=== PATIENT | male | born 1950 | race Caucasian/White ===

== ENCOUNTER 2018-03-06 11:29 | Emergency (ER) | payer OTHER ==
[2018-03-06 11:40] VITALS: BMI 27.9
[2018-03-06 11:46] VITALS: TEMP 98.8
--- NOTE | 2018-03-06 12:26 | C.PDOC ---
History Of Present Illness 67 year old male, whose PMHx includes Diabetes, presents to the ED for evaluation of left lower leg pain which began around 3 days ago. Patient also reports ulceration to his left great toe which has been present for 2 weeks. He has been applying patches to the areas without relief. Patient denies fever, chills, chest pain, abdominal pain, or direct trauma/injury to the area. PMD: Rose Marie Cifuentes Time Seen by Provider: 03/06/18 11:59 Chief Complaint (Nursing): Lower Extremity Problem/Injury History Per: Patient History/Exam Limitations: no limitations Onset/Duration Of Symptoms: Days (3), Other (2 weeks ) Current Symptoms Are (Timing): Still Present Additional History Per: Patient - Ankle/Foot Description Of Injury: denies: Fell, Struck With Object, Struck Against Object Past Medical History Reviewed: Historical Data, Nursing Documentation, Vital Signs Vital Signs: Last Vital Signs Temp 98.8 F 03/06/18 11:40 Pulse 83 03/06/18 15:43 Resp 20 03/06/18 15:43 BP 164/90 H 03/06/18 15:43 Pulse Ox 95 03/06/18 15:43 - Medical History PMH: Benign Prostatic Hyperplasia (Prostatectomy 2012), Diabetes, HTN Denies: Chronic Kidney Disease Surgical History: No Surg Hx - [facility] Procedures CENTRAL VENOUS CATHETER PLACEMENT WITH GUIDANCE (01/25/13) INDWELL CATH IRRIG NEC (12/20/12) INSERT INDWELLING CATH (12/24/12) PACKED CELL TRANSFUSION (12/29/12) SUPRAPUBIC PROSTATECTOMY (12/29/12) TU BLADDER CLEARANCE (12/26/12) Family History: States: Unknown Family Hx - Social History Hx Tobacco Use: Yes Hx Alcohol Use: Yes Hx Substance Use: No - Immunization History Hx Tetanus Toxoid Vaccination: No Hx Influenza Vaccination: No Hx Pneumococcal Vaccination: No Review Of Systems Constitutional: Negative for: Fever, Chills Cardiovascular: Negative for: Chest Pain Gastrointestinal: Negative for: Abdominal Pain Musculoskeletal: Positive for: Leg Pain (left) Skin: Positive for: Other (ulceration to left great toe ) Physical Exam - Physical Exam Appears: Non-toxic, No Acute Distress Skin: Normal Color, Warm, Dry Head: Atraumatic, Normacephalic Eye(s): bilateral: Normal Inspection Oral Mucosa: Moist Neck: Supple Chest: Symmetrical, No Deformity, No Tenderness Cardiovascular: Rhythm Regular, No Murmur Respiratory: Normal Breath Sounds, No Rales, No Rhonchi, No Wheezing Gastrointestinal/Abdominal: Soft, No Tenderness, No Guarding, No Rebound Extremity: Normal ROM, Calf Tenderness (left), Capillary Refill (less than 2 seconds ), No Swelling, Other (ulceration to left great toe that is tender to palpation. no crepitus ) Pulses: Left Dorsalis Pedis: Normal, Right Dorsalis Pedis: Normal Neurological/Psych: Oriented x3, Normal Speech, Normal Cognition ED Course And Treatment - Laboratory Results Result Diagrams: 03/06/18 12:38 03/06/18 12:38 O2 Sat by Pulse Oximetry: 97 (on RA) Pulse Ox Interpretation: Normal Medical Decision Making Medical Decision Making: Assessment: left leg pain and left big toe cellulitis Plan: * bloodwork * urinalysis * CXR * left foot XR * Venous Duplex Scan Left lower extremity * Ultram PO * reassess and disposition Progress: Bloodwork, urinalysis, CXR, left foot XR, and Venous Duplex Scan left lower extremity ordered. Ultram PO given. 12:22 Case discussed with Podiatry resident, who states she will evaluate the patient at beside. 1510 - patient okay to be discharged as per podiatry. Doppler negative for dvt. Pain control for home and follow up with podiatry clinic on 03/13/18 podiatry initially did not want to start abics but now agree with augmentin for home. Disposition Counseled Patient/Family Regarding: Studies Performed, Diagnosis, Need For Followup, Rx Given - Disposition Referrals: Podiatry Clinic [Outside] (please report to [facility] on 03.13.18 at 12pm ) Disposition: HOME/ ROUTINE Disposition Time: 15:07 Condition: STABLE Additional Instructions: follow up with podiatry clinic as planned on 03.13.18 call to make an appointment take medications as prescribed return to ER if symptoms worsens or progress Prescriptions: Amoxicillin/Clavulanate [Augmentin 875 MG-125 MG] 1 tab PO BID #20 tab Naproxen [Naprosyn] 500 mg PO BID PRN #16 tab PRN Reason: Pain, Moderate (4-7) traMADol [Ultram] 50 mg PO TID PRN #12 tab PRN Reason: Pain, Moderate (4-7) Instructions: Mcneal Splints, Pressure Sores Forms: [facility] (Faroese), General Discharge Instructions - Clinical Impression Clinical Impression: Toe ulcer, Leg pain - Scribe Statement The provider has reviewed the documentation as recorded by the Scribe (Aliza Flores) Provider Attestation: All medical record entries made by the Scribe were at my direction and personally dictated by me. I have reviewed the chart and agree that the record accurately reflects my personal performance of the history, physical exam, medical decision making, and the department course for this patient. I have also personally directed, reviewed, and agree with the discharge instructions and disposition.
[2018-03-06 12:42] LABS: BASO # 0.1 K/uL (0.0-0.2); BASO % 0.9 % (0.0-2.0); EOS # 0.1 K/uL (0.0-0.7); EOS % 0.8 % (0.0-4.0); HEMOGLOBIN 14.9 g/dL (12.0-18.0); LYMPH # 1.5 K/uL (1.0-4.3); LYMPH % 15.9 % (20.0-40.0); MEAN CORPUSCULAR HEMOGLOBIN 29.7 pg (27.0-31.0); MEAN CORPUSCULAR HGB CONC 34.2 g/dL (33.0-37.0); MONO # 0.9 K/uL (0.0-0.8); MONO % 9.2 % (0.0-10.0); NEUT # 6.8 K/uL (1.8-7.0); NEUT % 73.2 % (50.0-75.0); RBC 5.01 Mil/uL (4.40-5.90); RED CELL DISTRIBUTION WIDTH 13.3 % (11.5-14.5); WHITE BLOOD COUNT 9.3 K/uL (4.8-10.8)
[2018-03-06 12:49] LABS: PROTHROMBIN TIME 10.8 SECONDS (9.7-12.2)
[2018-03-06 12:51] LABS: MEAN CELL VOLUME 86.8 fL (80.0-94.0)
[2018-03-06 12:59] LABS: ALBUMIN 4.1 g/dL (3.5-5.0); BLOOD UREA NITROGEN 20 mg/dL (9-20); CALCIUM 9.5 mg/dl (8.6-10.4); GFR AFRICAN-AMERICAN > 60; GFR NON-AFRICAN AMERICAN > 60
[2018-03-06 13:00] LABS: ALB/GLOB RATIO 1.1 (1.0-2.1); ALT/SGPT 18 U/L (21-72); AST/SGOT 14 U/L (17-59)
[2018-03-06 13:06] LABS: URINE BILIRUBIN NEGATIVE (NEGATIVE); URINE BLOOD NEGATIVE (NEGATIVE); URINE CLARITY Clear (Clear); URINE COLOR Yellow (YELLOW); URINE GLUCOSE (UA) 3+ mg/dL (Normal); URINE LEUKOCYTE ESTERASE NEG Leu/uL (Negative); URINE PROTEIN 2+ mg/dL (NEGATIVE)
--- NOTE | 2018-03-06 13:14 | RAD ---
Date of service: 03/06/2018 PROCEDURE: CHEST RADIOGRAPH, 1 VIEW HISTORY: SOB COMPARISON: Chest radiograph dated 01/06/2016. FINDINGS: LUNGS: Clear. PLEURA: No pneumothorax or pleural fluid seen. CARDIOVASCULAR: Normal. OSSEOUS STRUCTURES: Unchanged. VISUALIZED UPPER ABDOMEN: Normal. OTHER FINDINGS: None. IMPRESSION: No active disease.
--- NOTE | 2018-03-06 13:15 | RAD ---
Date of service: 03/06/2018 PROCEDURE: Left Foot Radiographs. HISTORY: toe redness COMPARISON: None. FINDINGS: BONES: No acute fracture. JOINTS: Normal. SOFT TISSUES: Normal. OTHER FINDINGS: Small inferior plantar calcaneal spur. IMPRESSION: No demonstrated fracture or dislocation. Heel spur.
[2018-03-06 13:29] LABS: SQUAMOUS EPITHIAL < 1 /hpf (0-5)
--- NOTE | 2018-03-06 13:43 | CP.PCM.CON ---
History of Present Illness - History of Present Illness History of Present Illness: Podiatry Consult Note - Dr. Hoskins 67M PMHx DM, HLD seen and evaluated in ED regarding left leg pain and left great toe wound. Patient hemodynamically stable and NAD. Family present at bedside. Patient c/o pain in left calf which started 3 days ago. Patient denies any trauma or change in activity. Patient states he ambulates without any issues ; denies any symptoms of calf pain when walking long distances. Patient also complains of an ulcer to the bottom of his left great toe x2-3 weeks. Patient states the wound first started out as a blister which he popped, then developed into a larger wound. Patient denies any prior treatment or dressings to wound. Patient denies any pain to left great toe. Denies N/V/F/D/C/SOB. Review of Systems - Review of Systems All systems: reviewed and no additional remarkable complaints except (as per HPI ) Past Patient History - Infectious Disease Hx of Infectious Diseases: None - Past Medical History & Family History Past Medical History?: Yes - Past Social History Smoking Status: Light Smoker < 10 Cigarettes Daily - CARDIAC Hx Hypertension: Yes - PULMONARY Hx Respiratory Disorders: No - NEUROLOGICAL Hx Neurological Disorder: No - HEENT Hx HEENT Problems: No - RENAL Hx Chronic Kidney Disease: No - ENDOCRINE/METABOLIC Hx Endocrine Disorders: Yes Hx Diabetes Mellitus Type 2: Yes - HEMATOLOGICAL/ONCOLOGICAL Hx Blood Disorders: No - INTEGUMENTARY Hx Dermatological Problems: No - MUSCULOSKELETAL/RHEUMATOLOGICAL Hx Musculoskeletal Disorders: No Hx Falls: No - GASTROINTESTINAL Hx Gastrointestinal Disorders: No - GENITOURINARY/GYNECOLOGICAL Hx Genitourinary Disorders: Yes Hx Prostate Problems: Yes - PSYCHIATRIC Hx Substance Use: No - SURGICAL HISTORY Hx Surgeries: Yes Other/Comment: Prostatectomy - ANESTHESIA Hx Anesthesia: Yes Hx Anesthesia Reactions: No Hx Malignant Hyperthermia: No Meds Home Medications: Home Medication List Medication Instructions Recorded Confirmed Type Amoxicillin/Clavulanate [Augmentin 1 tab PO BID #20 tab 03/06/18 Rx 875 MG-125 MG] Naproxen [Naprosyn] 500 mg PO BID PRN #16 tab 03/06/18 Rx traMADol [Ultram] 50 mg PO TID PRN #12 tab 03/06/18 Rx Allergies/Adverse Reactions: Allergies Allergy/AdvReac Type Severity Reaction Status Date / Time No Known Allergies Allergy Verified 03/06/18 11:40 Physical Exam - Constitutional Appears: Well, Non-toxic, No Acute Distress - Extremities Exam Additional comments: LLE focused physical exam VASC: DP and PT pulses palpable 2/4. CFT <3 seconds to digits x5. Temperature gradient warm to warm. No increase in warmth noted to left hallux. Mild nonpitting edema noted to left hallux. No edema noted to leg. NEURO: Gross sensation diminished DERM: Full thickness ulceration noted to plantar aspect of left hallux measuring approximately 1.4 x 1.4 x 0.1 cm extending down to subcutaneous tissue ; no drainage noted; malodor present; no purulence present; no fluctuance; no undermining; no probe to bone. Erythema extending proximal to 1st MPJ. No erythema noted to leg. ORTHO: No pain on palpation noted to left hallux ulcer. Pain upon calf squeeze. Pain on palpation medial calf. Muscle strength 5/5 for all dorsiflexors, plantarflexors, inverters, and everters. - Neurological Exam Neurological exam: Alert, Oriented x3 - Psychiatric Exam Psychiatric exam: Normal Affect, Normal Mood Results - Vital Signs Recent Vital Signs: Last Vital Signs Temp 98.8 F 03/06/18 11:40 Pulse 87 03/06/18 11:40 Resp 16 03/06/18 11:40 BP 157/91 H 03/06/18 11:40 Pulse Ox 97 03/06/18 12:36 - Labs Result Diagrams: 03/06/18 12:38 03/06/18 12:38 Labs: Laboratory Results - last 24 hr 03/06/18 03/06/18 03/06/18 11:43 12:38 12:38 WBC 9.3 RBC 5.01 Hgb 14.9 Hct 43.5 MCV 86.8 D MCH 29.7 MCHC 34.2 RDW 13.3 Plt Count 235 MPV 8.0 Neut % (Auto) 73.2 Lymph % (Auto) 15.9 L [place] % (Auto) 9.2 Eos % (Auto) 0.8 Baso % (Auto) 0.9 Neut # (Auto) 6.8 Lymph # (Auto) 1.5 [place] # (Auto) 0.9 H Eos # (Auto) 0.1 Baso # (Auto) 0.1 PT 10.8 INR 1.0 APTT 35 H Sodium Potassium Chloride Carbon Dioxide Anion Gap BUN Creatinine Est GFR ( Amer) Est GFR (Non-Af Amer) POC Glucose (mg/dL) 202 H Random Glucose Calcium Total Bilirubin AST ALT Alkaline Phosphatase Total Creatine Kinase Total Protein Albumin Globulin Albumin/Globulin Ratio Urine Color Urine Clarity Urine pH Ur Specific [place] Urine Protein Urine Glucose (UA) Urine Ketones Urine Blood Urine Nitrate Urine Bilirubin Urine Urobilinogen Ur Leukocyte Esterase Urine WBC (Auto) Urine RBC (Auto) Ur Squamous Epith Cells 03/06/18 03/06/18 12:38 12:38 WBC RBC Hgb Hct MCV MCH MCHC RDW Plt Count MPV Neut % (Auto) Lymph % (Auto) [place] % (Auto) Eos % (Auto) Baso % (Auto) Neut # (Auto) Lymph # (Auto) [place] # (Auto) Eos # (Auto) Baso # (Auto) PT INR APTT Sodium 139 Potassium 3.9 Chloride 97 L Carbon Dioxide 31 H Anion Gap 15 BUN 20 Creatinine 1.0 Est GFR ( Amer) > 60 Est GFR (Non-Af Amer) > 60 POC Glucose (mg/dL) Random Glucose 176 H Calcium 9.5 Total Bilirubin 0.9 AST 14 L ALT 18 L Alkaline Phosphatase 114 Total Creatine Kinase 50 L Total Protein 7.8 Albumin 4.1 Globulin 3.7 Albumin/Globulin Ratio 1.1 Urine Color Yellow Urine Clarity Clear Urine pH 5.0 Ur Specific [place] 1.026 Urine Protein 2+ H Urine Glucose (UA) 3+ H Urine Ketones Negative Urine Blood Negative Urine Nitrate Negative Urine Bilirubin Negative Urine Urobilinogen 4.0 Ur Leukocyte Esterase Neg Urine WBC (Auto) < 1 Urine RBC (Auto) < 1 Ur Squamous Epith Cells < 1 Assessment & Plan - Assessment and Plan (Free Text) Assessment: 67M with 1) left hallux ulcer 2/2 diabetic neuropathy and 2) left leg pain, musculoskeletal v. DVT Plan: Patient seen and evaluated Discussed with attending, Dr. Hoskins Left foot XR reviewed: unremarkable LLE venous duplex: negative for DVT Wound sharply debrided without incident; silvadene applied to wound -advised patient to continue daily dressing changes at home, thin later of silvadene with DSD Rx Augmentin x10 days Pain control per ED Patient to follow up in [facility] next Tuesday for evaluation of ulceration Advised patient to return to ED if he develops signs and symptoms of infection, or symptoms worsen Thank you for the consult
[2018-03-06] MEDS ORDERED: Silver Sulfadiazine 1% Cream (20 gm) TOP SCH (14:30)
[2018-03-06] MEDS ORDERED: Silver Sulfadiazine 1% Cream (20 gm) ONE (14:48)
[2018-03-06] MEDS ORDERED: Amoxicillin-Clav 875-125 mg Tab PO STA (15:17)
[2018-03-06] MEDS ORDERED: Amoxicillin-Clav 875-125 mg Tab PO ONE (15:37)
[2018-03-06 15:43] VITALS: BP 164/90; PULSE 83; RESP 20
[2018-03-06 18:47] VITALS: O2SAT 97
--- NOTE | 2018-03-07 12:17 | VASCLAB ---
Date of service: 03/06/2018 PROCEDURE: Left Lower Extremity Venous Duplex Exam. HISTORY: calf tenderness PRIORS: None. TECHNIQUE: Left common femoral, femoral, popliteal and posterior tibial, peroneal and great saphenous veins were evaluated. Flow was assessed with color Doppler, compressibility, assessment of phasic flow and augmentation response. Report prepared by XIOMARA Avilez, RVT FINDINGS: LEFT: 1. Common Femoral Vein: 1.1. Compressibility - Fully compressible: Thrombus - None : Flow - Phasic: Augmentation -Normal: Reflux - None. 2. Femoral Vein: 2.1. Compressibility - Fully compressible: Thrombus - None: Flow - Phasic: Augmentation -Normal: Reflux - None. 3. Popliteal Vein: 3.1. Compressibility - Fully compressible: Thrombus - None: Flow - Phasic: Augmentation -Normal: Reflux - None. 4. Posterior Tibial Vein: 4.1. Compressibility - Fully compressible: Thrombus - None: Flow - Phasic: Augmentation -Normal: Reflux - None. 5. Peroneal Vein: 5.1. Compressibility - Fully compressible: Thrombus - None: Flow - Phasic: Augmentation -Normal: Reflux - None. 6. Great Saphenous Vein: 6.1. Compressibility - Fully compressible: Thrombus - None: Flow - Phasic: Augmentation - Normal: Reflux - None. OTHER FINDINGS: IMPRESSION: No evidence of deep or superficial vein thrombosis of the left lower extremity with excellent venous flow. Normal valve function noted of the left side. Normal venous flow noted in the right common femoral vein.
== END 2018-03-06 16:19 | disposition home or self-care (01) ==
LOC: C.ER 11:29
DX: E11.621 Type 2 diabetes mellitus with foot ulcer (principal); L97.529 Non-pressure chronic ulcer of other part of left foot with unspecified severity; M79.605 Pain in left leg; I10 Essential (primary) hypertension; F17.210 Nicotine dependence, cigarettes, uncomplicated

== ENCOUNTER 2018-03-18 19:18 | Emergency (ER) | payer OTHER ==
[2018-03-18 19:18] VITALS: BMI 27.9
[2018-03-18 19:42] VITALS: TEMP 98
[2018-03-18] MEDS ORDERED: Lidocaine 5% Patch TD STA (19:42)
--- NOTE | 2018-03-18 19:43 | C.PDOC ---
History Of Present Illness 67 year old male presents to the emergency department with complaints of left- sided lower back pain which he states developed yesterday, radiating down his left leg. Patient reports the pain has worsened when he is walking and bending down. He denies trauma, numbness, weakness, bowel or bladder incontinence, and abdominal pain. Patient is also reporting that he has a chronic wound to the left great toe that he would like checked. Time Seen by Provider: 03/18/18 19:28 Chief Complaint (Nursing): Back Pain History Per: Patient History/Exam Limitations: no limitations Onset/Duration Of Symptoms: Days (1) Current Symptoms Are (Timing): Still Present Quality Of Discomfort: "Pain" Associated Symptoms: denies: Incontinence, New Weakness, New Numbness Exacerbating Factor(s): Standing, Other (walking) Past Medical History Reviewed: Historical Data, Nursing Documentation, Vital Signs Vital Signs: Last Vital Signs Temp 98.0 F 03/18/18 19:20 Pulse 64 03/18/18 20:32 Resp 16 03/18/18 20:32 BP 146/85 03/18/18 20:32 Pulse Ox 95 03/18/18 20:35 - Medical History PMH: Benign Prostatic Hyperplasia (Prostatectomy 2012), Diabetes, HTN Denies: Chronic Kidney Disease Surgical History: No Surg Hx - [facility] Procedures CENTRAL VENOUS CATHETER PLACEMENT WITH GUIDANCE (01/25/13) INDWELL CATH IRRIG NEC (12/20/12) INSERT INDWELLING CATH (12/24/12) PACKED CELL TRANSFUSION (12/29/12) SUPRAPUBIC PROSTATECTOMY (12/29/12) TU BLADDER CLEARANCE (12/26/12) Family History: States: No Known Family Hx - Social History Hx Tobacco Use: Yes Hx Alcohol Use: Yes Hx Substance Use: No - Immunization History Hx Tetanus Toxoid Vaccination: No Hx Influenza Vaccination: No Hx Pneumococcal Vaccination: No Review Of Systems Except As Marked, All Systems Reviewed And Found Negative. Gastrointestinal: Negative for: Abdominal Pain Genitourinary: Negative for: Incontinence Musculoskeletal: Positive for: Back Pain, Leg Pain (left leg pain radiating down from left-sided back) Neurological: Negative for: Weakness, Numbness Physical Exam - Physical Exam Appears: Non-toxic, No Acute Distress Skin: Normal Color, No Rash Head: Atraumatic, Normacephalic Eye(s): bilateral: Normal Inspection Oral Mucosa: Moist Neck: Normal ROM, No Midline Cervical Tenderness, No Paracervical Tenderness, Supple Chest: Symmetrical, No Tenderness Cardiovascular: Rhythm Regular, No Friction Rub, No Murmur Respiratory: Normal Breath Sounds, No Rales, No Rhonchi, No Wheezing Gastrointestinal/Abdominal: Soft, No Tenderness Back: No CVA Tenderness, Other (Left sided paralumbar tenderness) Extremity: Normal ROM, No Tenderness, No Swelling, Other (1cm area of healing wound to the plantar aspect of the great left toe. ) Pulses: Left Dorsalis Pedis: Normal, Right Dorsalis Pedis: Normal Neurological/Psych: Oriented x3, Normal Speech, Normal Motor, Normal Sensation Gait: Steady ED Course And Treatment O2 Sat by Pulse Oximetry: 95 (on RA) Pulse Ox Interpretation: Normal Progress Note: Plan: Flexeril 10mg PO. Lidoderm 5% 1ea TD. Tylenol 975mg PO. XR L-Spine AP LAT Medical Decision Making Medical Decision Making: On re-exam, the patient reports improvement of symptoms. Lungs are CTA, heart is RRR, abdomen is soft, non-tender and tolerating Po well. Ambulatory in the ED with steady gait. The wound to the toe appears to be improving. Patient was instructed to continue taking antibiotics until complete. Disposition - Disposition Referrals: Deven Harmon MD [Non-Staff] - [facility] [Outside] Disposition: HOME/ ROUTINE Disposition Time: 20:22 Condition: GOOD Additional Instructions: Follow up with the Liquor Department Manager within 1-2 days without fail. return if worsened Prescriptions: Acetaminophen [Tylenol] 325 mg PO Q6 PRN #30 tab PRN Reason: Pain, Mild (1-3) Cyclobenzaprine [Flexeril] 5 mg PO TID #21 tab Lidocaine 5% [Lidoderm] 1 each TP DAILY #10 patch Instructions: Low Back Pain (DC) Forms: [employer] (Cook Islander) - Clinical Impression Clinical Impression: Diabetic ulcer of toe, Low back pain - PA / DATA CONTROL ASSISTANT / Resident Statement MD/DO has reviewed & agrees with the documentation as recorded. - Scribe Statement The provider has reviewed the documentation as recorded by the Scribe (Brad Casas) All medical record entries made by the Scribe were at my direction and personally dictated by me. I have reviewed the chart and agree that the record accurately reflects my personal performance of the history, physical exam, medical decision making, and the department course for this patient. I have also personally directed, reviewed, and agree with the discharge instructions and disposition.
[2018-03-18] MEDS ORDERED: Lidocaine 5% Patch TD ONE (19:49)
[2018-03-18 20:32] VITALS: BP 146/85; PULSE 64; RESP 16
[2018-03-18 20:34] VITALS: O2SAT 95
--- NOTE | 2018-03-19 08:28 | RAD ---
Date of service: 03/18/2018 PROCEDURE: Radiographs of the Lumbar Spine. HISTORY: low back pain, COMPARISON: No prior. FINDINGS: BONES: Straightened lumbar curvature without fracture or spondylolisthesis identified. Multilevel spondylosis appears moderate and affects the mid to inferior levels mostly. Disc height loss is prominent at L5-S1 and mild L4-5 further compatible with degenerative disc disease. Remaining intervertebral disc heights are normal prevertebral body heights are normal throughout. DISC SPACES: As above. OTHER FINDINGS: None. IMPRESSION: Straightened lumbar curvature without fracture or spondylolisthesis. Multilevel degenerative spondylosis predominantly at mid and inferior lumbar levels.
== END 2018-03-18 20:34 | disposition home or self-care (01) ==
LOC: C.ER 19:18
DX: M54.5 Low back pain (principal); E11.621 Type 2 diabetes mellitus with foot ulcer; L97.529 Non-pressure chronic ulcer of other part of left foot with unspecified severity

== ENCOUNTER 2018-04-05 07:34 | Inpatient (IN) | payer OTHER ==
[2018-04-05 07:34] VITALS: BMI 27.9
--- NOTE | 2018-04-05 08:44 | C.PDOC ---
History Of Present Illness 67 y/o male presents to ED sent by Dr. Marie for further evaluation and possible admission of non healing ulcer to plantar aspect of left great toe. Patient has had ulcer for 1 month and failed outpatient antibiotics. Patient denies fever, numbness to foot or any other complaints at this time. Time Seen by Provider: 04/05/18 07:50 Chief Complaint (Nursing): Lower Extremity Problem/Injury History Per: Patient History/Exam Limitations: no limitations Onset/Duration Of Symptoms: Days Current Symptoms Are (Timing): Still Present Past Medical History Reviewed: Historical Data, Nursing Documentation, Vital Signs Vital Signs: Last Vital Signs Temp 97.9 F 04/05/18 07:35 Pulse 80 04/05/18 07:35 Resp 18 04/05/18 07:35 BP 137/76 04/05/18 07:35 Pulse Ox 97 04/05/18 14:21 - Medical History PMH: Benign Prostatic Hyperplasia (Prostatectomy 2012), Diabetes, HTN Surgical History: No Surg Hx - [facility] Procedures CENTRAL VENOUS CATHETER PLACEMENT WITH GUIDANCE (01/25/13) INDWELL CATH IRRIG NEC (12/20/12) INSERT INDWELLING CATH (12/24/12) PACKED CELL TRANSFUSION (12/29/12) SUPRAPUBIC PROSTATECTOMY (12/29/12) TU BLADDER CLEARANCE (12/26/12) Family History: States: No Known Family Hx - Social History Hx Tobacco Use: Yes Hx Alcohol Use: Yes Hx Substance Use: No - Immunization History Hx Tetanus Toxoid Vaccination: No Hx Influenza Vaccination: No Hx Pneumococcal Vaccination: No Review Of Systems Constitutional: Negative for: Fever, Chills Skin: Positive for: Other (unhealed ulcer to left great toe). Negative for: Rash Neurological: Negative for: Weakness, Numbness Physical Exam - Physical Exam Appears: Non-toxic, No Acute Distress Skin: Warm, Dry, Other (ecchymotic left great toe, plantar aspect to left big toe unhealed ulcer noted. no drainage) Head: Atraumatic, Normacephalic Eye(s): bilateral: Normal Inspection Oral Mucosa: Moist Cardiovascular: Rhythm Regular Respiratory: Normal Breath Sounds, No Rales, No Rhonchi, No Wheezing Extremity: No Pedal Edema, Capillary Refill (<2 seconds), No Deformity Pulses: Left Dorsalis Pedis: Normal Neurological/Psych: Oriented x3, Normal Motor, Normal Sensation ED Course And Treatment - Laboratory Results Result Diagrams: 04/05/18 09:01 04/05/18 09:01 Lab Interpretation: No Acute Changes ECG: Interpreted By Me ECG Rhythm: Sinus Rhythm ECG Interpretation: No Acute Changes Rate From EC O2 Sat by Pulse Oximetry: 97 (RA) Pulse Ox Interpretation: Normal - Other Rad No standard instances X-Ray: Read By Radiologist Interpretation: FINDINGS: BONES: Normal. No fracture. Re- demonstrated is a small enthesophyte arising from the plantar surface of the calcaneus. . JOINTS : Normal. SOFT TISSUES: Normal. OTHER FINDINGS: None. IMPRESSION: No acute fractures. Progress Note: Treated with IVF NSS, Vancomycin and zosyn. Consult for Dr Ghotra Reassessment Condition: Unchanged - Physician Consult Information Physician Contacted: Joseph Flores Outcome Of Conversation: admit Disposition Discussed With .: Joseph Flores Doctor Will See Patient In The: Hospital - Disposition Disposition: HOSPITALIZED Disposition Time: 10:30 Condition: STABLE - POA Present On Arrival: None - Clinical Impression Clinical Impression: Diabetic ulcer of toe - PA / GROUT MACHINE TENDER / Resident Statement MD/DO has reviewed & agrees with the documentation as recorded. - Scribe Statement The provider has reviewed the documentation as recorded by the Lalaibvalerie Corrigan All medical record entries made by the Olegario were at my direction and personally dictated by me. I have reviewed the chart and agree that the record accurately reflects my personal performance of the history, physical exam, medical decision making, and the department course for this patient. I have also personally directed, reviewed, and agree with the discharge instructions and disposition. Decision To Admit - Pt Status Changed To: Hospital Disposition Of: Inpatient - Admit Certification Admit to Inpatient:: After my assessment, the patient will require hospitalization for at least two midnights. This is because of the severity of symptoms shown, intensity of services needed, and/or the medical risk in this patient being treated as an outpatient. - InPatient: Physician Admission Certification: I certify that this patient requires 2 or more midnights of care for the following reason:: Diabetic Foot Ulcer. PVD - . Bed Request Type: Regular Admitting Physician: Joseph Flores Patient Diagnosis: Diabetic ulcer of toe
[2018-04-05 09:12] LABS: BASO % 0.4 % (0.0-2.0); EOS # 0.1 K/uL (0.0-0.7); EOS % 2.1 % (0.0-4.0); HEMOGLOBIN 14.8 g/dL (12.0-18.0); LYMPH # 1.6 K/uL (1.0-4.3); LYMPH % 23.4 % (20.0-40.0); MEAN CELL VOLUME 85.9 fL (80.0-94.0); MEAN CORPUSCULAR HEMOGLOBIN 28.6 pg (27.0-31.0); MEAN CORPUSCULAR HGB CONC 33.3 g/dL (33.0-37.0); MEAN PLATELET VOLUME 7.9 fL (7.2-11.7); MONO # 0.8 K/uL (0.0-0.8); NEUT # 4.3 K/uL (1.8-7.0); NEUT % 63.1 % (50.0-75.0); NRBC % 0.1 % (0.0-2.0); RBC 5.16 Mil/uL (4.40-5.90); RED CELL DISTRIBUTION WIDTH 13.3 % (11.5-14.5); WHITE BLOOD COUNT 6.9 K/uL (4.8-10.8)
[2018-04-05 09:31] LABS: SQUAMOUS EPITHIAL < 1 /hpf (0-5); URINE BILIRUBIN NEGATIVE (NEGATIVE); URINE BLOOD NEGATIVE (NEGATIVE); URINE CLARITY Clear (Clear); URINE COLOR Yellow (YELLOW); URINE GLUCOSE (UA) 3+ mg/dL (Normal); URINE LEUKOCYTE ESTERASE NEG Leu/uL (Negative); URINE PROTEIN 2+ mg/dL (NEGATIVE); URINE UROBILINOGEN NORMAL mg/dL (0.2-1.0)
--- NOTE | 2018-04-05 09:35 | RAD ---
Date of service: 04/05/2018 PROCEDURE: Left Foot Radiographs. HISTORY: ulcer COMPARISON: Comparison made with prior radiographs of the left foot dated 03/06/2018. FINDINGS: BONES: Normal. No fracture. Re- demonstrated is a small enthesophyte arising from the plantar surface of the calcaneus. . JOINTS: Normal. SOFT TISSUES: Normal. OTHER FINDINGS: None. IMPRESSION: No acute fractures.
[2018-04-05 09:44] LABS: ALB/GLOB RATIO 1.2 (1.0-2.1); ALBUMIN 4.3 g/dL (3.5-5.0); ALT/SGPT 26 U/L (21-72); AST/SGOT 19 U/L (17-59); BLOOD UREA NITROGEN 24 mg/dL (9-20); CALCIUM 9.6 mg/dl (8.6-10.4); GFR NON-AFRICAN AMERICAN > 60
[2018-04-05] MEDS ORDERED: Piperacillin/Tazobact 3.375 gm 100 ML IV STA (10:19)
[2018-04-05] MEDS ORDERED: Vancomycin 1 GM 1 GM/250 ML BAG IV SCH (10:30)
[2018-04-05] MEDS ORDERED: Vancomycin 1 gm/NS 200 ml 1 GM/200 ML BAG IVPB STA (10:34)
[2018-04-05] MEDS ORDERED: Piperacillin/Tazobact 3.375 gm 100 ML IVPB ONE (10:58)
[2018-04-05] MEDS ORDERED: CANAGLIFLOZIN 300 MG PO SCH (12:00)
[2018-04-05] MEDS ORDERED: Dextrose 50% SYRINGE Inj (50 ml) IV PRN (12:11)
[2018-04-05] MEDS ORDERED: Glucagon Recombinant 1 mg Inj IM PRN (12:11)
--- NOTE | 2018-04-05 13:26 | CP.PCM.HP ---
Addendum entered and electronically signed by Lisa Dunn 04/05/18 16:23: LE MRI reveals acute osteomyelitis Original Note: <Lisa Dunn - Last Filed: 04/05/18 16:13> History of Present Illness - History of Present Illness History of Present Illness: 67 yo M w/ a PMHx of DM2 presents to the ED at the request of podiatry for a worsening 1st toe infection. Patient's injury first started approximately 1 month ago when he reports he began picking at some dry skin on the plantar surface of the 1st great toe. Patient then noticed the area became infected and presented to the ED on 03/06 for evaluation. Pt was discharged on Augmentin 10 days, to follow up w/ podiatry. Patient was not compliant w/ podiatry's recommendation to wear a boot. Pt reports his pain improved so he normal activity without his boot. Patient's daughter then noticed toe becoming more erythematous. At podiatry follow up yesterday, it was recommended pt return to ED for thorough evaluation. PMD. Mami PMHx: DM2 PSHx: Meds: Invokana 300mg PO, Metformin 500mg PO BID Allergies: NKDA Soc Hx: 1-2 cigs/day, 5-6 drinks per week, denies drug use. 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 Fam Hx: DM, HTN FULL CODE Present on Admission - Present on Admission Any Indicators Present on Admission: No Review of Systems - Constitutional Constitutional: absent: Chills - EENT Eyes: absent: Change in Vision - Cardiovascular Cardiovascular: absent: Chest Pain, Claudication, Dyspnea on Exertion, Palpitations - Respiratory Respiratory: absent: Cough, Dyspnea - Gastrointestinal Gastrointestinal: absent: Abdominal Pain, Constipation, Diarrhea, Hematochezia - Genitourinary Genitourinary: absent: Difficulty Urinating, Dysuria - Integumentary Integumentary: Erythema, Wounds (left great toe) - Neurological Neurological: absent: Abnormal Gait, Paresthesias, Weakness - Endocrine Endocrine: absent: Polydipsia, Polyphagia, Polyuria - Hematologic/Lymphatic Hematologic: absent: Easy Bleeding Past Patient History - Infectious Disease Hx of Infectious Diseases: None - Past Medical History & Family History Past Medical History?: Yes - Past Social History Smoking Status: Light Smoker < 10 Cigarettes Daily - CARDIAC Hx Hypertension: Yes - PULMONARY Hx Respiratory Disorders: No - NEUROLOGICAL Hx Neurological Disorder: No - HEENT Hx HEENT Problems: No - RENAL Hx Chronic Kidney Disease: No - ENDOCRINE/METABOLIC Hx Endocrine Disorders: Yes Hx Diabetes Mellitus Type 2: Yes - HEMATOLOGICAL/ONCOLOGICAL Hx Blood Disorders: No - INTEGUMENTARY Hx Dermatological Problems: No - MUSCULOSKELETAL/RHEUMATOLOGICAL Hx Musculoskeletal Disorders: No Hx Falls: No - GASTROINTESTINAL Hx Gastrointestinal Disorders: No - GENITOURINARY/GYNECOLOGICAL Hx Genitourinary Disorders: Yes - PSYCHIATRIC Hx Substance Use: No - SURGICAL HISTORY Hx Surgeries: Yes Other/Comment: Prostatectomy - ANESTHESIA Hx Anesthesia: Yes Hx Anesthesia Reactions: No Hx Malignant Hyperthermia: No Meds Allergies/Adverse Reactions: Allergies Allergy/AdvReac Type Severity Reaction Status Date / Time No Known Allergies Allergy Verified 03/18/18 19:23 Physical Exam - Constitutional Appears: Non-toxic, No Acute Distress - Head Exam Head Exam: ATRAUMATIC, NORMAL INSPECTION, NORMOCEPHALIC - Eye Exam Eye Exam: EOMI, Normal appearance Pupil Exam: PERRL - ENT Exam ENT Exam: Mucous Membranes Moist, Normal Exam - Neck Exam Neck exam: Positive for: Normal Inspection. Negative for: Lymphadenopathy - Respiratory Exam Respiratory Exam: Clear to Auscultation Bilateral, NORMAL BREATHING PATTERN. absent: Rales, Wheezes - Cardiovascular Exam Cardiovascular Exam: REGULAR RHYTHM, +S1, +S2. absent: Tachycardia, Systolic Murmur - GI/Abdominal Exam GI & Abdominal Exam: Normal Bowel Sounds, Soft. absent: Distended, Tenderness - Extremities Exam Extremities exam: Positive for: joint swelling (left great toe swollen and erythematous. Plantar lesion noted with black necrotic tissue), normal capillary refill, normal inspection, pedal pulses present. Negative for: calf tenderness, pedal edema - Neurological Exam Neurological exam: Alert, Oriented x3 - Psychiatric Exam Psychiatric exam: Normal Affect, Normal Mood - Skin Skin Exam: Dry, Intact, Normal Color, Warm Results - Vital Signs Recent Vital Signs: Last Vital Signs Temp 97.9 F 04/05/18 07:35 Pulse 80 04/05/18 07:35 Resp 18 04/05/18 07:35 BP 137/76 04/05/18 07:35 Pulse Ox 97 04/05/18 10:31 - Labs Result Diagrams: 04/05/18 09:01 04/05/18 09:01 Labs: Laboratory Results - last 24 hr 04/05/18 04/05/18 04/05/18 09:01 09:01 09:15 WBC 6.9 RBC 5.16 Hgb 14.8 Hct 44.4 MCV 85.9 MCH 28.6 MCHC 33.3 RDW 13.3 Plt Count 246 MPV 7.9 Neut % (Auto) 63.1 Lymph % (Auto) 23.4 [place] % (Auto) 11.0 H Eos % (Auto) 2.1 Baso % (Auto) 0.4 Neut # (Auto) 4.3 Lymph # (Auto) 1.6 [place] # (Auto) 0.8 Eos # (Auto) 0.1 Baso # (Auto) 0.0 ESR 44 H Sodium 143 Potassium 4.4 Chloride 104 Carbon Dioxide 29 Anion Gap 15 BUN 24 H Creatinine 0.9 Est GFR ( Amer) > 60 Est GFR (Non-Af Amer) > 60 Random Glucose 132 H Calcium 9.6 Total Bilirubin 0.6 AST 19 ALT 26 Alkaline Phosphatase 113 Total Protein 7.8 Albumin 4.3 Globulin 3.6 Albumin/Globulin Ratio 1.2 Urine Color Yellow Urine Clarity Clear Urine pH 5.0 Ur Specific [place] 1.029 Urine Protein 2+ H Urine Glucose (UA) 3+ H Urine Ketones Negative Urine Blood Negative Urine Nitrate Negative Urine Bilirubin Negative Urine Urobilinogen Normal Ur Leukocyte Esterase Neg Urine WBC (Auto) 1 Urine RBC (Auto) 1 Ur Squamous Epith Cells < 1 Assessment & Plan - Assessment and Plan (Free Text) Assessment: 67 yo M w/ PMHx of DM2 admitted w/ LLE great toe ulcer Left great toe diabetic foot ulcer, r/o osteo -Podiatry consult Dr. Tovar -[facility] sx consult Dr. Ghotra -f/u MRI left foot, r/o osteo -vanc 1g q12, vanc trough 10/07 22:00 -zosyn 3.375 q6h -f/u blood cx DM2 -f/u hgb a1c -lipid panel-tsh/t4 -ISS -accuchecks achs Prostatectomy for BPH -no urinary sxms, continue to monitor Ppx -heparin 5000 q8 -SCD on right -nicotine patch 7mg -GI ppx not indicated <Joseph Flores - Last Filed: 04/07/18 19:19> Results - Vital Signs Recent Vital Signs: Last Vital Signs Temp 97.5 F L 04/07/18 07:00 Pulse 73 04/07/18 10:42 Resp 20 04/07/18 07:00 BP 152/85 H 04/07/18 10:42 Pulse Ox 95 04/07/18 07:00 - Labs Result Diagrams: 04/07/18 08:14 04/07/18 08:14 Labs: Laboratory Results - last 24 hr 04/06/18 04/06/18 04/07/18 21:16 21:43 06:15 WBC RBC Hgb Hct MCV MCH MCHC RDW Plt Count MPV Neut % (Auto) Lymph % (Auto) [place] % (Auto) Eos % (Auto) Baso % (Auto) Neut # (Auto) Lymph # (Auto) [place] # (Auto) Eos # (Auto) Baso # (Auto) ESR Sodium Potassium Chloride Carbon Dioxide Anion Gap BUN Creatinine Est GFR ( Amer) Est GFR (Non-Af Amer) POC Glucose (mg/dL) 165 H 138 H Random Glucose Hemoglobin A1c Calcium Phosphorus Magnesium Total Bilirubin AST ALT Alkaline Phosphatase C-React Prot High Sens Total Protein Albumin Globulin Albumin/Globulin Ratio Prostate Specific Ag Vancomycin Trough 12.1 H 04/07/18 04/07/18 04/07/18 08:14 08:14 08:14 WBC 5.9 RBC 5.24 Hgb 15.1 Hct 45.2 MCV 86.3 MCH 28.8 MCHC 33.4 RDW 13.2 Plt Count 239 MPV 7.9 Neut % (Auto) 61.6 Lymph % (Auto) 24.5 [place] % (Auto) 11.1 H Eos % (Auto) 2.5 Baso % (Auto) 0.3 Neut # (Auto) 3.7 Lymph # (Auto) 1.5 [place] # (Auto) 0.7 Eos # (Auto) 0.1 Baso # (Auto) 0.0 ESR 35 H Sodium 142 Potassium 4.2 Chloride 103 Carbon Dioxide 26 Anion Gap 17 BUN 22 H Creatinine 0.9 Est GFR ( Amer) > 60 Est GFR (Non-Af Amer) > 60 POC Glucose (mg/dL) Random Glucose 138 H Hemoglobin A1c Calcium 9.5 Phosphorus 3.9 Magnesium 2.1 Total Bilirubin 0.7 AST 14 L ALT 13 L D Alkaline Phosphatase 99 C-React Prot High Sens 8.87 H Total Protein 7.7 Albumin 4.2 Globulin 3.5 Albumin/Globulin Ratio 1.2 Prostate Specific Ag 1.79 Vancomycin Trough 04/07/18 04/07/18 04/07/18 08:14 11:13 18:50 WBC RBC Hgb Hct MCV MCH MCHC RDW Plt Count MPV Neut % (Auto) Lymph % (Auto) [place] % (Auto) Eos % (Auto) Baso % (Auto) Neut # (Auto) Lymph # (Auto) [place] # (Auto) Eos # (Auto) Baso # (Auto) ESR Sodium Potassium Chloride Carbon Dioxide Anion Gap BUN Creatinine Est GFR ( Amer) Est GFR (Non-Af Amer) POC Glucose (mg/dL) 129 H 65 Random Glucose Hemoglobin A1c 8.4 H Calcium Phosphorus Magnesium Total Bilirubin AST ALT Alkaline Phosphatase C-React Prot High Sens Total Protein Albumin Globulin Albumin/Globulin Ratio Prostate Specific Ag Vancomycin Trough Attending/Attestation - Attestation I have personally seen and examined this patient.: Yes I have fully participated in the care of the patient.: Yes I have reviewed all pertinent clinical information: Yes Notes (Text): 04/07/18 19:18 This is a late entry. History, physical, assessment and plan and all orders were gone over in detail with resident at the time of admission. Joseph Flores D.O.
[2018-04-05 13:32] LABS: PROTHROMBIN TIME 10.9 SECONDS (9.7-12.2)
[2018-04-05] MEDS ORDERED: Gadodiamide 287 mg/ml 20 ml IV ONE (13:57)
--- NOTE | 2018-04-05 15:33 | MRI ---
MRI left forefoot History: Abscess. Evaluate for osteomyelitis. Comparison: X-ray dated 04/05/2018 Technique: Multi-echo multiplanar sequences were performed through the left forefoot without the use of intravenous contrast. Findings: Soft tissue ulcer seen at the level of the 1st distal phalanx. Prominent signal abnormality seen within the 1st distal phalanx as well as the head and body of the 1st proximal phalanx with patchy decreased T1 signal and increased STIR signal consistent with an acute osteomyelitis. Mild hallux valgus deformity. 7 millimeter subchondral cyst formation within the base of the 3rd metatarsal bone. Mild reactive edema at the base of the 2nd metatarsal bone. Mild increased signal seen within the visualized Lisfranc ligament which may represent a low-grade sprain and or mild partial tearing. Mild reactive edema within lateral cuneiform bone. Degenerative changes at the 1st metatarsus sesamoid joint space with osteochondral change in the medial and lateral sesamoid bones. Impression: Soft tissue ulcer seen at the level of the 1st distal phalanx. Prominent signal abnormality seen within the 1st distal phalanx as well as the head and body of the 1st proximal phalanx with patchy decreased T1 signal and increased STIR signal consistent with an acute osteomyelitis. Mild hallux valgus deformity. 7 millimeter subchondral cyst formation within the base of the 3rd metatarsal bone. Mild reactive edema at the base of the 2nd metatarsal bone. Mild increased signal seen within the visualized Lisfranc ligament which may represent a low-grade sprain and or mild partial tearing. Mild reactive edema within lateral cuneiform bone. Degenerative changes at the 1st metatarsus sesamoid joint space with osteochondral change in the medial and lateral sesamoid bones.
--- NOTE | 2018-04-05 16:59 | CP.PCM.CON ---
History of Present Illness - History of Present Illness History of Present Illness: Surgery: Dr. Ghotra CC: Chronic LLE ulcer HPI: 67M w. pmh of HTN and DM presents to ED for evaluation of ulcer on plantar aspect of L great toe x 1 month. Pt initially presented to ED on 03/10 and was given course of abx and was told to follow up with podiatry. He states that he initially noted some improvement, however the ulcer than began to worsen. He states that the ulcer became larger, developed erythema, and he began to notice a foul odor. He has not noticed any drainage. He denies F/C. MRI done upon admission was consistent with acute osteomyelitis. PMH: See above PSH: Prostate Meds: MAR reviewed NKDA Social: 1-2 cigs/day x 40yrs, social ETOH, no drugs Fhx: non-contributory Review of Systems - Review of Systems All systems: reviewed and no additional remarkable complaints except (HPI) Past Patient History - Infectious Disease Hx of Infectious Diseases: None - Past Medical History & Family History Past Medical History?: Yes - Past Social History Smoking Status: Light Smoker < 10 Cigarettes Daily - CARDIAC Hx Cardiac Disorders: Yes Hx Hypertension: Yes - PULMONARY Hx Respiratory Disorders: No - NEUROLOGICAL Hx Neurological Disorder: No - HEENT Hx HEENT Problems: No - RENAL Hx Chronic Kidney Disease: No - ENDOCRINE/METABOLIC Hx Endocrine Disorders: Yes Hx Diabetes Mellitus Type 2: Yes - HEMATOLOGICAL/ONCOLOGICAL Hx Blood Disorders: No - INTEGUMENTARY Hx Dermatological Problems: No - MUSCULOSKELETAL/RHEUMATOLOGICAL Hx Falls: No - GASTROINTESTINAL Hx Gastrointestinal Disorders: No - GENITOURINARY/GYNECOLOGICAL Hx Genitourinary Disorders: Yes Other/Comment: BPH - PSYCHIATRIC Hx Substance Use: No - SURGICAL HISTORY Hx Surgeries: Yes Other/Comment: Prostatectomy - ANESTHESIA Hx Anesthesia: Yes Hx Anesthesia Reactions: No Hx Malignant Hyperthermia: No Meds Allergies/Adverse Reactions: Allergies Allergy/AdvReac Type Severity Reaction Status Date / Time No Known Allergies Allergy Verified 03/18/18 19:23 - Medications Medications: Current Medications Dextrose (Dextrose 50% Inj) 0 ml IV STAT PRN; Protocol PRN Reason: Hypoglycemia Protocol Dextrose (Glutose 15) 15 gm PO ONCE PRN; Protocol PRN Reason: Hypoglycemia Protocol Glucagon (Glucagen Diagnostic Kit) 1 mg IM STAT PRN; Protocol PRN Reason: Hypoglycemia Protocol Home Med (Canagliflozin [Invokana]) 300 mg PO DAILY [facility] Last Admin: 04/05/18 14:31 Dose: Not Given Piperacillin Sod/Tazobactam (Sod 3.375 gm/ Sodium Chloride) 100 mls @ 200 mls/ hr IVPB Q8H DOR[facility] PRN Reason: Protocol Vancomycin/Sodium Chloride (Vancomycin 1 Gm/Ns 200 Ml) 1 gm in 200 mls @ 133.333 mls/hr IVPB Q12H DORCAS PRN Reason: Protocol Dextrose (Dextrose 5% In Water 1000 Ml) 1,000 mls @ 0 mls/hr IV .Q0M PRN; Protocol; Per Protocol PRN Reason: Hypoglycemia Protocol Insulin Aspart (Novolog) 0 unit SC ACHS [facility] PRN Reason: Protocol Lactobacillus Acidophilus (Bacid Acidophilus) 1 cap PO BID [facility] Metformin HCl (Glucophage) 500 mg PO BIDCC [facility] Nicotine (Nicoderm Cq) 1 patch TD DAILY [facility] Last Admin: 04/05/18 14:34 Dose: Not Given Pneumococcal Polyvalent Vaccine (Pneumovax 23 Vaccine) 0.5 ml IM .ONCE ONE Stop: 04/07/18 12:01 Physical Exam - Constitutional Appears: Non-toxic, No Acute Distress - Head Exam Head Exam: ATRAUMATIC, NORMOCEPHALIC - Eye Exam Eye Exam: EOMI - ENT Exam ENT Exam: Mucous Membranes Moist - Neck Exam Neck exam: Positive for: Full Rom - Respiratory Exam Respiratory Exam: NORMAL BREATHING PATTERN. absent: Accessory Muscle Use, Respiratory Distress - GI/Abdominal Exam GI & Abdominal Exam: Soft. absent: Distended, Firm, Guarding, Rebound, Rigid, Tenderness - Extremities Exam Extremities exam: Negative for: calf tenderness, pedal edema Additional comments: Plantar aspect of L great toe ~1.5x1.5cm ulcer, with surrounding excoriation, + erythema, no fluctuance/drainage, foot is warm to touch, no pulses palpable in foot, +popliteal pulse - Neurological Exam Neurological exam: Alert, Oriented x3 - Psychiatric Exam Psychiatric exam: Normal Affect, Normal Mood Results - Vital Signs Recent Vital Signs: Last Vital Signs Temp 97.5 F L 04/05/18 15:20 Pulse 75 04/05/18 15:20 Resp 20 04/05/18 15:20 BP 156/91 H 04/05/18 15:20 Pulse Ox 97 04/05/18 15:20 - Labs Result Diagrams: 04/05/18 09:01 04/05/18 09:01 Labs: Laboratory Results - last 24 hr 04/05/18 04/05/18 04/05/18 09:01 09:01 09:15 WBC 6.9 RBC 5.16 Hgb 14.8 Hct 44.4 MCV 85.9 MCH 28.6 MCHC 33.3 RDW 13.3 Plt Count 246 MPV 7.9 Neut % (Auto) 63.1 Lymph % (Auto) 23.4 [place] % (Auto) 11.0 H Eos % (Auto) 2.1 Baso % (Auto) 0.4 Neut # (Auto) 4.3 Lymph # (Auto) 1.6 [place] # (Auto) 0.8 Eos # (Auto) 0.1 Baso # (Auto) 0.0 ESR 44 H PT INR APTT Sodium 143 Potassium 4.4 Chloride 104 Carbon Dioxide 29 Anion Gap 15 BUN 24 H Creatinine 0.9 Est GFR ( Amer) > 60 Est GFR (Non-Af Amer) > 60 POC Glucose (mg/dL) Random Glucose 132 H Hemoglobin A1c Calcium 9.6 Total Bilirubin 0.6 AST 19 ALT 26 Alkaline Phosphatase 113 Total Protein 7.8 Albumin 4.3 Globulin 3.6 Albumin/Globulin Ratio 1.2 Triglycerides Cholesterol LDL Cholesterol Direct HDL Cholesterol Free T4 TSH 3rd Generation Urine Color Yellow Urine Clarity Clear Urine pH 5.0 Ur Specific [place] 1.029 Urine Protein 2+ H Urine Glucose (UA) 3+ H Urine Ketones Negative Urine Blood Negative Urine Nitrate Negative Urine Bilirubin Negative Urine Urobilinogen Normal Ur Leukocyte Esterase Neg Urine WBC (Auto) 1 Urine RBC (Auto) 1 Ur Squamous Epith Cells < 1 04/05/18 04/05/18 04/05/18 13:12 13:12 13:12 WBC RBC Hgb Hct MCV MCH MCHC RDW Plt Count MPV Neut % (Auto) Lymph % (Auto) [place] % (Auto) Eos % (Auto) Baso % (Auto) Neut # (Auto) Lymph # (Auto) [place] # (Auto) Eos # (Auto) Baso # (Auto) ESR PT 10.9 INR 1.0 APTT 39 H Sodium Potassium Chloride Carbon Dioxide Anion Gap BUN Creatinine Est GFR ( Amer) Est GFR (Non-Af Amer) POC Glucose (mg/dL) Random Glucose Hemoglobin A1c 8.5 H D Calcium Total Bilirubin AST ALT Alkaline Phosphatase Total Protein Albumin Globulin Albumin/Globulin Ratio Triglycerides 225 H D Cholesterol 251 H LDL Cholesterol Direct 133 H HDL Cholesterol 32 Free T4 TSH 3rd Generation 0.94 Urine Color Urine Clarity Urine pH Ur Specific [place] Urine Protein Urine Glucose (UA) Urine Ketones Urine Blood Urine Nitrate Urine Bilirubin Urine Urobilinogen Ur Leukocyte Esterase Urine WBC (Auto) Urine RBC (Auto) Ur Squamous Epith Cells 04/05/18 04/05/18 13:19 16:43 WBC RBC Hgb Hct MCV MCH MCHC RDW Plt Count MPV Neut % (Auto) Lymph % (Auto) [place] % (Auto) Eos % (Auto) Baso % (Auto) Neut # (Auto) Lymph # (Auto) [place] # (Auto) Eos # (Auto) Baso # (Auto) ESR PT INR APTT Sodium Potassium Chloride Carbon Dioxide Anion Gap BUN Creatinine Est GFR ( Amer) Est GFR (Non-Af Amer) POC Glucose (mg/dL) 174 H Random Glucose Hemoglobin A1c Calcium Total Bilirubin AST ALT Alkaline Phosphatase Total Protein Albumin Globulin Albumin/Globulin Ratio Triglycerides Cholesterol LDL Cholesterol Direct HDL Cholesterol Free T4 0.82 TSH 3rd Generation Urine Color Urine Clarity Urine pH Ur Specific [place] Urine Protein Urine Glucose (UA) Urine Ketones Urine Blood Urine Nitrate Urine Bilirubin Urine Urobilinogen Ur Leukocyte Esterase Urine WBC (Auto) Urine RBC (Auto) Ur Squamous Epith Cells Assessment & Plan - Assessment and Plan (Free Text) Assessment: 67M w. Osteomyelitis L foot -MRI noted -abx -ABIs/PVRs ordered, further recommendations pending results -d/w attending Adan PGY4
[2018-04-05] MEDS: (Novolog) Insulin Aspart, Recombinant 100 u/ml 10 ml vial SC SCH ×2 (18:01→21:44)
[2018-04-05] MEDS: Piperacillin/Tazobact 3.375 GM in Sodium Chloride 100 ML IVPB SCH (18:01)
[2018-04-05] MEDS ORDERED: Iodixanol 320 mg/ml 150 ml Bottle IV ONE (18:31)
[2018-04-05] MEDS: Vancomycin 1 gm/NS 200 ml 1 GM/200 ML BAG IVPB SCH (21:45)
[2018-04-05] MEDS: Lactobacillus Acidophilus 500 MU Cap PO SCH (21:50)
[2018-04-06] MEDS: Piperacillin/Tazobact 3.375 GM in Sodium Chloride 100 ML IVPB SCH ×3 (01:45→18:42)
[2018-04-06] MEDS: (Novolog) Insulin Aspart, Recombinant 100 u/ml 10 ml vial SC SCH ×4 (07:15→22:26)
[2018-04-06 07:49] VITALS: RESP 20
--- NOTE | 2018-04-06 07:50 | CP.PCM.PN ---
Subjective - Date & Time of Evaluation Date of Evaluation: 04/06/18 Time of Evaluation: 07:49 - Subjective Subjective: Surgery: Dr. Ghotra Pt seen and examined. No acute events over night. Pt has no complaints this AM. Objective - Vital Signs/Intake and Output Vital Signs (last 24 hours): Temp Pulse Resp BP Pulse Ox 97.5 F L 70 20 138/84 97 04/06/18 07:00 04/06/18 07:00 04/06/18 07:00 04/06/18 07:00 04/06/18 07:00 Intake and Output: 04/06/18 04/06/18 06:59 18:59 Intake Total 600 Balance 600 - Medications Medications: Current Medications Dextrose (Dextrose 50% Inj) 0 ml IV STAT PRN; Protocol PRN Reason: Hypoglycemia Protocol Dextrose (Glutose 15) 15 gm PO ONCE PRN; Protocol PRN Reason: Hypoglycemia Protocol Enoxaparin Sodium (Lovenox) 40 mg SC DAILY [facility] Glucagon (Glucagen Diagnostic Kit) 1 mg IM STAT PRN; Protocol PRN Reason: Hypoglycemia Protocol Home Med (Canagliflozin [Invokana]) 300 mg PO DAILY [facility] Last Admin: 04/05/18 14:31 Dose: Not Given Piperacillin Sod/Tazobactam (Sod 3.375 gm/ Sodium Chloride) 100 mls @ 200 mls/ hr IVPB Q8H [facility]ORCAS PRN Reason: Protocol Last Admin: 04/06/18 01:45 Dose: 200 mls/hr Vancomycin/Sodium Chloride (Vancomycin 1 Gm/Ns 200 Ml) 1 gm in 200 mls @ 133.333 mls/hr IVPB Q12H [facility]OR[facility] PRN Reason: Protocol Last Admin: 04/05/18 21:45 Dose: 133.333 mls/hr Dextrose (Dextrose 5% In Water 1000 Ml) 1,000 mls @ 0 mls/hr IV .Q0M PRN; Protocol; Per Protocol PRN Reason: Hypoglycemia Protocol Insulin Aspart (Novolog) 0 unit SC ACHS [facility] PRN Reason: Protocol Last Admin: 04/06/18 07:15 Dose: Not Given Lactobacillus Acidophilus (Bacid Acidophilus) 1 cap PO BID [facility] Last Admin: 04/05/18 21:50 Dose: 1 cap Lisinopril (Zestril) 10 mg PO DAILY [facility] Metformin HCl (Glucophage) 500 mg PO BIDCC [facility] Nicotine (Nicoderm Cq) 1 patch TD DAILY [facility] Last Admin: 04/05/18 14:34 Dose: Not Given Pneumococcal Polyvalent Vaccine (Pneumovax 23 Vaccine) 0.5 ml IM .ONCE ONE Stop: 04/07/18 12:01 Rosuvastatin Calcium (Crestor) 5 mg PO HS [facility] Last Admin: 04/05/18 21:45 Dose: 5 mg - Labs Labs: 04/05/18 09:01 04/05/18 09:01 PT 10.9 SECONDS (9.7-12.2) 04/05/18 13:12 INR 1.0 04/05/18 13:12 APTT 39 SECONDS (21-34) H 04/05/18 13:12 - Constitutional Appears: Non-toxic, No Acute Distress - Head Exam Head Exam: ATRAUMATIC, NORMOCEPHALIC - Eye Exam Eye Exam: EOMI - ENT Exam ENT Exam: Mucous Membranes Moist - Neck Exam Neck Exam: Full ROM - Respiratory Exam Respiratory Exam: NORMAL BREATHING PATTERN. absent: Accessory Muscle Use, Respiratory Distress - GI/Abdominal Exam GI & Abdominal Exam: Soft. absent: Tenderness - Extremities Exam Additional comments: Chronic ulcer plantar aspect of L great toe - Neurological Exam Neurological Exam: Alert, Awake, Oriented x3 Assessment and Plan - Assessment and Plan (Free Text) Assessment: 67M w. Osteomyelitis L foot -CTA complete, f/u official read -c/w local wound care -will d/w attending Zemaitis PGY4
[2018-04-06 08:29] LABS: BASO % 0.4 % (0.0-2.0); EOS # 0.2 K/uL (0.0-0.7); EOS % 2.7 % (0.0-4.0); HEMOGLOBIN 14.6 g/dL (12.0-18.0); LYMPH # 1.7 K/uL (1.0-4.3); LYMPH % 26.4 % (20.0-40.0); MEAN CELL VOLUME 86.1 fL (80.0-94.0); MEAN CORPUSCULAR HGB CONC 33.6 g/dL (33.0-37.0); MEAN PLATELET VOLUME 8.1 fL (7.2-11.7); MONO # 0.6 K/uL (0.0-0.8); MONO % 9.8 % (0.0-10.0); NEUT # 3.9 K/uL (1.8-7.0); NEUT % 60.7 % (50.0-75.0); NRBC % 0.2 % (0.0-2.0); RBC 5.04 Mil/uL (4.40-5.90); RED CELL DISTRIBUTION WIDTH 13.4 % (11.5-14.5); WHITE BLOOD COUNT 6.4 K/uL (4.8-10.8)
[2018-04-06 08:46] LABS: ALB/GLOB RATIO 1.2 (1.0-2.1); ALBUMIN 4.1 g/dL (3.5-5.0); ALT/SGPT 17 U/L (21-72); AST/SGOT 14 U/L (17-59); BLOOD UREA NITROGEN 19 mg/dL (9-20); CALCIUM 9.4 mg/dl (8.6-10.4); GFR NON-AFRICAN AMERICAN > 60
[2018-04-06] MEDS: Lactobacillus Acidophilus 500 MU Cap PO SCH ×2 (11:01→18:42)
[2018-04-06] MEDS: Enoxaparin 40 mg Syringe SC SCH (11:02)
--- NOTE | 2018-04-06 11:14 | CP.PCM.PN ---
<Lisa Dunn - Last Filed: 04/06/18 17:14> Subjective - Date & Time of Evaluation Date of Evaluation: 04/06/18 Time of Evaluation: 07:10 - Subjective Subjective: Patient examined at bedside, no acute events overnight. Patient denies chest pain, SOB, abd pain, nausea, diarrhea, leg pain. Objective - Vital Signs/Intake and Output Vital Signs (last 24 hours): Temp Pulse Resp BP Pulse Ox 97.5 F L 70 20 138/84 97 04/06/18 07:00 04/06/18 07:00 04/06/18 07:00 04/06/18 07:00 04/06/18 07:00 Intake and Output: 04/06/18 04/06/18 06:59 18:59 Intake Total 600 Balance 600 - Medications Medications: Current Medications Dextrose (Dextrose 50% Inj) 0 ml IV STAT PRN; Protocol PRN Reason: Hypoglycemia Protocol Dextrose (Glutose 15) 15 gm PO ONCE PRN; Protocol PRN Reason: Hypoglycemia Protocol Enoxaparin Sodium (Lovenox) 40 mg SC DAILY [facility] Last Admin: 04/06/18 11:02 Dose: 40 mg Glucagon (Glucagen Diagnostic Kit) 1 mg IM STAT PRN; Protocol PRN Reason: Hypoglycemia Protocol Home Med (Canagliflozin [Invokana]) 300 mg PO DAILY [facility] Last Admin: 04/05/18 14:31 Dose: Not Given Piperacillin Sod/Tazobactam (Sod 3.375 gm/ Sodium Chloride) 100 mls @ 200 mls/ hr IVPB Q8H [facility] PRN Reason: Protocol Last Admin: 04/06/18 11:02 Dose: 200 mls/hr Vancomycin/Sodium Chloride (Vancomycin 1 Gm/Ns 200 Ml) 1 gm in 200 mls @ 133.333 mls/hr IVPB Q12H [facility] PRN Reason: Protocol Last Admin: 04/05/18 21:45 Dose: 133.333 mls/hr Dextrose (Dextrose 5% In Water 1000 Ml) 1,000 mls @ 0 mls/hr IV .Q0M PRN; Protocol; Per Protocol PRN Reason: Hypoglycemia Protocol Insulin Aspart (Novolog) 0 unit SC ACHS [facility] PRN Reason: Protocol Last Admin: 04/06/18 07:15 Dose: Not Given Lactobacillus Acidophilus (Bacid Acidophilus) 1 cap PO BID [facility] Last Admin: 04/06/18 11:01 Dose: 1 cap Lisinopril (Zestril) 10 mg PO DAILY [facility] Last Admin: 04/06/18 11:01 Dose: 10 mg Metformin HCl (Glucophage) 500 mg PO BIDCC [facility] Nicotine (Nicoderm Cq) 1 patch TD DAILY [facility] Last Admin: 04/06/18 11:02 Dose: Not Given Pneumococcal Polyvalent Vaccine (Pneumovax 23 Vaccine) 0.5 ml IM .ONCE ONE Stop: 04/07/18 12:01 Rosuvastatin Calcium (Crestor) 5 mg PO HS [facility] Last Admin: 04/05/18 21:45 Dose: 5 mg - Labs Labs: 04/06/18 08:14 04/06/18 08:14 PT 10.9 SECONDS (9.7-12.2) 04/05/18 13:12 INR 1.0 04/05/18 13:12 APTT 39 SECONDS (21-34) H 04/05/18 13:12 - Constitutional Appears: Non-toxic, No Acute Distress - Head Exam Head Exam: ATRAUMATIC, NORMAL INSPECTION, NORMOCEPHALIC - Eye Exam Eye Exam: EOMI - ENT Exam ENT Exam: Mucous Membranes Moist, Normal Exam - Neck Exam Neck Exam: Normal Inspection. absent: Lymphadenopathy - Respiratory Exam Respiratory Exam: Clear to Ausculation Bilateral, NORMAL BREATHING PATTERN. absent: Rales, Wheezes - Cardiovascular Exam Cardiovascular Exam: REGULAR RHYTHM, +S1, +S2. absent: Tachycardia, Murmur - GI/Abdominal Exam GI & Abdominal Exam: Soft, Normal Bowel Sounds. absent: Distended, Tenderness - Extremities Exam Extremities Exam: Joint Swelling (left great toe), Normal Capillary Refill. absent: Calf Tenderness, Normal Inspection (left great toe, demarcated w/ pen. Area of erythema not advancing) - Neurological Exam Neurological Exam: Alert, Awake, Motor Sensory Deficit (sensory defecit dorsal/ plantar left great toe), Oriented x3 - Psychiatric Exam Psychiatric exam: Normal Affect, Normal Mood - Skin Skin Exam: Dry, Intact, Normal Color, Warm Assessment and Plan - Assessment and Plan (Free Text) Assessment: 67 yo M w/ PMHx of DM2 admitted w/ LLE great toe ulcer Acute Osteo of left great toe. -MRI(04/05) findings consistent with acute osteo of left great toe -f/u abd CTA -Podiatry consult Dr. Tovar -Vasc sx consult Dr. Ghotra -vanc 1g q12, vanc trough 10/07 22:00, goal 15-20 -zosyn 3.375 q6h -f/u blood cx DM2 -hgb a1c-8.5 -ISS -accuchecks achs HTN -elevated BPs since admission -start on Lisinopril 10mg PO QD HLD -elevated lipid panel -crestor 5mg PO HS BPH -MRI reads enlarged prostate, although pt reports prostatectomy -no urinary sxms, continue to monitor Ppx -heparin 5000 q8 -SCD on right -nicotine patch 7mg -GI ppx not indicated <Joseph Flores - Last Filed: 04/07/18 19:19> Objective - Vital Signs/Intake and Output Vital Signs (last 24 hours): Temp Pulse Resp BP Pulse Ox 97.5 F L 73 20 152/85 H 95 04/07/18 07:00 04/07/18 10:42 04/07/18 07:00 04/07/18 10:42 04/07/18 07:00 Intake and Output: 04/07/18 04/08/18 18:59 06:59 Intake Total 300 Balance 300 - Medications Medications: Current Medications Clopidogrel Bisulfate (Plavix) 75 mg PO DAILY [facility] Collagenase (Santyl) 1 gm TOP DAILY [facility] Last Admin: 04/07/18 12:36 Dose: Not Given Dextrose (Dextrose 50% Inj) 0 ml IV STAT PRN; Protocol PRN Reason: Hypoglycemia Protocol Dextrose (Glutose 15) 15 gm PO ONCE PRN; Protocol PRN Reason: Hypoglycemia Protocol Glucagon (Glucagen Diagnostic Kit) 1 mg IM STAT PRN; Protocol PRN Reason: Hypoglycemia Protocol Home Med (Canagliflozin [Invokana]) 300 mg PO DAILY [facility] Last Admin: 04/05/18 14:31 Dose: Not Given Piperacillin Sod/Tazobactam (Sod 3.375 gm/ Sodium Chloride) 100 mls @ 200 mls/ hr IVPB Q8H [facility] PRN Reason: Protocol Last Admin: 04/07/18 10:44 Dose: 200 mls/hr Vancomycin/Sodium Chloride (Vancomycin 1 Gm/Ns 200 Ml) 1 gm in 200 mls @ 133.333 mls/hr IVPB Q12H [facility] PRN Reason: Protocol Last Admin: 04/07/18 12:15 Dose: 133.333 mls/hr Dextrose (Dextrose 5% In Water 1000 Ml) 1,000 mls @ 0 mls/hr IV .Q0M PRN; Protocol; Per Protocol PRN Reason: Hypoglycemia Protocol Dextrose/Sodium Chloride (Dextrose 5%/0.45% Ns 1000 Ml) 1,000 mls @ 100 mls/hr IV .Q10H [facility] Insulin Aspart (Novolog) 0 unit SC ACHS [facility] PRN Reason: Protocol Last Admin: 04/07/18 17:54 Dose: Not Given Lactobacillus Acidophilus (Bacid Acidophilus) 1 cap PO BID [facility] Last Admin: 04/07/18 10:44 Dose: 1 cap Lisinopril (Zestril) 10 mg PO DAILY [facility] Last Admin: 04/07/18 10:44 Dose: 10 mg Metformin HCl (Glucophage) 500 mg PO BIDCC [facility] Nicotine (Nicoderm Cq) 1 patch TD DAILY [facility] Last Admin: 04/07/18 09:03 Dose: Not Given Rosuvastatin Calcium (Crestor) 5 mg PO HS [facility] Last Admin: 04/06/18 22:22 Dose: 5 mg - Labs Labs: 04/07/18 08:14 04/07/18 08:14 PT 10.9 SECONDS (9.7-12.2) 04/05/18 13:12 INR 1.0 04/05/18 13:12 APTT 39 SECONDS (21-34) H 04/05/18 13:12 Attending/Attestation - Attestation I have personally seen and examined this patient.: Yes I have fully participated in the care of the patient.: Yes I have reviewed all pertinent clinical information, including history, physical exam and plan: Yes Notes (Text): 04/07/18 19:19 This is a late entry Care of this patient was gone over in detail with the resident. Joseph Flores D.O.
[2018-04-06] MEDS: Vancomycin 1 gm/NS 200 ml 1 GM/200 ML BAG IVPB SCH ×2 (12:19→22:22)
--- NOTE | 2018-04-06 13:22 | CT ---
Date of service: 04/05/2018 PROCEDURE: CT Angiography Abdomen, Pelvis and Lower Extremity with Contrast HISTORY: PVD COMPARISON: None available. TECHNIQUE: Technique: CT angiography of the abdomen, pelvis and bilateral lower extremities performed in the arterial phase of enhancement. Coronal and sagittal reformats, and well as rotating MIP images of the vessels generated at the workstation. Intravenous contrast dose: 150 milliliters Visipaque 320 Radiation dose: Total exam DLP = 1548.53 MGy-cm. This CT exam was performed using one or more of the following dose reduction techniques: Automated exposure control, adjustment of the mA and/or kV according to patient size, and/or use of iterative reconstruction technique. FINDINGS: CT ANGIOGRAPHY: ABDOMINAL AORTA:: Abdominal was unremarkable. MAJOR AORTIC BRANCHES: Celiac [place]: Unremarkable. Superior mesenteric artery: Unremarkable. Inferior mesenteric artery: Unremarkable. Renal arteries: Unremarkable. PELVIC ARTERIES: Right Common Iliac: Unremarkable. Right External Iliac: Unremarkable. Right Internal Iliac: Unremarkable. Left Common Iliac: Unremarkable. Left External Iliac: Unremarkable. Left Internal Iliac: Unremarkable. RIGHT LOWER EXTREMITY ARTERIES: Right Common Femoral: Unremarkable. Right Superficial Femoral: Unremarkable. Right Profunda Femoris: Unremarkable. Right Popliteal:Compared to the size of SFA, the popliteal artery appear diffusely mildly stenotic. Right Anterior Tibial: Unremarkable. Right Tibioperoneal Trunk: Unremarkable. Right Posterior Tibial: Unremarkable. Right Peroneal: Moderate stenosis within the proximal peroneal artery. Right dorsalis pedis : Unremarkable. LEFT LOWER EXTREMITY ARTERIES: Left Common Femoral: Unremarkable. Left Superficial Femoral: Unremarkable. Left Profunda Femoris: Unremarkable. Left Popliteal: Compared to the size of the SFA, the popliteal artery appears mildly stenotic. Left Anterior Tibial: Unremarkable. Left Tibioperoneal Trunk: Unremarkable. Left Posterior Tibial: Severely stenotic or occluded proximal segment. There is reconstitution of the mid segment. Left Peroneal: Multiple areas of moderate stenosis within the mid and distal peroneal artery. Left Dorsalis pedis: Unremarkable. NON-ANGIOGRAPHIC ASPECT OF THE EXAM: LOWER THORAX: Unremarkable. LIVER: Unremarkable. No gross lesion or ductal dilatation. GALLBLADDER AND BILE DUCTS: Unremarkable. PANCREAS: Unremarkable. No gross lesion or ductal dilatation. SPLEEN: Unremarkable. ADRENALS: Unremarkable. No mass. KIDNEYS AND URETERS: Unremarkable. No hydronephrosis. No solid mass. STOMACH AND BOWEL: Unremarkable. No obstruction. No gross mural thickening. APPENDIX: Normal appendix. PERITONEUM: Unremarkable. No free fluid. No free air. LYMPH NODES: Unremarkable. No enlarged lymph nodes. BLADDER: Unremarkable. REPRODUCTIVE: Prostate is enlarged measuring 6 centimeters. Calcification of the corpus cavernosum. BONES: No acute fracture. OTHER FINDINGS: Linear hypodensity seen within the distal splenic vein extending into the portal vein. This likely represent artifact from pooling of poorly opacified blood from the SMV. Alternately, portal vein thrombus cannot be excluded. Recommend duplex ultrasound. IMPRESSION: CT ANGIOGRAM ABDOMEN/ PELVIS: Unremarkable CT angiogram of the abdomen pelvis. CT ANGIOGRAM RIGHT LOWER EXTREMITY: 1. Essentially unremarkable CT angiogram of the right lower extremity. Popliteal artery appears slightly narrowed compared to size of the SFA. 2. Runoff shows a patent anterior tibial artery posterior tibial artery. The peroneal artery has moderate stenosis in proximal segment. CT ANGIOGRAM LEFT LOWER EXTREMITY: 1. Common femoral artery, superficial femoral artery, profunda femoral artery normal. The popliteal artery appears slightly narrowed compared to the size of the SFA. 2. Left runoff shows a patent anterior tibial artery. The posterior tibial artery occludes in the proximal segment and reconstitutes in the mid segment is otherwise unremarkable. The peroneal artery has multiple areas of moderate to severe stenosis within the mid and distal segments.
[2018-04-06] MEDS ORDERED: POLYETHYLENE GLYCOL 3350 17 GM/Dose PACKET PO ONE (15:33)
--- NOTE | 2018-04-06 19:24 | CP.PCM.CON ---
History of Present Illness - History of Present Illness History of Present Illness: 67 yo M presents to the ED for a worsening 1st toe infection. Patient's injury first started approximately 1 month ago when he reports he began picking at some dry skin on the plantar surface of the 1st great toe. treated as out pt without success Now admitted for vascular eval and to r/o OM PMHx: DM2 PSHx: Meds: Invokana 300mg PO, Metformin 500mg PO BID Allergies: NKDA Soc Hx: 1-2 cigs/day, 5-6 drinks per week, denies drug use. 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 Lives alone Fam Hx: DM, HTN Present on Admission - Present on Admission Any Indicators Present on Admission: No Review of Systems - Constitutional Constitutional: absent: Chills - EENT Eyes: absent: Change in Vision - Cardiovascular Cardiovascular: absent: Chest Pain, Claudication, Dyspnea on Exertion, Palpitations - Respiratory Respiratory: absent: Cough, Dyspnea - Gastrointestinal Gastrointestinal: absent: Abdominal Pain, Constipation, Diarrhea, Hematochezia - Genitourinary Genitourinary: absent: Difficulty Urinating, Dysuria - Integumentary Integumentary: Erythema, Wounds (left great toe) - Neurological Neurological: absent: Abnormal Gait, Paresthesias, Weakness - Endocrine Endocrine: absent: Polydipsia, Polyphagia, Polyuria - Hematologic/Lymphatic Hematologic: absent: Easy Bleeding Past Patient History - Infectious Disease Hx of Infectious Diseases: None - Past Medical History & Family History Past Medical History?: Yes - Past Social History Smoking Status: Light Smoker < 10 Cigarettes Daily - CARDIAC Hx Cardiac Disorders: Yes Hx Hypertension: Yes - PULMONARY Hx Respiratory Disorders: No - NEUROLOGICAL Hx Neurological Disorder: No - HEENT Hx HEENT Problems: No - RENAL Hx Chronic Kidney Disease: No - ENDOCRINE/METABOLIC Hx Endocrine Disorders: Yes Hx Diabetes Mellitus Type 2: Yes - HEMATOLOGICAL/ONCOLOGICAL Hx Blood Disorders: No - INTEGUMENTARY Hx Dermatological Problems: No - MUSCULOSKELETAL/RHEUMATOLOGICAL Hx Falls: No - GASTROINTESTINAL Hx Gastrointestinal Disorders: No - GENITOURINARY/GYNECOLOGICAL Hx Genitourinary Disorders: Yes Other/Comment: BPH - PSYCHIATRIC Hx Substance Use: No - SURGICAL HISTORY Hx Surgeries: Yes Other/Comment: Prostatectomy - ANESTHESIA Hx Anesthesia: Yes Hx Anesthesia Reactions: No Hx Malignant Hyperthermia: No Meds Allergies/Adverse Reactions: Allergies Allergy/AdvReac Type Severity Reaction Status Date / Time No Known Allergies Allergy Verified 03/18/18 19:23 - Medications Medications: Current Medications Dextrose (Dextrose 50% Inj) 0 ml IV STAT PRN; Protocol PRN Reason: Hypoglycemia Protocol Dextrose (Glutose 15) 15 gm PO ONCE PRN; Protocol PRN Reason: Hypoglycemia Protocol Enoxaparin Sodium (Lovenox) 40 mg SC DAILY [facility] Last Admin: 04/06/18 11:02 Dose: 40 mg Glucagon (Glucagen Diagnostic Kit) 1 mg IM STAT PRN; Protocol PRN Reason: Hypoglycemia Protocol Home Med (Canagliflozin [Invokana]) 300 mg PO DAILY [facility] Last Admin: 04/05/18 14:31 Dose: Not Given Piperacillin Sod/Tazobactam (Sod 3.375 gm/ Sodium Chloride) 100 mls @ 200 mls/ hr IVPB Q8H [facility] PRN Reason: Protocol Last Admin: 04/06/18 18:42 Dose: 200 mls/hr Vancomycin/Sodium Chloride (Vancomycin 1 Gm/Ns 200 Ml) 1 gm in 200 mls @ 133.333 mls/hr IVPB Q12H [facility] PRN Reason: Protocol Last Admin: 04/06/18 12:19 Dose: 133.333 mls/hr Dextrose (Dextrose 5% In Water 1000 Ml) 1,000 mls @ 0 mls/hr IV .Q0M PRN; Protocol; Per Protocol PRN Reason: Hypoglycemia Protocol Insulin Aspart (Novolog) 0 unit SC ACHS [facility] PRN Reason: Protocol Last Admin: 04/06/18 17:35 Dose: Not Given Lactobacillus Acidophilus (Bacid Acidophilus) 1 cap PO BID [facility] Last Admin: 04/06/18 18:42 Dose: 1 cap Lisinopril (Zestril) 10 mg PO DAILY [facility] Last Admin: 04/06/18 11:01 Dose: 10 mg [facility] Nicotine (Nicoderm Cq) 1 patch TD DAILY [facility] Last Admin: 04/06/18 11:02 Dose: Not Given Pneumococcal Polyvalent Vaccine (Pneumovax 23 Vaccine) 0.5 ml IM .ONCE ONE Stop: 04/07/18 12:01 Rosuvastatin Calcium (Crestor) 5 mg PO [facility] Last Admin: 04/05/18 21:45 Dose: 5 mg Physical Exam - Constitutional Appears: Chronically Ill - Head Exam Head Exam: ATRAUMATIC - Eye Exam Eye Exam: PERRL - ENT Exam ENT Exam: Mucous Membranes Dry - Neck Exam Neck exam: Negative for: Lymphadenopathy - Respiratory Exam Respiratory Exam: Decreased Breath Sounds - Cardiovascular Exam Cardiovascular Exam: REGULAR RHYTHM - GI/Abdominal Exam GI & Abdominal Exam: Diminished Bowel Sounds - Rectal Exam Rectal Exam: Deferred - Exam Exam: NORMAL INSPECTION - Extremities Exam Extremities exam: Positive for: pedal edema. Negative for: calf tenderness, tenderness, pedal pulses present Additional comments: weak pulse + ulcer to great toe no pus or foul smell - Back Exam Back exam: absent: CVA tenderness (L), CVA tenderness (R) - Neurological Exam Neurological exam: Alert, CN II-XII Intact, Oriented x3, Reflexes Normal - Psychiatric Exam Psychiatric exam: Normal Mood - Skin Skin Exam: Dry Results - Vital Signs Recent Vital Signs: Last Vital Signs Temp 98.2 F 04/06/18 15:00 Pulse 70 04/06/18 15:00 Resp 20 04/06/18 15:00 BP 132/78 04/06/18 15:00 Pulse Ox 95 04/06/18 15:00 - Labs Result Diagrams: 04/06/18 08:14 04/06/18 08:14 Labs: Laboratory Results - last 24 hr 04/05/18 04/06/18 04/06/18 21:14 06:32 08:14 WBC 6.4 RBC 5.04 Hgb 14.6 Hct 43.4 MCV 86.1 MCH 29.0 MCHC 33.6 RDW 13.4 Plt Count 244 MPV 8.1 Neut % (Auto) 60.7 Lymph % (Auto) 26.4 [place] % (Auto) 9.8 Eos % (Auto) 2.7 Baso % (Auto) 0.4 Neut # (Auto) 3.9 Lymph # (Auto) 1.7 [place] # (Auto) 0.6 Eos # (Auto) 0.2 Baso # (Auto) 0.0 Sodium Potassium Chloride Carbon Dioxide Anion Gap BUN Creatinine Est GFR ( Amer) Est GFR (Non-Af Amer) POC Glucose (mg/dL) 139 H 149 H Random Glucose Calcium Phosphorus Magnesium Total Bilirubin AST ALT Alkaline Phosphatase Total Protein Albumin Globulin Albumin/Globulin Ratio 04/06/18 04/06/18 04/06/18 08:14 11:00 16:08 WBC RBC Hgb Hct MCV MCH MCHC RDW Plt Count MPV Neut % (Auto) Lymph % (Auto) [place] % (Auto) Eos % (Auto) Baso % (Auto) Neut # (Auto) Lymph # (Auto) [place] # (Auto) Eos # (Auto) Baso # (Auto) Sodium 140 Potassium 4.1 Chloride 103 Carbon Dioxide 27 Anion Gap 14 BUN 19 Creatinine 1.0 Est GFR ( Amer) > 60 Est GFR (Non-Af Amer) > 60 POC Glucose (mg/dL) 252 H 129 H Random Glucose 141 H Calcium 9.4 Phosphorus 4.0 Magnesium 2.2 Total Bilirubin 0.8 AST 14 L D ALT 17 L D Alkaline Phosphatase 115 Total Protein 7.6 Albumin 4.1 Globulin 3.5 Albumin/Globulin Ratio 1.2 Assessment & Plan (1) Diabetic ulcer of toe Status: Acute (2) Diabetic neuropathy Status: Acute - Assessment and Plan (Free Text) Assessment: PVD r/o OM recc IV rx, wound care , MRI, vascular eval
--- NOTE | 2018-04-06 22:52 | CP.PCM.CON ---
History of Present Illness - History of Present Illness History of Present Illness: Podiatry Consult Note- Dr. Hoyos 68 y.o male with PMH of DM, HTN, HLD seen and evaluated for left foot cellulitis with underlying OM. Patient is seen at bedside with visiting. Patient reports started as a callus at the bottom of his foot in which he picked off. Reports noticed increase redness and swelling about 3 weeks ago which he went to the emergency room to get evaluated. 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 Reports seeing improvements in swelling and redness for a while. Reports that the callus at the bottom of the foot however has gotten darker. Reports going to Dr. Hoyos office Tuesday and was instructed to go to the ED to be further evaluated. Today patient reports no pain. Reports numbness and tingling to the feet. Reports redness and swelling appears better. Denies nausea, fever, shortness of breath, chest pains or chills. PMH: DM, HTN, HLD, hx of prostate problems PSH: prostate removal SH: 2 cigarettes/day 40 years, denies illicit drug use, reports drinking socially ALL: NKDA FH: father- DM, of complications from DM; mother- arthritis MEDS: see MAR list Past Patient History - Infectious Disease Hx of Infectious Diseases: None - Past Medical History & Family History Past Medical History?: Yes - Past Social History Smoking Status: Light Smoker < 10 Cigarettes Daily - CARDIAC Hx Cardiac Disorders: Yes Hx Hypertension: Yes - PULMONARY Hx Respiratory Disorders: No - NEUROLOGICAL Hx Neurological Disorder: No - HEENT Hx HEENT Problems: No - RENAL Hx Chronic Kidney Disease: No - ENDOCRINE/METABOLIC Hx Endocrine Disorders: Yes Hx Diabetes Mellitus Type 2: Yes - HEMATOLOGICAL/ONCOLOGICAL Hx Blood Disorders: No - INTEGUMENTARY Hx Dermatological Problems: No - MUSCULOSKELETAL/RHEUMATOLOGICAL Hx Falls: No - GASTROINTESTINAL Hx Gastrointestinal Disorders: No - GENITOURINARY/GYNECOLOGICAL Hx Genitourinary Disorders: Yes Other/Comment: BPH - PSYCHIATRIC Hx Substance Use: No - SURGICAL HISTORY Hx Surgeries: Yes Other/Comment: Prostatectomy - ANESTHESIA Hx Anesthesia: Yes Hx Anesthesia Reactions: No Hx Malignant Hyperthermia: No Meds Allergies/Adverse Reactions: Allergies Allergy/AdvReac Type Severity Reaction Status Date / Time No Known Allergies Allergy Verified 03/18/18 19:23 - Medications Medications: Current Medications Dextrose (Dextrose 50% Inj) 0 ml IV STAT PRN; Protocol PRN Reason: Hypoglycemia Protocol Dextrose (Glutose 15) 15 gm PO ONCE PRN; Protocol PRN Reason: Hypoglycemia Protocol Enoxaparin Sodium (Lovenox) 40 mg SC DAILY [facility] Last Admin: 04/06/18 11:02 Dose: 40 mg Glucagon (Glucagen Diagnostic Kit) 1 mg IM STAT PRN; Protocol PRN Reason: Hypoglycemia Protocol Home Med (Canagliflozin [Invokana]) 300 mg PO DAILY [facility] Last Admin: 04/05/18 14:31 Dose: Not Given Piperacillin Sod/Tazobactam (Sod 3.375 gm/ Sodium Chloride) 100 mls @ 200 mls/ hr IVPB Q8H [facility] PRN Reason: Protocol Last Admin: 04/06/18 18:42 Dose: 200 mls/hr Vancomycin/Sodium Chloride (Vancomycin 1 Gm/Ns 200 Ml) 1 gm in 200 mls @ 133.333 mls/hr IVPB Q12H [facility] PRN Reason: Protocol Last Admin: 04/06/18 22:22 Dose: 133.333 mls/hr Dextrose (Dextrose 5% In Water 1000 Ml) 1,000 mls @ 0 mls/hr IV .Q0M PRN; Protocol; Per Protocol PRN Reason: Hypoglycemia Protocol Insulin Aspart (Novolog) 0 unit SC ACHS [facility] PRN Reason: Protocol Last Admin: 04/06/18 17:35 Dose: Not Given Lactobacillus Acidophilus (Bacid Acidophilus) 1 cap PO BID [facility] Last Admin: 04/06/18 18:42 Dose: 1 cap Lisinopril (Zestril) 10 mg PO DAILY [facility] Last Admin: 04/06/18 11:01 Dose: 10 mg [facility] Nicotine (Nicoderm Cq) 1 patch TD DAILY [facility] Last Admin: 04/06/18 11:02 Dose: Not Given Pneumococcal Polyvalent Vaccine (Pneumovax 23 Vaccine) 0.5 ml IM .ONCE ONE Stop: 04/07/18 12:01 Rosuvastatin Calcium (Crestor) 5 mg PO [facility] Last Admin: 04/06/18 22:22 Dose: 5 mg Physical Exam - Constitutional Appears: Well, Non-toxic, No Acute Distress - Extremities Exam Extremities exam: Negative for: calf tenderness Additional comments: LE focused physical exam VASC: DP and PT pulses palpable. CFT <3 seconds to digits x5. Temperature gradient warm to warm to the left. Warm to cool to the right. No increase in warmth noted to left hallux. Mild nonpitting edema noted to left hallux. No edema noted to leg. NEURO: Gross sensation diminished, protective sensation diminished DERM: Unstageable eschar noted to plantar aspect of left hallux measuring approximately 1.5 x 1.5 x 0.1 cm. malodor present. no drainage, no purulence present, no fluctuance, no undermining, no probe to bone, no abscess. Erythema present extending proximal to 1st MPJ. No erythema noted to leg or streaking. ORTHO: No pain on palpation noted to left hallux ulcer. No pain upon calf squeeze. No pain on palpation medial calf. Muscle strength 5/5 for all dorsiflexors, plantarflexors, inverters, and everters. - Neurological Exam Neurological exam: Alert, Oriented x3 Results - Vital Signs Recent Vital Signs: Last Vital Signs Temp 98.2 F 04/06/18 15:00 Pulse 70 04/06/18 15:00 Resp 20 04/06/18 15:00 BP 132/78 04/06/18 15:00 Pulse Ox 95 04/06/18 15:00 - Labs Result Diagrams: 04/07/18 08:14 04/07/18 08:14 Labs: Laboratory Results - last 24 hr 04/06/18 04/06/18 04/06/18 06:32 08:14 08:14 WBC 6.4 RBC 5.04 Hgb 14.6 Hct 43.4 MCV 86.1 MCH 29.0 MCHC 33.6 RDW 13.4 Plt Count 244 MPV 8.1 Neut % (Auto) 60.7 Lymph % (Auto) 26.4 Pike % (Auto) 9.8 Eos % (Auto) 2.7 Baso % (Auto) 0.4 Neut # (Auto) 3.9 Lymph # (Auto) 1.7 Pike # (Auto) 0.6 Eos # (Auto) 0.2 Baso # (Auto) 0.0 Sodium 140 Potassium 4.1 Chloride 103 Carbon Dioxide 27 Anion Gap 14 BUN 19 Creatinine 1.0 Est GFR ( Amer) > 60 Est GFR (Non-Af Amer) > 60 POC Glucose (mg/dL) 149 H Random Glucose 141 H Calcium 9.4 Phosphorus 4.0 Magnesium 2.2 Total Bilirubin 0.8 AST 14 L D ALT 17 L D Alkaline Phosphatase 115 Total Protein 7.6 Albumin 4.1 Globulin 3.5 Albumin/Globulin Ratio 1.2 Vancomycin Trough 04/06/18 04/06/18 04/06/18 11:00 16:08 21:16 WBC RBC Hgb Hct MCV MCH MCHC RDW Plt Count MPV Neut % (Auto) Lymph % (Auto) Pike % (Auto) Eos % (Auto) Baso % (Auto) Neut # (Auto) Lymph # (Auto) Pike # (Auto) Eos # (Auto) Baso # (Auto) Sodium Potassium Chloride Carbon Dioxide Anion Gap BUN Creatinine Est GFR ( Amer) Est GFR (Non-Af Amer) POC Glucose (mg/dL) 252 H 129 H 165 H Random Glucose Calcium Phosphorus Magnesium Total Bilirubin AST ALT Alkaline Phosphatase Total Protein Albumin Globulin Albumin/Globulin Ratio Vancomycin Trough 04/06/18 21:43 WBC RBC Hgb Hct MCV MCH MCHC RDW Plt Count MPV Neut % (Auto) Lymph % (Auto) Pike % (Auto) Eos % (Auto) Baso % (Auto) Neut # (Auto) Lymph # (Auto) Pike # (Auto) Eos # (Auto) Baso # (Auto) Sodium Potassium Chloride Carbon Dioxide Anion Gap BUN Creatinine Est GFR ( Amer) Est GFR (Non-Af Amer) POC Glucose (mg/dL) Random Glucose Calcium Phosphorus Magnesium Total Bilirubin AST ALT Alkaline Phosphatase Total Protein Albumin Globulin Albumin/Globulin Ratio Vancomycin Trough 12.1 H Assessment & Plan - Assessment and Plan (Free Text) Assessment: 68 y.o male with PMH of DM, HTN, HLD with left foot ulceration with cellulitis and underlying OM. Plan: Patient seen and examined Labs, vitals, chart reviewed: afebrile, absent leukocytosis X-rays- no acute fractures MRIs-1st distal phalanx and 1st proximal phalanx head and body consistent with an acute osteomyelitis Cleansed ulceration with hydrogen peroxide w2d, dsd, kerlix Will continue to follow while in house ID recommendations appreciated Dispense surgical shoe Patient may WBAT in forefoot offloading shoe Thank you for allowing us to partake in patient's care Further recommends per Dr. Hoyos
[2018-04-07] MEDS: Piperacillin/Tazobact 3.375 GM in Sodium Chloride 100 ML IVPB SCH ×4 (01:49→19:45)
--- NOTE | 2018-04-07 02:16 | CARD ---
APPROVED REPORT Date of service: 04/05/2018 EKG Measurement Heart [id number] <Conclusion> Normal sinus rhythm Left axis deviation Inferior infarct, age undetermined Abnormal ECG
--- NOTE | 2018-04-07 07:23 | CP.PCM.PN ---
<Lisa Dunn - Last Filed: 04/07/18 14:43> Subjective - Date & Time of Evaluation Date of Evaluation: 04/07/18 Time of Evaluation: 09:50 - Subjective Subjective: Patient examined at bedside. No acute events overnight. Patient reports no BM x3 days. Currently NPO for angio w/ Dr. Ghotra. Patient denies chest pain, SOB, abd pain, nausea, foot pain. Objective - Vital Signs/Intake and Output Vital Signs (last 24 hours): Temp Pulse Resp BP Pulse Ox 98.4 F 71 20 149/85 95 04/07/18 00:00 04/07/18 00:00 04/07/18 00:00 04/07/18 00:00 04/07/18 00:00 - Medications Medications: Current Medications Dextrose (Dextrose 50% Inj) 0 ml IV STAT PRN; Protocol PRN Reason: Hypoglycemia Protocol Dextrose (Glutose 15) 15 gm PO ONCE PRN; Protocol PRN Reason: Hypoglycemia Protocol Enoxaparin Sodium (Lovenox) 40 mg SC DAILY [facility] Last Admin: 04/06/18 11:02 Dose: 40 mg Glucagon (Glucagen Diagnostic Kit) 1 mg IM STAT PRN; Protocol PRN Reason: Hypoglycemia Protocol Home Med (Canagliflozin [Invokana]) 300 mg PO DAILY [facility] Last Admin: 04/05/18 14:31 Dose: Not Given Piperacillin Sod/Tazobactam (Sod 3.375 gm/ Sodium Chloride) 100 mls @ 200 mls/ hr IVPB Q8H [facility] PRN Reason: Protocol Last Admin: 04/07/18 01:49 Dose: 200 mls/hr Vancomycin/Sodium Chloride (Vancomycin 1 Gm/Ns 200 Ml) 1 gm in 200 mls @ 133.333 mls/hr IVPB Q12H [facility] PRN Reason: Protocol Last Admin: 04/06/18 22:22 Dose: 133.333 mls/hr Dextrose (Dextrose 5% In Water 1000 Ml) 1,000 mls @ 0 mls/hr IV .Q0M PRN; Protocol; Per Protocol PRN Reason: Hypoglycemia Protocol Insulin Aspart (Novolog) 0 unit SC ACHS [facility] PRN Reason: Protocol Last Admin: 04/06/18 22:26 Dose: Not Given Lactobacillus Acidophilus (Bacid Acidophilus) 1 cap PO BID [facility] Last Admin: 04/06/18 18:42 Dose: 1 cap Lisinopril (Zestril) 10 mg PO DAILY [facility] Last Admin: 04/06/18 11:01 Dose: 10 mg Metformin HCl (Glucophage) 500 mg PO BIDCC [facility] Nicotine (Nicoderm Cq) 1 patch TD DAILY [facility] Last Admin: 04/06/18 11:02 Dose: Not Given Pneumococcal Polyvalent Vaccine (Pneumovax 23 Vaccine) 0.5 ml IM .ONCE ONE Stop: 04/07/18 12:01 Rosuvastatin Calcium (Crestor) 5 mg PO [facility] Last Admin: 04/06/18 22:22 Dose: 5 mg - Labs Labs: 04/06/18 08:14 04/06/18 08:14 PT 10.9 SECONDS (9.7-12.2) 04/05/18 13:12 INR 1.0 04/05/18 13:12 APTT 39 SECONDS (21-34) H 04/05/18 13:12 - Constitutional Appears: Non-toxic, No Acute Distress - Head Exam Head Exam: ATRAUMATIC, NORMAL INSPECTION, NORMOCEPHALIC - Eye Exam Eye Exam: EOMI, Normal appearance Pupil Exam: PERRL - ENT Exam ENT Exam: Mucous Membranes Moist, Normal Exam - Neck Exam Neck Exam: Normal Inspection - Respiratory Exam Respiratory Exam: Clear to Ausculation Bilateral, NORMAL BREATHING PATTERN. absent: Rales, Wheezes - Cardiovascular Exam Cardiovascular Exam: REGULAR RHYTHM, +S1, +S2. absent: Tachycardia, Murmur - GI/Abdominal Exam GI & Abdominal Exam: Soft, Normal Bowel Sounds. absent: Distended, Tenderness - Extremities Exam Extremities Exam: Normal Inspection. absent: Calf Tenderness, Pedal Edema - Neurological Exam Neurological Exam: Alert, Awake, Oriented x3 - Psychiatric Exam Psychiatric exam: Normal Affect, Normal Mood - Skin Skin Exam: Dry, Intact (Left first great toe plantar ulcer. Erythematous), Normal Color, Warm Assessment and Plan - Assessment and Plan (Free Text) Assessment: 67 yo M w/ PMHx of DM2 admitted w/ LLE great toe ulcer Acute Osteo of left great toe. -PICC(04/07) -pt to be treated until 05/17 with IV Abx infusions as outpatient -likely Invanz and Dapto -f/u w/ Dr. Hughes recs -vanc 1g q12, -f/u vanc trough 10/09 10:00, goal 15-20 -zosyn 3.375 q6h -f/u blood cx -Podiatry consult Dr. Tovar -ID consult Dr. Hughes PVD -Abd angio(04/05)-mod/severe stenosis of the left mid/distal peroneal segments -vasc sx Dr. Ghotra DM2 -hgb a1c-8.5 -ISS -accuchecks achs HTN -elevated BPs since admission -start on Lisinopril 10mg PO QD HLD -elevated lipid panel -crestor 5mg PO HS BPH -MRI reads enlarged prostate, although pt reports prostatectomy -no urinary sxms, continue to monitor Ppx -heparin 5000 q8 -SCD on right -nicotine patch 7mg -GI ppx not indicated Dispo: likely d/c Tuesday following 1st Invanz dose Tuesday. F/U w/ Ellen <Joseph Flores - Last Filed: 04/07/18 19:17> Objective - Vital Signs/Intake and Output Vital Signs (last 24 hours): Temp Pulse Resp BP Pulse Ox 97.5 F L 73 20 152/85 H 95 04/07/18 07:00 04/07/18 10:42 04/07/18 07:00 04/07/18 10:42 04/07/18 07:00 Intake and Output: 04/07/18 04/08/18 18:59 06:59 Intake Total 300 Balance 300 - Medications Medications: Current Medications Clopidogrel Bisulfate (Plavix) 75 mg PO DAILY [facility] Collagenase (Santyl) 1 gm TOP DAILY [facility] Last Admin: 04/07/18 12:36 Dose: Not Given Dextrose (Dextrose 50% Inj) 0 ml IV STAT PRN; Protocol PRN Reason: Hypoglycemia Protocol Dextrose (Glutose 15) 15 gm PO ONCE PRN; Protocol PRN Reason: Hypoglycemia Protocol Glucagon (Glucagen Diagnostic Kit) 1 mg IM STAT PRN; Protocol PRN Reason: Hypoglycemia Protocol Home Med (Canagliflozin [Invokana]) 300 mg PO DAILY [facility] Last Admin: 04/05/18 14:31 Dose: Not Given Piperacillin Sod/Tazobactam (Sod 3.375 gm/ Sodium Chloride) 100 mls @ 200 mls/ hr IVPB Q8H [facility] PRN Reason: Protocol Last Admin: 04/07/18 10:44 Dose: 200 mls/hr Vancomycin/Sodium Chloride (Vancomycin 1 Gm/Ns 200 Ml) 1 gm in 200 mls @ 133.333 mls/hr IVPB Q12H [facility] PRN Reason: Protocol Last Admin: 04/07/18 12:15 Dose: 133.333 mls/hr Dextrose (Dextrose 5% In Water 1000 Ml) 1,000 mls @ 0 mls/hr IV .Q0M PRN; Protocol; Per Protocol PRN Reason: Hypoglycemia Protocol Dextrose/Sodium Chloride (Dextrose 5%/0.45% Ns 1000 Ml) 1,000 mls @ 100 mls/hr IV .Q10H [facility] Insulin Aspart (Novolog) 0 unit SC ACHS [facility] PRN Reason: Protocol Last Admin: 04/07/18 17:54 Dose: Not Given Lactobacillus Acidophilus (Bacid Acidophilus) 1 cap PO BID [facility] Last Admin: 04/07/18 10:44 Dose: 1 cap Lisinopril (Zestril) 10 mg PO DAILY [facility] Last Admin: 04/07/18 10:44 Dose: 10 mg Metformin HCl (Glucophage) 500 mg PO BIDCC [facility] Nicotine (Nicoderm Cq) 1 patch TD DAILY [facility] Last Admin: 04/07/18 09:03 Dose: Not Given Rosuvastatin Calcium (Crestor) 5 mg PO HS [facility] Last Admin: 04/06/18 22:22 Dose: 5 mg - Labs Labs: 04/07/18 08:14 04/07/18 08:14 PT 10.9 SECONDS (9.7-12.2) 04/05/18 13:12 INR 1.0 04/05/18 13:12 APTT 39 SECONDS (21-34) H 04/05/18 13:12 Attending/Attestation - Attestation I have personally seen and examined this patient.: Yes I have fully participated in the care of the patient.: Yes I have reviewed all pertinent clinical information, including history, physical exam and plan: Yes Notes (Text): 04/07/18 19:11 Patient was seen and examined at 9:30 AM 04/07/18 Care of this patient was gone over in detail with resident. Discussed options for outpatient infusion of antibiotics with ID Dr. Hughes and they are the following: Vancomycin 1 gm IV Q12H WITH Cefepime 1 gm IV Q12H Cubicin 450 mg IV 1x/day Telavancin 750 mg IV 1x/day All 3 of the above options will have to be given through 05/17/18 to complete a 6 week course. He will have to continue probiotic during this time through 06/17/18. Plan for PICC Line placement today with Nurse Macy with whom I have spoken with. Spoke with Project Architect Dr. Wilder and there are NO plans for surgical intervention at this time. Spoke with Vascular Surgeon Dr. Ghotra and patient is for angiogram of the left leg today. F/U Vancomycin Trough 04/08/18 10 AM with goal 15 to 20. Plan of care gone over in detail with patient's huytosin Olga [phone]
[2018-04-07] MEDS: (Novolog) Insulin Aspart, Recombinant 100 u/ml 10 ml vial SC SCH ×4 (08:10→21:31)
[2018-04-07 08:24] LABS: BASO % 0.3 % (0.0-2.0); EOS # 0.1 K/uL (0.0-0.7); EOS % 2.5 % (0.0-4.0); HEMOGLOBIN 15.1 g/dL (12.0-18.0); LYMPH # 1.5 K/uL (1.0-4.3); LYMPH % 24.5 % (20.0-40.0); MEAN CELL VOLUME 86.3 fL (80.0-94.0); MEAN CORPUSCULAR HEMOGLOBIN 28.8 pg (27.0-31.0); MEAN CORPUSCULAR HGB CONC 33.4 g/dL (33.0-37.0); MEAN PLATELET VOLUME 7.9 fL (7.2-11.7); MONO # 0.7 K/uL (0.0-0.8); MONO % 11.1 % (0.0-10.0); NEUT # 3.7 K/uL (1.8-7.0); NEUT % 61.6 % (50.0-75.0); NRBC % 0.1 % (0.0-2.0); RBC 5.24 Mil/uL (4.40-5.90); RED CELL DISTRIBUTION WIDTH 13.2 % (11.5-14.5); WHITE BLOOD COUNT 5.9 K/uL (4.8-10.8)
[2018-04-07 08:45] LABS: ALB/GLOB RATIO 1.2 (1.0-2.1); ALBUMIN 4.2 g/dL (3.5-5.0); ALT/SGPT 13 U/L (21-72); AST/SGOT 14 U/L (17-59); BLOOD UREA NITROGEN 22 mg/dL (9-20); CALCIUM 9.5 mg/dl (8.6-10.4); GFR NON-AFRICAN AMERICAN > 60
[2018-04-07] MEDS: Enoxaparin 40 mg Syringe SC SCH (09:03)
[2018-04-07] MEDS: Lactobacillus Acidophilus 500 MU Cap PO SCH ×2 (10:44→18:00)
[2018-04-07] MEDS ORDERED: Pneumococcal 23-Valent Vaccine IM ONE (12:00)
[2018-04-07] MEDS: Vancomycin 1 gm/NS 200 ml 1 GM/200 ML BAG IVPB SCH ×2 (12:15→22:44)
[2018-04-07] MEDS: Collagenase 250 Units/gm Ointment(30 gm) TOP SCH (12:36)
--- NOTE | 2018-04-07 14:25 | RAD ---
Date of service: 04/07/2018 HISTORY: verify right PICC COMPARISON: Comparison chest dated 7237. FINDINGS: In situ right-sided PICC line tip which lies in the SVC -RA junction LUNGS: No active pulmonary disease. PLEURA: No significant pleural effusion identified, no pneumothorax apparent. CARDIOVASCULAR: Mild cardiomegaly. OSSEOUS STRUCTURES: No significant abnormalities. VISUALIZED UPPER ABDOMEN: Normal. OTHER FINDINGS: None. IMPRESSION: No active disease. In situ right-sided PICC line as above
[2018-04-07] MEDS ORDERED: Iodixanol 320 MG/ML 200 ML BOTTLE IV ONE (16:15)
[2018-04-07] MEDS ORDERED: Lidocaine 2% MPF (5 ml) Inj ONE (16:16)
[2018-04-07] MEDS ORDERED: Midazolam 2 MG/2 ML VIAL ONE ×2 (16:17→17:29)
--- NOTE | 2018-04-07 18:24 | PCM.SURG1 ---
Surgeon's Initial Post Op Note - Surgeon's Notes Surgeon: jen Engine Turner: 0 Type of Anesthesia: IV Sedation Anesthesia Administered By: chiqui Pre-Operative Diagnosis: gangrene of left great toe Operative Findings: severe tibial disease. posteriot tibial reconstitutes mid calf. anterior tibial occluded at origin , patent to distal calf. peroneal not visualized Post-Operative Diagnosis: same Operation Performed: aortofemoral angiogram via right groin. selective catherization of left femoral artery. balloon angioplasty 2.5 mm left anterior tibial artery. perclose right groin Specimen/Specimens Removed: 0 Estimated Blood Loss: EBL {In ML}: 50 Blood Products Given: N/A Drains Used: No Drains Post-Op Condition: Good Date of Surgery/Procedure: 04/07/18 Time of Surgery/Procedure: 18:25
[2018-04-07] MEDS: Dextrose 5%/0.45% NS 1,000 ML IV SCH (18:30)
--- NOTE | 2018-04-07 19:24 | CP.PCM.PN ---
Subjective - Date & Time of Evaluation Date of Evaluation: 04/07/18 Time of Evaluation: 08:00 - Subjective Subjective: s/p baloon angioplasty iv rx in progress will need 6 weeks rx however salvage of digit guarded Objective - Vital Signs/Intake and Output Vital Signs (last 24 hours): Temp Pulse Resp BP Pulse Ox 97.5 F L 73 20 152/85 H 95 04/07/18 07:00 04/07/18 10:42 04/07/18 07:00 04/07/18 10:42 04/07/18 07:00 Intake and Output: 04/07/18 04/08/18 18:59 06:59 Intake Total 300 Balance 300 - Medications Medications: Current Medications Clopidogrel Bisulfate (Plavix) 75 mg PO DAILY [facility] Collagenase (Santyl) 1 gm TOP DAILY [facility] Last Admin: 04/07/18 12:36 Dose: Not Given Dextrose (Dextrose 50% Inj) 0 ml IV STAT PRN; Protocol PRN Reason: Hypoglycemia Protocol Dextrose (Glutose 15) 15 gm PO ONCE PRN; Protocol PRN Reason: Hypoglycemia Protocol Glucagon (Glucagen Diagnostic Kit) 1 mg IM STAT PRN; Protocol PRN Reason: Hypoglycemia Protocol Home Med (Canagliflozin [Invokana]) 300 mg PO DAILY [facility] Last Admin: 04/05/18 14:31 Dose: Not Given Piperacillin Sod/Tazobactam (Sod 3.375 gm/ Sodium Chloride) 100 mls @ 200 mls/ hr IVPB Q8H [facility] PRN Reason: Protocol Last Admin: 04/07/18 10:44 Dose: 200 mls/hr Vancomycin/Sodium Chloride (Vancomycin 1 Gm/Ns 200 Ml) 1 gm in 200 mls @ 133.333 mls/hr IVPB Q12H [facility] PRN Reason: Protocol Last Admin: 04/07/18 12:15 Dose: 133.333 mls/hr Dextrose (Dextrose 5% In Water 1000 Ml) 1,000 mls @ 0 mls/hr IV .Q0M PRN; Protocol; Per Protocol PRN Reason: Hypoglycemia Protocol Dextrose/Sodium Chloride (Dextrose 5%/0.45% Ns 1000 Ml) 1,000 mls @ 100 mls/hr IV .Q10H [facility] Insulin Aspart (Novolog) 0 unit SC ACHS [facility] PRN Reason: Protocol Last Admin: 04/07/18 17:54 Dose: Not Given Lactobacillus Acidophilus (Bacid Acidophilus) 1 cap PO BID [facility] Last Admin: 04/07/18 10:44 Dose: 1 cap Lisinopril (Zestril) 10 mg PO DAILY [facility] Last Admin: 04/07/18 10:44 Dose: 10 mg Metformin HCl (Glucophage) 500 mg PO BIDCC [facility] Nicotine (Nicoderm Cq) 1 patch TD DAILY [facility] Last Admin: 04/07/18 09:03 Dose: Not Given Rosuvastatin Calcium (Crestor) 5 mg PO HS [facility] Last Admin: 04/06/18 22:22 Dose: 5 mg - Labs Labs: 04/07/18 08:14 04/07/18 08:14 PT 10.9 SECONDS (9.7-12.2) 04/05/18 13:12 INR 1.0 04/05/18 13:12 APTT 39 SECONDS (21-34) H 04/05/18 13:12 - Constitutional Appears: Non-toxic, Chronically Ill - Head Exam Head Exam: NORMOCEPHALIC - Eye Exam Eye Exam: PERRL - ENT Exam ENT Exam: Mucous Membranes Dry - Neck Exam Neck Exam: absent: Lymphadenopathy - Respiratory Exam Respiratory Exam: Decreased Breath Sounds - Cardiovascular Exam Cardiovascular Exam: REGULAR RHYTHM - GI/Abdominal Exam GI & Abdominal Exam: Distended, Soft Assessment and Plan (1) Diabetic ulcer of toe Status: Acute (2) Diabetic neuropathy Status: Acute
[2018-04-08] MEDS: Piperacillin/Tazobact 3.375 GM in Sodium Chloride 100 ML IVPB SCH ×2 (02:40→10:18)
--- NOTE | 2018-04-08 02:54 | CP.PCM.PN ---
Subjective - Date & Time of Evaluation Date of Evaluation: 04/07/18 Time of Evaluation: 10:00 - Subjective Subjective: Podiatry Progress Note- Dr. Hoyos 67 y.o male with left hallux eschar with underlying OM seen and evaluated with attending Dr. Hoyos at bedside. Patient is seen with and daugther at bedside. Patient is resting comfortably, in NAD, and AA0x3. Denies acute overnight events. Patient reports will get vascular intervention today. Denies pain. Denies nausea, fever, shortness of breath, chest pains or chills. Objective - Vital Signs/Intake and Output Vital Signs (last 24 hours): Temp Pulse Resp BP Pulse Ox 98.2 F 83 20 166/83 H 95 04/08/18 00:00 04/08/18 00:00 04/08/18 00:00 04/08/18 00:00 04/08/18 00:00 Intake and Output: 04/07/18 04/08/18 18:59 06:59 Intake Total 300 650 Output Total 600 Balance 300 50 - Medications Medications: Current Medications Clopidogrel Bisulfate (Plavix) 75 mg PO DAILY [facility] Collagenase (Santyl) 1 gm TOP DAILY [facility] Last Admin: 04/07/18 12:36 Dose: Not Given Dextrose (Dextrose 50% Inj) 0 ml IV STAT PRN; Protocol PRN Reason: Hypoglycemia Protocol Dextrose (Glutose 15) 15 gm PO ONCE PRN; Protocol PRN Reason: Hypoglycemia Protocol Glucagon (Glucagen Diagnostic Kit) 1 mg IM STAT PRN; Protocol PRN Reason: Hypoglycemia Protocol Home Med (Canagliflozin [Invokana]) 300 mg PO DAILY [facility] Last Admin: 04/05/18 14:31 Dose: Not Given Piperacillin Sod/Tazobactam (Sod 3.375 gm/ Sodium Chloride) 100 mls @ 200 mls/ hr IVPB Q8H [facility] PRN Reason: Protocol Last Admin: 04/08/18 02:40 Dose: 200 mls/hr Vancomycin/Sodium Chloride (Vancomycin 1 Gm/Ns 200 Ml) 1 gm in 200 mls @ 133.333 mls/hr IVPB Q12H [facility] PRN Reason: Protocol Last Admin: 04/07/18 22:44 Dose: 133.333 mls/hr Dextrose (Dextrose 5% In Water 1000 Ml) 1,000 mls @ 0 mls/hr IV .Q0M PRN; Protocol; Per Protocol PRN Reason: Hypoglycemia Protocol Dextrose/Sodium Chloride (Dextrose 5%/0.45% Ns 1000 Ml) 1,000 mls @ 100 mls/hr IV .Q10H [facility] Last Admin: 04/07/18 18:30 Dose: Not Given Insulin Aspart (Novolog) 0 unit SC ACHS [facility] PRN Reason: Protocol Last Admin: 04/07/18 21:31 Dose: Not Given Lactobacillus Acidophilus (Bacid Acidophilus) 1 cap PO BID [facility] Last Admin: 04/07/18 18:00 Dose: Not Given Lisinopril (Zestril) 10 mg PO DAILY [facility] Last Admin: 04/07/18 10:44 Dose: 10 mg Met[facility]) [facility] Nicotine (Nicoderm Cq) 1 patch TD DAILY [facility] Last Admin: 04/07/18 09:03 Dose: Not Given Rosuvastatin Calcium (Crestor) 5 mg PO HS [facility] Last Admin: 04/07/18 21:10 Dose: 5 mg - Labs Labs: 04/07/18 08:14 04/07/18 08:14 PT 10.9 SECONDS (9.7-12.2) 04/05/18 13:12 INR 1.0 04/05/18 13:12 APTT 39 SECONDS (21-34) H 04/05/18 13:12 - Constitutional Appears: Well, Non-toxic, No Acute Distress - Extremities Exam Extremities Exam: absent: Calf Tenderness Additional comments: LE focused physical exam VASC: DP and PT pulses faintly palpable. CFT <3 seconds to digits x5. Temperature gradient warm to warm to the left. Warm to cool to the right. No increase in warmth noted to left hallux. Mild nonpitting edema noted to left hallux. No edema noted to leg. NEURO: Gross sensation diminished, protective sensation diminished DERM: Unstageable eschar noted to plantar aspect of left hallux measuring approximately 1.5 x 1.5 x 0.1 cm. malodor present. no drainage, no purulence present, no fluctuance, no undermining, no probe to bone, no abscess. Erythema present extending proximal to 1st MPJ- resolving. No erythema noted to leg or streaking. ORTHO: No pain on palpation noted to left hallux ulcer. No pain upon calf squeeze. No pain on palpation medial calf. Muscle strength 5/5 for all dorsiflexors, plantarflexors, inverters, and everters. - Neurological Exam Neurological Exam: Alert, Awake - Psychiatric Exam Psychiatric exam: Normal Affect, Normal Mood Assessment and Plan - Assessment and Plan (Free Text) Assessment: 68 y.o male with PMH of DM, HTN, HLD with left foot eschar ulceration with cellulitis and underlying OM. Plan: Patient seen and examined with attending Dr. Hoyos All questions/concerns addressed Labs, vitals, chart reviewed: afebrile, absent leukocytosis X-rays- no acute fractures MRIs-1st distal phalanx and 1st proximal phalanx head and body consistent with an acute osteomyelitis Ordered CRP, ESR IV abx per Dr. Hughes for treatment of OM, recommendations appreciated No surgical intervention by podiatry Podiatry will treat conservative Will provide local wound care while in house with wound product Santyl for gentle debridement of wound Ordered Santyl Cleansed eschar with hydrogen peroxide and very light dressing consisting of 1 dsd, and 1/4 cling and paper tape To be change twice daily. One by podiatry, on by nursing. Thank you Please dispense Darco Shoe with forefoot relief offloading shoe Patient to only start WB to the left foot when forefoot relief shoe is dispense PT evaluate and treat with Darco shoe to monitor gait and stability, with assisting device if necessary. Thank you. Recommendations appreciated. Can followup with Dr. Hoyos in 1 week upon discharge
[2018-04-08] MEDS: Dextrose 5%/0.45% NS 1,000 ML IV SCH ×3 (04:30→14:37)
[2018-04-08 07:20] LABS: BASO % 0.3 % (0.0-2.0); EOS # 0.1 K/uL (0.0-0.7); EOS % 0.7 % (0.0-4.0); HEMOGLOBIN 14.5 g/dL (12.0-18.0); LYMPH # 0.7 K/uL (1.0-4.3); LYMPH % 10.5 % (20.0-40.0); MEAN CELL VOLUME 85.3 fL (80.0-94.0); MEAN CORPUSCULAR HEMOGLOBIN 28.8 pg (27.0-31.0); MEAN CORPUSCULAR HGB CONC 33.8 g/dL (33.0-37.0); MEAN PLATELET VOLUME 7.9 fL (7.2-11.7); MONO # 0.7 K/uL (0.0-0.8); MONO % 10.2 % (0.0-10.0); NEUT # 5.5 K/uL (1.8-7.0); NEUT % 78.3 % (50.0-75.0); RBC 5.04 Mil/uL (4.40-5.90); RED CELL DISTRIBUTION WIDTH 13.3 % (11.5-14.5); WHITE BLOOD COUNT 7.1 K/uL (4.8-10.8)
[2018-04-08] MEDS: (Novolog) Insulin Aspart, Recombinant 100 u/ml 10 ml vial SC SCH ×4 (07:57→22:20)
[2018-04-08 08:13] LABS: ALB/GLOB RATIO 1.1 (1.0-2.1); ALBUMIN 3.9 g/dL (3.5-5.0); ALT/SGPT 18 U/L (21-72); AST/SGOT 15 U/L (17-59); BLOOD UREA NITROGEN 16 mg/dL (9-20); CALCIUM 9.3 mg/dl (8.6-10.4); GFR NON-AFRICAN AMERICAN > 60
--- NOTE | 2018-04-08 08:47 | CP.PCM.PN ---
<Zachary Funes - Last Filed: 04/08/18 11:36> Subjective - Date & Time of Evaluation Date of Evaluation: 04/08/18 Time of Evaluation: 11:33 - Subjective Subjective: Pt seen and examined at bedside. Pt denies any complaints overnight. Pt reports normal bowel movement and urinartion. Pt denies f/c, n/v sweating, cp sob leg pains, swelling, hot sensations or abnormal pressure in foot. Pt denies loss of function or sensation in left great toe. Objective - Vital Signs/Intake and Output Vital Signs (last 24 hours): Temp Pulse Resp BP Pulse Ox 99.8 F H 84 20 152/81 H 96 04/08/18 07:51 04/08/18 07:51 04/08/18 07:51 04/08/18 07:51 04/08/18 07:51 Intake and Output: 04/08/18 04/08/18 06:59 18:59 Intake Total 650 Output Total 600 Balance 50 - Medications Medications: Current Medications Amlodipine Besylate (Norvasc) 5 mg PO DAILY [facility] Aspirin (Ecotrin) 81 mg PO DAILY [facility] Clopidogrel Bisulfate (Plavix) 75 mg PO DAILY [facility] Collagenase (Santyl) 1 gm TOP DAILY [facility] Last Admin: 04/07/18 12:36 Dose: Not Given Dextrose (Dextrose 50% Inj) 0 ml IV STAT PRN; Protocol PRN Reason: Hypoglycemia Protocol Dextrose (Glutose 15) 15 gm PO ONCE PRN; Protocol PRN Reason: Hypoglycemia Protocol Enoxaparin Sodium (Lovenox) 40 mg SC DAILY [facility] Glucagon (Glucagen Diagnostic Kit) 1 mg IM STAT PRN; Protocol PRN Reason: Hypoglycemia Protocol Home Med (Canagliflozin [Invokana]) 300 mg PO DAILY [facility] Last Admin: 04/05/18 14:31 Dose: Not Given Piperacillin Sod/Tazobactam (Sod 3.375 gm/ Sodium Chloride) 100 mls @ 200 mls/ hr IVPB Q8H [facility] PRN Reason: Protocol Last Admin: 04/08/18 02:40 Dose: 200 mls/hr Vancomycin/Sodium Chloride (Vancomycin 1 Gm/Ns 200 Ml) 1 gm in 200 mls @ 133.333 mls/hr IVPB Q12H [facility] PRN Reason: Protocol Last Admin: 04/07/18 22:44 Dose: 133.333 mls/hr Dextrose (Dextrose 5% In Water 1000 Ml) 1,000 mls @ 0 mls/hr IV .Q0M PRN; Protocol; Per Protocol PRN Reason: Hypoglycemia Protocol Dextrose/Sodium Chloride (Dextrose 5%/0.45% Ns 1000 Ml) 1,000 mls @ 100 mls/hr IV .Q10H [facility] Last Admin: 04/08/18 04:30 Dose: Not Given Insulin Aspart (Novolog) 0 unit SC ACHS [facility] PRN Reason: Protocol Last Admin: 04/08/18 07:57 Dose: Not Given Lactobacillus Acidophilus (Bacid Acidophilus) 1 cap PO BID [facility] Last Admin: 04/07/18 18:00 Dose: Not Given Lisinopril (Zestril) 10 mg PO DAILY [facility] Last Admin: 04/07/18 10:44 Dose: 10 mg Metformin HCl (Glucophage) 500 mg PO BIDCC [facility] Nicotine (Nicoderm Cq) 1 patch TD DAILY [facility] Last Admin: 04/07/18 09:03 Dose: Not Given Polyethylene Glycol (Miralax) 17 gm PO ONCE ONE Stop: 04/08/18 10:01 Rosuvastatin Calcium (Crestor) 5 mg PO HS [facility] Last Admin: 04/07/18 21:10 Dose: 5 mg - Labs Labs: 04/08/18 07:10 04/08/18 07:10 PT 10.9 SECONDS (9.7-12.2) 04/05/18 13:12 INR 1.0 04/05/18 13:12 APTT 39 SECONDS (21-34) H 04/05/18 13:12 - Additional Findings Additional findings: - Constitutional Appears: Non-toxic, No Acute Distress - Head Exam Head Exam: ATRAUMATIC, NORMAL INSPECTION, NORMOCEPHALIC - Eye Exam Eye Exam: EOMI, Normal appearance Pupil Exam: PERRL - ENT Exam ENT Exam: Mucous Membranes Moist, Normal Exam - Neck Exam Neck Exam: Normal Inspection - Respiratory Exam Respiratory Exam: Clear to Ausculation Bilateral, NORMAL BREATHING PATTERN. absent: Rales, Wheezes - Cardiovascular Exam Cardiovascular Exam: REGULAR RHYTHM, +S1, +S2. absent: Tachycardia, Murmur - GI/Abdominal Exam GI & Abdominal Exam: Soft, Normal Bowel Sounds. absent: Distended, Tenderness - Extremities Exam Extremities Exam: Normal Inspection. absent: Calf Tenderness, Pedal Edema, groin access site appears non erythematous, not draining. pedal pulse and tibial pulse intact - Neurological Exam Neurological Exam: Alert, Awake, Oriented x3 - Psychiatric Exam Psychiatric exam: Normal Affect, Normal Mood - Skin Skin Exam: Dry, Intact (Left first great toe plantar ulcer. Erythematous), Normal Color, Warm Assessment and Plan - Assessment and Plan (Free Text) Plan: Assessment: 67 yo M w/ PMHx of DM2 admitted w/ LLE great toe ulcer Acute Osteo of left great toe. -PICC(04/07) -pt to be treated until 05/17 with IV Abx infusions as outpatient -Dr. Hughes recyossi appreciated: 6 wks of abx. outpt infusion of Invance pending approval -vanc 1g q12, -vanc trough 10/09 10:00 12.4, goal 15-20 -zosyn 3.375 q6h -blood cultures no growth 48hrs -Podiatry consult Dr. Tovar -ID consult Dr. Hughes PVD -Abd angio(04/05)-mod/severe stenosis of the left mid/distal peroneal segments -vasc sx Dr. Ghotra DM2 -hgb a1c-8.5 -ISS -accuchecks achs -gluc 127 HTN -elevated BPs since admission 152/80 today -start on Lisinopril 10mg PO QD HLD -elevated lipid panel -crestor 5mg PO HS BPH -MRI reads enlarged prostate, although pt reports prostatectomy -no urinary sxms, continue to monitor Ppx -heparin 5000 q8 -SCD on right -nicotine patch 7mg -GI ppx not indicated Dispo: likely d/c Tuesday following 1st Invanz dose Tuesday. F/U w/ Ellen s/p jenni angioplasty of L posterior tibial artery <Joseph Flores - Last Filed: 04/08/18 14:02> Objective - Vital Signs/Intake and Output Vital Signs (last 24 hours): Temp Pulse Resp BP Pulse Ox 99.8 F H 84 20 152/81 H 96 04/08/18 07:51 04/08/18 07:51 04/08/18 07:51 04/08/18 07:51 04/08/18 07:51 Intake and Output: 04/08/18 04/08/18 06:59 18:59 Intake Total 650 Output Total 600 Balance 50 - Medications Medications: Current Medications Amlodipine Besylate (Norvasc) 5 mg PO DAILY [facility] Last Admin: 04/08/18 10:19 Dose: 5 mg Aspirin (Ecotrin) 81 mg PO DAILY [facility] Last Admin: 04/08/18 10:19 Dose: 81 mg Clopidogrel Bisulfate (Plavix) 75 mg PO DAILY [facility] Last Admin: 04/08/18 10:19 Dose: 75 mg Collagenase (Santyl) 1 gm TOP DAILY [facility] Last Admin: 04/08/18 10:37 Dose: Not Given Dextrose (Dextrose 50% Inj) 0 ml IV STAT PRN; Protocol PRN Reason: Hypoglycemia Protocol Dextrose (Glutose 15) 15 gm PO ONCE PRN; Protocol PRN Reason: Hypoglycemia Protocol Enoxaparin Sodium (Lovenox) 40 mg SC DAILY [facility] Last Admin: 04/08/18 10:25 Dose: 40 mg Glucagon (Glucagen Diagnostic Kit) 1 mg IM STAT PRN; Protocol PRN Reason: Hypoglycemia Protocol Home Med (Canagliflozin [Invokana]) 300 mg PO DAILY [facility] Last Admin: 04/05/18 14:31 Dose: Not Given Dextrose (Dextrose 5% In Water 1000 Ml) 1,000 mls @ 0 mls/hr IV .Q0M PRN; Protocol; Per Protocol PRN Reason: Hypoglycemia Protocol Dextrose/Sodium Chloride (Dextrose 5%/0.45% Ns 1000 Ml) 1,000 mls @ 100 mls/hr IV .Q10H [facility] Last Admin: 04/08/18 10:21 Dose: 100 mls/hr Daptomycin 450 mg/ Sodium (Chloride) 100 mls @ 100 mls/hr IV DAILY [facility] PRN Reason: Protocol Stop: 04/13/18 13:01 Ertapenem 1 gm/ Sodium (Chloride) 50 mls @ 100 mls/hr IV DAILY [facility] PRN Reason: Protocol Insulin Aspart (Novolog) 0 unit SC ACHS [facility] PRN Reason: Protocol Last Admin: 04/08/18 12:24 Dose: Not Given Lactobacillus Acidophilus (Bacid Acidophilus) 1 cap PO BID [facility] Last Admin: 04/08/18 10:19 Dose: 1 cap Lisinopril (Zestril) 10 mg PO DAILY [facility] Last Admin: 04/08/18 10:19 Dose: 10 mg [facility] (Gl[facility]ophage) [facility] Nicotine (Nicoderm Cq) 1 patch TD DAILY [facility] Last Admin: 04/08/18 10:19 Dose: 1 patch Rosuvastatin Calcium (Crestor) 5 mg PO HS [facility] Last Admin: 04/07/18 21:10 Dose: 5 mg - Labs Labs: 04/08/18 07:10 04/08/18 07:10 PT 10.9 SECONDS (9.7-12.2) 04/05/18 13:12 INR 1.0 04/05/18 13:12 APTT 39 SECONDS (21-34) H 04/05/18 13:12 Attending/Attestation - Attestation I have personally seen and examined this patient.: Yes I have fully participated in the care of the patient.: Yes I have reviewed all pertinent clinical information, including history, physical exam and plan: Yes Notes (Text): 04/08/18 13:43 Patient was seen and examined at 8:30 AM 04/08/18 Upon FULL ROS: He has not moved his bowels in 4 days NO abdominal pain NO n/v/d Passing flatus NO other complaints upon FULL ROS Also on Exam: Circular 2 x 1.5 cm Left Great Toe pedal surface unstageable ulcer Pedal pulse slightly more palpable on left today Normal coloration and warmth of the left foot Skin of the left toe is no longer erythematous Spoke with ID Dr. Hughes and he has written Rx for Cubicin 450 mg IV Q24H and Invanz 1 gram IV Q24H for 6 weeks and Rx for weekly CBC, CMP, ESR, CPK written. Spoke with Refuse Driver E[place] and outpatient infusion on [address] [place] [address] has been approved and is set to start on Tuesday04/10/18 at 11:00 AM. Cubicin 450 mg IV Q24H and Invanz 1 gm IV Q24H has been started today. Spoke with Physical Therapist Basia and she has provided patient with Podiatry James and has arranged it so that he would not place pressure on the Left Big Toe when ambulating. Patient will be discharged in the morning 04/09/18. Joseph Flores D.O.
[2018-04-08] MEDS ORDERED: POLYETHYLENE GLYCOL 3350 17 GM/Dose PACKET PO ONE (10:00)
[2018-04-08] MEDS ORDERED: Enoxaparin 40 mg Syringe SC SCH (10:00)
[2018-04-08] MEDS: Vancomycin 1 gm/NS 200 ml 1 GM/200 ML BAG IVPB SCH (10:18)
[2018-04-08] MEDS: Lactobacillus Acidophilus 500 MU Cap PO SCH ×2 (10:19→17:31)
[2018-04-08] MEDS: Collagenase 250 Units/gm Ointment(30 gm) TOP SCH (10:37)
--- NOTE | 2018-04-08 11:59 | CP.PCM.PN ---
Subjective - Date & Time of Evaluation Date of Evaluation: 04/08/18 Time of Evaluation: 08:30 - Subjective Subjective: Vascular surgery note for Dr. Ghotra Patient seen and examined with Dr. Mendez this AM. No adverse events overnight, denies pain, fevers, or chills. Objective - Vital Signs/Intake and Output Vital Signs (last 24 hours): Temp Pulse Resp BP Pulse Ox 99.8 F H 84 20 152/81 H 96 04/08/18 07:51 04/08/18 07:51 04/08/18 07:51 04/08/18 07:51 04/08/18 07:51 Intake and Output: 04/08/18 04/08/18 06:59 18:59 Intake Total 650 Output Total 600 Balance 50 - Medications Medications: Current Medications Amlodipine Besylate (Norvasc) 5 mg PO DAILY [facility] Last Admin: 04/08/18 10:19 Dose: 5 mg Aspirin (Ecotrin) 81 mg PO DAILY [facility] Last Admin: 04/08/18 10:19 Dose: 81 mg Clopidogrel Bisulfate (Plavix) 75 mg PO DAILY [facility] Last Admin: 04/08/18 10:19 Dose: 75 mg Collagenase (Santyl) 1 gm TOP DAILY [facility] Last Admin: 04/08/18 10:37 Dose: Not Given Dextrose (Dextrose 50% Inj) 0 ml IV STAT PRN; Protocol PRN Reason: Hypoglycemia Protocol Dextrose (Glutose 15) 15 gm PO ONCE PRN; Protocol PRN Reason: Hypoglycemia Protocol Enoxaparin Sodium (Lovenox) 40 mg SC DAILY [facility] Last Admin: 04/08/18 10:25 Dose: 40 mg Glucagon (Glucagen Diagnostic Kit) 1 mg IM STAT PRN; Protocol PRN Reason: Hypoglycemia Protocol Home Med (Canagliflozin [Invokana]) 300 mg PO DAILY [facility] Last Admin: 04/05/18 14:31 Dose: Not Given Dextrose (Dextrose 5% In Water 1000 Ml) 1,000 mls @ 0 mls/hr IV .Q0M PRN; Protocol; Per Protocol PRN Reason: Hypoglycemia Protocol Dextrose/Sodium Chloride (Dextrose 5%/0.45% Ns 1000 Ml) 1,000 mls @ 100 mls/hr IV .Q10H [facility] Last Admin: 04/08/18 10:21 Dose: 100 mls/hr Daptomycin 450 mg/ Sodium (Chloride) 100 mls @ 100 mls/hr IV DAILY [facility] PRN Reason: Protocol Stop: 04/13/18 12:01 Ertapenem 1 gm/ Sodium (Chloride) 50 mls @ 100 mls/hr IV DAILY [facility] PRN Reason: Protocol Insulin Aspart (Novolog) 0 unit SC ACHS [facility] PRN Reason: Protocol Last Admin: 04/08/18 07:57 Dose: Not Given Lactobacillus Acidophilus (Bacid Acidophilus) 1 cap PO BID [facility] Last Admin: 04/08/18 10:19 Dose: 1 cap Lisinopril (Zestril) 10 mg PO DAILY [facility] Last Admin: 04/08/18 10:19 Dose: 10 mg Metformin HCl (Glucophage) 500 mg PO BIDCC [facility] Nicotine (Nicoderm Cq) 1 patch TD DAILY [facility] Last Admin: 04/08/18 10:19 Dose: 1 patch Rosuvastatin Calcium (Crestor) 5 mg PO HS [facility] Last Admin: 04/07/18 21:10 Dose: 5 mg - Labs Labs: 04/08/18 07:10 04/08/18 07:10 PT 10.9 SECONDS (9.7-12.2) 04/05/18 13:12 INR 1.0 04/05/18 13:12 APTT 39 SECONDS (21-34) H 04/05/18 13:12 - Constitutional Appears: Well, Non-toxic, No Acute Distress - Head Exam Head Exam: ATRAUMATIC, NORMOCEPHALIC - Eye Exam Eye Exam: Normal appearance. absent: Conjunctival injection, Scleral icterus - ENT Exam ENT Exam: Mucous Membranes Moist, Normal Oropharynx - Respiratory Exam Respiratory Exam: NORMAL BREATHING PATTERN. absent: Accessory Muscle Use, Respiratory Distress - Cardiovascular Exam Cardiovascular Exam: RRR - GI/Abdominal Exam GI & Abdominal Exam: Soft. absent: Distended, Tenderness - Extremities Exam Extremities Exam: absent: Calf Tenderness, Pedal Edema Additional comments: left foot with great toe covered in dressing C/D/I, toes and foot warm, normal color, palpable TP confirmed by doppler, strong signal of PT and DP arteries - Neurological Exam Neurological Exam: Alert, Awake, Oriented x3 - Psychiatric Exam Psychiatric exam: Normal Affect, Normal Mood - Skin Skin Exam: Dry, Normal Color, Warm Assessment and Plan - Assessment and Plan (Free Text) Assessment: 67M with PAD and chronic wound of the left foot POD#1 s/p angiogram with balloon angioplasty of the left anterior tibial artery Plan: Patient with good pulses and warmth to the left foot Continue local wound care Continue ASA and plavix No further vascular surgery intervention necessary at this time Follow up with Dr. Ghotra in his office after discharge Contact surgical team for any further questions or concerns Discussed and seen with Dr. Brandin Saab, PGY2
--- NOTE | 2018-04-08 14:17 | CARD ---
APPROVED REPORT Date of service: 04/08/2018 EXAM: Two-dimensional and M-mode echocardiogram with Doppler and color Doppler. Other Information Quality : GoodRhythm : RISK FACTORS Diabetes 2D DIMENSIONS IVSd1.2 (0.7-1.1cm)LVDd4.1 (3.9-5.9cm) PWd1.3 (0.7-1.1cm)LVDs2.5 (2.5-4.0cm) FS (%) 38.6 %LVEF (%)69.5 (>50%) M-Mode DIMENSIONS Left Atrium (MM)3.18 (2.5-4.0cm)IVSd1.11 (0.7-1.1cm) Aortic Root4.06 (2.2-3.7cm)LVDd5.37 (4.0-5.6cm) Aortic Cusp Exc.2.36 (1.5-2.0cm)PWd0.88 (0.7-1.1cm) FS (%) 45 %LVDs2.93 (2.0-3.8cm) LVEF (%)76 (>50%) Mitral Valve MV E Fpwljalg82.1cm/sMV A Ypxfudzy68.0cm/sE/A ratio0.5 TDI E/Lateral E'0.0E/Medial E'0.0 LEFT VENTRICLE The left ventricle is normal size. There is normal left ventricular wall thickness. The left ventricular function is normal. The left ventricular ejection fraction is within the normal range. There is normal LV segmental wall motion. Transmitral Doppler flow pattern is Grade I-abnormal relaxation pattern. RIGHT VENTRICLE The right ventricle is normal size. There is normal right ventricular wall thickness. The right ventricular systolic function is normal. ATRIA The left atrium size is normal. The right atrium size is normal. AORTIC VALVE The aortic valve is mildly thickened. No aortic regurgitation is present. There is no aortic valvular stenosis. MITRAL VALVE The mitral valve is normal in structure. There is no evidence of mitral valve prolapse. There is no mitral valve stenosis. There is no mitral valve regurgitation noted. TRICUSPID VALVE The tricuspid valve is normal in structure. There is no tricuspid valve regurgitation noted. PULMONIC VALVE The pulmonary valve is normal in structure. There is no pulmonic valvular regurgitation. GREAT VESSELS The aortic root is mildly enlarged. The IVC is normal in size and collapses >50% with inspiration. PERICARDIAL EFFUSION There is no pericardial effusion. <Conclusion> The left ventricle is normal size. There is normal left ventricular wall thickness. The left ventricular function is normal. The left ventricular ejection fraction is within the normal range. There is normal LV segmental wall motion. Transmitral Doppler flow pattern is Grade I-abnormal relaxation pattern. The aortic root is mildly enlarged.
--- NOTE | 2018-04-08 16:11 | CP.PCM.PN ---
Subjective - Date & Time of Evaluation Date of Evaluation: 04/08/18 Time of Evaluation: 16:10 - Subjective Subjective: Podiatry Progress Note- Dr. Hoyos 67 y/o male with left hallux eschar with underlying OM seen and evaluated. Patient is seen resting comfortably, and in no acute distress. Patient is resting comfortably, in NAD, and AA0x3. Denies acute overnight events. Denies pain. Denies nausea, fever, shortness of breath, chest pains or chills. Objective - Vital Signs/Intake and Output Vital Signs (last 24 hours): Temp Pulse Resp BP Pulse Ox 99.8 F H 84 20 152/81 H 96 04/08/18 07:51 04/08/18 07:51 04/08/18 07:51 04/08/18 07:51 04/08/18 07:51 Intake and Output: 04/08/18 04/08/18 06:59 18:59 Intake Total 650 1600 Output Total 600 Balance 50 1600 - Medications Medications: Current Medications Amlodipine Besylate (Norvasc) 5 mg PO DAILY [facility] Last Admin: 04/08/18 10:19 Dose: 5 mg Aspirin (Ecotrin) 81 mg PO DAILY [facility] Last Admin: 04/08/18 10:19 Dose: 81 mg Clopidogrel Bisulfate (Plavix) 75 mg PO DAILY [facility] Last Admin: 04/08/18 10:19 Dose: 75 mg Collagenase (Santyl) 1 gm TOP DAILY [facility] Last Admin: 04/08/18 10:37 Dose: Not Given Dextrose (Dextrose 50% Inj) 0 ml IV STAT PRN; Protocol PRN Reason: Hypoglycemia Protocol Dextrose (Glutose 15) 15 gm PO ONCE PRN; Protocol PRN Reason: Hypoglycemia Protocol Glucagon (Glucagen Diagnostic Kit) 1 mg IM STAT PRN; Protocol PRN Reason: Hypoglycemia Protocol Heparin Sodium (Porcine) (Heparin) 5,000 units SC Q8 [facility] Home Med (Canagliflozin [Invokana]) 300 mg PO DAILY [facility] Last Admin: 04/05/18 14:31 Dose: Not Given Dextrose (Dextrose 5% In Water 1000 Ml) 1,000 mls @ 0 mls/hr IV .Q0M PRN; Protocol; Per Protocol PRN Reason: Hypoglycemia Protocol Dextrose/Sodium Chloride (Dextrose 5%/0.45% Ns 1000 Ml) 1,000 mls @ 100 mls/hr IV .Q10H [facility] Last Admin: 04/08/18 14:37 Dose: Not Given Daptomycin 450 mg/ Sodium (Chloride) 100 mls @ 100 mls/hr IV DAILY [facility] PRN Reason: Protocol Stop: 04/13/18 13:01 Last Admin: 04/08/18 13:49 Dose: 100 mls/hr Ertapenem 1 gm/ Sodium (Chloride) 50 mls @ 100 mls/hr IV ONCE ONE PRN Reason: Protocol Stop: 04/09/18 12:29 Insulin Aspart (Novolog) 0 unit SC ACHS [facility] PRN Reason: Protocol Last Admin: 04/08/18 12:24 Dose: Not Given Lactobacillus Acidophilus (Bacid Acidophilus) 1 cap PO BID [facility] Last Admin: 04/08/18 10:19 Dose: 1 cap Lisinopril (Zestril) 10 mg PO DAILY [facility] Last Admin: 04/08/18 10:19 Dose: 10 mg Metformin HCl (Glucophage) 500 mg PO BIDCC [facility] Nicotine (Nicoderm Cq) 1 patch TD DAILY [facility] Last Admin: 04/08/18 10:19 Dose: 1 patch Rosuvastatin Calcium (Crestor) 5 mg PO HS [facility] Last Admin: 04/07/18 21:10 Dose: 5 mg - Labs Labs: 04/08/18 07:10 04/08/18 07:10 PT 10.9 SECONDS (9.7-12.2) 04/05/18 13:12 INR 1.0 04/05/18 13:12 APTT 39 SECONDS (21-34) H 04/05/18 13:12 - Constitutional Appears: Well, Non-toxic, No Acute Distress - Head Exam Head Exam: ATRAUMATIC, NORMOCEPHALIC - Extremities Exam Additional comments: LE focused physical exam VASC: DP and PT pulses faintly palpable. CFT <3 seconds to digits x5. Temperature gradient warm to warm to the left. Warm to cool to the right. No increase in warmth noted to left hallux. Mild nonpitting edema noted to left hallux. No edema noted to leg. NEURO: Gross sensation diminished, protective sensation diminished DERM: Unstageable eschar noted to plantar aspect of left hallux measuring approximately 1.5 x 1.5 x 0.1 cm. malodor present. no drainage, no purulence present, no fluctuance, no undermining, no probe to bone, no abscess. Erythema present extending proximal to 1st MPJ- resolving. No erythema noted to leg or streaking. ORTHO: No pain on palpation noted to left hallux ulcer. No pain upon calf squeeze. No pain on palpation medial calf. Muscle strength 5/5 for all dorsiflexors, plantarflexors, inverters, and everters. - Neurological Exam Neurological Exam: Alert, Awake, Oriented x3 - Psychiatric Exam Psychiatric exam: Normal Affect, Normal Mood Assessment and Plan - Assessment and Plan (Free Text) Assessment: 67 y.o male with PMH of DM, HTN, HLD with left foot eschar ulceration with cellulitis and underlying OM. Plan: Patient seen and examined Plan discussed with attending Dr. Hoyos All questions/concerns addressed Labs, vitals, chart reviewed: afebrile, absent leukocytosis X-rays- no acute fractures MRIs-1st distal phalanx and 1st proximal phalanx head and body consistent with an acute osteomyelitis ESR 71 and CRP 29 both from 04/07/[address] Hughes for treatment of OM, recommendations appreciated No surgical intervention by podiatry Podiatry will treat conservative Will provide local wound care while in house with wound product Santyl for gentle debridement of wound Cleansed eschar with hydrogen peroxide and very light dressing consisting of Santyl application, 1 dsd, and 1/4 cling 2 turns and paper tape To be change twice daily. One by podiatry, one by nursing. Thank you Please dispense Darco Shoe with forefoot relief offloading shoe Patient to only start WB to the left foot when forefoot relief shoe is dispense PT evaluate and treat with Darco shoe to monitor gait and stability, with assisting device if necessary. Thank you. Recommendations appreciated. Can followup with Dr. Hoyos in 1 week upon discharge
--- NOTE | 2018-04-08 16:45 | VAS ---
Copied To: Donis Ghotra Jr., MD Attending MD: Donis Ghotra Jr., MD DATE: 04/07/2018 PREOPERATIVE DIAGNOSIS: Gangrene ischemic ulceration of left great toe. POSTOPERATIVE DIAGNOSIS: Gangrene ischemic ulceration of left great toe. PROCEDURES CARRIED OUT: Aortofemoral angiogram via right groin with selective catheterization of left femoral artery, balloon angioplasty of left anterior tibial artery. SURGEON: Donis Ghotra Jr., MD MANAGER CARDIOVASCULAR: None. ANESTHESIOLOGIST: Liam Vega MD ANESTHESIA: Local with sedation. INDICATIONS: A 67-year-old male diabetic presents with ischemic ulceration of the left great toe. OPERATING FINDINGS: 1. The aorta and renal arteries were free of significant occlusive disease. Both common iliac, external iliac, profunda femoris arteries, and proximal portion of the superficial femoral arteries were widely patent. Both superficial femoral arteries, particularly on the left side showed some minor degree of stenosis, approximately 30% on both sides, but on the right side there is severe trifurcation disease. We were unable to obtain more detailed pictures below the origin of the trifurcation. On the left side, there is severe trifurcation disease. With the anterior tibial artery being occluded as origin with popliteal artery, the posterior tibial artery not being visualized in its proximal segment. The peroneal artery not being visualized, only collateral vessels were seen. Distally; however, the anterior tibial reconstituted soon after the origin and went down to the distal third of the calf before it is sclerotic. The posterior tibial artery; however, began in the distal third of the calf and continued all the way in the foot. It is the main vessel into the foot. Subsequent to the performance of diagnostic arteriogram, a Stiff-angled guidewire was advanced over the aortic bifurcation, exchanged for an Amplatz wire, and a 90 cm 6-Bel[place]ian sheath was positioned at the popliteal artery. Using road mapping techniques and multiple views and projections, we were eventually able to cannulate the anterior tibial artery, but this is quite difficult and required a lot of maneuvers. After this had been done, we successfully placed the catheter and distally took an angiogram confirming that we were in the anterior tibial artery, but also showing that this is occluded and contrasted the findings on the CT angiogram. This occluded in its distal third. We then were able to advance a 2.5 x 80 mm balloon over this area with excellent cosmetic results. Complete resolution of the high grade occlusion at the origin and excellent flow through the anterior tibial. After we had taken additional pictures to make sure that there was anything else we can do in terms of the posterior tibial artery, which was not in conjunction or not in the straight line with the trifurcation vessels, we then terminated the procedure and deployed a Perclose device in the right groin. aortofemoral angiogram, selective catheterization on the left side, balloon angioplasty of the anterior tibial artery. Anterior tibial artery is a major blood vessel into the calf; however, below this it occludes in its distal third. The posterior tibial artery comes back in its distal third and is a major blood vessel to the foot. If the revascularization by means of the anterior tibial artery is not successful or does not provide enough collateral flow, then a bypass to the posterior tibial artery would be the appropriate next maneuver. Donis Ghotra Jr., MD
[2018-04-09 07:27] LABS: BASO % 0.4 % (0.0-2.0); EOS # 0.2 K/uL (0.0-0.7); EOS % 3.5 % (0.0-4.0); HEMOGLOBIN 14.4 g/dL (12.0-18.0); LYMPH # 1.5 K/uL (1.0-4.3); LYMPH % 21.4 % (20.0-40.0); MEAN CELL VOLUME 85.8 fL (80.0-94.0); MEAN CORPUSCULAR HEMOGLOBIN 28.9 pg (27.0-31.0); MEAN CORPUSCULAR HGB CONC 33.6 g/dL (33.0-37.0); MEAN PLATELET VOLUME 8.3 fL (7.2-11.7); MONO % 14.5 % (0.0-10.0); NEUT # 4.1 K/uL (1.8-7.0); NEUT % 60.2 % (50.0-75.0); RBC 4.97 Mil/uL (4.40-5.90); RED CELL DISTRIBUTION WIDTH 13.1 % (11.5-14.5); WHITE BLOOD COUNT 6.8 K/uL (4.8-10.8)
[2018-04-09 07:58] LABS: ALB/GLOB RATIO 1.2 (1.0-2.1); ALBUMIN 3.9 g/dL (3.5-5.0); ALT/SGPT 14 U/L (21-72); AST/SGOT 18 U/L (17-59); BLOOD UREA NITROGEN 21 mg/dL (9-20); CALCIUM 9.3 mg/dl (8.6-10.4); GFR NON-AFRICAN AMERICAN > 60
[2018-04-09] MEDS: (Novolog) Insulin Aspart, Recombinant 100 u/ml 10 ml vial SC SCH ×4 (08:01→21:38)
--- NOTE | 2018-04-09 08:18 | CP.PCM.PN ---
Subjective - Date & Time of Evaluation Date of Evaluation: 04/09/18 Time of Evaluation: 08:00 - Subjective Subjective: Hospitalist Progress Note Patient was seen and examined at 8:00 AM 04/09/18 565 A 67 year old male who is currently being treated for Left Great Toe Osteomyelitis Upon FULL ROS NO dysphagia/odynopahgia NO soreness in throat NO SOB/cough/wheezing NO sinus/nasal congestion NO fever/chills NO muscle aches/pains NO joint pain NO chest pain/palpations NO abdominal pain NO n/v/d/c: he did have a normal large bowel movement after Miralax was given NO burning pain with urination NO DICKEY NO lightheadedness/dizziness NO paresthesias Exam: General: AAOX3, NAD HEENT: NCA, EOMI, PERRLA, NO cervical/supraclavicular/submandibular lymphadenopathy, NO pharyngeal erythema/exudate, Nasal Turbinates are nonerythematous/nonedematous, Oral Mucosa is moist Cardio: NS1 and NS2, NO M/R/G Resp: CTA B/L, NO R/R/W GI: BSx4, Soft, NT, NO HSM, NO guarding/rebound tenderness Ext: Pulses are strong and equal bilateral UE, Could not palpate pedal pulses, NO edema noted in any of the extremities, All fingers and toes are of normal color/warmth, Capillary Refill is 2 seconds in fingertips and toes of the right foot however for the left is 3 seconds, Circular 2 x 1.5 cm Left Great Toe pedal surface unstageable ulcer and the toe is without erythema/edema/increase in temperature and is nontender to palpation, Right Arm PICC Line Neuro: CN II through XII are grossly intact Assessments: 1). Left Great Toe Osteomyelitis: Cubicin 450 mg IV Q24H and Invanz 1 gm IV Q24H has been started today. 2). PVD Bilateral LE: ASA and Plavix. S/P Aortofemoral Angiogram via right groin with selective catherization of left femoral artery and balloon angioplasty 2.5 mm left anterior tibial artery. 3). Hx DM 2: ISS. Restart home meds of Invokana, Glimepiride and Invoakana upon discharge 4). Hx HTN: Lisinopril and Amlodipine. Better with the addition of Amlodipine on 04/08/18 5). Hx HLD: Crestor 6). Hx Nicotine Addiction: extesive conversation about the dangers of smoking with patient concerning healing of his left foot ulcer not to mention risks for cancer Spoke with ID Dr. Hughes 04/08/18 and he has written Rx for Cubicin 450 mg IV Q24H and Invanz 1 gram IV Q24H for 6 weeks and Rx for weekly CBC, CMP, ESR, CPK written: both of these Rx have been placed inside patient chart. Medicine Team should speak with Game Preserve Manager Niurka on morning 04/10/18 to confirm that BOTH Invanz and Cubicin have been approved for outpatient infusion through the Right Arm PICC through the [facility] on [address]. Once approval obtained then patient can be discharge to home Spoke with Physical Therapist Basia 04/08/18 and she has provided patient with Podiatry Boot and has arranged it so that he would not place pressure on the Left Big Toe when ambulating. The following prescriptions have been placed inside patient chart to be given to him upon discharge: Metformin 500 mg, 1 tablet by mouth 2 times a day with breakfast and dinner ( 7AM and 7PM), Dispense #60, NO refills Invokana 300 mg, 1 tablet by mouth 1 time a day with lunch (1 PM), Dispense #30 , NO refills Glimepiride 4 mg, 1 tablet by mouth 1 time a day with breakfast (7 AM), Dispense #30, NO refills Atorvastatin 10 mg, 1 tablet by mouth 1 time a day with dinner (7 PM), Dispense #30, NO refills Amlodipine 5 mg, 1 tablet by mouth 1 time a day with dinner (7 PM), Dispense #30 , NO refills Lisinopril 10 mg, 1 tablet by mouth 1 time a day with breakfast (7 AM), Dispense #30, NO refillls Aspirin 81 mg, 1 tablet by mouth 1 time a day with breakfast (7 AM), Dispense # 30, NO refills Plavix 75 mg, 1 tablet by mouth 1 time a day with breakfast (7 AM), Dispense #30 , NO refills Lactobacillus, 1 tablet by mouth 2 times a day (7 AM and 7 PM), Dispense #140, NO refills The following instructions should be included in the discharge instructions and given to patient upon discharge: 1). You have been scheduled to receive antibiotics for a total of 6 weeks through the [facility] located on third floor of [address] Please follow the schedule. 2). You will have to schedule follow up with Resident Program Specialist Dr. Hoyos by calling his office at [phone]. This follow up should take place in 7 to 10 days. 3). You will have to schedule follow up with Vascular Surgeon Dr. Ghotra by calling his office at [phone]. This follow up should take place in 7 to 10 days. 4). You will have to schedule follow up with Primary Care Physician Dr. Bolaños to take place in the next 7 to 10 days. 5). STOP smoking as this will prevent healing of your arterial disease and of the toe ulcer not to mention that it will kill you and that it likely makes it difficult for your to kiss you. 6). You were provided with prescriptions for the following medications that you will have to have filled at your pharmacy on your way from the hospital and please use them as instructed: Metformin 500 mg, 1 tablet by mouth 2 times a day with breakfast and dinner ( 7AM and 7PM), Dispense #60, NO refills Invokana 300 mg, 1 tablet by mouth 1 time a day with lunch (1 PM), Dispense #30 , NO refills Glimepiride 4 mg, 1 tablet by mouth 1 time a day with breakfast (7 AM), Dispense #30, NO refills Atorvastatin 10 mg, 1 tablet by mouth 1 time a day with dinner (7 PM), Dispense #30, NO refills Amlodipine 5 mg, 1 tablet by mouth 1 time a day with dinner (7 PM), Dispense #30 , NO refills Lisinopril 10 mg, 1 tablet by mouth 1 time a day with breakfast (7 AM), Dispense #30, NO refillls Aspirin 81 mg, 1 tablet by mouth 1 time a day with breakfast (7 AM), Dispense # 30, NO refills Plavix 75 mg, 1 tablet by mouth 1 time a day with breakfast (7 AM), Dispense #30 , NO refills Lactobacillus, 1 tablet by mouth 2 times a day (7 AM and 7 PM), Dispense #140, NO refills 7). Please use the special boot provided to you at all times when walking. 8). Please take care and be well and watch some good movies. Start with [employer]. Joseph Flores D.O. Objective - Vital Signs/Intake and Output Vital Signs (last 24 hours): Temp Pulse Resp BP Pulse Ox 98.7 F 77 20 119/77 96 04/09/18 07:00 04/09/18 07:00 04/09/18 07:00 04/09/18 07:00 04/09/18 07:00 Intake and Output: 04/09/18 04/09/18 06:59 18:59 Intake Total 1200 Balance 1200 - Medications Medications: Current Medications Amlodipine Besylate (Norvasc) 5 mg PO DAILY [facility] Last Admin: 04/08/18 10:19 Dose: 5 mg Aspirin (Ecotrin) 81 mg PO DAILY [facility] Last Admin: 04/08/18 10:19 Dose: 81 mg Clopidogrel Bisulfate (Plavix) 75 mg PO DAILY [facility] Last Admin: 04/08/18 10:19 Dose: 75 mg Collagenase (Santyl) 1 gm TOP DAILY [facility] Last Admin: 04/08/18 10:37 Dose: Not Given Dextrose (Dextrose 50% Inj) 0 ml IV STAT PRN; Protocol PRN Reason: Hypoglycemia Protocol Dextrose (Glutose 15) 15 gm PO ONCE PRN; Protocol PRN Reason: Hypoglycemia Protocol Glucagon (Glucagen Diagnostic Kit) 1 mg IM STAT PRN; Protocol PRN Reason: Hypoglycemia Protocol Heparin Sodium (Porcine) (Heparin) 5,000 units SC Q8 [facility] Last Admin: 04/09/18 05:22 Dose: 5,000 units Home Med (Canagliflozin [Invokana]) 300 mg PO DAILY [facility] Last Admin: 04/05/18 14:31 Dose: Not Given Dextrose (Dextrose 5% In Water 1000 Ml) 1,000 mls @ 0 mls/hr IV .Q0M PRN; Protocol; Per Protocol PRN Reason: Hypoglycemia Protocol Daptomycin 450 mg/ Sodium (Chloride) 100 mls @ 100 mls/hr IV DAILY [facility] PRN Reason: Protocol Stop: 04/13/18 13:01 Last Admin: 04/08/18 13:49 Dose: 100 mls/hr Ertapenem 1 gm/ Sodium (Chloride) 50 mls @ 100 mls/hr IV ONCE ONE PRN Reason: Protocol Stop: 04/09/18 12:29 Insulin Aspart (Novolog) 0 unit SC ACHS [facility] PRN Reason: Protocol Last Admin: 04/09/18 08:01 Dose: Not Given Lactobacillus Acidophilus (Bacid Acidophilus) 1 cap PO BID [facility] Last Admin: 04/08/18 17:31 Dose: 1 cap Lisinopril (Zestril) 10 mg PO DAILY [facility] Last Admin: 04/08/18 10:19 Dose: 10 mg Metformin HCl (Glucophage) 500 mg PO BIDCC [facility] Nicotine (Nicoderm Cq) 1 patch TD DAILY [facility] Last Admin: 04/08/18 10:19 Dose: 1 patch Rosuvastatin Calcium (Crestor) 5 mg PO HS [facility] Last Admin: 04/08/18 21:02 Dose: 5 mg - Labs Labs: 04/09/18 07:17 04/09/18 07:17 PT 10.9 SECONDS (9.7-12.2) 04/05/18 13:12 INR 1.0 04/05/18 13:12 APTT 39 SECONDS (21-34) H 04/05/18 13:12
--- NOTE | 2018-04-09 08:23 | CP.PCM.PN ---
Subjective - Date & Time of Evaluation Date of Evaluation: 04/09/18 Objective - Vital Signs/Intake and Output Vital Signs (last 24 hours): Temp Pulse Resp BP Pulse Ox 98.7 F 77 20 119/77 96 04/09/18 07:00 04/09/18 07:00 04/09/18 07:00 04/09/18 07:00 04/09/18 07:00 Intake and Output: 04/09/18 04/09/18 06:59 18:59 Intake Total 1200 Balance 1200 - Medications Medications: Current Medications Amlodipine Besylate (Norvasc) 5 mg PO DAILY [facility] Last Admin: 04/08/18 10:19 Dose: 5 mg Aspirin (Ecotrin) 81 mg PO DAILY [facility] Last Admin: 04/08/18 10:19 Dose: 81 mg Clopidogrel Bisulfate (Plavix) 75 mg PO DAILY [facility] Last Admin: 04/08/18 10:19 Dose: 75 mg Collagenase (Santyl) 1 gm TOP DAILY [facility] Last Admin: 04/08/18 10:37 Dose: Not Given Dextrose (Dextrose 50% Inj) 0 ml IV STAT PRN; Protocol PRN Reason: Hypoglycemia Protocol Dextrose (Glutose 15) 15 gm PO ONCE PRN; Protocol PRN Reason: Hypoglycemia Protocol Glucagon (Glucagen Diagnostic Kit) 1 mg IM STAT PRN; Protocol PRN Reason: Hypoglycemia Protocol Heparin Sodium (Porcine) (Heparin) 5,000 units SC Q8 [facility] Last Admin: 04/09/18 05:22 Dose: 5,000 units Home Med (Canagliflozin [Invokana]) 300 mg PO DAILY [facility] Last Admin: 04/05/18 14:31 Dose: Not Given Dextrose (Dextrose 5% In Water 1000 Ml) 1,000 mls @ 0 mls/hr IV .Q0M PRN; Protocol; Per Protocol PRN Reason: Hypoglycemia Protocol Daptomycin 450 mg/ Sodium (Chloride) 100 mls @ 100 mls/hr IV DAILY [facility] PRN Reason: Protocol Stop: 04/13/18 13:01 Last Admin: 04/08/18 13:49 Dose: 100 mls/hr Ertapenem 1 gm/ Sodium (Chloride) 50 mls @ 100 mls/hr IV ONCE ONE PRN Reason: Protocol Stop: 04/09/18 12:29 Insulin Aspart (Novolog) 0 unit SC ACHS [facility] PRN Reason: Protocol Last Admin: 04/09/18 08:01 Dose: Not Given Lactobacillus Acidophilus (Bacid Acidophilus) 1 cap PO BID [facility] Last Admin: 04/08/18 17:31 Dose: 1 cap Lisinopril (Zestril) 10 mg PO DAILY [facility] Last Admin: 04/08/18 10:19 Dose: 10 mg [facility] ([facility]) [facility] Nicotine (Nicoderm Cq) 1 patch TD DAILY [facility] Last Admin: 04/08/18 10:19 Dose: 1 patch Rosuvastatin Calcium (Crestor) 5 mg PO HS [facility] Last Admin: 04/08/18 21:02 Dose: 5 mg - Labs Labs: 04/09/18 07:17 04/09/18 07:17 PT 10.9 SECONDS (9.7-12.2) 04/05/18 13:12 INR 1.0 04/05/18 13:12 APTT 39 SECONDS (21-34) H 04/05/18 13:12
[2018-04-09] MEDS: Lactobacillus Acidophilus 500 MU Cap PO SCH ×2 (09:25→16:59)
[2018-04-09] MEDS: Collagenase 250 Units/gm Ointment(30 gm) TOP SCH (09:26)
[2018-04-09] MEDS ORDERED: POLYETHYLENE GLYCOL 3350 17 GM/Dose PACKET PO ONE (16:44)
--- NOTE | 2018-04-09 17:10 | CP.PCM.PN ---
Subjective - Date & Time of Evaluation Date of Evaluation: 04/09/18 Time of Evaluation: 17:05 - Subjective Subjective: Podiatry Progress Note- Dr. Wolf 67 y/o male with left hallux eschar with underlying OM seen and evaluated with his present. Patient AAO x 3 and NAD, resting comfortably in bed. States that pain is well controlled. Denies any acute overnight events or new pedal complaints. Denies any recent N/V/F/C/CP/SOB/D/posterior calf pain. Patient is aware that he will be receiving 6-8 weeks of IV abx Objective - Vital Signs/Intake and Output Vital Signs (last 24 hours): Temp Pulse Resp BP Pulse Ox 98.2 F 78 20 116/72 96 04/09/18 15:00 04/09/18 15:00 04/09/18 15:00 04/09/18 15:00 04/09/18 15:00 Intake and Output: 04/09/18 04/09/18 06:59 18:59 Intake Total 1200 Balance 1200 - Medications Medications: Current Medications Amlodipine Besylate (Norvasc) 5 mg PO DAILY [facility] Last Admin: 04/09/18 09:26 Dose: 5 mg Aspirin (Ecotrin) 81 mg PO DAILY [facility] Last Admin: 04/09/18 09:26 Dose: 81 mg Clopidogrel Bisulfate (Plavix) 75 mg PO DAILY [facility] Last Admin: 04/09/18 09:26 Dose: 75 mg Collagenase (Santyl) 1 gm TOP DAILY [facility] Last Admin: 04/09/18 09:26 Dose: Not Given Dextrose (Dextrose 50% Inj) 0 ml IV STAT PRN; Protocol PRN Reason: Hypoglycemia Protocol Dextrose (Glutose 15) 15 gm PO ONCE PRN; Protocol PRN Reason: Hypoglycemia Protocol Glucagon (Glucagen Diagnostic Kit) 1 mg IM STAT PRN; Protocol PRN Reason: Hypoglycemia Protocol Heparin Sodium (Porcine) (Heparin) 5,000 units SC Q8 [facility] Last Admin: 04/09/18 14:06 Dose: 5,000 units Home Med (Canagliflozin [Invokana]) 300 mg PO DAILY [facility] Last Admin: 04/05/18 14:31 Dose: Not Given Dextrose (Dextrose 5% In Water 1000 Ml) 1,000 mls @ 0 mls/hr IV .Q0M PRN; Protocol; Per Protocol PRN Reason: Hypoglycemia Protocol Daptomycin 450 mg/ Sodium (Chloride) 100 mls @ 100 mls/hr IV DAILY [facility] PRN Reason: Protocol Stop: 04/13/18 13:01 Last Admin: 04/09/18 10:19 Dose: 100 mls/hr Insulin Aspart (Novolog) 0 unit SC ACHS [facility] PRN Reason: Protocol Last Admin: 04/09/18 17:00 Dose: 2 units Lactobacillus Acidophilus (Bacid Acidophilus) 1 cap PO BID [facility] Last Admin: 04/09/18 16:59 Dose: 1 cap Lisinopril (Zestril) 10 mg PO DAILY [facility] Last Admin: 04/09/18 09:25 Dose: 10 mg Metformin HCl (Glucophage) 500 mg PO BIDCC [facility] Nicotine (Nicoderm Cq) 1 patch TD DAILY [facility] Last Admin: 04/09/18 09:26 Dose: 1 patch Rosuvastatin Calcium (Crestor) 5 mg PO HS [facility] Last Admin: 04/08/18 21:02 Dose: 5 mg - Labs Labs: 04/09/18 07:17 04/09/18 07:17 PT 10.9 SECONDS (9.7-12.2) 04/05/18 13:12 INR 1.0 04/05/18 13:12 APTT 39 SECONDS (21-34) H 04/05/18 13:12 - Constitutional Appears: Well, Non-toxic, No Acute Distress - Extremities Exam Additional comments: LE focused physical exam VASC: DP and PT pulses faintly palpable. CFT <3 seconds to digits x5. Temperature gradient warm to warm to the left. Warm to cool to the right. No increase in warmth noted to left hallux. Mild nonpitting edema noted to left hallux. No edema noted to leg. NEURO: Gross sensation diminished, protective sensation diminished DERM: Unstageable eschar noted to plantar aspect of left hallux measuring approximately 1.5 x 1.5 x 0.1 cm. No malodor present. no drainage, no purulence present, no fluctuance, no undermining, no probe to bone, no abscess. Erythema previously present extending proximal to 1st MPJ- resolved. No erythema noted to leg or streaking. ORTHO: No pain on palpation noted to left hallux ulcer. No pain upon calf squeeze. No pain on palpation medial calf. Muscle strength 5/5 for all dorsiflexors, plantarflexors, inverters, and everters. - Neurological Exam Neurological Exam: Alert, Awake, Oriented x3 - Psychiatric Exam Psychiatric exam: Normal Affect, Normal Mood Assessment and Plan - Assessment and Plan (Free Text) Assessment: 67 y/o male with left hallux eschar with underlying OM Plan: Patient seen and evaluted Plan discussed with Dr. Wolf Afebrile, absent leukocytosis Continue abx per ID X-ray - no fracture MRI- OM distal phalanx, head and body proximal phalanx hallux ESR (04/07)- 71, CRP (04/07)- 29 WC- Prelim, no growth, pending Abdominal Angio (04/07)- RLE popliteal artery slighly narrowed and RLE peroneal moderate stenosis, LLE popliteal slightly narrowed, patent anterior tibial artery, LLE peroneal artery has severe stenosis Extremity Venous Study: Read pending Patient to receive 6-8 weeks of Invanz No plan for surgical intervention at this time Wound dressed with peroxide, DSD, ABD, kirlix Podiatry will continue to follow while patient in house
[2018-04-10 07:19] LABS: BASO % 0.4 % (0.0-2.0); EOS # 0.3 K/uL (0.0-0.7); EOS % 4.9 % (0.0-4.0); HEMOGLOBIN 13.9 g/dL (12.0-18.0); LYMPH # 1.4 K/uL (1.0-4.3); LYMPH % 21.9 % (20.0-40.0); MEAN CELL VOLUME 85.3 fL (80.0-94.0); MEAN CORPUSCULAR HEMOGLOBIN 28.5 pg (27.0-31.0); MEAN CORPUSCULAR HGB CONC 33.4 g/dL (33.0-37.0); MEAN PLATELET VOLUME 8.1 fL (7.2-11.7); MONO # 0.9 K/uL (0.0-0.8); MONO % 14.3 % (0.0-10.0); NEUT # 3.8 K/uL (1.8-7.0); NEUT % 58.5 % (50.0-75.0); NRBC % 0.1 % (0.0-2.0); RBC 4.87 Mil/uL (4.40-5.90); RED CELL DISTRIBUTION WIDTH 13.1 % (11.5-14.5); WHITE BLOOD COUNT 6.5 K/uL (4.8-10.8)
[2018-04-10] MEDS: (Novolog) Insulin Aspart, Recombinant 100 u/ml 10 ml vial SC SCH ×2 (07:29→11:29)
--- NOTE | 2018-04-10 07:43 | CP.PCM.PN ---
Objective - Vital Signs/Intake and Output Vital Signs (last 24 hours): Temp Pulse Resp BP Pulse Ox 99.1 F 84 20 121/79 94 L 04/09/18 23:45 04/09/18 23:45 04/09/18 23:45 04/09/18 23:45 04/09/18 23:45 - Medications Medications: Current Medications Amlodipine Besylate (Norvasc) 5 mg PO DAILY [facility] Last Admin: 04/09/18 09:26 Dose: 5 mg Aspirin (Ecotrin) 81 mg PO DAILY [facility] Last Admin: 04/09/18 09:26 Dose: 81 mg Clopidogrel Bisulfate (Plavix) 75 mg PO DAILY [facility] Last Admin: 04/09/18 09:26 Dose: 75 mg Collagenase (Santyl) 1 gm TOP DAILY [facility] Last Admin: 04/09/18 09:26 Dose: Not Given Dextrose (Dextrose 50% Inj) 0 ml IV STAT PRN; Protocol PRN Reason: Hypoglycemia Protocol Dextrose (Glutose 15) 15 gm PO ONCE PRN; Protocol PRN Reason: Hypoglycemia Protocol Glucagon (Glucagen Diagnostic Kit) 1 mg IM STAT PRN; Protocol PRN Reason: Hypoglycemia Protocol Heparin Sodium (Porcine) (Heparin) 5,000 units SC Q8 [facility] Last Admin: 04/10/18 05:19 Dose: 5,000 units Home Med (Canagliflozin [Invokana]) 300 mg PO DAILY [facility] Last Admin: 04/05/18 14:31 Dose: Not Given Dextrose (Dextrose 5% In Water 1000 Ml) 1,000 mls @ 0 mls/hr IV .Q0M PRN; Protocol; Per Protocol PRN Reason: Hypoglycemia Protocol Daptomycin 450 mg/ Sodium (Chloride) 100 mls @ 100 mls/hr IV DAILY [facility] PRN Reason: Protocol Stop: 04/13/18 13:01 Last Admin: 04/09/18 10:19 Dose: 100 mls/hr Insulin Aspart (Novolog) 0 unit SC ACHS [facility] PRN Reason: Protocol Last Admin: 04/10/18 07:29 Dose: Not Given Lactobacillus Acidophilus (Bacid Acidophilus) 1 cap PO BID [facility] Last Admin: 04/09/18 16:59 Dose: 1 cap Lisinopril (Zestril) 10 mg PO DAILY [facility] Last Admin: 04/09/18 09:25 Dose: 10 mg [facility] Nicotine (Nicoderm Cq) 1 patch TD DAILY [facility] Last Admin: 04/09/18 09:26 Dose: 1 patch Rosuvastatin Calcium (Crestor) 5 mg PO HS [facility] Last Admin: 04/09/18 21:40 Dose: 5 mg - Labs Labs: 04/10/18 07:11 04/09/18 07:17 PT 10.9 SECONDS (9.7-12.2) 04/05/18 13:12 INR 1.0 04/05/18 13:12 APTT 39 SECONDS (21-34) H 04/05/18 13:12
[2018-04-10 08:00] LABS: ALB/GLOB RATIO 1.1 (1.0-2.1); ALBUMIN 3.8 g/dL (3.5-5.0); ALT/SGPT 18 U/L (21-72); AST/SGOT 19 U/L (17-59); BLOOD UREA NITROGEN 29 mg/dL (9-20); CALCIUM 9.2 mg/dl (8.6-10.4); GFR NON-AFRICAN AMERICAN > 60
[2018-04-10 08:06] VITALS: BP 127/79; PULSE 73; TEMP 97.9; O2SAT 95
[2018-04-10] MEDS: Lactobacillus Acidophilus 500 MU Cap PO SCH (09:31)
[2018-04-10] MEDS: Collagenase 250 Units/gm Ointment(30 gm) TOP SCH (09:38)
--- NOTE | 2018-04-10 10:37 | VASCLAB ---
Date of service: 04/08/2018 PROCEDURE: Lower Extremity Vein Mapping HISTORY: Vein mapping, Pre-op Bypass PRIORS: None. TECHNIQUE: Bilateral common femoral, femoral, popliteal and posterior tibial, peroneal and great saphenous veins were evaluated. Flow was assessed with color Doppler, compressibility, assessment of phasic flow and augmentation response. Report prepared by JULI Chin FINDINGS: RIGHT: 1. Common Femoral Vein: BANDAGED RIGHT GROIN. 2. Femoral Vein:Compressibility - Fully compressible: Thrombus - None 3. Popliteal Vein: Compressibility - Fully compressible: Thrombus - None 4. Posterior Tibial Vein: Compressibility - Fully compressible: Thrombus - None 5. Peroneal Vein:Compressibility - Fully compressible: Thrombus - None 6. Greater Saphenous Vein: Compressibility - Fully compressible: Thrombus - None 6.1. Thigh - Proximal Diameter: 0.42cm. Mid Diameter: 0.42cm. Distal Diameter: 0.34cm. 6.2. Calf - Proximal Diameter: 0.30cm. Mid Diameter:0.29cm. Distal Diameter: 0.28cm LEFT: 1. Common Femoral Vein: Compressibility - Fully compressible: Thrombus - None : Flow - Phasic: Augmentation -Normal: Reflux - None. 2. Femoral Vein:Compressibility - Fully compressible: Thrombus - None 3. Popliteal Vein: Compressibility - Fully compressible: Thrombus - None 4. Posterior Tibial Vein: Compressibility - Fully compressible: Thrombus - None 5. Peroneal Vein:Compressibility - Fully compressible: Thrombus - None 6. Greater Saphenous Vein: Compressibility - Fully compressible: Thrombus - None 6.1. Thigh - Proximal Diameter: 0.48cm. Mid Diameter: 0.46cm. Distal Diameter: 0.53cm. 6.2. Calf - Proximal Diameter: 0.43cm. Mid Diameter:0.40cm. Distal Diameter: 0.52cm OTHER FINDINGS: None IMPRESSION: 1. No evidence of venous thrombosis in bilateral lower extremities. 2. Please refer to the above listed measurements for vein size.
--- NOTE | 2018-04-10 10:39 | CP.PCM.PN ---
Subjective - Date & Time of Evaluation Date of Evaluation: 04/10/18 Time of Evaluation: 10:38 - Subjective Subjective: Podiatry Progress Note- Dr. Wolf 67 y/o male with left hallux eschar with underlying OM seen and evaluated at bedside. Patient AAO x 3 and NAD, resting comfortably in bed. States that pain is absent today. Denies any acute overnight events or new pedal complaints. Denies any recent N/V/F/C/CP/SOB/D/posterior calf pain. Objective - Vital Signs/Intake and Output Vital Signs (last 24 hours): Temp Pulse Resp BP Pulse Ox 97.9 F 73 20 127/79 95 04/10/18 08:00 04/10/18 08:00 04/10/18 08:00 04/10/18 08:00 04/10/18 08:00 - Medications Medications: Current Medications Amlodipine Besylate (Norvasc) 5 mg PO DAILY [facility] Last Admin: 04/10/18 09:32 Dose: 5 mg Aspirin (Ecotrin) 81 mg PO DAILY [facility] Last Admin: 04/10/18 09:32 Dose: 81 mg Clopidogrel Bisulfate (Plavix) 75 mg PO DAILY [facility] Last Admin: 04/10/18 09:32 Dose: 75 mg Collagenase (Santyl) 1 gm TOP DAILY [facility] Last Admin: 04/10/18 09:38 Dose: 1 gm Dextrose (Dextrose 50% Inj) 0 ml IV STAT PRN; Protocol PRN Reason: Hypoglycemia Protocol Dextrose (Glutose 15) 15 gm PO ONCE PRN; Protocol PRN Reason: Hypoglycemia Protocol Glucagon (Glucagen Diagnostic Kit) 1 mg IM STAT PRN; Protocol PRN Reason: Hypoglycemia Protocol Heparin Sodium (Porcine) (Heparin) 5,000 units SC Q8 [facility] Last Admin: 04/10/18 05:19 Dose: 5,000 units Home Med (Canagliflozin [Invokana]) 300 mg PO DAILY [facility] Last Admin: 04/05/18 14:31 Dose: Not Given Dextrose (Dextrose 5% In Water 1000 Ml) 1,000 mls @ 0 mls/hr IV .Q0M PRN; Protocol; Per Protocol PRN Reason: Hypoglycemia Protocol Daptomycin 450 mg/ Sodium (Chloride) 100 mls @ 100 mls/hr IV DAILY [facility] PRN Reason: Protocol Stop: 04/13/18 13:01 Last Admin: 04/10/18 09:31 Dose: 100 mls/hr Insulin Aspart (Novolog) 0 unit SC ACHS [facility] PRN Reason: Protocol Last Admin: 04/10/18 07:29 Dose: Not Given Lactobacillus Acidophilus (Bacid Acidophilus) 1 cap PO BID [facility] Last Admin: 04/10/18 09:31 Dose: 1 cap Lisinopril (Zestril) 10 mg PO DAILY [facility] Last Admin: 04/10/18 09:32 Dose: 10 mg [facility] Nicotine (Nicoderm Cq) 1 patch TD DAILY [facility] Last Admin: 04/10/18 09:32 Dose: 1 patch Rosuvastatin Calcium (Crestor) 5 mg PO HS [facility] Last Admin: 04/09/18 21:40 Dose: 5 mg - Labs Labs: 04/10/18 07:11 04/10/18 07:11 PT 10.9 SECONDS (9.7-12.2) 04/05/18 13:12 INR 1.0 04/05/18 13:12 APTT 39 SECONDS (21-34) H 04/05/18 13:12 - Constitutional Appears: Well, Non-toxic, No Acute Distress - Extremities Exam Additional comments: LLE focused exam: VASC: DP and PT pulses faintly palpable. CFT <3 seconds to digits x5. Temperature gradient WNL and equal b/l. No increase in warmth noted to left hallux. Mild nonpitting edema noted to left hallux, improving. No edema noted to leg. NEURO: Gross sensation diminished, protective sensation diminished DERM: Unstageable eschar noted to plantar aspect of left hallux measuring approximately 1.5 x 1.5 x 0.1 cm. No malodor present. no drainage, no purulence present, no fluctuance, no undermining, no probe to bone, no abscess. No periwound erythema or streaking noted to leg. ORTHO: No pain on palpation noted to left hallux ulcer. No pain upon calf squeeze. No pain on palpation medial calf. Muscle strength 5/5 for all dorsiflexors, plantarflexors, inverters, and evertors. - Neurological Exam Neurological Exam: Alert, Awake, Oriented x3 - Psychiatric Exam Psychiatric exam: Normal Affect, Normal Mood Assessment and Plan - Assessment and Plan (Free Text) Assessment: 67 y/o male with left hallux eschar with underlying OM seen and evaluated at bedside Plan: Patient seen and evaluated Plan discussed with Dr. Wolf Afebrile, absent leukocytosis X-ray - no fracture MRI- OM distal phalanx, head and body proximal phalanx hallux ESR (04/07)- 71, CRP (04/07)- 29 WC- Prelim, no growth, pending Abdominal Angio (04/07)- RLE popliteal artery slighly narrowed and RLE peroneal moderate stenosis, LLE popliteal slightly narrowed, patent anterior tibial artery, LLE peroneal artery has severe stenosis Extremity Venous Study: Read pending Patient to received 6-8 IV Invanz and Cubicin pending case management's ability to get patient these meds Patient stable for DC from podiatric standpoint Will f/u with Dr. oWlf as outpatient Podiatry will continue to follow while in house
[2018-04-10] MEDS ORDERED: Ertapenem 1gm in NS 50ml 1 GM in Sodium Chloride 0.9% 50 ML IV ONE (13:00)
--- NOTE | 2018-04-10 13:45 | CP.PCM.DIS ---
<Jose Leon M - Last Filed: 04/10/18 13:53> Provider - Provider Date of Admission: 04/05/18 10:20 Attending physician: Joseph Flores MD Primary care physician: Dr. Rose Marie Turcios Consults: Dr. Ghotra, Dr. Alvarez, Dr. Hughes Time Spent in preparation of Discharge (in minutes): 45 Diagnosis - Discharge Diagnosis (1) Diabetic ulcer of toe Status: Acute Comment: Podiatry provided local wound care. Vascular peformed 2.5 mm balloon angioplasty of the left anterior tibial artery. Patient placed on IV antibiotics per ID recs. Hospital Course - Lab Results Lab Results: Micro Results 04/05/18 13:52 Blood Blood Culture - Preliminary NO GROWTH AFTER 4 DAYS 04/05/18 13:52 Blood Blood Culture - Preliminary NO GROWTH AFTER 4 DAYS Most Recent Lab Values WBC 6.5 K/uL (4.8-10.8) 04/10/18 07:11 RBC 4.87 Mil/uL (4.40-5.90) 04/10/18 07:11 Hgb 13.9 g/dL (12.0-18.0) 04/10/18 07:11 Hct 41.5 % (35.0-51.0) 04/10/18 07:11 MCV 85.3 fL (80.0-94.0) 04/10/18 07:11 MCH 28.5 pg (27.0-31.0) 04/10/18 07:11 MCHC 33.4 g/dL (33.0-37.0) 04/10/18 07:11 RDW 13.1 % (11.5-14.5) 04/10/18 07:11 Plt Count 211 K/uL (130-400) 04/10/18 07:11 MPV 8.1 fL (7.2-11.7) 04/10/18 07:11 Neut % (Auto) 58.5 % (50.0-75.0) 04/10/18 07:11 Lymph % (Auto) 21.9 % (20.0-40.0) 04/10/18 07:11 [place] % (Auto) 14.3 % (0.0-10.0) H 04/10/18 07:11 Eos % (Auto) 4.9 % (0.0-4.0) H 04/10/18 07:11 Baso % (Auto) 0.4 % (0.0-2.0) 04/10/18 07:11 Neut # (Auto) 3.8 K/uL (1.8-7.0) 04/10/18 07:11 Lymph # (Auto) 1.4 K/uL (1.0-4.3) 04/10/18 07:11 [place] # (Auto) 0.9 K/uL (0.0-0.8) H 04/10/18 07:11 Eos # (Auto) 0.3 K/uL (0.0-0.7) 04/10/18 07:11 Baso # (Auto) 0.0 K/uL (0.0-0.2) 04/10/18 07:11 ESR 71 mm/hr (0-15) H 04/08/18 07:10 PT 10.9 SECONDS (9.7-12.2) 04/05/18 13:12 INR 1.0 04/05/18 13:12 APTT 39 SECONDS (21-34) H 04/05/18 13:12 Sodium 140 mmol/L (132-148) 04/10/18 07:11 Potassium 3.9 mmol/L (3.6-5.2) 04/10/18 07:11 Chloride 101 mmol/L (98-107) 04/10/18 07:11 Carbon Dioxide 26 mmol/L (22-30) 04/10/18 07:11 Anion Gap 17 (10-20) 04/10/18 07:11 BUN 29 mg/dL (9-20) H 04/10/18 07:11 Creatinine 0.9 mg/dL (0.8-1.5) 04/10/18 07:11 Est GFR ( Amer) > 60 04/10/18 07:11 Est GFR (Non-Af Amer) > 60 04/10/18 07:11 POC Glucose (mg/dL) 135 mg/dL (65-110) H 04/10/18 11:10 Random Glucose 152 mg/dL (75-110) H 04/10/18 07:11 Hemoglobin A1c 8.4 % (4.2-6.5) H 04/07/18 08:14 Calcium 9.2 mg/dl (8.6-10.4) 04/10/18 07:11 Phosphorus 3.9 mg/dL (2.5-4.5) 04/10/18 07:11 Magnesium 2.1 mg/dL (1.6-2.3) 04/10/18 07:11 Total Bilirubin 0.6 mg/dL (0.2-1.3) 04/10/18 07:11 AST 19 U/L (17-59) 04/10/18 07:11 ALT 18 U/L (21-72) L D 04/10/18 07:11 Alkaline Phosphatase 97 U/L (38-126) 04/10/18 07:11 C-Reactive Protein 29.00 mg/L (0.0-9.9) H 04/08/18 07:10 C-React Prot High Sens 8.87 mg/L (1.00-3.00) H 04/07/18 08:14 Total Protein 7.4 g/dL (6.3-8.3) 04/10/18 07:11 Albumin 3.8 g/dL (3.5-5.0) 04/10/18 07:11 Globulin 3.6 gm/dL (2.2-3.9) 04/10/18 07:11 Albumin/Globulin Ratio 1.1 (1.0-2.1) 04/10/18 07:11 Triglycerides 225 mg/dL (0-149) H D 04/05/18 13:12 Cholesterol 251 mg/dL (0-199) H 04/05/18 13:12 LDL Cholesterol Direct 133 mg/dL (0-129) H 04/05/18 13:12 HDL Cholesterol 32 mg/dL (30-70) 04/05/18 13:12 Prostate Specific Ag 1.79 ng/mL (0.00-4.0) 04/07/18 08:14 Free T4 0.82 ng/dL (0.78-2.19) 04/05/18 13:19 TSH 3rd Generation 0.94 mIU/L (0.46-4.68) 04/05/18 13:12 Urine Color Yellow (YELLOW) 04/05/18 09:15 Urine Clarity Clear (Clear) 04/05/18 09:15 Urine pH 5.0 (5.0-8.0) 04/05/18 09:15 Ur Specific [place] 1.029 (1.003-1.030) 04/05/18 09:15 Urine Protein 2+ mg/dL (NEGATIVE) H 04/05/18 09:15 Urine Glucose (UA) 3+ mg/dL (Normal) H 04/05/18 09:15 Urine Ketones Negative mg/dL (NEGATIVE) 04/05/18 09:15 Urine Blood Negative (NEGATIVE) 04/05/18 09:15 Urine Nitrate Negative (NEGATIVE) 04/05/18 09:15 Urine Bilirubin Negative (NEGATIVE) 04/05/18 09:15 Urine Urobilinogen Normal mg/dL (0.2-1.0) 04/05/18 09:15 Ur Leukocyte Esterase Neg Debo/uL (Negative) 04/05/18 09:15 Urine WBC (Auto) 1 /hpf (0-5) 04/05/18 09:15 Urine RBC (Auto) 1 /hpf (0-3) 04/05/18 09:15 Ur Squamous Epith Cells < 1 /hpf (0-5) 04/05/18 09:15 Vancomycin Trough 12.4 ug/mL (5.0-10.0) H 04/08/18 10:38 - Hospital Course Hospital Course: 67 yo M w/ a PMHx of DM2 presents to the ED at the request of podiatry for a worsening 1st toe infection. Patient's injury first started approximately 1 month ago when he reports he began picking at some dry skin on the plantar surface of the 1st great toe. Patient then noticed the area became infected and presented to the ED on 03/06 for evaluation. Pt was discharged on Augmentin 10 days, to follow up w/ podiatry. Patient was not compliant w/ podiatry's recommendation to wear a boot. Pt reports his pain improved so he normal activity without his boot. Patient's daughter then noticed toe becoming more erythematous. At podiatry follow up yesterday, it was recommended pt return to ED for thorough evaluation. Hospital course: At time of admission, Dr. Alvarez was consulted for podiatry and Dr. Ghotra was consulted for vascular surgery. MRI of the left foot was ordered and reviewed - it showed a soft tissue ulcer at the level of the 1st distal phalanx with prominent signal abnormality seen within the 1st distal phalanx as well as the head and body of the 1st proximal phalanx with patchy decreased T1 signal and increased STIR signal consistent with acute osteomyelitis. CTA was completed and reviewed - it showed that the posterior tibial artery occludes in the proximal segment and reconstitutes in the mid segment. The peroneal artery has multiple areas of moderate to severe stenosis within the mid and distal segments. Patient was started on Vancomycin 1 g q12h and Zosyn 3.375 g q6h. Blood cultures were sent. Dr. Alvarez evaluated patient - cleansed ulceration with hydrogen peroxide Santyl, dsd, and kerlix. Requested ID recommendations and dispensed surgical shoe with permission for patient to WB in forefoot offloading show ([employer]) . Continued to follow patient throughout admission for local wound care with Santyl for gentle debridement of the wound. Recommended follow up in outpatient office [address] Ghotra evaluated patient and completed an aortofemoral angiogram via right groin with selective catheterization of the left femoral artery - procedure entailed 2.5 mm balloon angioplasty of the left anterior tibial artery. Post procedure patient advised to continue Plavix 75 mg PO qd and ASA Dr. Hughes evaluated patient post angiogram - advised 6 weeks of outpatient Cubicin 450 mg IV and Invanz 1 gm IV infusion via PICC line that was placed on 04/07/2018. Blood cultures showed no growth after 48 hours. Discharge: 1). You have been scheduled to receive antibiotics for a total of 6 weeks through the Infusion Center located on third floor of [address] Please follow the schedule. 2). You will have to schedule follow up with Fire Investigator Dr. Hoyos by calling his office at [phone]. This follow up should take place in 7 to 10 days. 3). You will have to schedule follow up with Vascular Surgeon Dr. Ghotra by calling his office at [phone]. This follow up should take place in 7 to 10 days. 4). You will have to schedule follow up with Primary Care Physician Dr. Bolaños to take place in the next 7 to 10 days. 5). STOP smoking as this will prevent healing of your arterial disease and of the toe ulcer not to mention that it will kill you and that it likely makes it difficult for your to kiss you. 6). You were provided with prescriptions for the following medications that you will have to have filled at your pharmacy on your way from the hospital and please use them as instructed: Metformin 500 mg, 1 tablet by mouth 2 times a day with breakfast and dinner ( 7AM and 7PM), Dispense #60, NO refills Invokana 300 mg, 1 tablet by mouth 1 time a day with lunch (1 PM), Dispense #30 , NO refills Glimepiride 4 mg, 1 tablet by mouth 1 time a day with breakfast (7 AM), Dispense #30, NO refills Atorvastatin 10 mg, 1 tablet by mouth 1 time a day with dinner (7 PM), Dispense #30, NO refills Amlodipine 5 mg, 1 tablet by mouth 1 time a day with dinner (7 PM), Dispense #30 , NO refills Lisinopril 10 mg, 1 tablet by mouth 1 time a day with breakfast (7 AM), Dispense #30, NO refillls Aspirin 81 mg, 1 tablet by mouth 1 time a day with breakfast (7 AM), Dispense # 30, NO refills Plavix 75 mg, 1 tablet by mouth 1 time a day with breakfast (7 AM), Dispense #30 , NO refills Lactobacillus, 1 tablet by mouth 2 times a day (7 AM and 7 PM), Dispense #140, NO refills 7). Please use the special boot provided to you at all times when walking. 8). Please take care and be well and watch some good movies. Start with [facility] [email or web address]. Discharge Exam - Head Exam Head Exam: ATRAUMATIC, NORMOCEPHALIC - Eye Exam Eye Exam: EOMI, Normal appearance, PERRL - ENT Exam ENT Exam: Mucous Membranes Moist - Respiratory Exam Respiratory Exam: Clear to PA & Lateral, NORMAL BREATHING PATTERN. absent: Rales, Rhonchi, Wheezes - Cardiovascular Exam Cardiovascular Exam: +S1, +S2. absent: Systolic Murmur - GI/Abdominal Exam GI & Abdominal Exam: Normal Bowel Sounds. absent: Distended, Firm, Guarding - Extremities Exam Extremities exam: full ROM, normal inspection, pedal pulses present Additional comments: L foot 1st digit plantar surface hallux healing, roughly 2 cm in diameter, no calf tenderness - Neurological Exam Neurological exam: Alert, Oriented x3 - Psychiatric Exam Psychiatric exam: Normal Affect, Normal Mood - Skin Skin Exam: Dry, Intact, Normal Color, Warm Discharge Plan - Discharge Medications Prescriptions: amLODIPine [Norvasc] 5 mg PO DIN #30 tab Aspirin 81 mg PO DAILY #30 tab.chew Atorvastatin [Lipitor] 10 mg PO DIN #30 tab Canagliflozin [Invokana] 300 mg PO DAILY #30 tablet Clopidogrel [Plavix] 75 mg PO DAILY #30 tab Glimepiride [Amaryl] 4 mg PO DAILY #30 tablet Lactobacillus Acidophilus [Acidophilus Lactobacillus] 1 each PO BID #140 capsule Lactobacillus Acidophilus [Acidophilus Lactobacilli] 1 each PO BID #140 capsule Lisinopril [Prinivil] 10 mg PO DAILY #30 tablet metFORMIN [glucOPHAGE] 500 mg PO BID #60 tab - Follow Up Plan Condition: STABLE Disposition: HOME/ ROUTINE Instructions: Smoking: Not Just Harmful to Your Lungs and Heart, Peripherally- Inserted Central Catheter, Diabetic Foot Ulcer (DC), Diabetes Type 2 (DC), Osteomyelitis (DC), Quitting Smoking, Daptomycin, Ertapenem, Foot Care for Diabetics Additional Instructions: Patient is cleared for discharge per Dr. Bella following the dose of ertapenum 1gm in the hospital today 04/10/18. 1). You have been scheduled to receive antibiotics for a total of 6 weeks through the Infusion Center located on third floor of [address] Please follow the schedule. 2). You will have to schedule follow up with Fire Investigator Dr. Barnard by calling his office at [phone]. This follow up should take place in 7 to 10 days. 3). You will have to schedule follow up with Vascular Surgeon Dr. Ghotra by calling his office at [phone]. This follow up should take place in 7 to 10 days. 4). You will have to schedule follow up with Primary Care Physician Dr. Bolaños to take place in the next 7 to 10 days. 5). STOP smoking as this will prevent healing of your arterial disease and of the toe ulcer not to mention that it will kill you and that it likely makes it difficult for your to kiss you. 6). You were provided with prescriptions for the following medications that you will have to have filled at your pharmacy on your way from the hospital and please use them as instructed: Metformin 500 mg, 1 tablet by mouth 2 times a day with breakfast and dinner ( 7AM and 7PM), Dispense #60, NO refills Invokana 300 mg, 1 tablet by mouth 1 time a day with lunch (1 PM), Dispense #30 , NO refills Glimepiride 4 mg, 1 tablet by mouth 1 time a day with breakfast (7 AM), Dispense #30, NO refills Atorvastatin 10 mg, 1 tablet by mouth 1 time a day with dinner (7 PM), Dispense #30, NO refills Amlodipine 5 mg, 1 tablet by mouth 1 time a day with dinner (7 PM), Dispense #30 , NO refills Lisinopril 10 mg, 1 tablet by mouth 1 time a day with breakfast (7 AM), Dispense #30, NO refillls Aspirin 81 mg, 1 tablet by mouth 1 time a day with breakfast (7 AM), Dispense # 30, NO refills Plavix 75 mg, 1 tablet by mouth 1 time a day with breakfast (7 AM), Dispense #30 , NO refills Lactobacillus, 1 tablet by mouth 2 times a day (7 AM and 7 PM), Dispense #140, NO refills 7). Please use the special boot provided to you at all times when walking. 8). Please take care and be well and watch some good movies. Start with [facility] [employer] [facility]. Referrals: Ignacio Hoyos DPM [Doctor Podiatric Medicine] - Alvarez Hughes MD [Staff Provider] - Donis Ghotra Jr., MD [Staff Provider] - <Lupe Bella V - Last Filed: 04/11/18 00:54> Provider - Provider Date of Admission: 04/05/18 10:20 Attending physician: Joseph Flores MD Diagnosis - Discharge Diagnosis (1) Osteomyelitis Status: Acute (2) Diabetes Status: Chronic (3) Diabetic ulcer of toe Status: Chronic Hospital Course - Lab Results Lab Results: Micro Results 04/05/18 13:52 Blood Blood Culture - Final NO GROWTH AFTER 5 DAYS 04/05/18 13:52 Blood Gram Stain - Final TEST NOT PERFORMED 04/05/18 13:52 Blood Blood Culture - Final NO GROWTH AFTER 5 DAYS 04/05/18 13:52 Blood Gram Stain - Final TEST NOT PERFORMED Most Recent Lab Values WBC 6.5 K/uL (4.8-10.8) 04/10/18 07:11 RBC 4.87 Mil/uL (4.40-5.90) 04/10/18 07:11 Hgb 13.9 g/dL (12.0-18.0) 04/10/18 07:11 Hct 41.5 % (35.0-51.0) 04/10/18 07:11 MCV 85.3 fL (80.0-94.0) 04/10/18 07:11 MCH 28.5 pg (27.0-31.0) 04/10/18 07:11 MCHC 33.4 g/dL (33.0-37.0) 04/10/18 07:11 RDW 13.1 % (11.5-14.5) 04/10/18 07:11 Plt Count 211 K/uL (130-400) 04/10/18 07:11 MPV 8.1 fL (7.2-11.7) 04/10/18 07:11 Neut % (Auto) 58.5 % (50.0-75.0) 04/10/18 07:11 Lymph % (Auto) 21.9 % (20.0-40.0) 04/10/18 07:11 [place] % (Auto) 14.3 % (0.0-10.0) H 04/10/18 07:11 Eos % (Auto) 4.9 % (0.0-4.0) H 04/10/18 07:11 Baso % (Auto) 0.4 % (0.0-2.0) 04/10/18 07:11 Neut # (Auto) 3.8 K/uL (1.8-7.0) 04/10/18 07:11 Lymph # (Auto) 1.4 K/uL (1.0-4.3) 04/10/18 07:11 [place] # (Auto) 0.9 K/uL (0.0-0.8) H 04/10/18 07:11 Eos # (Auto) 0.3 K/uL (0.0-0.7) 04/10/18 07:11 Baso # (Auto) 0.0 K/uL (0.0-0.2) 04/10/18 07:11 ESR 71 mm/hr (0-15) H 04/08/18 07:10 PT 10.9 SECONDS (9.7-12.2) 04/05/18 13:12 INR 1.0 04/05/18 13:12 APTT 39 SECONDS (21-34) H 04/05/18 13:12 Sodium 140 mmol/L (132-148) 04/10/18 07:11 Potassium 3.9 mmol/L (3.6-5.2) 04/10/18 07:11 Chloride 101 mmol/L (98-107) 04/10/18 07:11 Carbon Dioxide 26 mmol/L (22-30) 04/10/18 07:11 Anion Gap 17 (10-20) 04/10/18 07:11 BUN 29 mg/dL (9-20) H 04/10/18 07:11 Creatinine 0.9 mg/dL (0.8-1.5) 04/10/18 07:11 Est GFR ( Amer) > 60 04/10/18 07:11 Est GFR (Non-Af Amer) > 60 04/10/18 07:11 POC Glucose (mg/dL) 135 mg/dL (65-110) H 04/10/18 11:10 Random Glucose 152 mg/dL (75-110) H 04/10/18 07:11 Hemoglobin A1c 8.4 % (4.2-6.5) H 04/07/18 08:14 Calcium 9.2 mg/dl (8.6-10.4) 04/10/18 07:11 Phosphorus 3.9 mg/dL (2.5-4.5) 04/10/18 07:11 Magnesium 2.1 mg/dL (1.6-2.3) 04/10/18 07:11 Total Bilirubin 0.6 mg/dL (0.2-1.3) 04/10/18 07:11 AST 19 U/L (17-59) 04/10/18 07:11 ALT 18 U/L (21-72) L D 04/10/18 07:11 Alkaline Phosphatase 97 U/L (38-126) 04/10/18 07:11 C-Reactive Protein 29.00 mg/L (0.0-9.9) H 04/08/18 07:10 C-React Prot High Sens 8.87 mg/L (1.00-3.00) H 04/07/18 08:14 Total Protein 7.4 g/dL (6.3-8.3) 04/10/18 07:11 Albumin 3.8 g/dL (3.5-5.0) 04/10/18 07:11 Globulin 3.6 gm/dL (2.2-3.9) 04/10/18 07:11 Albumin/Globulin Ratio 1.1 (1.0-2.1) 04/10/18 07:11 Triglycerides 225 mg/dL (0-149) H D 04/05/18 13:12 Cholesterol 251 mg/dL (0-199) H 04/05/18 13:12 LDL Cholesterol Direct 133 mg/dL (0-129) H 04/05/18 13:12 HDL Cholesterol 32 mg/dL (30-70) 04/05/18 13:12 Prostate Specific Ag 1.79 ng/mL (0.00-4.0) 04/07/18 08:14 Free T4 0.82 ng/dL (0.78-2.19) 04/05/18 13:19 TSH 3rd Generation 0.94 mIU/L (0.46-4.68) 04/05/18 13:12 Urine Color Yellow (YELLOW) 04/05/18 09:15 Urine Clarity Clear (Clear) 04/05/18 09:15 Urine pH 5.0 (5.0-8.0) 04/05/18 09:15 Ur Specific [place] 1.029 (1.003-1.030) 04/05/18 09:15 Urine Protein 2+ mg/dL (NEGATIVE) H 04/05/18 09:15 Urine Glucose (UA) 3+ mg/dL (Normal) H 04/05/18 09:15 Urine Ketones Negative mg/dL (NEGATIVE) 04/05/18 09:15 Urine Blood Negative (NEGATIVE) 04/05/18 09:15 Urine Nitrate Negative (NEGATIVE) 04/05/18 09:15 Urine Bilirubin Negative (NEGATIVE) 04/05/18 09:15 Urine Urobilinogen Normal mg/dL (0.2-1.0) 04/05/18 09:15 Ur Leukocyte Esterase Neg Debo/uL (Negative) 04/05/18 09:15 Urine WBC (Auto) 1 /hpf (0-5) 04/05/18 09:15 Urine RBC (Auto) 1 /hpf (0-3) 04/05/18 09:15 Ur Squamous Epith Cells < 1 /hpf (0-5) 04/05/18 09:15 Vancomycin Trough 12.4 ug/mL (5.0-10.0) H 04/08/18 10:38 Attending/Attestation - Attestation I have personally seen and examined this patient.: Yes I have fully participated in the care of the patient.: Yes I have reviewed all pertinent clinical information, including history, physical exam and plan: Yes Notes (Text): This is late computer entry for 04/10/18. patient seen, examined, and case discussed with day-time resident. Patient is very pleasant fellow, denies headache, denies chest pain, denies palpitations, denies nausea, denies vomitting, denies abdominal pain, denies diarrhea, denies pain. Discussed with case management, patient is approved for both Cubcin and Invanez for the outpatient transfusion center. Patient tolerated first dose of Invanez without adverse side effect observed during hospitalization. Discharge Diagnoses: 1). Left Great Toe Osteomyelitis: Cubicin 450 mg IV Q24H and Invanz 1 gm IV Q24H --->to continue for 6 weeks, approved by insurance, to f/u with podiatry and ID on discharge 2). PVD Bilateral LE: ASA and Plavix. S/P Aortofemoral Angiogram via right groin with selective catherization of left femoral artery and balloon angioplasty 2.5 mm left anterior tibial artery. 3). Hx DM 2: ISS. Restart home meds of Invokana, Glimepiride and In[place]akana upon discharge 4). Hx HTN: Lisinopril and Amlodipine. Better with the addition of Amlodipine on 04/08/18 5). Hx HLD: Crestor 6). Hx Nicotine Addiction: extensive conversation about the dangers of smoking with patient concerning healing of his left foot ulcer not to mention risks for cancer ischarge instructions as note: The following instructions should be included in the discharge instructions and given to patient upon discharge: 1). You have been scheduled to receive antibiotics for a total of 6 weeks through the Infusion Center located on third floor of [address] Please follow the schedule; tomorrow 04/11/18 arrive at 8:30AM for registration for 9AM 2). You will have to schedule follow up with Fire Investigator Dr. Hoyos by calling his office at [phone]. This follow up should take place in 7 to 10 days. 3). You will have to schedule follow up with Vascular Surgeon Dr. Ghotra by calling his office at [phone]. This follow up should take place in 7 to 10 days. 4). You will have to schedule follow up with Primary Care Physician Dr. Froilan Bolaños to take place in the next 7 to 10 days. 5). STOP smoking as this will prevent healing of your arterial disease and of the toe ulcer not to mention that it will kill you and that it likely makes it difficult for your to kiss you. 6). You were provided with prescriptions for the following medications that you will have to have filled at your pharmacy on your way from the hospital and please use them as instructed: Metformin 500 mg, 1 tablet by mouth 2 times a day with breakfast and dinner ( 7AM and 7PM), Dispense #60, NO refills Invokana 300 mg, 1 tablet by mouth 1 time a day with lunch (1 PM), Dispense #30 , NO refills Glimepiride 4 mg, 1 tablet by mouth 1 time a day with breakfast (7 AM), Dispense #30, NO refills Atorvastatin 10 mg, 1 tablet by mouth 1 time a day with dinner (7 PM), Dispense #30, NO refills Amlodipine 5 mg, 1 tablet by mouth 1 time a day with dinner (7 PM), Dispense #30 , NO refills Lisinopril 10 mg, 1 tablet by mouth 1 time a day with breakfast (7 AM), Dispense #30, NO refillls Aspirin 81 mg, 1 tablet by mouth 1 time a day with breakfast (7 AM), Dispense # 30, NO refills Plavix 75 mg, 1 tablet by mouth 1 time a day with breakfast (7 AM), Dispense #30 , NO refills Lactobacillus, 1 tablet by mouth 2 times a day (7 AM and 7 PM), Dispense #140, NO refills 7). Please use the special boot provided to you at all times when walking. 8) patient advised if he has diarrhea, to come to be immediately evaluated to rule out infectious etiology to diarrhea and to use probiotic to help regulate gut kar. This is a summary of patient's hospitalization. Please see EMR for full detail of record.
== END 2018-04-10 15:35 | disposition home or self-care (01) | DRG 253 ==
LOC: C.ER 07:34 → C.9E 10:20 → C.5S 14:21
PROVIDERS: ADMIT Family Medicine; ATTEND Family Medicine
PROC: 047Q3ZZ Dilation of Left Anterior Tibial Artery, Percutaneous Approach (ICD-10-PCS; principal; 2018-04-07)
PROC: 02HV33Z Insertion of Infusion Device into Superior Vena Cava, Percutaneous Approach (ICD-10-PCS; 2018-04-07)
DX: E11.52 Type 2 diabetes mellitus with diabetic peripheral angiopathy with gangrene (principal); L97.528 Non-pressure chronic ulcer of other part of left foot with other specified severity; I96 Gangrene, not elsewhere classified; M86.172 Other acute osteomyelitis, left ankle and foot; E11.621 Type 2 diabetes mellitus with foot ulcer; Z79.4 Long term (current) use of insulin; E78.5 Hyperlipidemia, unspecified; F17.210 Nicotine dependence, cigarettes, uncomplicated; I10 Essential (primary) hypertension; N40.0 Benign prostatic hyperplasia without lower urinary tract symptoms; Z79.84 Long term (current) use of oral hypoglycemic drugs; E11.69 Type 2 diabetes mellitus with other specified complication

== ENCOUNTER 2018-05-04 07:26 | Inpatient (IN) | payer OTHER ==
[2018-04-11 07:42] VITALS: BMI 27.3
[2018-05-04] MEDS ORDERED: Bacitracin 150,000 UNIT in Sodium Chloride 0.9% Irrig 3,000 ML IR SCH (08:00)
[2018-05-04 08:25] LABS: INR 1.1
[2018-05-04] MEDS ORDERED: ceFAZolin IV 1 gm in Dextrose 0 GM/0 ML BAG IVPB ONE (08:29)
[2018-05-04] MEDS ORDERED: Lidocaine 2% MPF (5 ml) Inj ONE (08:42)
[2018-05-04] MEDS ORDERED: Bupivacaine 0.5% Inj(30mL) IJ ONE (08:45)
[2018-05-04] MEDS ORDERED: Lactated Ringer's 1,000 ML IV ONE (09:41)
[2018-05-04] MEDS ORDERED: Oxycodone/Acetaminophen 5/325 mg Tab PO PRN ×2 (09:43)
--- NOTE | 2018-05-04 09:49 | PCM.SURG1 ---
Surgeon's Initial Post Op Note - Surgeon's Notes Surgeon: Dr. Wolf DPM Street Inspector: Dr. 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 I: 10 cc 1:1 mix 0.5% marcaine plain and 1% lidcaine plain Post-Operative Diagnosis: same Operation Performed: left hallux sharp and versajet wound debridement and excision of gangrenous tissue Specimen/Specimens Removed: left hallux gangrenous soft tissue Estimated Blood Loss: EBL {In ML}: 3 Blood Products Given: N/A Drains Used: No Drains Post-Op Condition: Good Date of Surgery/Procedure: 05/04/18 Time of Surgery/Procedure: 09:49
[2018-05-04] MEDS ORDERED: Enoxaparin 40 mg Syringe SC SCH (10:00)
[2018-05-04] MEDS ORDERED: Midazolam 2 MG/2 ML VIAL IV ONE (10:15)
[2018-05-04] MEDS ORDERED: Propofol 10 mg/ml Inj (20 ML) IV ONE (10:15)
[2018-05-04] MEDS ORDERED: Dextrose 50% SYRINGE Inj (50 ml) IV PRN (12:02)
[2018-05-04] MEDS ORDERED: Glucagon Recombinant 1 mg Inj IM PRN (12:02)
--- NOTE | 2018-05-04 12:07 | CP.PCM.HP ---
<Jose Leon M - Last Filed: 05/04/18 12:13> History of Present Illness - History of Present Illness History of Present Illness: PGY 1 Medicine H&P for Dr. Joseph Flores. 68 M w/ PMHx of HTN, HLD, DM, PVD, OM, POD #0, s/p left hallux wound debridement and excision of gangrenous tissue. During procedure, patient had larger than expected blood loss; however, patient currently has no complaints. Patient denies chest pain, SOB, abdominal pain, N/V and states pain is well controlled. Patient was recently discharged on 04/10 and is receiving OP IV abx ( Invanz 1gm IV & Cubicin 450 mg IV daily) at the infusion center through May 21 2018. PMD: Rose Marie Turcios PMHx: HTN, HLD, DM, PVD, OM Meds: Metformin 500 mg Q12h, Invokana 300 mg daily, Glimepiride 4 mg daily, Atorvastatin 10 mg daily, Amlodipine 5 mgdaily, Lisinopril 10 mg daily, Aspirin 81 mg daily, Plavix 75 mg daily, Lactobacillus Q12h PSHx: angiogram with balloon angioplasty of the left anterior tibial artery ( performed at last admission), prostectomy Allergies: NKDA FHx: mother with DM and father with HTN SocialHx: Patient admits to drinking 1 small bottle of whiskey a night for many years, quit since 04/10/18. Admits to 1-2 cigarets per day for 40 years, quit since 04/10/18. Former crack user, quit in 1984 Full Code Present on Admission - Present on Admission Any Indicators Present on Admission: No Review of Systems - Constitutional Constitutional: absent: Chills, Fever, Headache - EENT Eyes: absent: Change in Vision, Discharge, Itchy Eyes Nose/Mouth/Throat: absent: Mouth Lesions, Mouth Pain, Facial Pain - Cardiovascular Cardiovascular: absent: Chest Pain, Diaphoresis, Palpitations - Respiratory Respiratory: absent: Cough, Dyspnea on Exertion, Wheezing - Gastrointestinal Gastrointestinal: absent: Abdominal Pain, Diarrhea, Vomiting - Genitourinary Genitourinary: absent: Difficulty Urinating, Flank Pain, Urinary Frequency - Musculoskeletal Musculoskeletal: absent: Arthralgias, Back Pain, Myalgias - Neurological Neurological: absent: Burning Sensations, Numbness, Headaches Past Patient History - Infectious Disease Hx of Infectious Diseases: None - Past Medical History & Family History Past Medical History?: Yes - Past Social History Smoking Status: Former Smoker - CARDIAC Hx Cardiac Disorders: Yes Hx Hypercholesterolemia: Yes Hx Hypertension: Yes - ENDOCRINE/METABOLIC Hx Endocrine Disorders: Yes Hx Diabetes Mellitus Type 2: Yes - INTEGUMENTARY Hx Dermatological Problems: Yes Other/Comment: HX: GANGRENE LEFT HALLUX GREAT TOE - MUSCULOSKELETAL/RHEUMATOLOGICAL Hx Musculoskeletal Disorders: Yes Hx Osteomyelitis: Yes (left foot) - GENITOURINARY/GYNECOLOGICAL Hx Genitourinary Disorders: Yes Hx Prostate Problems: Yes (surgery 12-25-2002) Other/Comment: BPH - SURGICAL HISTORY Hx Surgeries: Yes Hx Angiogram: Yes Hx Angioplasty: Yes (LEFT ANTERIOR TIBIAL ARTERY) Other/Comment: Prostatectomy. HX: PICC LINE INSERTION - ANESTHESIA Hx Anesthesia: Yes Hx Anesthesia Reactions: No Hx Malignant Hyperthermia: No Meds Allergies/Adverse Reactions: Allergies Allergy/AdvReac Type Severity Reaction Status Date / Time No Known Allergies Allergy Verified 03/18/18 19:23 Physical Exam - Constitutional Appears: Well, Non-toxic, No Acute Distress - Head Exam Head Exam: ATRAUMATIC, NORMAL INSPECTION, NORMOCEPHALIC - Eye Exam Eye Exam: EOMI, Normal appearance, PERRL Pupil Exam: NORMAL ACCOMODATION - ENT Exam ENT Exam: Mucous Membranes Moist Additional comments: Ulcer on mid lateral of tongue, no bleeding present - Neck Exam Neck exam: Negative for: Lymphadenopathy, Thyromegaly - Respiratory Exam Respiratory Exam: Clear to Auscultation Bilateral, NORMAL BREATHING PATTERN. absent: Rales, Rhonchi, Wheezes - Cardiovascular Exam Cardiovascular Exam: +S1, +S2. absent: Irregular Rhythm, Systolic Murmur - GI/Abdominal Exam GI & Abdominal Exam: Normal Bowel Sounds, Soft. absent: Distended, Firm, Guarding - Extremities Exam Extremities exam: Positive for: normal inspection. Negative for: calf tenderness, pedal edema - Back Exam Back exam: absent: CVA tenderness (L), CVA tenderness (R) - Neurological Exam Neurological exam: Alert, CN II-XII Intact, Oriented x3 - Psychiatric Exam Psychiatric exam: Normal Affect, Normal Mood - Skin Skin Exam: Dry, Intact, Normal Color, Warm Results - Vital Signs Recent Vital Signs: Last Vital Signs Temp 98 F 05/04/18 11:00 Pulse 68 05/04/18 11:00 Resp 17 05/04/18 11:00 BP 136/75 05/04/18 11:00 Pulse Ox 97 05/04/18 11:00 - Labs Labs: Laboratory Results - last 24 hr 05/04/18 05/04/18 05/04/18 08:10 08:12 11:06 PT 12.0 INR 1.1 APTT 38 H POC Glucose (mg/dL) 100 84 Assessment & Plan - Assessment and Plan (Free Text) Assessment: 68 M w/ PMHx of HTN, HLD, DM, PVD, OM, POD #0, s/p left hallux wound debridement and excision of gangrenous tissue. During procedure, patient had larger than expected blood loss; however, patient currently has no complaints: Osteomyelitis L great toe - Cubicin 450mg Q24H (started 04/11) - Merrem 1gm Q8 (started 05/04) (invanz only available OP-started 04/11) - F/u Podiatry Dr. Luciano delvalle - Podiatry team to get a specialized boot - PT to train to use special boot - F/u ID Dr Ellen delvalle as to Abx continuation - F/u Vascular Dr. Brandin delvalle - for blood loss after left hallux wound debridement and excision of gangrenous tissue PVD - angiogram with balloon angioplasty of the left anterior tibial artery - F/u Dr. Ghotra as to when to restart: - ASA 81mg PO daily - OP bleeding - Plavix 75 mg Po daily - held for now 2/2 OP bleeding DM - ISS ACHS - Medium - Hypoglycemia Protocol - Hold: Metformin 500 Q12H Invokana 300 mg daily Glimepiride 4 mg daily HTN - lisinopril 10 mg PO daily (7am) - Norvasc 5mg PO daily (7pm) HLD - crestor 5mg PO daily (7pm) - hold atorvastatin 10mg PO (7pm) Prophylaxis - Anticoagulation contraindicated 2/2 to blood loss - No SCD 2/2 to Hx of PVD - Heart Healthy/ 2g Na+/ Low carb diet - Lactobaiciluss Q12 hours, not within 2 hours of Abx - PT as mentioned above <Joseph Flores - Last Filed: 05/05/18 18:13> Results - Vital Signs Recent Vital Signs: Last Vital Signs Temp 98.0 F 05/05/18 15:00 Pulse 75 05/05/18 15:00 Resp 20 05/05/18 15:00 BP 113/71 05/05/18 15:00 Pulse Ox 96 05/05/18 15:00 - Labs Result Diagrams: 05/05/18 07:01 05/05/18 07:01 Labs: Laboratory Results - last 24 hr 05/04/18 05/05/18 05/05/18 21:40 06:12 07:01 WBC 6.6 RBC 4.51 Hgb 12.8 Hct 37.7 MCV 83.5 MCH 28.3 MCHC 33.8 RDW 12.8 Plt Count 253 MPV 7.5 Neut % (Auto) 64.7 Lymph % (Auto) 21.2 [place] % (Auto) 9.4 Eos % (Auto) 4.1 H Baso % (Auto) 0.6 Neut # (Auto) 4.3 Lymph # (Auto) 1.4 [place] # (Auto) 0.6 Eos # (Auto) 0.3 Baso # (Auto) 0.0 Sodium Potassium Chloride Carbon Dioxide Anion Gap BUN Creatinine Est GFR ( Amer) Est GFR (Non-Af Amer) POC Glucose (mg/dL) 98 113 H Random Glucose Calcium Phosphorus Magnesium Total Bilirubin AST ALT Alkaline Phosphatase Total Protein Albumin Globulin Albumin/Globulin Ratio 05/05/18 05/05/18 05/05/18 07:01 11:35 16:27 WBC RBC Hgb Hct MCV MCH MCHC RDW Plt Count MPV Neut % (Auto) Lymph % (Auto) [place] % (Auto) Eos % (Auto) Baso % (Auto) Neut # (Auto) Lymph # (Auto) [place] # (Auto) Eos # (Auto) Baso # (Auto) Sodium 140 Potassium 4.3 Chloride 102 Carbon Dioxide 27 Anion Gap 15 BUN 21 H Creatinine 0.8 Est GFR ( Amer) > 60 Est GFR (Non-Af Amer) > 60 POC Glucose (mg/dL) 110 143 H Random Glucose 111 H Calcium 9.3 Phosphorus 3.6 Magnesium 2.1 Total Bilirubin 0.5 AST 25 ALT 24 Alkaline Phosphatase 125 Total Protein 7.5 Albumin 3.7 Globulin 3.8 Albumin/Globulin Ratio 1.0 Attending/Attestation - Attestation I have personally seen and examined this patient.: Yes I have fully participated in the care of the patient.: Yes I have reviewed all pertinent clinical information: Yes Notes (Text): 05/05/18 18:12 This is a late entry. History, Physical, Assessment and Plan and all orders were gone over with the resident. Joseph Flores D.O.
[2018-05-04 12:37] LABS: BASO % 0.5 % (0.0-2.0); EOS # 0.3 K/uL (0.0-0.7); EOS % 4.1 % (0.0-4.0); HEMOGLOBIN 12.9 g/dL (12.0-18.0); LYMPH # 1.6 K/uL (1.0-4.3); LYMPH % 26.1 % (20.0-40.0); MEAN CELL VOLUME 84.7 fL (80.0-94.0); MEAN CORPUSCULAR HEMOGLOBIN 28.1 pg (27.0-31.0); MEAN CORPUSCULAR HGB CONC 33.2 g/dL (33.0-37.0); MEAN PLATELET VOLUME 7.6 fL (7.2-11.7); MONO # 0.5 K/uL (0.0-0.8); NEUT # 3.7 K/uL (1.8-7.0); NEUT % 60.3 % (50.0-75.0); RBC 4.58 Mil/uL (4.40-5.90); RED CELL DISTRIBUTION WIDTH 12.6 % (11.5-14.5); WHITE BLOOD COUNT 6.1 K/uL (4.8-10.8)
[2018-05-04 12:52] LABS: ALBUMIN 3.8 g/dL (3.5-5.0); ALT/SGPT 21 U/L (21-72); AST/SGOT 20 U/L (17-59); BLOOD UREA NITROGEN 21 mg/dL (9-20); CALCIUM 9.5 mg/dl (8.6-10.4); GFR NON-AFRICAN AMERICAN > 60
[2018-05-04] MEDS ORDERED: DAPTOmycin 500 mg Inj (Cubicin) IV SCH (14:00)
--- NOTE | 2018-05-04 14:16 | CP.PCM.CON ---
History of Present Illness - History of Present Illness History of Present Illness: Vascular Surgery consulted for "poor pedal pulses. Patient is s/p left left hallux sharp and versajet wound debridement and excision of gangrenous tissues. Right foot palpable PT pulses. Patient had endovascular intervention in 04/06. 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 Postgerior tibiat reconstituted at mid calf. Anterior tibial was occluded at origin. Operation performed was a selective catheterization of left femoral artery with balloon angioplast 2.5mm left anterior tibial artery. At time of examination patient had no complaints. PMHx: HTN, HLD, DM, PVD, OM PSHx: angiogram with balloon angioplasty of the left anterior tibial artery (performed at last admission), prostectomy Allergies: NKDA Review of Systems - Review of Systems Review of Systems: as per HPI Past Patient History - Infectious Disease Hx of Infectious Diseases: None - Past Medical History & Family History Past Medical History?: Yes - Past Social History Smoking Status: Former Smoker - CARDIAC Hx Cardiac Disorders: Yes Hx Hypercholesterolemia: Yes Hx Hypertension: Yes - ENDOCRINE/METABOLIC Hx Endocrine Disorders: Yes Hx Diabetes Mellitus Type 2: Yes - INTEGUMENTARY Hx Dermatological Problems: Yes Other/Comment: HX: GANGRENE LEFT HALLUX GREAT TOE - MUSCULOSKELETAL/RHEUMATOLOGICAL Hx Musculoskeletal Disorders: Yes Hx Osteomyelitis: Yes (left foot) - GENITOURINARY/GYNECOLOGICAL Hx Genitourinary Disorders: Yes Hx Prostate Problems: Yes (surgery 12-25-2002) Other/Comment: BPH - SURGICAL HISTORY Hx Surgeries: Yes Hx Angiogram: Yes Hx Angioplasty: Yes (LEFT ANTERIOR TIBIAL ARTERY) Other/Comment: Prostatectomy. HX: PICC LINE INSERTION - ANESTHESIA Hx Anesthesia: Yes Hx Anesthesia Reactions: No Hx Malignant Hyperthermia: No Meds Allergies/Adverse Reactions: Allergies Allergy/AdvReac Type Severity Reaction Status Date / Time No Known Allergies Allergy Verified 03/18/18 19:23 - Medications Medications: Current Medications Acetaminophen (Tylenol 325mg Tab) 650 mg PO Q6 PRN PRN Reason: Pain, Mild (1-3) Amlodipine Besylate (Norvasc) 5 mg PO Q24H [facility] Dextrose (Dextrose 50% Inj) 0 ml IV STAT PRN; Protocol PRN Reason: Hypoglycemia Protocol Dextrose (Glutose 15) 0 gm PO ONCE PRN; Protocol PRN Reason: Hypoglycemia Protocol Glucagon (Glucagen Diagnostic Kit) 0 mg IM STAT PRN; Protocol PRN Reason: Hypoglycemia Protocol Dextrose (Dextrose 5% In Water 1000 Ml) 1,000 mls @ 0 mls/hr IV .Q0M PRN; Protocol; Per Protocol PRN Reason: Hypoglycemia Protocol Daptomycin 450 mg/ Sodium (Chloride) 100 mls @ 200 mls/hr IV Q24H [facility] Stop: 05/23/18 14:01 Meropenem 1 gm/ Sodium (Chloride) 100 mls @ 100 mls/hr IVPB Q8H [facility] PRN Reason: Protocol Insulin Aspart (Novolog) 0 unit SC ACHS [facility] PRN Reason: Protocol Lactobacillus Acidophilus (Bacid Acidophilus) 1 cap PO BID [facility] Lisinopril (Zestril) 10 mg PO Q24H [facility] Oxycodone/Acetaminophen (Percocet 5/325 Mg Tab) 1 tab PO Q4H PRN PRN Reason: Pain, moderate (4-7) Stop: 05/07/18 09:44 Oxycodone/Acetaminophen (Percocet 5/325 Mg Tab) 2 tab PO Q4H PRN PRN Reason: Pain, severe (8-10) Stop: 05/07/18 09:44 Rosuvastatin Calcium (Crestor) 5 mg PO Q24H [facility] Physical Exam - Constitutional Appears: No Acute Distress - Head Exam Head Exam: NORMOCEPHALIC - Eye Exam Eye Exam: EOMI, Normal appearance - ENT Exam ENT Exam: Mucous Membranes Moist - Respiratory Exam Respiratory Exam: NORMAL BREATHING PATTERN - Cardiovascular Exam Cardiovascular Exam: +S1, +S2 - GI/Abdominal Exam GI & Abdominal Exam: Soft - Extremities Exam Additional comments: +PT pulses +motor/sensation - Neurological Exam Neurological exam: Alert, Oriented x3 Results - Vital Signs Recent Vital Signs: Last Vital Signs Temp 98 F 05/04/18 11:00 Pulse 68 05/04/18 11:00 Resp 17 05/04/18 11:00 BP 136/75 05/04/18 11:00 Pulse Ox 97 05/04/18 11:00 - Labs Result Diagrams: 05/04/18 12:30 05/04/18 12:30 Labs: Laboratory Results - last 24 hr 05/04/18 05/04/18 05/04/18 08:10 08:12 11:06 WBC RBC Hgb Hct MCV MCH MCHC RDW Plt Count MPV Neut % (Auto) Lymph % (Auto) [place] % (Auto) Eos % (Auto) Baso % (Auto) Neut # (Auto) Lymph # (Auto) [place] # (Auto) Eos # (Auto) Baso # (Auto) PT 12.0 INR 1.1 APTT 38 H Sodium Potassium Chloride Carbon Dioxide Anion Gap BUN Creatinine Est GFR ( Amer) Est GFR (Non-Af Amer) POC Glucose (mg/dL) 100 84 Random Glucose Calcium Phosphorus Magnesium Total Bilirubin AST ALT Alkaline Phosphatase Total Protein Albumin Globulin Albumin/Globulin Ratio 05/04/18 05/04/18 12:30 12:30 WBC 6.1 RBC 4.58 Hgb 12.9 Hct 38.8 MCV 84.7 MCH 28.1 MCHC 33.2 RDW 12.6 Plt Count 249 MPV 7.6 Neut % (Auto) 60.3 Lymph % (Auto) 26.1 [place] % (Auto) 9.0 Eos % (Auto) 4.1 H Baso % (Auto) 0.5 Neut # (Auto) 3.7 Lymph # (Auto) 1.6 [place] # (Auto) 0.5 Eos # (Auto) 0.3 Baso # (Auto) 0.0 PT INR APTT Sodium 141 Potassium 4.0 Chloride 103 Carbon Dioxide 30 Anion Gap 13 BUN 21 H Creatinine 0.7 L Est GFR ( Amer) > 60 Est GFR (Non-Af Amer) > 60 POC Glucose (mg/dL) Random Glucose 124 H Calcium 9.5 Phosphorus 3.2 Magnesium 1.9 Total Bilirubin 0.5 AST 20 ALT 21 Alkaline Phosphatase 140 H D Total Protein 7.6 Albumin 3.8 Globulin 3.7 Albumin/Globulin Ratio 1.0 Assessment & Plan - Assessment and Plan (Free Text) Assessment: 68M s/p left left hallux sharp and versajet wound debridement and excision of gangrenous tissues Plan: -C/w podiatry management -No acute surgical intervention needed at this present time -F/u ID recs Further recs per Dr. Brandin Abraham PGY3
[2018-05-04] MEDS: Meropenem 1 GM in Sodium Chloride 0.9% 100 ML IVPB SCH (15:34)
[2018-05-04 16:40] VITALS: RESP 20
[2018-05-04] MEDS: (Novolog) Insulin Aspart, Recombinant 100 u/ml 10 ml vial SC SCH ×2 (17:16→21:40)
[2018-05-04] MEDS: Lactobacillus Acidophilus 500 MU Cap PO SCH (17:17)
--- NOTE | 2018-05-04 19:21 | CP.PCM.CON ---
History of Present Illness - History of Present Illness History of Present Illness: 68 yo male with hx of PVD DM and OM left foot was admitted for debridement left hallux and referred for ID eval and antibiotic manageent Has been on Cubicin and Invanz as out pt folollowing with Dr Wolf Patient is s/p left left hallux sharp and versajet wound debridement and excision of gangrenous tissues. Right foot palpable PT pulses. Patient had endovascular intervention in 04/06. 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 Posterior tibial reconstituted at mid calf. Anterior tibial was occluded at origin. Operation performed was a selective catheterization of left femoral artery with balloon angioplast 2.5mm left anterior tibial artery. PMHx: HTN, HLD, DM, PVD, OM PSHx: angiogram with balloon angioplasty of the left anterior tibial artery ( performed at last admission), prostectomy Allergies: NKDA Review of Systems - Review of Systems All systems: reviewed and no additional remarkable complaints except - Constitutional Constitutional: As Per HPI - EENT Eyes: absent: As Per HPI, Blind Spots, Blurred Vision, Change in Vision, Decreased Night Vision, Diplopia, Discharge, Dry Eye, Exophthalmos, Floaters, Irritation, Itchy Eyes, Loss of Peripheral Vision, Pain, Photophobia, Requires Corrective Lenses, Sees Flashes, Spots in Vision, Tunnel Vision, Other Visual Disturbances, Loss of Vision, Other Ears: absent: As Per HPI, Decreased Hearing, Ear Discharge, Ear Pain, Tinnitus, Abnormal Hearing, Disequilibrium, Dizziness, Other Nose/Mouth/Throat: absent: As Per HPI, Epistaxis, Nasal Congestion, Nasal Discharge, Nasal Obstruction, Nasal Trauma, Nose Pain, Post Nasal Drip, Sinus Pain, Sinus Pressure, Bleeding Gums, Change in Voice, Dental Pain, Dry Mouth, Dysphagia, Halitosis, Hoarsness, Lip Swelling, Mouth Lesions, Mouth Pain, Odynophagia, Sore Throat, Throat Swelling, Tongue Swelling, Facial Pain, Neck Pain, Neck Mass, Other - Cardiovascular Cardiovascular: absent: As Per HPI, Acrocyanosis, Chest Pain, Chest Pain at Rest , Chest Pain with Activity, Claudication, Diaphoresis, Dyspnea, Dyspnea on Exertion, Edema, Irregular Heart Rhythm, Pain Radiating to Arm/Neck/Jaw, Leg Edema, Leg Ulcers, Lightheadedness, Orthopnea, Palpitations, Paroxysmal Nocturnal Dyspnea, Pedal Edema, Radiating Pain, Rapid Heart Rate, Slow Heart Rate, Syncope, Other - Respiratory Respiratory: absent: As Per HPI, Cough, Dyspnea, Hemoptysis, Dyspnea on Exertion , Wheezing, Snoring, Stridor, Pain on Inspiration, Chest Congestion, Excessive Mucous Production, Change in Mucous Color, Pain with Coughing, Other - Gastrointestinal Gastrointestinal: absent: As Per HPI, Abdominal Pain, Belching, Bloating, Change in Bowel Habits, Change in Stool Character, Coffee Ground Emesis, Constipation, Cramping, Diarrhea, Dyspepsia, Dysphagia, Early Satiety, Excessive Flatus, Fecal Incontinence, Heartburn, Hematemesis, Hematochezia, Loose Stools, Melena, Nausea, Odynophagia, Temesmus, Vomiting, Other - Genitourinary Genitourinary: absent: As Per HPI, Change in Urinary Stream, Difficulty Urinating, Dysuria, Flank Pain, Hematuria, Pyuria, Nocturia, Urinary Incontinence, Urinary Frequency, Urinary Hesitance, Urinary Urgency, Voiding Freq/Small Amts, Freq UTI, Hx Renal/Bladder Calculi, Hx /Renal Surgery, Bladder Distension, Other - Musculoskeletal Musculoskeletal: As Per HPI - Integumentary Integumentary: As Per HPI, Skin Pain, Wounds - Neurological Neurological: absent: As Per HPI, Abnormal Gait, Abnormal Hearing, Abnormal Movements, Abnormal Speech, Behavioral Changes, Burning Sensations, Confusion, Convulsions, Disequilibrium, Dizziness, Numbness, Focal Weakness, Frequent Falls , Headaches, Lack of Coordination, Loss of Vision, Memory Loss, Paresthesias, Radicular Pain, Restless Legs, Sensory Deficit, Syncope, Tingling, Tremor, Vertigo, Weakness, Other Visual Disturbances, Other - Psychiatric Psychiatric: absent: As Per HPI, Abnormal Sleep Pattern, Anhedonia, Anxiety, Auditory Hallucinations, Behavioral Changes, Change in Appetite, Change in Libido, Confusion, Depression, Difficulty Concentrating, Hallucinations, Homicidal Ideation, Hopelessness, Irritability, Memory Loss, Mood Swings, Panic Attacks, Paranoia, Suicidal Ideation, Visual Hallucinations, Tactile Hallucinations, Other - Endocrine Endocrine: absent: As Per HPI, Change in Body Appearance, Change in Libido, Cold Intolorance, Deepening of Voice, Excessive Sweating, Fatigue, Flushing, Heat Intolorance, Increase in Ring/Shoe/Hat Size, Palpitations, Polydipsia, Polyphagia, Polyuria, Other Past Patient History - Infectious Disease Hx of Infectious Diseases: None - Past Medical History & Family History Past Medical History?: Yes - Past Social History Smoking Status: Former Smoker - CARDIAC Hx Cardiac Disorders: Yes Hx Hypercholesterolemia: Yes Hx Hypertension: Yes - ENDOCRINE/METABOLIC Hx Endocrine Disorders: Yes Hx Diabetes Mellitus Type 2: Yes - INTEGUMENTARY Hx Dermatological Problems: Yes Other/Comment: HX: GANGRENE LEFT HALLUX GREAT TOE - MUSCULOSKELETAL/RHEUMATOLOGICAL Hx Musculoskeletal Disorders: Yes Hx Osteomyelitis: Yes (left foot) - GENITOURINARY/GYNECOLOGICAL Hx Genitourinary Disorders: Yes Hx Prostate Problems: Yes (surgery 12-25-2002) Other/Comment: BPH - SURGICAL HISTORY Hx Surgeries: Yes Hx Angiogram: Yes Hx Angioplasty: Yes (LEFT ANTERIOR TIBIAL ARTERY) Other/Comment: Prostatectomy. HX: PICC LINE INSERTION - ANESTHESIA Hx Anesthesia: Yes Hx Anesthesia Reactions: No Hx Malignant Hyperthermia: No Meds Allergies/Adverse Reactions: Allergies Allergy/AdvReac Type Severity Reaction Status Date / Time No Known Allergies Allergy Verified 03/18/18 19:23 - Medications Medications: Current Medications Acetaminophen (Tylenol 325mg Tab) 650 mg PO Q6 PRN PRN Reason: Pain, Mild (1-3) Amlodipine Besylate (Norvasc) 5 mg PO Q24H [facility] Last Admin: 05/04/18 19:10 Dose: 5 mg Dextrose (Dextrose 50% Inj) 0 ml IV STAT PRN; Protocol PRN Reason: Hypoglycemia Protocol Dextrose (Glutose 15) 0 gm PO ONCE PRN; Protocol PRN Reason: Hypoglycemia Protocol Glucagon (Glucagen Diagnostic Kit) 0 mg IM STAT PRN; Protocol PRN Reason: Hypoglycemia Protocol Dextrose (Dextrose 5% In Water 1000 Ml) 1,000 mls @ 0 mls/hr IV .Q0M PRN; Protocol; Per Protocol PRN Reason: Hypoglycemia Protocol Daptomycin 450 mg/ Sodium (Chloride) 100 mls @ 200 mls/hr IV Q24H [facility] Stop: 05/23/18 14:01 Last Admin: 05/04/18 14:06 Dose: 200 mls/hr Meropenem 1 gm/ Sodium (Chloride) 100 mls @ 100 mls/hr IVPB Q8H [facility] PRN Reason: Protocol Last Admin: 05/04/18 15:34 Dose: 100 mls/hr Insulin Aspart (Novolog) 0 unit SC ACHS [facility] PRN Reason: Protocol Last Admin: 05/04/18 17:16 Dose: 4 u Lactobacillus Acidophilus (Bacid Acidophilus) 1 cap PO BID [facility] Last Admin: 05/04/18 17:17 Dose: 1 cap Lisinopril (Zestril) 10 mg PO Q24H [facility] Oxycodone/Acetaminophen (Percocet 5/325 Mg Tab) 1 tab PO Q4H PRN PRN Reason: Pain, moderate (4-7) Stop: 05/07/18 09:44 Oxycodone/Acetaminophen (Percocet 5/325 Mg Tab) 2 tab PO Q4H PRN PRN Reason: Pain, severe (8-10) Stop: 05/07/18 09:44 Rosuvastatin Calcium (Crestor) 5 mg PO Q24H [facility] Last Admin: 05/04/18 19:11 Dose: 5 mg Physical Exam - Constitutional Appears: Non-toxic, Chronically Ill - Head Exam Head Exam: NORMOCEPHALIC - Eye Exam Eye Exam: PERRL - ENT Exam ENT Exam: Mucous Membranes Dry - Neck Exam Neck exam: Negative for: Lymphadenopathy - Respiratory Exam Respiratory Exam: Decreased Breath Sounds - Cardiovascular Exam Cardiovascular Exam: REGULAR RHYTHM - GI/Abdominal Exam GI & Abdominal Exam: Diminished Bowel Sounds, Distended, Soft. absent: Tenderness - Rectal Exam Rectal Exam: Deferred - Exam Exam: NORMAL INSPECTION - Extremities Exam Extremities exam: Positive for: pedal edema. Negative for: calf tenderness Additional comments: left foot in cee bandage s/p OR debridement - Back Exam Back exam: absent: CVA tenderness (L), CVA tenderness (R) - Neurological Exam Neurological exam: Alert, CN II-XII Intact, Oriented x3, Reflexes Normal - Psychiatric Exam Psychiatric exam: Normal Mood - Skin Skin Exam: Dry Results - Vital Signs Recent Vital Signs: Last Vital Signs Temp 98.1 F 05/04/18 15:39 Pulse 71 05/04/18 15:39 Resp 20 05/04/18 15:39 BP 143/75 05/04/18 15:39 Pulse Ox 95 05/04/18 15:39 - Labs Result Diagrams: 05/04/18 12:30 05/04/18 12:30 Labs: Laboratory Results - last 24 hr 05/04/18 05/04/18 05/04/18 08:10 08:12 11:06 WBC RBC Hgb Hct MCV MCH MCHC RDW Plt Count MPV Neut % (Auto) Lymph % (Auto) [place] % (Auto) Eos % (Auto) Baso % (Auto) Neut # (Auto) Lymph # (Auto) [place] # (Auto) Eos # (Auto) Baso # (Auto) PT 12.0 INR 1.1 APTT 38 H Sodium Potassium Chloride Carbon Dioxide Anion Gap BUN Creatinine Est GFR ( Amer) Est GFR (Non-Af Amer) POC Glucose (mg/dL) 100 84 Random Glucose Calcium Phosphorus Magnesium Total Bilirubin AST ALT Alkaline Phosphatase Total Protein Albumin Globulin Albumin/Globulin Ratio 05/04/18 05/04/18 05/04/18 12:30 12:30 16:21 WBC 6.1 RBC 4.58 Hgb 12.9 Hct 38.8 MCV 84.7 MCH 28.1 MCHC 33.2 RDW 12.6 Plt Count 249 MPV 7.6 Neut % (Auto) 60.3 Lymph % (Auto) 26.1 [place] % (Auto) 9.0 Eos % (Auto) 4.1 H Baso % (Auto) 0.5 Neut # (Auto) 3.7 Lymph # (Auto) 1.6 [place] # (Auto) 0.5 Eos # (Auto) 0.3 Baso # (Auto) 0.0 PT INR APTT Sodium 141 Potassium 4.0 Chloride 103 Carbon Dioxide 30 Anion Gap 13 BUN 21 H Creatinine 0.7 L Est GFR ( Amer) > 60 Est GFR (Non-Af Amer) > 60 POC Glucose (mg/dL) 269 H Random Glucose 124 H Calcium 9.5 Phosphorus 3.2 Magnesium 1.9 Total Bilirubin 0.5 AST 20 ALT 21 Alkaline Phosphatase 140 H D Total Protein 7.6 Albumin 3.8 Globulin 3.7 Albumin/Globulin Ratio 1.0 Assessment & Plan - Assessment and Plan (Free Text) Assessment: severe PVD s/p debridement for gangrene left hallux will dicuss options with podiatry and vascular IV antibiotics ordered Plan: await OR cultures prognosis guarded
[2018-05-05] MEDS: Meropenem 1 GM in Sodium Chloride 0.9% 100 ML IVPB SCH ×3 (00:12→16:03)
[2018-05-05 07:25] LABS: BASO % 0.6 % (0.0-2.0); EOS # 0.3 K/uL (0.0-0.7); EOS % 4.1 % (0.0-4.0); HEMOGLOBIN 12.8 g/dL (12.0-18.0); LYMPH # 1.4 K/uL (1.0-4.3); LYMPH % 21.2 % (20.0-40.0); MEAN CELL VOLUME 83.5 fL (80.0-94.0); MEAN CORPUSCULAR HEMOGLOBIN 28.3 pg (27.0-31.0); MEAN CORPUSCULAR HGB CONC 33.8 g/dL (33.0-37.0); MEAN PLATELET VOLUME 7.5 fL (7.2-11.7); MONO # 0.6 K/uL (0.0-0.8); MONO % 9.4 % (0.0-10.0); NEUT # 4.3 K/uL (1.8-7.0); NEUT % 64.7 % (50.0-75.0); RBC 4.51 Mil/uL (4.40-5.90); RED CELL DISTRIBUTION WIDTH 12.8 % (11.5-14.5); WHITE BLOOD COUNT 6.6 K/uL (4.8-10.8)
[2018-05-05] MEDS: (Novolog) Insulin Aspart, Recombinant 100 u/ml 10 ml vial SC SCH ×4 (07:28→21:01)
[2018-05-05 07:43] LABS: ALBUMIN 3.7 g/dL (3.5-5.0); ALT/SGPT 24 U/L (21-72); AST/SGOT 25 U/L (17-59); BLOOD UREA NITROGEN 21 mg/dL (9-20); CALCIUM 9.3 mg/dl (8.6-10.4); GFR NON-AFRICAN AMERICAN > 60
[2018-05-05] MEDS: Lactobacillus Acidophilus 500 MU Cap PO SCH ×2 (09:24→17:33)
--- NOTE | 2018-05-05 10:30 | CP.PCM.CON ---
History of Present Illness - History of Present Illness History of Present Illness: Podiatry Consult note: Dr. Hoyos 68 year old male with PMHx of HTN, HLD, DM, PVD was evaluated 1 day s/p wound debridement of the left hallux. Patient is AAOx3 and appears in no acute distress. Patient was admitted to the hospital after the debridement procedure yesterday. Patient denies of any pain to the left foot today. States that he has not received the shoe yet. Reports that he has been putting weight to the heel in the surgical shoe during therapy sessions. Denies of any acute overnight events. Denies of recent F/N/V/C/SOB/CP/headache. No other pedal complains at this time. PMHx: HTN, HLD, DM, PVD PSHx: angiogram with balloon angioplasty of the left anterior tibial artery (), prostectomy Allergies: NKDA SHx: Patient admits to drinking 1 small bottle of whiskey a night for many years , quit since 04/10/18. Admits to 1-2 cigarets per day for 40 years, quit since . Former crack user, quit in 1984 Past Patient History - Infectious Disease Hx of Infectious Diseases: None - Past Medical History & Family History Past Medical History?: Yes - Past Social History Smoking Status: Former Smoker - CARDIAC Hx Cardiac Disorders: Yes Hx Hypercholesterolemia: Yes Hx Hypertension: Yes - ENDOCRINE/METABOLIC Hx Endocrine Disorders: Yes Hx Diabetes Mellitus Type 2: Yes - INTEGUMENTARY Hx Dermatological Problems: Yes Other/Comment: HX: GANGRENE LEFT HALLUX GREAT TOE - MUSCULOSKELETAL/RHEUMATOLOGICAL Hx Musculoskeletal Disorders: Yes Hx Osteomyelitis: Yes (left foot) - GENITOURINARY/GYNECOLOGICAL Hx Genitourinary Disorders: Yes Hx Prostate Problems: Yes (surgery 12-25-2002) Other/Comment: BPH - SURGICAL HISTORY Hx Surgeries: Yes Hx Angiogram: Yes Hx Angioplasty: Yes (LEFT ANTERIOR TIBIAL ARTERY) Other/Comment: Prostatectomy. HX: PICC LINE INSERTION - ANESTHESIA Hx Anesthesia: Yes Hx Anesthesia Reactions: No Hx Malignant Hyperthermia: No Meds Allergies/Adverse Reactions: Allergies Allergy/AdvReac Type Severity Reaction Status Date / Time No Known Allergies Allergy Verified 03/18/18 19:23 - Medications Medications: Current Medications Acetaminophen (Tylenol 325mg Tab) 650 mg PO Q6 PRN PRN Reason: Pain, Mild (1-3) Amlodipine Besylate (Norvasc) 5 mg PO Q24H [facility] Last Admin: 05/04/18 19:10 Dose: 5 mg Dextrose (Dextrose 50% Inj) 0 ml IV STAT PRN; Protocol PRN Reason: Hypoglycemia Protocol Dextrose (Glutose 15) 0 gm PO ONCE PRN; Protocol PRN Reason: Hypoglycemia Protocol Glucagon (Glucagen Diagnostic Kit) 0 mg IM STAT PRN; Protocol PRN Reason: Hypoglycemia Protocol Dextrose (Dextrose 5% In Water 1000 Ml) 1,000 mls @ 0 mls/hr IV .Q0M PRN; Protocol; Per Protocol PRN Reason: Hypoglycemia Protocol Daptomycin 450 mg/ Sodium (Chloride) 100 mls @ 200 mls/hr IV Q24H [facility] Stop: 05/23/18 14:01 Last Admin: 05/04/18 14:06 Dose: 200 mls/hr Meropenem 1 gm/ Sodium (Chloride) 100 mls @ 100 mls/hr IVPB Q8H [facility] PRN Reason: Protocol Last Admin: 05/05/18 08:55 Dose: 100 mls/hr Insulin Aspart (Novolog) 0 unit SC ACHS [facility] PRN Reason: Protocol Last Admin: 05/05/18 07:28 Dose: Not Given Lactobacillus Acidophilus (Bacid Acidophilus) 1 cap PO BID [facility] Last Admin: 05/05/18 09:24 Dose: 1 cap Lisinopril (Zestril) 10 mg PO Q24H [facility] Last Admin: 05/05/18 08:05 Dose: 10 mg Oxycodone/Acetaminophen (Percocet 5/325 Mg Tab) 1 tab PO Q4H PRN PRN Reason: Pain, moderate (4-7) Stop: 05/07/18 09:44 Oxycodone/Acetaminophen (Percocet 5/325 Mg Tab) 2 tab PO Q4H PRN PRN Reason: Pain, severe (8-10) Stop: 05/07/18 09:44 Rosuvastatin Calcium (Crestor) 5 mg PO Q24H [facility] Last Admin: 05/04/18 19:11 Dose: 5 mg Physical Exam - Constitutional Appears: Well, Non-toxic, No Acute Distress - Extremities Exam Additional comments: Dressing is clean dry and intact with very minimal bloody strike-through noted - Neurological Exam Neurological exam: Alert, Oriented x3 - Psychiatric Exam Psychiatric exam: Normal Affect, Normal Mood Results - Vital Signs Recent Vital Signs: Last Vital Signs Temp 98.1 F 05/05/18 08:17 Pulse 71 05/05/18 08:17 Resp 20 05/05/18 08:17 BP 108/66 05/05/18 08:17 Pulse Ox 95 05/05/18 08:17 - Labs Result Diagrams: 05/05/18 07:01 05/05/18 07:01 Labs: Laboratory Results - last 24 hr 05/04/18 05/04/18 05/04/18 11:06 12:30 12:30 WBC 6.1 RBC 4.58 Hgb 12.9 Hct 38.8 MCV 84.7 MCH 28.1 MCHC 33.2 RDW 12.6 Plt Count 249 MPV 7.6 Neut % (Auto) 60.3 Lymph % (Auto) 26.1 [place] % (Auto) 9.0 Eos % (Auto) 4.1 H Baso % (Auto) 0.5 Neut # (Auto) 3.7 Lymph # (Auto) 1.6 [place] # (Auto) 0.5 Eos # (Auto) 0.3 Baso # (Auto) 0.0 Sodium 141 Potassium 4.0 Chloride 103 Carbon Dioxide 30 Anion Gap 13 BUN 21 H Creatinine 0.7 L Est GFR ( Amer) > 60 Est GFR (Non-Af Amer) > 60 POC Glucose (mg/dL) 84 Random Glucose 124 H Calcium 9.5 Phosphorus 3.2 Magnesium 1.9 Total Bilirubin 0.5 AST 20 ALT 21 Alkaline Phosphatase 140 H D Total Protein 7.6 Albumin 3.8 Globulin 3.7 Albumin/Globulin Ratio 1.0 05/04/18 05/04/18 05/05/18 16:21 21:40 06:12 WBC RBC Hgb Hct MCV MCH MCHC RDW Plt Count MPV Neut % (Auto) Lymph % (Auto) [place] % (Auto) Eos % (Auto) Baso % (Auto) Neut # (Auto) Lymph # (Auto) [place] # (Auto) Eos # (Auto) Baso # (Auto) Sodium Potassium Chloride Carbon Dioxide Anion Gap BUN Creatinine Est GFR ( Amer) Est GFR (Non-Af Amer) POC Glucose (mg/dL) 269 H 98 113 H Random Glucose Calcium Phosphorus Magnesium Total Bilirubin AST ALT Alkaline Phosphatase Total Protein Albumin Globulin Albumin/Globulin Ratio 05/05/18 05/05/18 07:01 07:01 WBC 6.6 RBC 4.51 Hgb 12.8 Hct 37.7 MCV 83.5 MCH 28.3 MCHC 33.8 RDW 12.8 Plt Count 253 MPV 7.5 Neut % (Auto) 64.7 Lymph % (Auto) 21.2 [place] % (Auto) 9.4 Eos % (Auto) 4.1 H Baso % (Auto) 0.6 Neut # (Auto) 4.3 Lymph # (Auto) 1.4 [place] # (Auto) 0.6 Eos # (Auto) 0.3 Baso # (Auto) 0.0 Sodium 140 Potassium 4.3 Chloride 102 Carbon Dioxide 27 Anion Gap 15 BUN 21 H Creatinine 0.8 Est GFR ( Amer) > 60 Est GFR (Non-Af Amer) > 60 POC Glucose (mg/dL) Random Glucose 111 H Calcium 9.3 Phosphorus 3.6 Magnesium 2.1 Total Bilirubin 0.5 AST 25 ALT 24 Alkaline Phosphatase 125 Total Protein 7.5 Albumin 3.7 Globulin 3.8 Albumin/Globulin Ratio 1.0 Assessment & Plan - Assessment and Plan (Free Text) Assessment: 68 year old male with PMHx of HTN, HLD, DM, PVD was evaluated 1 day s/p left hallux wound debridement Plan: Patient seen and evaluated Plan discussed with attending Dr. Hoyos Labs, vitals and charts reviewed - afebrile, absent leukocytosis Dressing is clean, dry and intact with very minimal bloody strike through - reinforce dressing Patient to WB to the heel using forefoot wedge shoe using walker - Forefoot wedge shoe - pending - Walker prescription provided ID consult - recs appreciated - Patient is currently on halfway IV abx - PICC in place Vascular consult - recs appreciated - No acute intervention needed at this time Patient is stable from podiatry standpoint once he receives forefoot wedge shoe Upon discharge, follow up with Dr. Hoyos in his office as an outpatient within 1 week Podiatry will continue to follow while in house - Date & Time Date: 05/05/18 Time: 10:42
--- NOTE | 2018-05-05 16:09 | CP.PCM.PN ---
<Eduardo Begum - Last Filed: 05/05/18 16:17> Subjective - Date & Time of Evaluation Date of Evaluation: 05/05/18 Time of Evaluation: 15:55 - Subjective Subjective: PGY-[address] Tiny Flores Patient seen and examined at bedside. Patient has no acute complaints. No events overnight. Patient is not experiencing any pain following his procedure. Patient was ready to be discharged, but cannot be discharged today as infusion center will not accept him over the weekend. Patient is aware that he has to stay over the weekend to receive antibiotics and he is comfortable with the plan. Patient otherwise has no complaints on review of systems including foot pain or numbness, leg pain or numbness, chest pain, headaches, nausea, vomiting, diarrhea, dizziness. Pt planned for discharge on Tuesday. Objective - Vital Signs/Intake and Output Vital Signs (last 24 hours): Temp Pulse Resp BP Pulse Ox 98.1 F 71 20 108/66 95 05/05/18 08:17 05/05/18 08:17 05/05/18 08:17 05/05/18 08:17 05/05/18 08:17 Intake and Output: 05/05/18 05/05/18 06:59 18:59 Intake Total 220 600 Output Total 350 Balance -130 600 - Medications Medications: Current Medications Acetaminophen (Tylenol 325mg Tab) 650 mg PO Q6 PRN PRN Reason: Pain, Mild (1-3) Amlodipine Besylate (Norvasc) 5 mg PO Q24H [facility] Last Admin: 05/04/18 19:10 Dose: 5 mg Dextrose (Dextrose 50% Inj) 0 ml IV STAT PRN; Protocol PRN Reason: Hypoglycemia Protocol Dextrose (Glutose 15) 0 gm PO ONCE PRN; Protocol PRN Reason: Hypoglycemia Protocol Docusate Sodium (Colace) 100 mg PO TID [facility] Last Admin: 05/05/18 14:43 Dose: 100 mg Glucagon (Glucagen Diagnostic Kit) 0 mg IM STAT PRN; Protocol PRN Reason: Hypoglycemia Protocol Dextrose (Dextrose 5% In Water 1000 Ml) 1,000 mls @ 0 mls/hr IV .Q0M PRN; Protocol; Per Protocol PRN Reason: Hypoglycemia Protocol Daptomycin 450 mg/ Sodium (Chloride) 100 mls @ 200 mls/hr IV Q24H [facility] Stop: 05/23/18 14:01 Last Admin: 05/05/18 14:42 Dose: 200 mls/hr Meropenem 1 gm/ Sodium (Chloride) 100 mls @ 100 mls/hr IVPB Q8H [facility] PRN Reason: Protocol Last Admin: 05/05/18 08:55 Dose: 100 mls/hr Insulin Aspart (Novolog) 0 unit SC ACHS [facility] PRN Reason: Protocol Last Admin: 05/05/18 11:53 Dose: Not Given Lactobacillus Acidophilus (Bacid Acidophilus) 1 cap PO BID [facility] Last Admin: 05/05/18 09:24 Dose: 1 cap Lisinopril (Zestril) 10 mg PO Q24H [facility] Last Admin: 05/05/18 08:05 Dose: 10 mg Oxycodone/Acetaminophen (Percocet 5/325 Mg Tab) 1 tab PO Q4H PRN PRN Reason: Pain, moderate (4-7) Stop: 05/07/18 09:44 Oxycodone/Acetaminophen (Percocet 5/325 Mg Tab) 2 tab PO Q4H PRN PRN Reason: Pain, severe (8-10) Stop: 05/07/18 09:44 Rosuvastatin Calcium (Crestor) 5 mg PO Q24H [facility] Last Admin: 05/04/18 19:11 Dose: 5 mg - Labs Labs: 05/05/18 07:01 05/05/18 07:01 PT 12.0 SECONDS (9.7-12.2) 05/04/18 08:12 INR 1.1 05/04/18 08:12 APTT 38 SECONDS (21-34) H 05/04/18 08:12 - Constitutional Appears: Well, Non-toxic, No Acute Distress - Head Exam Head Exam: ATRAUMATIC, NORMAL INSPECTION - Eye Exam Eye Exam: EOMI, Normal appearance - ENT Exam ENT Exam: Mucous Membranes Moist - Neck Exam Neck Exam: Full ROM, Normal Inspection. absent: Tenderness - Respiratory Exam Respiratory Exam: Clear to Ausculation Bilateral, NORMAL BREATHING PATTERN - GI/Abdominal Exam GI & Abdominal Exam: Soft, Normal Bowel Sounds. absent: Tenderness - Extremities Exam Extremities Exam: Normal Capillary Refill. absent: Pedal Edema, Tenderness Additional comments: s/p tissue excision and wound debridement of L hallux. Dressings CDI. Patient does not complain of pain with palpation of surgical site. - Neurological Exam Neurological Exam: Alert, Awake, CN II-XII Intact, Oriented x3 - Psychiatric Exam Psychiatric exam: Normal Affect, Normal Mood - Skin Skin Exam: Dry, Normal Color, Warm Assessment and Plan - Assessment and Plan (Free Text) Assessment: 68 M w/ PMHx of HTN, HLD, DM, PVD, OM, POD #0, s/p left hallux wound debridement and excision of gangrenous tissue. During procedure, patient had larger than expected blood loss; however, patient currently has no complaints: Osteomyelitis L great toe, S/P left hallux wound debridement and excision of granulous tissue. -Podiatry on case, Dr. Wolf: - Podiatry has ordered boot which will reduce weight on the left hallux. This boot has been delivered to [facility] and is ready to be picked up. - Prescription for rolling walker has also been filled and is ready to be picked up in [facility]. - Pt already has appointment to follow up with Dr. Wolf on Tuesday following discharge. - Per ID (Dr. Hughes) -Cubicin 450mg Q24H (started 04/11) -Merrem 1gm Q8 (started 05/04) (invanz only available OP-started 04/11) -Patient was ready to be discharged today from a medical standpoint, with plans for outpatient treatment at the infusion center where the patient had already been receiving treatments. However, due to his hospitalization, the patient is considered "new" to the infusion center and they do not take new patients on weekends. Therefore he will need to remain hospitalized through the weekend in order to keep receiving the necessary antibiotics. -Dr. Hughes is aware of this situation and will provide prescriptions for Invanz 1gm IV Q24 and Cubicin 1gm IV Q24 for outpatient treatment at the infusion center, with treatments to continue through May 20. He will also provide prescriptions for the patient to receive weekly labs including CBD, CMP , ESR, and CPK. These prescriptions will be provided to casework specialist Niurka to give to the infusion center so patient may be discharged on Tuesday. PVD - angiogram with balloon angioplasty of the left anterior tibial artery 04/06 - No vascular surgical intervention required at this time - F/u Dr. Ghotra as to when to restart: - ASA 81mg PO daily - OP bleeding - Plavix 75 mg Po daily - held for now 2/2 OP bleeding DM - ISS ACHS - Medium - Hypoglycemia Protocol - Hold: Metformin 500 Q12H Invokana 300 mg daily Glimepiride 4 mg daily HTN - lisinopril 10 mg PO daily (7am) - Norvasc 5mg PO daily (7pm) HLD - crestor 5mg PO daily (7pm) - hold atorvastatin 10mg PO (7pm) Prophylaxis - Anticoagulation contraindicated 2/2 to blood loss - No SCD 2/2 to Hx of PVD - Heart Healthy/ 2g Na+/ Low carb diet - Lactobaiciluss Q12 hours, not within 2 hours of Abx - PT as mentioned above <Joseph Flores - Last Filed: 05/05/18 18:09> Objective - Vital Signs/Intake and Output Vital Signs (last 24 hours): Temp Pulse Resp BP Pulse Ox 98.0 F 75 20 113/71 96 05/05/18 15:00 05/05/18 15:00 05/05/18 15:00 05/05/18 15:00 05/05/18 15:00 Intake and Output: 05/05/18 05/05/18 06:59 18:59 Intake Total 220 600 Output Total 350 Balance -130 600 - Medications Medications: Current Medications Acetaminophen (Tylenol 325mg Tab) 650 mg PO Q6 PRN PRN Reason: Pain, Mild (1-3) Amlodipine Besylate (Norvasc) 5 mg PO Q24H [facility] Last Admin: 05/04/18 19:10 Dose: 5 mg Dextrose (Dextrose 50% Inj) 0 ml IV STAT PRN; Protocol PRN Reason: Hypoglycemia Protocol Dextrose (Glutose 15) 0 gm PO ONCE PRN; Protocol PRN Reason: Hypoglycemia Protocol Docusate Sodium (Colace) 100 mg PO TID [facility] Last Admin: 05/05/18 17:33 Dose: 100 mg Glucagon (Glucagen Diagnostic Kit) 0 mg IM STAT PRN; Protocol PRN Reason: Hypoglycemia Protocol Dextrose (Dextrose 5% In Water 1000 Ml) 1,000 mls @ 0 mls/hr IV .Q0M PRN; Protocol; Per Protocol PRN Reason: Hypoglycemia Protocol Daptomycin 450 mg/ Sodium (Chloride) 100 mls @ 200 mls/hr IV Q24H [facility] Stop: 05/23/18 14:01 Last Admin: 05/05/18 14:42 Dose: 200 mls/hr Meropenem 1 gm/ Sodium (Chloride) 100 mls @ 100 mls/hr IVPB Q8H [facility] PRN Reason: Protocol Last Admin: 05/05/18 16:03 Dose: 100 mls/hr Insulin Aspart (Novolog) 0 unit SC ACHS [facility] PRN Reason: Protocol Last Admin: 05/05/18 16:35 Dose: Not Given Lactobacillus Acidophilus (Bacid Acidophilus) 1 cap PO BID [facility] Last Admin: 05/05/18 17:33 Dose: 1 cap Lisinopril (Zestril) 10 mg PO Q24H [facility] Last Admin: 05/05/18 08:05 Dose: 10 mg Oxycodone/Acetaminophen (Percocet 5/325 Mg Tab) 1 tab PO Q4H PRN PRN Reason: Pain, moderate (4-7) Stop: 05/07/18 09:44 Oxycodone/Acetaminophen (Percocet 5/325 Mg Tab) 2 tab PO Q4H PRN PRN Reason: Pain, severe (8-10) Stop: 05/07/18 09:44 Rosuvastatin Calcium (Crestor) 5 mg PO Q24H [facility] Last Admin: 05/04/18 19:11 Dose: 5 mg - Labs Labs: 05/05/18 07:01 05/05/18 07:01 PT 12.0 SECONDS (9.7-12.2) 05/04/18 08:12 INR 1.1 05/04/18 08:12 APTT 38 SECONDS (21-34) H 05/04/18 08:12 Attending/Attestation - Attestation I have personally seen and examined this patient.: Yes I have fully participated in the care of the patient.: Yes I have reviewed all pertinent clinical information, including history, physical exam and plan: Yes Notes (Text): 05/05/18 18:02 Patient was seen and examined at 1:15 PM 05/05/18 Bed 565 B Has not moved bowels in 2 days: Colace added and ordered Prune Juice to be given with breakfast and lunch Please note the following corrections to the note above: Antibiotic Prescriptions that need to be written by ID Dr. Deann Hughes are the following: Invanz 1 gm IV Q24H Cubicin 450 mg IV Q24H Also need to be written by Dr. Hughes is prescription for weekly blood work: CMP , CBC, ESR, CPK Chief Technology Officer Niurka will be reaching out to ID Dr. Hughes above for the necessary prescriptions that she will then send to the infusion center on . Please confirm that the patient has received the special podiatry boot form [facility] and the rolling walker as patient can not be discharged without these. Patient already has all of his necessary medications at home Patient already has appointment schedule with Call Taker Dr. Wolf for Tuesday05/09/18 at 1 PM As long as podiatry boot and walker are obtained and outpatient antibiotic infusion is set up at the infusion center on is set up then patient may be discharged. This will likely happen by Tuesday. Joseph Florse D.O.
--- NOTE | 2018-05-05 19:04 | CP.PCM.PN ---
Subjective - Date & Time of Evaluation Date of Evaluation: 05/05/18 Time of Evaluation: 08:00 - Subjective Subjective: OR cultures pending IV rx in progress Objective - Vital Signs/Intake and Output Vital Signs (last 24 hours): Temp Pulse Resp BP Pulse Ox 98.0 F 75 20 113/71 96 05/05/18 15:00 05/05/18 15:00 05/05/18 15:00 05/05/18 15:00 05/05/18 15:00 Intake and Output: 05/05/18 05/06/18 18:59 06:59 Intake Total 600 Balance 600 - Medications Medications: Current Medications Acetaminophen (Tylenol 325mg Tab) 650 mg PO Q6 PRN PRN Reason: Pain, Mild (1-3) Amlodipine Besylate (Norvasc) 5 mg PO Q24H [facility] Last Admin: 05/04/18 19:10 Dose: 5 mg Dextrose (Dextrose 50% Inj) 0 ml IV STAT PRN; Protocol PRN Reason: Hypoglycemia Protocol Dextrose (Glutose 15) 0 gm PO ONCE PRN; Protocol PRN Reason: Hypoglycemia Protocol Docusate Sodium (Colace) 100 mg PO TID [facility] Last Admin: 05/05/18 17:33 Dose: 100 mg Glucagon (Glucagen Diagnostic Kit) 0 mg IM STAT PRN; Protocol PRN Reason: Hypoglycemia Protocol Dextrose (Dextrose 5% In Water 1000 Ml) 1,000 mls @ 0 mls/hr IV .Q0M PRN; Protocol; Per Protocol PRN Reason: Hypoglycemia Protocol Daptomycin 450 mg/ Sodium (Chloride) 100 mls @ 200 mls/hr IV Q24H [facility] Stop: 05/23/18 14:01 Last Admin: 05/05/18 14:42 Dose: 200 mls/hr Meropenem 1 gm/ Sodium (Chloride) 100 mls @ 100 mls/hr IVPB Q8H [facility] PRN Reason: Protocol Last Admin: 05/05/18 16:03 Dose: 100 mls/hr Insulin Aspart (Novolog) 0 unit SC ACHS [facility] PRN Reason: Protocol Last Admin: 05/05/18 16:35 Dose: Not Given Lactobacillus Acidophilus (Bacid Acidophilus) 1 cap PO BID [facility] Last Admin: 05/05/18 17:33 Dose: 1 cap Lisinopril (Zestril) 10 mg PO Q24H [facility] Last Admin: 05/05/18 08:05 Dose: 10 mg Oxycodone/Acetaminophen (Percocet 5/325 Mg Tab) 1 tab PO Q4H PRN PRN Reason: Pain, moderate (4-7) Stop: 05/07/18 09:44 Oxycodone/Acetaminophen (Percocet 5/325 Mg Tab) 2 tab PO Q4H PRN PRN Reason: Pain, severe (8-10) Stop: 05/07/18 09:44 Rosuvastatin Calcium (Crestor) 5 mg PO Q24H [facility] Last Admin: 05/04/18 19:11 Dose: 5 mg - Labs Labs: 05/05/18 07:01 05/05/18 07:01 PT 12.0 SECONDS (9.7-12.2) 05/04/18 08:12 INR 1.1 05/04/18 08:12 APTT 38 SECONDS (21-34) H 05/04/18 08:12 - Constitutional Appears: Non-toxic, Chronically Ill - Head Exam Head Exam: NORMOCEPHALIC - Eye Exam Eye Exam: PERRL - ENT Exam ENT Exam: Normal External Ear Exam - Neck Exam Neck Exam: absent: Lymphadenopathy - Respiratory Exam Respiratory Exam: Decreased Breath Sounds - Cardiovascular Exam Cardiovascular Exam: REGULAR RHYTHM - GI/Abdominal Exam GI & Abdominal Exam: Distended, Soft Assessment and Plan (1) Osteomyelitis Status: Acute - Assessment and Plan (Free Text) Assessment: cont iv rx OM severe PVD
--- NOTE | 2018-05-05 21:55 | CP.PCM.PCO ---
Physician Communication Note - Physician Communication Note Physician Communication Note: Speak w/Vascular Dr. Ghotra about when to restart meds for PVD ASA Plavix
[2018-05-06] MEDS: Meropenem 1 GM in Sodium Chloride 0.9% 100 ML IVPB SCH ×4 (00:24→23:59)
--- NOTE | 2018-05-06 03:15 | CP.PCM.PN ---
<Herman Alva - Last Filed: 05/06/18 08:14> Subjective - Date & Time of Evaluation Date of Evaluation: 05/06/18 Time of Evaluation: 03:11 - Subjective Subjective: PGY-1 Medicine Progress Note for Dr. Black Patient seen and examined at bedside, resting comfortably and in no acute distress. Continues to deny any pain following his procedure. Patient was ready to be discharged, but infusion center will not accept him over the weekend. Patient is aware of necessity of staying in the hospital over the weekend to continue uninterrupted Abx rx and remains complaint. No fevers/chills, headaches , dizziness, chest pain, palpitations, sob, abdominal pain, n/v/d/constipation, numbness or tingling. Objective - Vital Signs/Intake and Output Vital Signs (last 24 hours): Temp Pulse Resp BP Pulse Ox 98 F 67 20 101/61 95 05/05/18 23:30 05/05/18 23:30 05/05/18 23:30 05/05/18 23:30 05/05/18 23:30 Intake and Output: 05/05/18 05/06/18 18:59 06:59 Intake Total 600 Balance 600 - Medications Medications: Current Medications Acetaminophen (Tylenol 325mg Tab) 650 mg PO Q6 PRN PRN Reason: Pain, Mild (1-3) Amlodipine Besylate (Norvasc) 5 mg PO Q24H [facility] Last Admin: 05/05/18 19:10 Dose: 5 mg Dextrose (Dextrose 50% Inj) 0 ml IV STAT PRN; Protocol PRN Reason: Hypoglycemia Protocol Dextrose (Glutose 15) 0 gm PO ONCE PRN; Protocol PRN Reason: Hypoglycemia Protocol Docusate Sodium (Colace) 100 mg PO TID [facility] Last Admin: 05/05/18 17:33 Dose: 100 mg Glucagon (Glucagen Diagnostic Kit) 0 mg IM STAT PRN; Protocol PRN Reason: Hypoglycemia Protocol Dextrose (Dextrose 5% In Water 1000 Ml) 1,000 mls @ 0 mls/hr IV .Q0M PRN; Protocol; Per Protocol PRN Reason: Hypoglycemia Protocol Daptomycin 450 mg/ Sodium (Chloride) 100 mls @ 200 mls/hr IV Q24H [facility] Stop: 05/23/18 14:01 Last Admin: 05/05/18 14:42 Dose: 200 mls/hr Meropenem 1 gm/ Sodium (Chloride) 100 mls @ 100 mls/hr IVPB Q8H [facility] PRN Reason: Protocol Last Admin: 05/06/18 00:24 Dose: 100 mls/hr Insulin Aspart (Novolog) 0 unit SC ACHS [facility] PRN Reason: Protocol Last Admin: 05/05/18 21:01 Dose: Not Given Lactobacillus Acidophilus (Bacid Acidophilus) 1 cap PO BID [facility] Last Admin: 05/05/18 17:33 Dose: 1 cap Lisinopril (Zestril) 10 mg PO Q24H [facility] Last Admin: 05/05/18 08:05 Dose: 10 mg Oxycodone/Acetaminophen (Percocet 5/325 Mg Tab) 1 tab PO Q4H PRN PRN Reason: Pain, moderate (4-7) Stop: 05/07/18 09:44 Oxycodone/Acetaminophen (Percocet 5/325 Mg Tab) 2 tab PO Q4H PRN PRN Reason: Pain, severe (8-10) Stop: 05/07/18 09:44 Rosuvastatin Calcium (Crestor) 5 mg PO Q24H [facility] Last Admin: 05/05/18 19:10 Dose: 5 mg - Labs Labs: 05/05/18 07:01 05/05/18 07:01 PT 12.0 SECONDS (9.7-12.2) 05/04/18 08:12 INR 1.1 05/04/18 08:12 APTT 38 SECONDS (21-34) H 05/04/18 08:12 - Constitutional Appears: Non-toxic, No Acute Distress - Head Exam Head Exam: ATRAUMATIC, NORMAL INSPECTION, NORMOCEPHALIC - Eye Exam Eye Exam: EOMI, Normal appearance Pupil Exam: NORMAL ACCOMODATION - ENT Exam ENT Exam: Mucous Membranes Moist, Normal Exam - Neck Exam Neck Exam: Full ROM, Normal Inspection. absent: Lymphadenopathy, Tenderness - Respiratory Exam Respiratory Exam: Clear to Ausculation Bilateral, NORMAL BREATHING PATTERN. absent: Rales, Rhonchi, Wheezes, Respiratory Distress, Stridor - Cardiovascular Exam Cardiovascular Exam: REGULAR RHYTHM, +S1, +S2 - GI/Abdominal Exam GI & Abdominal Exam: Soft, Normal Bowel Sounds. absent: Distended, Firm, Guarding, Rigid, Tenderness, Organomegaly, Rebound - Extremities Exam Extremities Exam: Normal Capillary Refill. absent: Pedal Edema, Tenderness Additional comments: s/p tissue excision and wound debridement of L hallux. Dressings CDI. Patient does not complain of pain with palpation of surgical site. - Neurological Exam Neurological Exam: Alert, Awake, CN II-XII Intact, Oriented x3 - Psychiatric Exam Psychiatric exam: Normal Affect, Normal Mood - Skin Skin Exam: Dry, Intact, Normal Color, Warm Assessment and Plan - Assessment and Plan (Free Text) Assessment: 68 M w/ PMHx of HTN, HLD, DM, PVD, OM, POD #0, s/p left hallux wound debridement and excision of gangrenous tissue. During procedure, patient had larger than expected blood loss; however, patient currently has no complaints: Plan: Osteomyelitis L great toe, S/P left hallux wound debridement and excision of granulous tissue. -Podiatry on case, Dr. Wolf: - Podiatry has ordered boot which will reduce weight on the left hallux. This boot has been delivered to [place] and is ready to be picked up. - Prescription for rolling walker has also been filled and is ready to be picked up in [place]. - Pt already has appointment to follow up with Dr. Wolf on Tuesday following discharge. - Per ID (Dr. Hughes) -Cubicin 450mg Q24H (started 04/11) -Merrem 1gm Q8 (started 05/04) (invanz only available OP-started 04/11) -Patient was ready to be discharged today from a medical standpoint, with plans for outpatient treatment at the infusion center where the patient had already been receiving treatments. However, due to his hospitalization, the patient is considered "new" to the infusion center and they do not take new patients on weekends. Therefore he will need to remain hospitalized through the weekend in order to keep receiving the necessary antibiotics. -Dr. Hughes is aware of this situation and will provide prescriptions for Invanz 1gm IV Q24 and Cubicin 1gm IV Q24 for outpatient treatment at the infusion center, with treatments to continue through May 20. He will also provide prescriptions for the patient to receive weekly labs including CBD, CMP , ESR, and CPK. These prescriptions will be provided to senior case manager Niurak to give to the infusion center so patient may be discharged on Tuesday. PVD - angiogram with balloon angioplasty of the left anterior tibial artery 04/06 - No vascular surgical intervention required at this time - F/u Dr. Ghotra as to when to restart: - ASA 81mg PO daily - OP bleeding - Plavix 75 mg Po daily - held for now 2/2 OP bleeding DM - ISS ACHS - Medium - Hypoglycemia Protocol - Hold: Metformin 500 Q12H Invokana 300 mg daily Glimepiride 4 mg daily HTN - lisinopril 10 mg PO daily (7am) - Norvasc 5mg PO daily (7pm) HLD - crestor 5mg PO daily (7pm) - hold atorvastatin 10mg PO (7pm) Prophylaxis, Diet, Disposition - Anticoagulation contraindicated 2/2 to blood loss - No SCD 2/2 to Hx of PVD - Heart Healthy/ 2g Na+/ Low carb diet - Lactobaiciluss Q12 hours, not within 2 hours of Abx - PT as mentioned above -Dispo: Pt to be discharged Tuesday Case to be discussed with Dr. Wayne Alva DO, PGY-1 <Les Black - Last Filed: 05/06/18 17:29> Objective - Vital Signs/Intake and Output Vital Signs (last 24 hours): Temp Pulse Resp BP Pulse Ox 97.9 F 70 20 123/75 96 05/06/18 15:00 05/06/18 15:00 05/06/18 15:00 05/06/18 15:00 05/06/18 15:00 Intake and Output: 05/06/18 05/06/18 06:59 18:59 Intake Total 580 Balance 580 - Medications Medications: Current Medications Acetaminophen (Tylenol 325mg Tab) 650 mg PO Q6 PRN PRN Reason: Pain, Mild (1-3) Amlodipine Besylate (Norvasc) 5 mg PO Q24H [facility] Last Admin: 05/05/18 19:10 Dose: 5 mg Dextrose (Dextrose 50% Inj) 0 ml IV STAT PRN; Protocol PRN Reason: Hypoglycemia Protocol Dextrose (Glutose 15) 0 gm PO ONCE PRN; Protocol PRN Reason: Hypoglycemia Protocol Docusate Sodium (Colace) 100 mg PO TID [facility] Last Admin: 09/22/18 17:01 Dose: 100 mg Glucagon (Glucagen Diagnostic Kit) 0 mg IM STAT PRN; Protocol PRN Reason: Hypoglycemia Protocol Dextrose (Dextrose 5% In Water 1000 Ml) 1,000 mls @ 0 mls/hr IV .Q0M PRN; Protocol; Per Protocol PRN Reason: Hypoglycemia Protocol Daptomycin 450 mg/ Sodium (Chloride) 100 mls @ 200 mls/hr IV Q24H [facility] Stop: 05/23/18 14:01 Last Admin: 05/06/18 13:21 Dose: 200 mls/hr Meropenem 1 gm/ Sodium (Chloride) 100 mls @ 100 mls/hr IVPB Q8H [facility] PRN Reason: Protocol Last Admin: 05/06/18 16:02 Dose: 100 mls/hr Insulin Aspart (Novolog) 0 unit SC ACHS [facility] PRN Reason: Protocol Last Admin: 05/06/18 17:01 Dose: 3 units Lactobacillus Acidophilus (Bacid Acidophilus) 1 cap PO BID [facility] Last Admin: 05/06/18 17:01 Dose: 1 cap Lisinopril (Zestril) 10 mg PO Q24H [facility] Last Admin: 05/06/18 07:11 Dose: 10 mg Oxycodone/Acetaminophen (Percocet 5/325 Mg Tab) 1 tab PO Q4H PRN PRN Reason: Pain, moderate (4-7) Stop: 05/07/18 09:44 Oxycodone/Acetaminophen (Percocet 5/325 Mg Tab) 2 tab PO Q4H PRN PRN Reason: Pain, severe (8-10) Stop: 05/07/18 09:44 Rosuvastatin Calcium (Crestor) 5 mg PO Q24H [facility] Last Admin: 05/05/18 19:10 Dose: 5 mg - Labs Labs: 05/06/18 07:40 05/06/18 07:40 PT 12.0 SECONDS (9.7-12.2) 05/04/18 08:12 INR 1.1 05/04/18 08:12 APTT 38 SECONDS (21-34) H 05/04/18 08:12 Attending/Attestation - Attestation I have personally seen and examined this patient.: Yes I have fully participated in the care of the patient.: Yes I have reviewed all pertinent clinical information, including history, physical exam and plan: Yes Notes (Text): Seen and examined by me this morning. No complain. Continue Meropenem and daptomycin Discharge on Tuesday on Invanz and Cubicin with infusion arrangements.Make sure he gets his podiatry boot and walker Patient already has appointment schedule with [employer] Dr. Wolf for Tuesday05/09/18 at 1 PM
[2018-05-06] MEDS: (Novolog) Insulin Aspart, Recombinant 100 u/ml 10 ml vial SC SCH ×4 (07:30→21:23)
[2018-05-06 07:53] LABS: BASO % 0.5 % (0.0-2.0); EOS # 0.3 K/uL (0.0-0.7); EOS % 4.6 % (0.0-4.0); HEMOGLOBIN 13.2 g/dL (12.0-18.0); LYMPH # 1.5 K/uL (1.0-4.3); LYMPH % 24.9 % (20.0-40.0); MEAN CORPUSCULAR HEMOGLOBIN 28.1 pg (27.0-31.0); MEAN CORPUSCULAR HGB CONC 33.4 g/dL (33.0-37.0); MEAN PLATELET VOLUME 7.6 fL (7.2-11.7); MONO # 0.6 K/uL (0.0-0.8); MONO % 9.4 % (0.0-10.0); NEUT # 3.7 K/uL (1.8-7.0); NEUT % 60.6 % (50.0-75.0); RBC 4.68 Mil/uL (4.40-5.90); RED CELL DISTRIBUTION WIDTH 12.6 % (11.5-14.5); WHITE BLOOD COUNT 6.1 K/uL (4.8-10.8)
[2018-05-06 08:14] LABS: ALBUMIN 3.8 g/dL (3.5-5.0); ALT/SGPT 24 U/L (21-72); AST/SGOT 31 U/L (17-59); BLOOD UREA NITROGEN 27 mg/dL (9-20); CALCIUM 9.4 mg/dl (8.6-10.4); GFR NON-AFRICAN AMERICAN > 60
[2018-05-06] MEDS: Lactobacillus Acidophilus 500 MU Cap PO SCH ×2 (09:04→17:01)
--- NOTE | 2018-05-06 13:52 | CP.PCM.PN ---
Subjective - Date & Time of Evaluation Date of Evaluation: 05/06/18 Time of Evaluation: 13:46 - Subjective Subjective: Podiatry Progress Note- Dr. Hoyos 68 year old male with PMHx of HTN, HLD, DM, PVD was evaluated 2 days s/p wound debridement of the left hallux. Patient is AAOx3, in NAD. Patient denies of any pain to the left foot today. Reports that he has been putting weight to the heel in the surgical shoe during therapy sessions. Denies of any acute overnight events. Denies of recent F/N/V/C/SOB/CP/headache. Objective - Vital Signs/Intake and Output Vital Signs (last 24 hours): Temp Pulse Resp BP Pulse Ox 97.5 F L 65 20 112/66 96 05/06/18 07:44 05/06/18 07:44 05/06/18 07:44 05/06/18 07:44 05/06/18 07:44 - Medications Medications: Current Medications Acetaminophen (Tylenol 325mg Tab) 650 mg PO Q6 PRN PRN Reason: Pain, Mild (1-3) Amlodipine Besylate (Norvasc) 5 mg PO Q24H [facility] Last Admin: 05/05/18 19:10 Dose: 5 mg Dextrose (Dextrose 50% Inj) 0 ml IV STAT PRN; Protocol PRN Reason: Hypoglycemia Protocol Dextrose (Glutose 15) 0 gm PO ONCE PRN; Protocol PRN Reason: Hypoglycemia Protocol Docusate Sodium (Colace) 100 mg PO TID [facility] Last Admin: 05/06/18 13:21 Dose: 100 mg Glucagon (Glucagen Diagnostic Kit) 0 mg IM STAT PRN; Protocol PRN Reason: Hypoglycemia Protocol Dextrose (Dextrose 5% In Water 1000 Ml) 1,000 mls @ 0 mls/hr IV .Q0M PRN; Protocol; Per Protocol PRN Reason: Hypoglycemia Protocol Daptomycin 450 mg/ Sodium (Chloride) 100 mls @ 200 mls/hr IV Q24H [facility] Stop: 05/23/18 14:01 Last Admin: 05/06/18 13:21 Dose: 200 mls/hr Meropenem 1 gm/ Sodium (Chloride) 100 mls @ 100 mls/hr IVPB Q8H [facility] PRN Reason: Protocol Last Admin: 05/06/18 07:52 Dose: 100 mls/hr Insulin Aspart (Novolog) 0 unit SC ACHS [facility] PRN Reason: Protocol Last Admin: 05/06/18 13:44 Dose: Not Given Lactobacillus Acidophilus (Bacid Acidophilus) 1 cap PO BID [facility] Last Admin: 05/06/18 09:04 Dose: 1 cap Lisinopril (Zestril) 10 mg PO Q24H [facility] Last Admin: 05/06/18 07:11 Dose: 10 mg Oxycodone/Acetaminophen (Percocet 5/325 Mg Tab) 1 tab PO Q4H PRN PRN Reason: Pain, moderate (4-7) Stop: 05/07/18 09:44 Oxycodone/Acetaminophen (Percocet 5/325 Mg Tab) 2 tab PO Q4H PRN PRN Reason: Pain, severe (8-10) Stop: 05/07/18 09:44 Rosuvastatin Calcium (Crestor) 5 mg PO Q24H [facility] Last Admin: 05/05/18 19:10 Dose: 5 mg - Labs Labs: 05/06/18 07:40 05/06/18 07:40 PT 12.0 SECONDS (9.7-12.2) 05/04/18 08:12 INR 1.1 05/04/18 08:12 APTT 38 SECONDS (21-34) H 05/04/18 08:12 - Constitutional Appears: Well, Non-toxic, No Acute Distress - Extremities Exam Extremities Exam: absent: Calf Tenderness Additional comments: LLE focused exam: VASC: DP and PT pulses faintly palpable. CFT <3 seconds to digits x5. Temperature gradient WNL and equal b/l. No increase in warmth noted to left hallux. Mild nonpitting edema noted to left hallux, improving. No edema noted to leg. NEURO: Gross sensation diminished, protective sensation diminished DERM: Ulceration noted to the medial plantar aspect of hallux measuring approximately 3 cm x 2 cm x . 2 full thickness ulceration. Wound base is mainly granular. No malodor present. No drainage, no purulence present, no fluctuance, no undermining, no probe to bone, no abscess. No periwound erythema or streaking noted to leg. ORTHO: No pain on palpation noted to left hallux ulcer. No pain upon calf squeeze. No pain on palpation medial calf. Muscle strength 5/5 for all dorsiflexors, plantarflexors, inverters, and evertors. - Neurological Exam Neurological Exam: Alert, Awake, Oriented x3 - Psychiatric Exam Psychiatric exam: Normal Affect, Normal Mood Assessment and Plan - Assessment and Plan (Free Text) Assessment: 68 year old male with PMHx of HTN, HLD, DM, PVD was evaluated 2 days s/p left hallux wound debridement Plan: Patient seen and evaluated Plan discussed with attending Dr. 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 Hoyos in his office as an outpatient within 1 week Podiatry will continue to follow while in house
--- NOTE | 2018-05-07 07:22 | CP.PCM.PN ---
<Herman Alva - Last Filed: 05/07/18 07:19> Subjective - Date & Time of Evaluation Date of Evaluation: 05/07/18 Time of Evaluation: 07:19 - Subjective Subjective: PGY-1 Medicine Progress Note for Dr. Bella Patient seen and examined at bedside, resting comfortably and in no acute distress. Continues to deny any pain following his procedure. No fevers/chills, headaches, dizziness, chest pain, palpitations, sob, abdominal pain, n/v/d/ constipation, numbness or tingling. Patient was ready to be discharged, but infusion center will not accept him over the weekend. Objective - Vital Signs/Intake and Output Vital Signs (last 24 hours): Temp Pulse Resp BP Pulse Ox 97.7 F 74 20 121/75 96 05/06/18 23:50 05/07/18 06:43 05/06/18 23:50 05/07/18 06:43 05/06/18 23:50 Intake and Output: 05/07/18 05/07/18 06:59 18:59 Intake Total 1040 Balance 1040 - Medications Medications: Current Medications Acetaminophen (Tylenol 325mg Tab) 650 mg PO Q6 PRN PRN Reason: Pain, Mild (1-3) Amlodipine Besylate (Norvasc) 5 mg PO Q24H [facility] Last Admin: 05/06/18 18:13 Dose: Not Given Dextrose (Dextrose 50% Inj) 0 ml IV STAT PRN; Protocol PRN Reason: Hypoglycemia Protocol Dextrose (Glutose 15) 0 gm PO ONCE PRN; Protocol PRN Reason: Hypoglycemia Protocol Docusate Sodium (Colace) 100 mg PO TID [facility] Last Admin: 05/06/18 17:01 Dose: 100 mg Glucagon (Glucagen Diagnostic Kit) 0 mg IM STAT PRN; Protocol PRN Reason: Hypoglycemia Protocol Dextrose (Dextrose 5% In Water 1000 Ml) 1,000 mls @ 0 mls/hr IV .Q0M PRN; Protocol; Per Protocol PRN Reason: Hypoglycemia Protocol Daptomycin 450 mg/ Sodium (Chloride) 100 mls @ 200 mls/hr IV Q24H [facility] Stop: 05/23/18 14:01 Last Admin: 05/06/18 13:21 Dose: 200 mls/hr Meropenem 1 gm/ Sodium (Chloride) 100 mls @ 100 mls/hr IVPB Q8H [facility] PRN Reason: Protocol Last Admin: 05/06/18 23:59 Dose: 100 mls/hr Insulin Aspart (Novolog) 0 unit SC ACHS [facility] PRN Reason: Protocol Last Admin: 05/06/18 21:23 Dose: Not Given Lactobacillus Acidophilus (Bacid Acidophilus) 1 cap PO BID [facility] Last Admin: 05/06/18 17:01 Dose: 1 cap Lisinopril (Zestril) 10 mg PO Q24H [facility] Last Admin: 05/07/18 06:43 Dose: 10 mg Oxycodone/Acetaminophen (Percocet 5/325 Mg Tab) 1 tab PO Q4H PRN PRN Reason: Pain, moderate (4-7) Stop: 05/07/18 09:44 Oxycodone/Acetaminophen (Percocet 5/325 Mg Tab) 2 tab PO Q4H PRN PRN Reason: Pain, severe (8-10) Stop: 05/07/18 09:44 Rosuvastatin Calcium (Crestor) 5 mg PO Q24H [facility] Last Admin: 05/06/18 18:12 Dose: 5 mg - Labs Labs: 05/06/18 07:40 05/06/18 07:40 PT 12.0 SECONDS (9.7-12.2) 05/04/18 08:12 INR 1.1 05/04/18 08:12 APTT 38 SECONDS (21-34) H 05/04/18 08:12 - Constitutional Appears: Non-toxic, No Acute Distress - Head Exam Head Exam: ATRAUMATIC, NORMAL INSPECTION, NORMOCEPHALIC - Eye Exam Eye Exam: EOMI, Normal appearance, PERRL Pupil Exam: NORMAL ACCOMODATION - ENT Exam ENT Exam: Mucous Membranes Moist, Normal Exam - Neck Exam Neck Exam: Full ROM, Normal Inspection. absent: Tenderness - Respiratory Exam Respiratory Exam: Clear to Ausculation Bilateral, NORMAL BREATHING PATTERN. absent: Rales, Rhonchi, Wheezes, Respiratory Distress, Stridor - Cardiovascular Exam Cardiovascular Exam: REGULAR RHYTHM, +S1, +S2. absent: Murmur - GI/Abdominal Exam GI & Abdominal Exam: Soft, Normal Bowel Sounds. absent: Distended, Firm, Guarding, Rigid, Tenderness, Organomegaly, Rebound - Extremities Exam Extremities Exam: Normal Capillary Refill. absent: Pedal Edema, Tenderness Additional comments: s/p tissue excision and wound debridement of L hallux. Dressings CDI. Patient does not complain of pain with palpation of surgical site. - Back Exam Back Exam: NORMAL INSPECTION - Neurological Exam Neurological Exam: Alert, Awake, CN II-XII Intact, Oriented x3 - Psychiatric Exam Psychiatric exam: Normal Affect, Normal Mood - Skin Skin Exam: Dry, Intact, Normal Color, Warm Assessment and Plan - Assessment and Plan (Free Text) Assessment: 68 M w/ PMHx of HTN, HLD, DM, PVD, OM, s/p left hallux wound debridement and excision of gangrenous tissue. During procedure, patient had larger than expected blood loss; however, patient currently has no complaints. Plan: Osteomyelitis L great toe, S/P left hallux wound debridement and excision of granulous tissue. -Podiatry on case, Dr. Wolf: - Podiatry has ordered boot which will reduce weight on the left hallux. This boot has been delivered to [facility] and is ready to be picked up. - Prescription for rolling walker has also been filled and is ready to be picked up in [facility]. - Pt already has appointment to follow up with Dr. Wolf on Tuesday following discharge. - Per ID (Dr. Hughes) -Cubicin 450mg Q24H (started 04/11) -Merrem 1gm Q8 (started 05/04) (invanz only available OP-started 04/11) -Patient was ready to be discharged today from a medical standpoint, with plans for outpatient treatment at the infusion center where the patient had already been receiving treatments. However, due to his hospitalization, the patient is considered "new" to the infusion center and they do not take new patients on weekends. Therefore he will need to remain hospitalized through the weekend in order to keep receiving the necessary antibiotics. -Dr. Hughes is aware of this situation and will provide prescriptions for Invanz 1gm IV Q24 and Cubicin 1gm IV Q24 for outpatient treatment at the infusion center, with treatments to continue through May 20. He will also provide prescriptions for the patient to receive weekly labs including CBD, CMP , ESR, and CPK. These prescriptions will be provided to case assistant Niurka to give to the infusion center so patient may be discharged on Tuesday. PVD - angiogram with balloon angioplasty of the left anterior tibial artery 04/06 - No vascular surgical intervention required at this time - F/u Dr. Ghotra as to when to restart: - ASA 81mg PO daily - OP bleeding - Plavix 75 mg Po daily - held for now 2/2 OP bleeding DM - ISS ACHS - Medium - Hypoglycemia Protocol - Hold: Metformin 500 Q12H Invokana 300 mg daily Glimepiride 4 mg daily HTN - lisinopril 10 mg PO daily (7am) - Norvasc 5mg PO daily (7pm) HLD - crestor 5mg PO daily (7pm) - hold atorvastatin 10mg PO (7pm) Prophylaxis, Diet, Disposition - Anticoagulation contraindicated 2/2 to blood loss - No SCD 2/2 to Hx of PVD - Heart Healthy/ 2g Na+/ Low carb diet - Lactobaiciluss Q12 hours, not within 2 hours of Abx - PT as mentioned above -Dispo: Pt to be discharged Tuesday Case to be discussed with Dr. Shayne Alva DO, PGY-1 <Lupe Bella V - Last Filed: 05/07/18 15:17> Objective - Vital Signs/Intake and Output Vital Signs (last 24 hours): Temp Pulse Resp BP Pulse Ox 98.0 F 65 20 107/69 95 05/07/18 07:00 05/07/18 07:00 05/07/18 07:00 05/07/18 07:00 05/07/18 07:00 Intake and Output: 05/07/18 05/07/18 06:59 18:59 Intake Total 1040 480 Balance 1040 480 - Medications Medications: Current Medications Acetaminophen (Tylenol 325mg Tab) 650 mg PO Q6 PRN PRN Reason: Pain, Mild (1-3) Amlodipine Besylate (Norvasc) 5 mg PO Q24H [facility] Last Admin: 05/06/18 18:13 Dose: Not Given Dextrose (Dextrose 50% Inj) 0 ml IV STAT PRN; Protocol PRN Reason: Hypoglycemia Protocol Dextrose (Glutose 15) 0 gm PO ONCE PRN; Protocol PRN Reason: Hypoglycemia Protocol Docusate Sodium (Colace) 100 mg PO TID [facility] Last Admin: 05/07/18 13:13 Dose: 100 mg Glucagon (Glucagen Diagnostic Kit) 0 mg IM STAT PRN; Protocol PRN Reason: Hypoglycemia Protocol Daptomycin 450 mg/ Sodium (Chloride) 100 mls @ 200 mls/hr IV Q24H [facility] Stop: 05/23/18 14:01 Last Admin: 05/07/18 13:36 Dose: 200 mls/hr Meropenem 1 gm/ Sodium (Chloride) 100 mls @ 100 mls/hr IVPB Q8H [facility] PRN Reason: Protocol Last Admin: 05/07/18 09:09 Dose: 100 mls/hr Insulin Aspart (Novolog) 0 unit SC ACHS [facility] PRN Reason: Protocol Last Admin: 05/07/18 13:12 Dose: Not Given Lactobacillus Acidophilus (Bacid Acidophilus) 1 cap PO BID [facility] Last Admin: 05/07/18 09:09 Dose: 1 cap Lisinopril (Zestril) 10 mg PO Q24H [facility] Last Admin: 05/07/18 06:43 Dose: 10 mg Rosuvastatin Calcium (Crestor) 5 mg PO Q24H [facility] Last Admin: 05/06/18 18:12 Dose: 5 mg - Labs Labs: 05/07/18 07:47 05/07/18 07:47 PT 12.0 SECONDS (9.7-12.2) 05/04/18 08:12 INR 1.1 05/04/18 08:12 APTT 38 SECONDS (21-34) H 05/04/18 08:12 Attending/Attestation - Attestation I have personally seen and examined this patient.: Yes I have fully participated in the care of the patient.: Yes I have reviewed all pertinent clinical information, including history, physical exam and plan: Yes Notes (Text): Patient seen, examined, case discussed with anesthesiology medical doctor. Patient seen at bedside. Patient denies acute complaints. Patient remembers me from last admission. This is a 68-year-old male history of hypertension, lipid disorder, diabetes, peripheral vascular disease, prior history of osteomyelitis. He is postoperative day 3 status post left hallux wound debridement and excision of gangrenous tissue. Patient is awaiting arrangements with outpatient transfusion center for IV antibiotics for hopeful discharge on Tuesday. Patient denies acute complaints at bedside he is quite pleasant. Infectious disease to provide prescriptions for Invanz 1 g IV every 24 hours and Cubicin 1 g IV every 24 hours medications to continue through May 20 as well as prescription for CBC, CMP, ESR, and CPK. We will need to follow-up with surgery in regards to restarting aspirin and Plavix. Patient's had a history of peripheral vascular disease with a prior balloon angioplasty on April 06. Per podiatry patient is stable from their standpoint awaiting forefoot wedge shoes which I believe are available at [facility] for pickup. Assessment/plan 1. Osteomyelitis Assessment/Plan * L great toe, S/P left hallux wound debridement and excision of granulous tissue. * Podiatry on case, Dr. Wolf: * Podiatry has ordered boot which will reduce weight on the left hallux. This boot has been delivered to [facility] and is ready to be picked up. * Prescription for rolling walker has also been filled and is ready to be picked up in [facility]. * Pt already has appointment to follow up with Dr. Wolf on Wednesday 05/09 following discharge. Per ID (Dr. Hughes) * Cubicin 450mg IV Q24H (started 04/11) * Merrem 1gm Q8 (started 05/04) (invanz only available OP-started 04/11) * Patient was ready to be discharged today from a medical standpoint, with plans for outpatient treatment at the infusion center where the patient had already been receiving treatments. However, due to his hospitalization, the patient is considered "new" to the infusion center and they do not take new patients on weekends. Therefore he will need to remain hospitalized through the weekend in order to keep receiving the necessary antibiotics. * Dr. Hughes is aware of this situation and will provide prescriptions for Invanz 1gm IV Q24 and Cubicin 1gm IV Q24 for outpatient treatment at the infusion center, with treatments to continue through May 20. He will also provide prescriptions for the patient to receive weekly labs including CBD, CMP , ESR, and CPK. These prescriptions will be provided to case assistant Niurka to give to the infusion center so patient may be discharged on Tuesday. 2. Peripheral Vascular Disease Assessment/Plan * angiogram with balloon angioplasty of the left anterior tibial artery 03/16 * No vascular surgical intervention required at this time * F/u Dr. Ghotra as to when to restart: * ASA 81mg PO daily - OP bleeding * Plavix 75 mg Po daily - held for now 2/2 OP bleeding 3. DM Assessment/Plan * ISS ACHS - Medium * Hypoglycemia Protocol * Hold: Metformin 500 Q12H * Invokana 300 mg daily * Glimepiride 4 mg daily 4. HTN Assessment/Plan * lisinopril 10 mg PO daily (7am) * Norvasc 5mg PO daily (7pm) 5. HLD Assessment/Plan * crestor 5mg PO daily (7pm) * hold atorvastatin 10mg PO (7pm) 6. Prophylaxis * Anticoagulation contraindicated 2/2 to blood loss * No SCD 2/2 to Hx of PVD * Heart Healthy/ 2g Na+/ Low carb diet * Bacid 1 tab PO BID * PT as mentioned above Disposition: Patient to be reestablished at the outpatient transfusion center to complete IV antibiotics for osteomyelitis. Patient recommended for Invanz and Bobin per ID. Patient recommended for weekly labs including CBC, CMP, ESR , and CPK. Patient's of equipment needed from podiatry standpoint is ready to pick up attendant at [facility]. Patient has appointment already made for Dr. Amber parker for Tuesday.
[2018-05-07] MEDS: (Novolog) Insulin Aspart, Recombinant 100 u/ml 10 ml vial SC SCH ×4 (07:30→21:23)
[2018-05-07 08:10] LABS: BASO % 0.7 % (0.0-2.0); EOS # 0.3 K/uL (0.0-0.7); EOS % 5.2 % (0.0-4.0); HEMOGLOBIN 13.1 g/dL (12.0-18.0); LYMPH # 1.5 K/uL (1.0-4.3); LYMPH % 23.4 % (20.0-40.0); MEAN CELL VOLUME 84.1 fL (80.0-94.0); MEAN CORPUSCULAR HEMOGLOBIN 28.5 pg (27.0-31.0); MEAN CORPUSCULAR HGB CONC 33.9 g/dL (33.0-37.0); MEAN PLATELET VOLUME 7.9 fL (7.2-11.7); MONO # 0.6 K/uL (0.0-0.8); MONO % 9.6 % (0.0-10.0); NEUT # 3.9 K/uL (1.8-7.0); NEUT % 61.1 % (50.0-75.0); RBC 4.62 Mil/uL (4.40-5.90); RED CELL DISTRIBUTION WIDTH 12.7 % (11.5-14.5); WHITE BLOOD COUNT 6.3 K/uL (4.8-10.8)
[2018-05-07 08:13] LABS: ALB/GLOB RATIO 1.1 (1.0-2.1); ALBUMIN 3.8 g/dL (3.5-5.0); ALT/SGPT 26 U/L (21-72); AST/SGOT 23 U/L (17-59); BLOOD UREA NITROGEN 32 mg/dL (9-20); CALCIUM 9.4 mg/dl (8.6-10.4); GFR NON-AFRICAN AMERICAN > 60
[2018-05-07] MEDS: Lactobacillus Acidophilus 500 MU Cap PO SCH ×2 (09:09→18:04)
[2018-05-07] MEDS: Meropenem 1 GM in Sodium Chloride 0.9% 100 ML IVPB SCH ×3 (09:09→23:32)
--- NOTE | 2018-05-07 14:45 | CP.PCM.PN ---
Subjective - Date & Time of Evaluation Date of Evaluation: 05/07/18 Time of Evaluation: 13:00 - Subjective Subjective: Podiatry Progress Note- Dr. Hoyos 68 year old male with PMHx of HTN, HLD, DM, PVD was evaluated 3 days s/p wound debridement of the left hallux. Patient is seen resting comfortably in bed in [facility]. Patient denies of any pain to the left foot today. Reports has not gotten the surgical shoe. Denies of any acute overnight events. Denies of recent F/N/V/ C/SOB/CP/headache. Objective - Vital Signs/Intake and Output Vital Signs (last 24 hours): Temp Pulse Resp BP Pulse Ox 98.0 F 65 20 107/69 95 05/07/18 07:00 05/07/18 07:00 05/07/18 07:00 05/07/18 07:00 05/07/18 07:00 Intake and Output: 05/07/18 05/07/18 06:59 18:59 Intake Total 1040 480 Balance 1040 480 - Medications Medications: Current Medications Acetaminophen (Tylenol 325mg Tab) 650 mg PO Q6 PRN PRN Reason: Pain, Mild (1-3) Amlodipine Besylate (Norvasc) 5 mg PO Q24H [facility] Last Admin: 05/06/18 18:13 Dose: Not Given Dextrose (Dextrose 50% Inj) 0 ml IV STAT PRN; Protocol PRN Reason: Hypoglycemia Protocol Dextrose (Glutose 15) 0 gm PO ONCE PRN; Protocol PRN Reason: Hypoglycemia Protocol Docusate Sodium (Colace) 100 mg PO TID [facility] Last Admin: 05/07/18 13:13 Dose: 100 mg Glucagon (Glucagen Diagnostic Kit) 0 mg IM STAT PRN; Protocol PRN Reason: Hypoglycemia Protocol Daptomycin 450 mg/ Sodium (Chloride) 100 mls @ 200 mls/hr IV Q24H [facility] Stop: 05/23/18 14:01 Last Admin: 05/07/18 13:36 Dose: 200 mls/hr Meropenem 1 gm/ Sodium (Chloride) 100 mls @ 100 mls/hr IVPB Q8H [facility] PRN Reason: Protocol Last Admin: 05/07/18 09:09 Dose: 100 mls/hr Insulin Aspart (Novolog) 0 unit SC ACHS [facility] PRN Reason: Protocol Last Admin: 05/07/18 13:12 Dose: Not Given Lactobacillus Acidophilus (Bacid Acidophilus) 1 cap PO BID [facility] Last Admin: 05/07/18 09:09 Dose: 1 cap Lisinopril (Zestril) 10 mg PO Q24H [facility] Last Admin: 05/07/18 06:43 Dose: 10 mg Rosuvastatin Calcium (Crestor) 5 mg PO Q24H [facility] Last Admin: 05/06/18 18:12 Dose: 5 mg - Labs Labs: 05/07/18 07:47 05/07/18 07:47 PT 12.0 SECONDS (9.7-12.2) 05/04/18 08:12 INR 1.1 05/04/18 08:12 APTT 38 SECONDS (21-34) H 05/04/18 08:12 - Extremities Exam Extremities Exam: absent: Calf Tenderness Additional comments: LLE focused exam: VASC: DP and PT pulses faintly palpable. CFT <3 seconds to digits x5. Temperature gradient WNL and equal b/l. No increase in warmth noted to left hallux. Mild nonpitting edema noted to left hallux, improving. No edema noted to leg. NEURO: Gross sensation diminished, protective sensation diminished DERM: Ulceration noted to the medial plantar aspect of hallux measuring approximately 3 cm x 2 cm x . 2 full thickness ulceration. Wound base is mainly granular. No malodor present. No drainage, no purulence present, no fluctuance, no undermining, no probe to bone, no abscess. No periwound erythema or streaking noted to leg. ORTHO: No pain on palpation noted to left hallux ulcer. No pain upon calf squeeze. No pain on palpation medial calf. Muscle strength 5/5 for all dorsiflexors, plantarflexors, inverters, and evertors. Assessment and Plan - Assessment and Plan (Free Text) Assessment: 68 year old male with PMHx of HTN, HLD, DM, PVD was evaluated 3 days s/p left hallux wound debridement Plan: Patient seen and evaluated Plan discussed with attending Dr. 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 Hoyos in his office as an outpatient within 1 week Podiatry will continue to follow while in house
--- NOTE | 2018-05-07 16:55 | CP.PCM.PN ---
Subjective - Date & Time of Evaluation Date of Evaluation: 05/07/18 Time of Evaluation: 07:00 - Subjective Subjective: no new + culktures hallux appears same Objective - Vital Signs/Intake and Output Vital Signs (last 24 hours): Temp Pulse Resp BP Pulse Ox 97.9 F 75 20 127/82 95 05/07/18 15:10 05/07/18 15:10 05/07/18 15:10 05/07/18 15:10 05/07/18 15:10 Intake and Output: 05/07/18 05/07/18 06:59 18:59 Intake Total 1040 480 Balance 1040 480 - Medications Medications: Current Medications Acetaminophen (Tylenol 325mg Tab) 650 mg PO Q6 PRN PRN Reason: Pain, Mild (1-3) Amlodipine Besylate (Norvasc) 5 mg PO Q24H [facility] Last Admin: 05/06/18 18:13 Dose: Not Given Dextrose (Dextrose 50% Inj) 0 ml IV STAT PRN; Protocol PRN Reason: Hypoglycemia Protocol Dextrose (Glutose 15) 0 gm PO ONCE PRN; Protocol PRN Reason: Hypoglycemia Protocol Docusate Sodium (Colace) 100 mg PO TID [facility] Last Admin: 05/07/18 13:13 Dose: 100 mg Glucagon (Glucagen Diagnostic Kit) 0 mg IM STAT PRN; Protocol PRN Reason: Hypoglycemia Protocol Daptomycin 450 mg/ Sodium (Chloride) 100 mls @ 200 mls/hr IV Q24H [facility] Stop: 05/23/18 14:01 Last Admin: 05/07/18 13:36 Dose: 200 mls/hr Meropenem 1 gm/ Sodium (Chloride) 100 mls @ 100 mls/hr IVPB Q8H [facility] PRN Reason: Protocol Last Admin: 05/07/18 15:35 Dose: 100 mls/hr Insulin Aspart (Novolog) 0 unit SC ACHS [facility] PRN Reason: Protocol Last Admin: 05/07/18 16:52 Dose: Not Given Lactobacillus Acidophilus (Bacid Acidophilus) 1 cap PO BID [facility] Last Admin: 05/07/18 09:09 Dose: 1 cap Lisinopril (Zestril) 10 mg PO Q24H [facility] Last Admin: 05/07/18 06:43 Dose: 10 mg Rosuvastatin Calcium (Crestor) 5 mg PO Q24H [facility] Last Admin: 05/06/18 18:12 Dose: 5 mg - Labs Labs: 05/07/18 07:47 05/07/18 07:47 PT 12.0 SECONDS (9.7-12.2) 05/04/18 08:12 INR 1.1 05/04/18 08:12 APTT 38 SECONDS (21-34) H 05/04/18 08:12 - Constitutional Appears: Non-toxic, Chronically Ill - Head Exam Head Exam: NORMOCEPHALIC - Eye Exam Eye Exam: PERRL - ENT Exam ENT Exam: Mucous Membranes Dry - Neck Exam Neck Exam: absent: Lymphadenopathy - Respiratory Exam Respiratory Exam: Decreased Breath Sounds - Cardiovascular Exam Cardiovascular Exam: REGULAR RHYTHM - GI/Abdominal Exam GI & Abdominal Exam: Distended, Soft - Rectal Exam Rectal Exam: Deferred - Exam Exam: NORMAL INSPECTION - Extremities Exam Additional comments: LLE focused exam: VASC: DP and PT pulses faintly palpable. CFT <3 seconds to digits x5. Temperature gradient WNL and equal b/l. No increase in warmth noted to left hallux. Mild nonpitting edema noted to left hallux, improving. No edema noted to leg. NEURO: Gross sensation diminished, protective sensation diminished DERM: Ulceration noted to the medial plantar aspect of hallux measuring approximately 3 cm x 2 cm x . 2 full thickness ulceration. Wound base is mainly granular. No malodor present. No drainage, no purulence present, no fluctuance, no undermining, no probe to bone, no abscess. No periwound erythema or streaking noted to leg. ORTHO: No pain on palpation noted to left hallux ulcer. No pain upon calf squeeze. No pain on palpation medial calf. Muscle strength 5/5 for all dorsiflexors, plantarflexors, inverters, and evertors. - Back Exam Back Exam: absent: CVA tenderness (L), CVA tenderness (R) - Neurological Exam Neurological Exam: Alert, Awake Assessment and Plan (1) Osteomyelitis Status: Acute - Assessment and Plan (Free Text) Assessment: cont wound care and IV antibiotics follow up as out pt
[2018-05-08 06:59] LABS: BASO % 0.5 % (0.0-2.0); EOS # 0.3 K/uL (0.0-0.7); EOS % 4.8 % (0.0-4.0); HEMOGLOBIN 13.3 g/dL (12.0-18.0); LYMPH # 1.6 K/uL (1.0-4.3); LYMPH % 24.6 % (20.0-40.0); MEAN CORPUSCULAR HEMOGLOBIN 27.7 pg (27.0-31.0); MEAN CORPUSCULAR HGB CONC 33.3 g/dL (33.0-37.0); MEAN PLATELET VOLUME 7.7 fL (7.2-11.7); MONO # 0.7 K/uL (0.0-0.8); MONO % 10.2 % (0.0-10.0); NEUT # 3.8 K/uL (1.8-7.0); NEUT % 59.9 % (50.0-75.0); RBC 4.81 Mil/uL (4.40-5.90); RED CELL DISTRIBUTION WIDTH 12.6 % (11.5-14.5); WHITE BLOOD COUNT 6.4 K/uL (4.8-10.8)
[2018-05-08 07:22] LABS: ALBUMIN 3.8 g/dL (3.5-5.0); ALT/SGPT 20 U/L (21-72); AST/SGOT 23 U/L (17-59); BLOOD UREA NITROGEN 30 mg/dL (9-20); CALCIUM 9.4 mg/dl (8.6-10.4); GFR NON-AFRICAN AMERICAN > 60
[2018-05-08] MEDS: (Novolog) Insulin Aspart, Recombinant 100 u/ml 10 ml vial SC SCH ×3 (07:37→16:33)
[2018-05-08 08:07] VITALS: PULSE 70
[2018-05-08] MEDS: Meropenem 1 GM in Sodium Chloride 0.9% 100 ML IVPB SCH ×2 (08:55→17:01)
[2018-05-08] MEDS: Lactobacillus Acidophilus 500 MU Cap PO SCH (09:37)
--- NOTE | 2018-05-08 10:08 | CP.PCM.PN ---
Subjective - Date & Time of Evaluation Date of Evaluation: 05/08/18 Time of Evaluation: 10:06 - Subjective Subjective: Podiatry Progress Note- Dr. Hoyos 68 year old male with PMHx of HTN, HLD, DM, PVD was evaluated 4 days s/p wound debridement of the left hallux. Patient is seen resting comfortably in bed in [facility]. Patient denies of any pain to the left foot today. Reports has not gotten the surgical shoe yet but will be getting it today. Denies of any acute overnight events. Reports that he maybe going home today. Denies of recent F/N/V /C/SOB/CP/headache. Objective - Vital Signs/Intake and Output Vital Signs (last 24 hours): Temp Pulse Resp BP Pulse Ox 97.9 F 70 20 117/75 95 05/08/18 07:05 05/08/18 07:05 05/08/18 07:05 05/08/18 07:05 05/08/18 07:05 Intake and Output: 05/08/18 05/08/18 06:59 18:59 Intake Total 1000 Balance 1000 - Medications Medications: Current Medications Acetaminophen (Tylenol 325mg Tab) 650 mg PO Q6 PRN PRN Reason: Pain, Mild (1-3) Amlodipine Besylate (Norvasc) 5 mg PO Q24H [facility] Last Admin: 05/07/18 18:04 Dose: Not Given Dextrose (Dextrose 50% Inj) 0 ml IV STAT PRN; Protocol PRN Reason: Hypoglycemia Protocol Dextrose (Glutose 15) 0 gm PO ONCE PRN; Protocol PRN Reason: Hypoglycemia Protocol Docusate Sodium (Colace) 100 mg PO TID [facility] Last Admin: 05/08/18 09:37 Dose: 100 mg Glucagon (Glucagen Diagnostic Kit) 0 mg IM STAT PRN; Protocol PRN Reason: Hypoglycemia Protocol Daptomycin 450 mg/ Sodium (Chloride) 100 mls @ 200 mls/hr IV Q24H [facility] Stop: 05/23/18 14:01 Last Admin: 05/07/18 13:36 Dose: 200 mls/hr Meropenem 1 gm/ Sodium (Chloride) 100 mls @ 100 mls/hr IVPB Q8H [facility] PRN Reason: Protocol Last Admin: 05/08/18 08:55 Dose: 100 mls/hr Insulin Aspart (Novolog) 0 unit SC ACHS [facility] PRN Reason: Protocol Last Admin: 05/08/18 07:37 Dose: Not Given Lactobacillus Acidophilus (Bacid Acidophilus) 1 cap PO BID [facility] Last Admin: 05/08/18 09:37 Dose: 1 cap Lisinopril (Zestril) 10 mg PO Q24H [facility] Last Admin: 05/08/18 06:21 Dose: 10 mg Rosuvastatin Calcium (Crestor) 5 mg PO Q24H [facility] Last Admin: 05/07/18 18:04 Dose: 5 mg - Labs Labs: 05/08/18 06:54 05/08/18 06:54 PT 12.0 SECONDS (9.7-12.2) 05/04/18 08:12 INR 1.1 05/04/18 08:12 APTT 38 SECONDS (21-34) H 05/04/18 08:12 - Constitutional Appears: Well, Non-toxic, No Acute Distress - Extremities Exam Additional comments: LLE focused exam: VASC: DP and PT pulses faintly palpable. CFT <3 seconds to digits x5. Temperature gradient WNL and equal b/l. No increase in warmth noted to left hallux. Mild nonpitting edema noted to left hallux, improving. No edema noted to leg. NEURO: Gross sensation diminished, protective sensation diminished DERM: Ulceration noted to the medial plantar aspect of hallux measuring approximately 3 cm x 2 cm x . 2 full thickness ulceration. Wound base is mainly granular. No malodor present. No drainage, no purulence present, no fluctuance, no undermining, no probe to bone, no abscess. No periwound erythema or streaking noted to leg. ORTHO: No pain on palpation noted to left hallux ulcer. No pain upon calf squeeze. No pain on palpation medial calf. Muscle strength 5/5 for all dorsiflexors, plantarflexors, inverters, and evertors. - Neurological Exam Neurological Exam: Alert, Awake, Oriented x3 - Psychiatric Exam Psychiatric exam: Normal Affect, Normal Mood Assessment and Plan - Assessment and Plan (Free Text) Assessment: 68 year old male was evaluated 4 days s/p left hallux wound debridement Plan: Patient seen and evaluated Plan discussed with attending Dr. Hoyos Labs, vitals and charts reviewed - afebrile, absent leukocytosis Dressing is clean, dry and intact Cleansed ulceration with hydrogen peroxide Applied medihoney to surgical site Dressed with dsd and kerlix Patient to WB to the heel using forefoot wedge shoe using walker - Forefoot wedge shoe - pending - Walker prescription provided ID consult - recs appreciated - Patient is currently on exterminator IV abx - PICC in place Vascular consult - recs appreciated - No acute intervention needed at this time Patient is stable from podiatry standpoint once he receives forefoot wedge shoe Upon discharge, follow up with Dr. Hoyos in his office as an outpatient within 1 week Podiatry will continue to follow while in house
--- NOTE | 2018-05-08 11:06 | CP.PCM.PN ---
Subjective - Date & Time of Evaluation Date of Evaluation: 05/08/18 Time of Evaluation: 08:00 - Subjective Subjective: plans made to cont IV rx as out pt no OR cultures available cont empiric rx for now Objective - Vital Signs/Intake and Output Vital Signs (last 24 hours): Temp Pulse Resp BP Pulse Ox 97.9 F 70 20 117/75 95 05/08/18 07:05 05/08/18 07:05 05/08/18 07:05 05/08/18 07:05 05/08/18 07:05 Intake and Output: 05/08/18 05/08/18 06:59 18:59 Intake Total 1000 Balance 1000 - Medications Medications: Current Medications Acetaminophen (Tylenol 325mg Tab) 650 mg PO Q6 PRN PRN Reason: Pain, Mild (1-3) Amlodipine Besylate (Norvasc) 5 mg PO Q24H [facility] Last Admin: 05/07/18 18:04 Dose: Not Given Dextrose (Dextrose 50% Inj) 0 ml IV STAT PRN; Protocol PRN Reason: Hypoglycemia Protocol Dextrose (Glutose 15) 0 gm PO ONCE PRN; Protocol PRN Reason: Hypoglycemia Protocol Docusate Sodium (Colace) 100 mg PO TID [facility] Last Admin: 05/08/18 09:37 Dose: 100 mg Glucagon (Glucagen Diagnostic Kit) 0 mg IM STAT PRN; Protocol PRN Reason: Hypoglycemia Protocol Daptomycin 450 mg/ Sodium (Chloride) 100 mls @ 200 mls/hr IV Q24H [facility] Stop: 05/23/18 14:01 Last Admin: 05/07/18 13:36 Dose: 200 mls/hr Meropenem 1 gm/ Sodium (Chloride) 100 mls @ 100 mls/hr IVPB Q8H [facility] PRN Reason: Protocol Last Admin: 05/08/18 08:55 Dose: 100 mls/hr Insulin Aspart (Novolog) 0 unit SC ACHS [facility] PRN Reason: Protocol Last Admin: 05/08/18 07:37 Dose: Not Given Lactobacillus Acidophilus (Bacid Acidophilus) 1 cap PO BID [facility] Last Admin: 05/08/18 09:37 Dose: 1 cap Lisinopril (Zestril) 10 mg PO Q24H [facility] Last Admin: 05/08/18 06:21 Dose: 10 mg Rosuvastatin Calcium (Crestor) 5 mg PO Q24H [facility] Last Admin: 05/07/18 18:04 Dose: 5 mg - Labs Labs: 05/08/18 06:54 05/08/18 06:54 PT 12.0 SECONDS (9.7-12.2) 05/04/18 08:12 INR 1.1 05/04/18 08:12 APTT 38 SECONDS (21-34) H 05/04/18 08:12 - Head Exam Head Exam: NORMOCEPHALIC - Eye Exam Eye Exam: absent: Scleral icterus - ENT Exam ENT Exam: Mucous Membranes Dry - Neck Exam Neck Exam: absent: Lymphadenopathy - Respiratory Exam Respiratory Exam: Decreased Breath Sounds - Cardiovascular Exam Cardiovascular Exam: REGULAR RHYTHM - GI/Abdominal Exam GI & Abdominal Exam: Distended, Soft Assessment and Plan (1) Osteomyelitis Status: Acute - Assessment and Plan (Free Text) Assessment: rx renewed
[2018-05-08] MEDS ORDERED: Ertapenem 1gm in NS 50ml 1 GM in Sodium Chloride 0.9% 50 ML IV ONE (14:30)
[2018-05-08 16:01] VITALS: BP 124/74; TEMP 98.1; O2SAT 96
--- NOTE | 2018-05-08 20:58 | CP.PCM.DIS ---
<Carlos Crowder - Last Filed: 05/08/18 20:48> Provider - Provider Date of Admission: 05/04/18 09:54 Attending physician: Joseph Flores MD Primary care physician: Dr. Rose Marie Turcios Consults: Podiatry - Dr. Wolf ID - Dr. Hughes Vascular Surgery - Dr. Ghotra Time Spent in preparation of Discharge (in minutes): 45 Hospital Course - Lab Results Lab Results: Most Recent Lab Values WBC 6.4 K/uL (4.8-10.8) 05/08/18 06:54 RBC 4.81 Mil/uL (4.40-5.90) 05/08/18 06:54 Hgb 13.3 g/dL (12.0-18.0) 05/08/18 06:54 Hct 39.9 % (35.0-51.0) 05/08/18 06:54 MCV 83.0 fL (80.0-94.0) 05/08/18 06:54 MCH 27.7 pg (27.0-31.0) 05/08/18 06:54 MCHC 33.3 g/dL (33.0-37.0) 05/08/18 06:54 RDW 12.6 % (11.5-14.5) 05/08/18 06:54 Plt Count 262 K/uL (130-400) 05/08/18 06:54 MPV 7.7 fL (7.2-11.7) 05/08/18 06:54 Neut % (Auto) 59.9 % (50.0-75.0) 05/08/18 06:54 Lymph % (Auto) 24.6 % (20.0-40.0) 05/08/18 06:54 [place] % (Auto) 10.2 % (0.0-10.0) H 05/08/18 06:54 Eos % (Auto) 4.8 % (0.0-4.0) H 05/08/18 06:54 Baso % (Auto) 0.5 % (0.0-2.0) 05/08/18 06:54 Neut # (Auto) 3.8 K/uL (1.8-7.0) 05/08/18 06:54 Lymph # (Auto) 1.6 K/uL (1.0-4.3) 05/08/18 06:54 [place] # (Auto) 0.7 K/uL (0.0-0.8) 05/08/18 06:54 Eos # (Auto) 0.3 K/uL (0.0-0.7) 05/08/18 06:54 Baso # (Auto) 0.0 K/uL (0.0-0.2) 05/08/18 06:54 PT 12.0 SECONDS (9.7-12.2) 05/04/18 08:12 INR 1.1 05/04/18 08:12 APTT 38 SECONDS (21-34) H 05/04/18 08:12 Sodium 141 mmol/L (132-148) 05/08/18 06:54 Potassium 4.2 mmol/L (3.6-5.2) 05/08/18 06:54 Chloride 102 mmol/L (98-107) 05/08/18 06:54 Carbon Dioxide 29 mmol/L (22-30) 05/08/18 06:54 Anion Gap 14 (10-20) 05/08/18 06:54 BUN 30 mg/dL (9-20) H 05/08/18 06:54 Creatinine 1.0 mg/dL (0.8-1.5) 05/08/18 06:54 Est GFR ( Amer) > 60 05/08/18 06:54 Est GFR (Non-Af Amer) > 60 05/08/18 06:54 POC Glucose (mg/dL) 128 mg/dL (65-110) H 05/08/18 16:24 Random Glucose 115 mg/dL (75-110) H 05/08/18 06:54 Calcium 9.4 mg/dl (8.6-10.4) 05/08/18 06:54 Phosphorus 3.0 mg/dL (2.5-4.5) 05/08/18 06:54 Magnesium 2.2 mg/dL (1.6-2.3) 05/08/18 06:54 Total Bilirubin 0.5 mg/dL (0.2-1.3) 05/08/18 06:54 AST 23 U/L (17-59) 05/08/18 06:54 ALT 20 U/L (21-72) L D 05/08/18 06:54 Alkaline Phosphatase 135 U/L (38-126) H 05/08/18 06:54 Total Protein 7.6 g/dL (6.3-8.3) 05/08/18 06:54 Albumin 3.8 g/dL (3.5-5.0) 05/08/18 06:54 Globulin 3.8 gm/dL (2.2-3.9) 05/08/18 06:54 Albumin/Globulin Ratio 1.0 (1.0-2.1) 05/08/18 06:54 - Hospital Course Hospital Course: Discharge Summary for Hospitalist Service Carlos Crowder DO PGY-1, Entertainment & Media Correspondent This is a 68 M w/ PMHx of HTN, HLD, DM, PVD, OM, s/p left hallux wound debridement and excision of gangrenous tissue. During procedure, patient had larger than expected blood loss; however, patient had no complaints on admission. Patient denied chest pain, SOB, abdominal pain, N/V and stated that pain was well controlled. Patient was recently discharged on 04/10/18 and was receiving OP IV abx (Invanz 1gm IV & Cubicin 450 mg IV daily) at the infusion center through May 21 2018. Podiatry was consulted for osteomyelitis, and ordered boot to help reduce weight on the L hallux. Pt also received prescription for rolling walker. Dr. Hughes (ID) was consulted and pt was treated with Cubicin and Merrem inpatient (Invanz was only available outpatient) . Patient was given by Dr. Hughes scripts for outpatient IV infusions of Cubicin and Merrem x 3 wks and weekly labs for monitoring outpatient. Vascular ( Dr. Ghotra) was consulted for hx angiogram with balloon angioplasty of L anterior tibial artery on 04/06/18, no vascular surgical intervention was indicated per their recs, and ASA and Plavix were held due to bleeding on admission. DM medications were held on admission, sugars were controlled, and pt was instructed to resume home meds on discharge. Pt was managed for HTN on Lisinopril and Norvasc. Pt was given crestor for management of HLD. Patient was discharged to home to proceed with outpatient IV infusions to begin at [facility] on 05/09/18, and was instructed to follow-up with his PMD and Podiatry within 1 week of discharge. Discharge Exam - Head Exam Head Exam: NORMOCEPHALIC - Eye Exam Eye Exam: EOMI, Normal appearance, PERRL - ENT Exam ENT Exam: Mucous Membranes Moist - Respiratory Exam Respiratory Exam: Clear to PA & Lateral, NORMAL BREATHING PATTERN, UNREMARKABLE. absent: Rales, Rhonchi, Wheezes - Cardiovascular Exam Cardiovascular Exam: REGULAR RHYTHM, RRR, +S1, +S2 - GI/Abdominal Exam GI & Abdominal Exam: Normal Bowel Sounds, Soft, Unremarkable. absent: Distended , Firm, Rebound - Extremities Exam Additional comments: Dressing applied to L hallux surgical site, c/d/i, no abnormal drainage or tenderness to palpation on exam - Neurological Exam Neurological exam: Alert, CN II-XII Intact, Oriented x3 - Psychiatric Exam Psychiatric exam: Normal Affect, Normal Mood - Skin Skin Exam: Dry, Intact, Warm Discharge Plan - Discharge Medications Prescriptions: RX: DAPTOmycin [Cubicin] 450 mg IV Q24H 21 Days vial RX: Ertapenem 1gm in NS 50ml [Invanz] 1 gm IV DAILY 21 Days bag - Follow Up Plan Condition: GOOD Disposition: HOME/ ROUTINE Instructions: Type 2 Diabetes, Osteomyelitis (DC), Peripherally-Inserted Central Catheter (DC), Daptomycin, Ertapenem Additional Instructions: Patient is medically stable for discharge home. Patient to follow-up with primary medical doctor (Dr. Turcios) within 1 week. Patient to follow-up with Podiatry (Dr. Wolf) within 1 week of discharge. Patient may resume home medications. Patient will be receiving the following new antibiotics at the infusion center: Invanz 1 g daily and Cubicin 450 mg IV daily for the next 3 weeks. Patient is instructed as per Dr. Hughes (Infectious Disease) to have weekly labs ; this was provided on a script for the patient. If symptoms return, please go to your nearest emergency department. Instructions and plan of care explained to the patient, who is understanding of course of treatment. Referrals: Rose Marie Turcios MD [Family Provider] - Ignacio Wolf DPM [Doctor Podiatric Medicine] - Alvarez Hughes MD [Staff Provider] - Donis Ghotra Jr., MD [Staff Provider] - Lupe Melendez V - Last Filed: 05/08/18 23:28> Provider - Provider Date of Admission: 05/04/18 09:54 Attending physician: Joseph Flores MD Hospital Course - Lab Results Lab Results: Most Recent Lab Values WBC 6.4 K/uL (4.8-10.8) 05/08/18 06:54 RBC 4.81 Mil/uL (4.40-5.90) 05/08/18 06:54 Hgb 13.3 g/dL (12.0-18.0) 05/08/18 06:54 Hct 39.9 % (35.0-51.0) 05/08/18 06:54 MCV 83.0 fL (80.0-94.0) 05/08/18 06:54 MCH 27.7 pg (27.0-31.0) 05/08/18 06:54 MCHC 33.3 g/dL (33.0-37.0) 05/08/18 06:54 RDW 12.6 % (11.5-14.5) 05/08/18 06:54 Plt Count 262 K/uL (130-400) 05/08/18 06:54 MPV 7.7 fL (7.2-11.7) 05/08/18 06:54 Neut % (Auto) 59.9 % (50.0-75.0) 05/08/18 06:54 Lymph % (Auto) 24.6 % (20.0-40.0) 05/08/18 06:54 [place] % (Auto) 10.2 % (0.0-10.0) H 05/08/18 06:54 Eos % (Auto) 4.8 % (0.0-4.0) H 05/08/18 06:54 Baso % (Auto) 0.5 % (0.0-2.0) 05/08/18 06:54 Neut # (Auto) 3.8 K/uL (1.8-7.0) 05/08/18 06:54 Lymph # (Auto) 1.6 K/uL (1.0-4.3) 05/08/18 06:54 [place] # (Auto) 0.7 K/uL (0.0-0.8) 05/08/18 06:54 Eos # (Auto) 0.3 K/uL (0.0-0.7) 05/08/18 06:54 Baso # (Auto) 0.0 K/uL (0.0-0.2) 05/08/18 06:54 PT 12.0 SECONDS (9.7-12.2) 05/04/18 08:12 INR 1.1 05/04/18 08:12 APTT 38 SECONDS (21-34) H 05/04/18 08:12 Sodium 141 mmol/L (132-148) 05/08/18 06:54 Potassium 4.2 mmol/L (3.6-5.2) 05/08/18 06:54 Chloride 102 mmol/L (98-107) 05/08/18 06:54 Carbon Dioxide 29 mmol/L (22-30) 05/08/18 06:54 Anion Gap 14 (10-20) 05/08/18 06:54 BUN 30 mg/dL (9-20) H 05/08/18 06:54 Creatinine 1.0 mg/dL (0.8-1.5) 05/08/18 06:54 Est GFR ( Amer) > 60 05/08/18 06:54 Est GFR (Non-Af Amer) > 60 05/08/18 06:54 POC Glucose (mg/dL) 128 mg/dL (65-110) H 05/08/18 16:24 Random Glucose 115 mg/dL (75-110) H 05/08/18 06:54 Calcium 9.4 mg/dl (8.6-10.4) 05/08/18 06:54 Phosphorus 3.0 mg/dL (2.5-4.5) 05/08/18 06:54 Magnesium 2.2 mg/dL (1.6-2.3) 05/08/18 06:54 Total Bilirubin 0.5 mg/dL (0.2-1.3) 05/08/18 06:54 AST 23 U/L (17-59) 05/08/18 06:54 ALT 20 U/L (21-72) L D 05/08/18 06:54 Alkaline Phosphatase 135 U/L (38-126) H 05/08/18 06:54 Total Protein 7.6 g/dL (6.3-8.3) 05/08/18 06:54 Albumin 3.8 g/dL (3.5-5.0) 05/08/18 06:54 Globulin 3.8 gm/dL (2.2-3.9) 05/08/18 06:54 Albumin/Globulin Ratio 1.0 (1.0-2.1) 05/08/18 06:54 Attending/Attestation - Attestation I have personally seen and examined this patient.: Yes I have fully participated in the care of the patient.: Yes I have reviewed all pertinent clinical information, including history, physical exam and plan: Yes Notes (Text): Patient seen, examined, paced had discussed case discussed with medical library assistant. Patient seen at bedside with . Patient dressing over foot change by podiatry earlier in the day. Patient denies acute complaints. Patient has a pending follow-up appointment with Dr. Archuleta nutritional health coach tomorrow. Infectious disease has written a prescriptions needed by case management for outpatient transfusion center with required blood work. Patient to complete 3 more weeks of IV antibiotics including Cubicin and Invanz. Patient observed during the day on Invanz no adverse reactions reported. Patient medically stable for discharge. Patient provided boot be needed by podiatry on discharge. Patient follow-up with podiatry tomorrow and schedule appointment as well as to resume outpatient transfusion center with discharge of contractions noted by case management. This is a summary of patient's hospitalization please refer to EMR for full body record. Discharge diagnoses: 1. Osteomyelitis Assessment/Plan * L great toe, S/P left hallux wound debridement and excision of granulous tissue. * Podiatry on case, Dr. Wolf: * Podiatry has ordered boot which will reduce weight on the left hallux. This boot has been delivered to [place] and is ready to be picked up. * Prescription for rolling walker has also been filled and is ready to be picked up in [place]. * Pt already has appointment to follow up with Dr. Wolf on Wednesday 05/09 following discharge. Per ID (Dr. Hughes) * Cubicin 450mg IV Q24H (started 04/11) * Merrem 1gm Q8 (started 05/04) (invanz only available OP-started 04/11) * Patient was ready to be discharged today from a medical standpoint, with plans for outpatient treatment at the infusion center where the patient had already been receiving treatments. Dr. Hughes has provided prescriptions for Invanz 1gm IV Q24 and Cubicin 1gm IV Q24 for outpatient treatment at the infusion center, with treatments to continue through May 20. He will also provide prescriptions for the patient to receive weekly labs including CBD, CMP , ESR, and CPK. These prescriptions will be provided to block and case maker Niurka to give to the infusion center so patient to be discharged today 2. Peripheral Vascular Disease Assessment/Plan * angiogram with balloon angioplasty of the left anterior tibial artery 03/16 * No vascular surgical intervention required at this time * F/u Dr. Ghotra as to when to restart: * ASA 81mg PO daily - OP bleeding * Plavix 75 mg Po daily - held for now 2/2 OP bleeding 3. DM Assessment/Plan * ISS ACHS - Medium * Hypoglycemia Protocol * Hold: Metformin 500 Q12H * Invokana 300 mg daily * Glimepiride 4 mg daily 4. HTN Assessment/Plan * lisinopril 10 mg PO daily (7am) * Norvasc 5mg PO daily (7pm) 5. HLD Assessment/Plan * crestor 5mg PO daily (7pm) * hold atorvastatin 10mg PO (7pm) 6. Prophylaxis * Anticoagulation contraindicated 2/2 to blood loss due to recent surgical procedure * No SCD 2/2 to Hx of PVD * Heart Healthy/ 2g Na+/ Low carb diet * Bacid 1 tab PO BID * PT as mentioned above
--- NOTE | 2018-05-09 21:04 | OP ---
PROCEDURE DATE: 05/04/2018 SURGEON: Ignacio Barnard DPM CHILD SUPPORT CASE OFFICER: Mykel Silva MD, PGY-1 PATTERN MOLDER: Dr. Good. ANESTHESIA: IV sedation with local. 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 PROCEDURE: Left hallux sharp and Versajet wound debridement and excision of gangrenous tissue. INDICATION: The patient is a 68-year-old male with the above diagnosis. The patient has exhausted all conservative treatment at this time and now requires surgical intervention. The patient signed the consent after careful explanation of risks, benefits, complications, and alternatives of surgical procedure. No guarantees were given nor implied. N.p.o status was confirmed by taking the patient to the OR. PREPARATION: The patient was brought into the operating room and placed on the operating room table in a supine position. Time-out was performed for identification of correct patient and procedure. After induction of IV sedation and administration of 10 mL of 1:1 mixture of 1% lidocaine plain and 0.5% Marcaine plain to the left hallux in a ring block fashion, the left lower extremity was then prepped and draped in normal sterile manner and the procedure began. No tourniquet was used during the procedure. DESCRIPTION OF PROCEDURE: Attention was then directed to the medial aspect of the left hallux where a nonhealing wound measuring approximately 3 cm x 2 cm x 0.4 cm was present. A sterile #15 blade and forceps were used to excise all necrotic tissue from the wound bed and wound margins. Next, using Versajet on setting 6, the ulceration was excisionally debrided of all remaining fibrotic and nonviable tissue until fresh and healthy bleeding granular tissue appeared. The wound was dressed with Xeroform, 4 x 4 gauze, ABD, and Jerson. POSTOPERATIVE CONDITION: The patient tolerated the procedure and anesthesia well and was escorted to the recovery room with vital signs stable and neurovascular status intact to the left foot. The patient will be followed by Podiatry while in-house and follow up with Dr. Barnard upon discharge. Mykel Silva MD Ignacio Barnard DPM
== END 2018-05-08 17:40 | disposition home or self-care (01) | DRG 629 ==
LOC: C.SDS 07:26 → C.9S 09:54 → C.5S 10:55
PROVIDERS: ADMIT Family Medicine; ATTEND Family Medicine
PROC: 0QBR0ZZ Excision of Left Toe Phalanx, Open Approach (ICD-10-PCS; principal; 2018-05-04 10:15)
DX: E11.69 Type 2 diabetes mellitus with other specified complication (principal); E11.52 Type 2 diabetes mellitus with diabetic peripheral angiopathy with gangrene; I96 Gangrene, not elsewhere classified; M86.9 Osteomyelitis, unspecified; M20.5X2 Other deformities of toe(s) (acquired), left foot; E78.5 Hyperlipidemia, unspecified; I10 Essential (primary) hypertension; N40.0 Benign prostatic hyperplasia without lower urinary tract symptoms; Z79.82 Long term (current) use of aspirin; Z79.84 Long term (current) use of oral hypoglycemic drugs; Z87.891 Personal history of nicotine dependence

== ENCOUNTER 2018-07-27 21:17 | Emergency (ER) | payer OTHER ==
[2018-07-27 21:17] VITALS: BMI 27.1
[2018-07-27 21:33] VITALS: RESP 20
[2018-07-27 22:04] LABS: BASO % 0.4 % (0.0-2.0); EOS # 0.1 K/uL (0.0-0.7); EOS % 1.1 % (0.0-4.0); HEMOGLOBIN 13.6 g/dL (12.0-18.0); LYMPH # 1.1 K/uL (1.0-4.3); LYMPH % 14.1 % (20.0-40.0); MEAN CELL VOLUME 83.4 fL (80.0-94.0); MEAN CORPUSCULAR HEMOGLOBIN 27.3 pg (27.0-31.0); MEAN CORPUSCULAR HGB CONC 32.7 g/dL (33.0-37.0); MEAN PLATELET VOLUME 7.5 fL (7.2-11.7); MONO # 0.8 K/uL (0.0-0.8); MONO % 10.8 % (0.0-10.0); NEUT # 5.7 K/uL (1.8-7.0); NEUT % 73.6 % (50.0-75.0); NRBC % 0.1 % (0.0-2.0); RBC 4.98 Mil/uL (4.40-5.90); RED CELL DISTRIBUTION WIDTH 13.9 % (11.5-14.5); WHITE BLOOD COUNT 7.7 K/uL (4.8-10.8)
[2018-07-27 22:06] LABS: INR 1.1
[2018-07-27 22:09] LABS: ALBUMIN 4.4 g/dL (3.5-5.0); ALT/SGPT 15 U/L (21-72); AST/SGOT 25 U/L (17-59); BLOOD UREA NITROGEN 27 mg/dL (9-20); CALCIUM 9.8 mg/dl (8.6-10.4); GFR NON-AFRICAN AMERICAN > 60
[2018-07-27 22:15] LABS: URINE BACTERIA OCC (<OCC); URINE BILIRUBIN NEGATIVE (NEGATIVE); URINE BLOOD 1+ (NEGATIVE); URINE CLARITY Clear (Clear); URINE COLOR Yellow (YELLOW); URINE GLUCOSE (UA) 3+ mg/dL (Normal); URINE LEUKOCYTE ESTERASE NEG Leu/uL (Negative); URINE PROTEIN 2+ mg/dL (NEGATIVE)
[2018-07-27] MEDS ORDERED: Sodium Chloride 0.9% 1,000 ML IV ONE (22:26)
--- NOTE | 2018-07-27 22:26 | C.PDOC ---
Chief Complaint (Nursing): Weakness/Neurological Deficit History Per: Patient Onset/Duration Of Symptoms: Hrs Current Symptoms Are (Timing): Better Past Medical History Reviewed: Historical Data, Nursing Documentation, Vital Signs Vital Signs: Last Vital Signs Temp 98 F 07/27/18 21:24 Pulse 88 07/27/18 21:24 Resp 20 07/27/18 21:24 BP 100/68 07/27/18 21:24 Pulse Ox 97 07/27/18 21:24 - Medical History PMH: Benign Prostatic Hyperplasia (Prostatectomy 2012), Diabetes, HTN, Hypercholesterolemia - [facility] Procedures CENTRAL VENOUS CATHETER PLACEMENT WITH GUIDANCE (01/25/13) DILATION OF LEFT ANTERIOR TIBIAL ARTERY, PERC APPROACH (04/05/18) EXCISION OF LEFT TOE PHALANX, OPEN APPROACH (05/04/18) INDWELL CATH IRRIG NEC (12/20/12) INSERT INDWELLING CATH (12/24/12) INSERTION OF INFUSION DEV INTO SUP VENA CAVA, PERC APPROACH (04/05/18) PACKED CELL TRANSFUSION (12/29/12) SUPRAPUBIC PROSTATECTOMY (12/29/12) TU BLADDER CLEARANCE (12/26/12) Family History: States: No Known Family Hx - Social History Hx Tobacco Use: Yes Hx Alcohol Use: No Hx Substance Use: No - Immunization History Hx Tetanus Toxoid Vaccination: No Hx Influenza Vaccination: No Hx Pneumococcal Vaccination: No ED Course And Treatment - Laboratory Results Result Diagrams: 07/27/18 21:52 07/27/18 21:52 O2 Sat by Pulse Oximetry: 97 Disposition Counseled Patient/Family Regarding: Studies Performed, Diagnosis, Need For Followup - Disposition Referrals: Tam Turner MD [Staff Provider] - Disposition: HOME/ ROUTINE Disposition Time: 22:26 Condition: FAIR Instructions: Side Effects From Medicines Forms: [facility] (Serbian) - Clinical Impression Clinical Impression: Medication side effects
--- NOTE | 2018-07-27 22:39 | C.PDOC ---
History Of Present Illness patient was started on cymbalta for diabetic neuropathy. Starting taking the medication yesterday and he felt tired, somnolent, weak, but no neurological deficit. No f/c/n/v. So suicidal or homicidal ideation Time Seen by Provider: 07/27/18 22:26 Chief Complaint (Nursing): Weakness/Neurological Deficit History Per: Patient History/Exam Limitations: no limitations Onset/Duration Of Symptoms: Hrs Current Symptoms Are (Timing): Better Severity: Mild Pain Scale Rating Of: 3 Past Medical History Reviewed: Historical Data, Nursing Documentation, Vital Signs Vital Signs: Last Vital Signs Temp 98 F 07/27/18 21:24 Pulse 88 07/27/18 21:24 Resp 20 07/27/18 21:24 BP 100/68 07/27/18 21:24 Pulse Ox 97 07/27/18 21:24 - Medical History PMH: Benign Prostatic Hyperplasia (Prostatectomy 2012), Diabetes, HTN, Hypercholesterolemia - [facility] Procedures CENTRAL VENOUS CATHETER PLACEMENT WITH GUIDANCE (01/25/13) DILATION OF LEFT ANTERIOR TIBIAL ARTERY, PERC APPROACH (04/05/18) EXCISION OF LEFT TOE PHALANX, OPEN APPROACH (05/04/18) INDWELL CATH IRRIG NEC (12/20/12) INSERT INDWELLING CATH (12/24/12) INSERTION OF INFUSION DEV INTO SUP VENA CAVA, PERC APPROACH (04/05/18) PACKED CELL TRANSFUSION (12/29/12) SUPRAPUBIC PROSTATECTOMY (12/29/12) TU BLADDER CLEARANCE (12/26/12) Family History: States: No Known Family Hx - Social History Hx Tobacco Use: Yes Hx Alcohol Use: No Hx Substance Use: No - Immunization History Hx Tetanus Toxoid Vaccination: No Hx Influenza Vaccination: No Hx Pneumococcal Vaccination: No Review Of Systems Constitutional: Negative for: Fever, Chills Cardiovascular: Negative for: Chest Pain Respiratory: Negative for: Shortness of Breath Gastrointestinal: Negative for: Abdominal Pain Musculoskeletal: Positive for: Foot Pain Skin: Negative for: Rash Neurological: Positive for: Other (malaise) Psych: Negative for: Anxiety Physical Exam - Physical Exam Appears: Non-toxic, No Acute Distress Skin: Warm, Dry Cardiovascular: Rhythm Regular Respiratory: No Rales, No Rhonchi, No Wheezing Gastrointestinal/Abdominal: Soft, No Tenderness, No Distention Back: Normal Inspection Extremity: Normal ROM Extremity: Bilateral: Atraumatic Neurological/Psych: Oriented x3 Gait: Steady ED Course And Treatment - Laboratory Results Result Diagrams: 07/27/18 21:52 07/27/18 21:52 O2 Sat by Pulse Oximetry: 97 Pulse Ox Interpretation: Normal Reevaluation Time: 22:36 Reassessment Condition: Improved Disposition Counseled Patient/Family Regarding: Studies Performed, Diagnosis, Need For Followup - Disposition Referrals: Tam Turner MD [Staff Provider] - Disposition: HOME/ ROUTINE Disposition Time: 22:35 Condition: FAIR Instructions: Side Effects From Medicines Forms: [employer] ([place]) - Clinical Impression Clinical Impression: Medication side effects
[2018-07-27 22:56] VITALS: BP 117/76; PULSE 92; TEMP 98.9; O2SAT 96
== END 2018-07-27 22:51 | disposition home or self-care (01) ==
LOC: C.ER 21:17
DX: R53.1 Weakness (principal); T43.215A Adverse effect of selective serotonin and norepinephrine reuptake inhibitors, initial encounter

== ENCOUNTER 2018-08-10 08:30 | Inpatient (IN) | payer OTHER ==
[2018-08-10] MEDS ORDERED: Lidocaine 2% MPF (5 ml) Inj ONE (09:31)
[2018-08-10] MEDS ORDERED: Iodixanol 320 MG/ML 200 ML BOTTLE IV ONE ×2 (09:32→11:11)
[2018-08-10] MEDS ORDERED: Iodixanol 320 MG/ML 100 ML BOTTLE IV ONE (09:32)
[2018-08-10 10:38] VITALS: BMI 27.4
--- NOTE | 2018-08-10 11:39 | PCM.SURG1 ---
Surgeon's Initial Post Op Note - Surgeon's Notes Surgeon: jen [employer] Technician: 0 Type of Anesthesia: IV Sedation Anesthesia Administered By: kenny Pre-Operative Diagnosis: ischemic left toe ulcer Operative Findings: sever bilateral tibial disease see dictated report Post-Operative Diagnosis: same Operation Performed: aortofemoral angiogram Specimen/Specimens Removed: 0 Estimated Blood Loss: EBL {In ML}: 25 Blood Products Given: N/A Drains Used: No Drains Post-Op Condition: Good Date of Surgery/Procedure: 08/10/18 Time of Surgery/Procedure: 11:39
[2018-08-10] MEDS ORDERED: Dextrose 50% SYRINGE Inj (50 ml) IV PRN (13:23)
[2018-08-10] MEDS ORDERED: Glucagon Recombinant 1 mg Inj IM PRN (13:23)
--- NOTE | 2018-08-10 14:17 | CP.PCM.HP ---
<VerenajhonnyHerman - Last Filed: 08/10/18 16:30> History of Present Illness - History of Present Illness History of Present Illness: PGY-1 History and Physical [address] Presley Patient is a 68 year old male with PMHx of HTN, HLD, DM, PVD, osteomyelitis s/p L hallux wound debridement and excision of gangrenous tissue presenting for medical clearance s/p aortofemoral angiogram demonstrating worsening PVD in setting of worsening LLE pain x 3 weeks, now requiring L popliteal-tib bypass. No other acute somatic complaints, denies any chest pain, palpitations, shortness of breath. No fevers/chills, headaches, abdominal pain, n/v/d/c. PMHx: HTN, HLD, DM, PVD, OM Home Medications: Metformin 500 mg Q12h, Invokana 300 mg daily, Glimepiride 4 mg daily, Atorvastatin 10 mg daily, Amlodipine 5 mgdaily, Lisinopril 10 mg daily, Aspirin 81 mg daily, Plavix 75 mg daily, Lactobacillus Q12h PSHx: angiogram with balloon angioplasty of the left anterior tibial artery (performed at last admission), prostectomy Allergies: NKDA Family Hx: mother with DM and father with HTN Social Hx: +tobacco use-4ppd for over 40 years. Patient admits to drinking 1 small bottle of whiskey a night for many years, quit since 04/10/18. Former crack user, quit in 1984. PMD: Rose Marie Turcios Present on Admission - Present on Admission Any Indicators Present on Admission: Yes Review of Systems - Review of Systems All systems: reviewed and no additional remarkable complaints except Review of Systems: as per HPI - Constitutional Constitutional: absent: Chills, Fever, Headache - Cardiovascular Cardiovascular: absent: Chest Pain, Palpitations - Respiratory Respiratory: absent: Cough, Dyspnea - Gastrointestinal Gastrointestinal: absent: Abdominal Pain, Diarrhea, Nausea, Vomiting - Musculoskeletal Musculoskeletal: As Per HPI Additional comments: LLE cramping pain - Neurological Neurological: absent: Numbness, Tingling Past Patient History - Infectious Disease Hx of Infectious Diseases: None - Past Medical History & Family History Past Medical History?: Yes - Past Social History Smoking Status: Former Smoker - CARDIAC Hx Hypercholesterolemia: Yes Hx Hypertension: Yes - NEUROLOGICAL Other/Comment: neuropathy - ENDOCRINE/METABOLIC Hx Diabetes Mellitus Type 2: Yes - INTEGUMENTARY Hx Dermatological Problems: Yes Other/Comment: HX: GANGRENE LEFT HALLUX GREAT TOE - MUSCULOSKELETAL/RHEUMATOLOGICAL Hx Musculoskeletal Disorders: Yes - GENITOURINARY/GYNECOLOGICAL Hx Prostate Problems: Yes (surgery 12-25-2002) - PSYCHIATRIC Hx Substance Use: No - SURGICAL HISTORY Hx Angiogram: Yes Hx Angioplasty: Yes (LEFT ANTERIOR TIBIAL ARTERY) Other/Comment: Prostatectomy. HX: PICC LINE INSERTION - ANESTHESIA Hx Anesthesia: Yes Hx Anesthesia Reactions: No Hx Malignant Hyperthermia: No Meds Allergies/Adverse Reactions: Allergies Allergy/AdvReac Type Severity Reaction Status Date / Time No Known Allergies Allergy Verified 03/18/18 19:23 Physical Exam - Constitutional Appears: Non-toxic, No Acute Distress - Head Exam Head Exam: ATRAUMATIC, NORMAL INSPECTION, NORMOCEPHALIC - Eye Exam Eye Exam: EOMI, Normal appearance - ENT Exam ENT Exam: Mucous Membranes Moist, Normal Exam - Neck Exam Neck exam: Positive for: Full Rom, Normal Inspection - Respiratory Exam Respiratory Exam: Clear to Auscultation Bilateral, NORMAL BREATHING PATTERN. absent: Accessory Muscle Use, Chest Wall Tenderness, Rales, Rhonchi, Wheezes, Respiratory Distress, Stridor - Cardiovascular Exam Cardiovascular Exam: REGULAR RHYTHM, +S1, +S2 - GI/Abdominal Exam GI & Abdominal Exam: Normal Bowel Sounds, Soft. absent: Distended, Firm, Guarding, Rebound, Rigid, Tenderness - Exam Additional comments: Dressing on patients right groin clean, dry and intact. No hematoma or bleeding noted. - Extremities Exam Extremities exam: Positive for: calf tenderness, normal capillary refill, normal inspection, pedal pulses present. Negative for: pedal edema Additional comments: Ulcer noted on patients right toe and left foot, both wrapped with 4x4's and gauze. - Neurological Exam Neurological exam: Alert, Oriented x3 - Psychiatric Exam Psychiatric exam: Normal Affect, Normal Mood - Skin Skin Exam: Dry, Intact, Normal Color, Warm Results - Labs Labs: Laboratory Results - last 24 hr 08/10/18 08/10/18 09:13 12:08 POC Glucose (mg/dL) 157 H 139 H Assessment & Plan - Assessment and Plan (Free Text) Assessment: 68 year old M with pmhx of HTN, HLD, DM, OM of L hallux, PVD presenting with worsening PVD s/p cath procedure, now requiring medical clearance for L popliteal-tibial artery bypass. Plan: Worsening B/L PVD severe bilateral tibial disease -Surgery (Dr. Ghotra) on case -requiring L arterial bypass Abdominal angiography (08/07): LLE: Moderate stenosis of popliteal artery. Runoff shows severe stenosis of tibioperoneal artery. Peroneal artery is occluded. Occlusion of proximal posterior tibial artery with mid posterior tibial artery reconstitution via collaterals. RLE: Mild stenosis of popliteal artery. Peroneal artery has moderate stenosis in the mid and distal segment -s/p aortofemoral angiogram (08/10), f/u official report -CXR: no acute findings -EKG: NSR @ 64 bpm, L axis deviation -recent ECHO 04/11/18: LV normal size, normal wall thickness, EF 76% -ASA -Plavix Ulceration of L hallux Hx Osteomyelitis L hallux -ID (Dr. Hughes) on board -zosyn -Podiatry (Dr. Wolf) on board DM -home meds held -ISS medium dose -accuchecks ACHS -hypoglycemic protocol HTN -lisinopril 10 mg PO daily -norvasc 5 mg PO daily HLD -crestor 5 mg PO daily -home lipitor held PPx, Diet, Disposition -dvt ppx: scds CI 2/2 PVD -Diet: diabetic -lactobacillus q12 hrs Case discussed with Dr. Sakina Alva DO, PGY-1 <Martinez Presley H - Last Filed: 08/10/18 19:05> Results - Vital Signs Recent Vital Signs: Last Vital Signs Temp 97.3 F L 08/10/18 17:00 Pulse 66 08/10/18 17:00 Resp 20 08/10/18 17:00 BP 170/82 H 08/10/18 17:00 Pulse Ox 99 08/10/18 17:00 - Labs Result Diagrams: 08/10/18 17:03 08/10/18 17:03 Labs: Laboratory Results - last 24 hr 08/10/18 08/10/18 08/10/18 09:13 12:08 16:25 WBC RBC Hgb Hct MCV MCH MCHC RDW Plt Count MPV Neut % (Auto) Lymph % (Auto) [place] % (Auto) Eos % (Auto) Baso % (Auto) Neut # (Auto) Lymph # (Auto) [place] # (Auto) Eos # (Auto) Baso # (Auto) Sodium Potassium Chloride Carbon Dioxide Anion Gap BUN Creatinine Est GFR ( Amer) Est GFR (Non-Af Amer) POC Glucose (mg/dL) 157 H 139 H 153 H Random Glucose Hemoglobin A1c Calcium Phosphorus Magnesium Total Bilirubin AST ALT Alkaline Phosphatase Total Protein Albumin Globulin Albumin/Globulin Ratio 08/10/18 08/10/18 08/10/18 17:03 17:03 17:03 WBC 6.3 RBC 4.45 Hgb 11.8 L Hct 36.7 MCV 82.7 MCH 26.6 L MCHC 32.2 L RDW 13.5 Plt Count 465 H MPV 7.2 Neut % (Auto) 66.3 Lymph % (Auto) 19.6 L [place] % (Auto) 10.9 H Eos % (Auto) 2.8 Baso % (Auto) 0.4 Neut # (Auto) 4.2 Lymph # (Auto) 1.2 [place] # (Auto) 0.7 Eos # (Auto) 0.2 Baso # (Auto) 0.0 Sodium 137 Potassium 4.0 Chloride 102 Carbon Dioxide 28 Anion Gap 11 BUN 19 Creatinine 0.8 Est GFR ( Amer) > 60 Est GFR (Non-Af Amer) > 60 POC Glucose (mg/dL) Random Glucose 142 H Hemoglobin A1c 7.6 H Calcium 8.9 Phosphorus 3.9 Magnesium 2.2 Total Bilirubin 0.4 AST 21 ALT 14 L Alkaline Phosphatase 97 Total Protein 7.4 Albumin 3.7 Globulin 3.7 Albumin/Globulin Ratio 1.0 Attending/Attestation - Attestation I have personally seen and examined this patient.: Yes I have fully participated in the care of the patient.: Yes I have reviewed all pertinent clinical information: Yes Notes (Text): 08/10/18 19:02 Medical attending: Patient was seen and examined by me. Agree with the above note by the resident The patient was not in any acute distress when I came and saw him. He is here with history of peripheral arterial disease as well as left great toe recently found to have acute osteomylitis The patient is pending a FEM-POP bypass at some point. Currently he reports feeling well besides the lower extremity with parathesia like pain. We will need to hold the metformin as well as glimeperide due to his recent IV contrast study. Will check accuchesks and also SSI thank you Martinez Presley
--- NOTE | 2018-08-10 15:02 | RAD ---
Date of service: 08/10/2018 HISTORY: pre-op clearance COMPARISON: 04/07/2018 FINDINGS: LUNGS: No active pulmonary disease. PLEURA: No significant pleural effusion identified, no pneumothorax apparent. CARDIOVASCULAR: No aortic atherosclerotic calcification present. Normal cardiac size. No pulmonary vascular congestion. OSSEOUS STRUCTURES: No significant abnormalities. VISUALIZED UPPER ABDOMEN: Normal. OTHER FINDINGS: None. IMPRESSION: No active disease.
[2018-08-10 17:07] LABS: BASO % 0.4 % (0.0-2.0); EOS # 0.2 K/uL (0.0-0.7); EOS % 2.8 % (0.0-4.0); HEMOGLOBIN 11.8 g/dL (12.0-18.0); LYMPH # 1.2 K/uL (1.0-4.3); LYMPH % 19.6 % (20.0-40.0); MEAN CELL VOLUME 82.7 fL (80.0-94.0); MEAN CORPUSCULAR HEMOGLOBIN 26.6 pg (27.0-31.0); MEAN CORPUSCULAR HGB CONC 32.2 g/dL (33.0-37.0); MEAN PLATELET VOLUME 7.2 fL (7.2-11.7); MONO # 0.7 K/uL (0.0-0.8); MONO % 10.9 % (0.0-10.0); NEUT # 4.2 K/uL (1.8-7.0); NEUT % 66.3 % (50.0-75.0); NRBC % 0.1 % (0.0-2.0); RBC 4.45 Mil/uL (4.40-5.90); RED CELL DISTRIBUTION WIDTH 13.5 % (11.5-14.5); WHITE BLOOD COUNT 6.3 K/uL (4.8-10.8)
--- NOTE | 2018-08-10 17:10 | CP.PCM.CON ---
History of Present Illness - History of Present Illness History of Present Illness: 68 yo M admitted with ischemic ulcer to great toe which was previously infected/ treated with IV antibiotics since summer 2017 when severe PVD diagnosed and now here for rx of severe bilat tibial disease in Lower extremities referred for id eval / antibiotic managemment PMHx: DM2 PSHx: Meds: Invokana 300mg PO, Metformin 500mg PO BID Allergies: NKDA Soc Hx: 1-2 cigs/day, 5-6 drinks per week, denies drug use. 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 Lives alone Fam Hx: DM, HTN Review of Systems - Review of Systems All systems: reviewed and no additional remarkable complaints except - Constitutional Constitutional: absent: As Per HPI, Anorexia, Chills, Daytime Sleepiness, Excessive Sweating, Fatigue, Fever, Frequent Falls, Headache, Increased Appetite, Lethargy, Malaise, Night Sweats, Snoring, Sleep Apnea, Weight Gain, Weight Loss, Weakness, Other - EENT Eyes: absent: As Per HPI, Blind Spots, Blurred Vision, Change in Vision, Decreased Night Vision, Diplopia, Discharge, Dry Eye, Exophthalmos, Floaters, Irritation, Itchy Eyes, Loss of Peripheral Vision, Pain, Photophobia, Requires Corrective Lenses, Sees Flashes, Spots in Vision, Tunnel Vision, Other Visual Disturbances, Loss of Vision, Other Ears: absent: As Per HPI, Decreased Hearing, Ear Discharge, Ear Pain, Tinnitus, Abnormal Hearing, Disequilibrium, Dizziness, Other Nose/Mouth/Throat: absent: As Per HPI, Epistaxis, Nasal Congestion, Nasal Discharge, Nasal Obstruction, Nasal Trauma, Nose Pain, Post Nasal Drip, Sinus Pain, Sinus Pressure, Bleeding Gums, Change in Voice, Dental Pain, Dry Mouth, Dysphagia, Halitosis, Hoarsness, Lip Swelling, Mouth Lesions, Mouth Pain, Odynophagia, Sore Throat, Throat Swelling, Tongue Swelling, Facial Pain, Neck Pain, Neck Mass, Other - Cardiovascular Cardiovascular: absent: As Per HPI, Acrocyanosis, Chest Pain, Chest Pain at Rest, Chest Pain with Activity, Claudication, Diaphoresis, Dyspnea, Dyspnea on Exertion, Edema, Irregular Heart Rhythm, Pain Radiating to Arm/Neck/Jaw, Leg Edema, Leg Ulcers, Lightheadedness, Orthopnea, Palpitations, Paroxysmal Nocturnal Dyspnea, Pedal Edema, Radiating Pain, Rapid Heart Rate, Slow Heart Rate, Syncope, Other - Respiratory Respiratory: absent: As Per HPI, Cough, Dyspnea, Hemoptysis, Dyspnea on Exertion, Wheezing, Snoring, Stridor, Pain on Inspiration, Chest Congestion, Excessive Mucous Production, Change in Mucous Color, Pain with Coughing, Other - Gastrointestinal Gastrointestinal: absent: As Per HPI, Abdominal Pain, Belching, Bloating, Change in Bowel Habits, Change in Stool Character, Coffee Ground Emesis, Constipation, Cramping, Diarrhea, Dyspepsia, Dysphagia, Early Satiety, Excessive Flatus, Fecal Incontinence, Heartburn, Hematemesis, Hematochezia, Loose Stools, Melena, N ausea, Odynophagia, Temesmus, Vomiting, Other - Genitourinary Genitourinary: absent: As Per HPI, Change in Urinary Stream, Difficulty Urinating, Dysuria, Flank Pain, Hematuria, Pyuria, Nocturia, Urinary Incontinence, Urinary Frequency, Urinary Hesitance, Urinary Urgency, Voiding Freq/Small Amts, Freq UTI, Hx Renal/Bladder Calculi, Hx /Renal Surgery, Bladder Distension, Other - Musculoskeletal Musculoskeletal: As Per HPI - Integumentary Integumentary: As Per HPI - Neurological Neurological: absent: As Per HPI, Abnormal Gait, Abnormal Hearing, Abnormal Movements, Abnormal Speech, Behavioral Changes, Burning Sensations, Confusion, Convulsions, Disequilibrium, Dizziness, Numbness, Focal Weakness, Frequent Falls, Headaches, Lack of Coordination, Loss of Vision, Memory Loss, Paresthesias, Radicular Pain, Restless Legs, Sensory Deficit, Syncope, Tingling, Tremor, Vertigo, Weakness, Other Visual Disturbances, Other - Psychiatric Psychiatric: absent: As Per HPI, Abnormal Sleep Pattern, Anhedonia, Anxiety, Auditory Hallucinations, Behavioral Changes, Change in Appetite, Change in Libido, Confusion, Depression, Difficulty Concentrating, Hallucinations, Homicidal Ideation, Hopelessness, Irritability, Memory Loss, Mood Swings, Panic Attacks, Paranoia, Suicidal Ideation, Visual Hallucinations, Tactile Hallucinations, Other - Endocrine Endocrine: absent: As Per HPI, Change in Body Appearance, Change in Libido, Cold Intolorance, Deepening of Voice, Excessive Sweating, Fatigue, Flushing, Heat Intolorance, Increase in Ring/Shoe/Hat Size, Palpitations, Polydipsia, Polyphagia, Polyuria, Other - Hematologic/Lymphatic Hematologic: absent: As Per HPI, Easy Bleeding, Easy Bruising, Lymphadenopathy, Other Past Patient History - Infectious Disease Hx of Infectious Diseases: None - Past Medical History & Family History Past Medical History?: Yes - Past Social History Smoking Status: Former Smoker - CARDIAC Hx Hypercholesterolemia: Yes Hx Hypertension: Yes - NEUROLOGICAL Other/Comment: neuropathy - ENDOCRINE/METABOLIC Hx Diabetes Mellitus Type 2: Yes - INTEGUMENTARY Hx Dermatological Problems: Yes Other/Comment: HX: GANGRENE LEFT HALLUX GREAT TOE - MUSCULOSKELETAL/RHEUMATOLOGICAL Hx Musculoskeletal Disorders: Yes - GENITOURINARY/GYNECOLOGICAL Hx Prostate Problems: Yes (surgery 12-25-2002) - PSYCHIATRIC Hx Substance Use: No - SURGICAL HISTORY Hx Angiogram: Yes Hx Angioplasty: Yes (LEFT ANTERIOR TIBIAL ARTERY) Other/Comment: Prostatectomy. HX: PICC LINE INSERTION - ANESTHESIA Hx Anesthesia: Yes Hx Anesthesia Reactions: No Hx Malignant Hyperthermia: No Meds Allergies/Adverse Reactions: Allergies Allergy/AdvReac Type Severity Reaction Status Date / Time No Known Allergies Allergy Verified 03/18/18 19:23 - Medications Medications: Current Medications Amlodipine Besylate (Norvasc) 5 mg PO DIN@1700 DORCAS Aspirin (Aspirin Chewable) 81 mg PO DAILY [facility] Clopidogrel Bisulfate (Plavix) 75 mg PO DAILY DORCAS Dextrose (Dextrose 50% Inj) 0 ml IV STAT PRN; Protocol PRN Reason: Hypoglycemia Protocol Dextrose (Glutose 15) 0 gm PO ONCE PRN; Protocol PRN Reason: Hypoglycemia Protocol Enoxaparin Sodium (Lovenox) 30 mg SC 1000,2200 DORCAS Glucagon (Glucagen Diagnostic Kit) 0 mg IM STAT PRN; Protocol PRN Reason: Hypoglycemia Protocol Dextrose (Dextrose 5% In Water 1000 Ml) 1,000 mls @ 0 mls/hr IV .Q0M PRN; Protocol PRN Reason: Hypoglycemia Protocol Insulin Human Regular (Novolin R) 0 unit SC ACHS DORCAS; Protocol Lactobacillus Acidophilus (Bacid Acidophilus) 1 cap PO BID [facility] Lisinopril (Zestril) 10 mg PO DAILY D[facility] Rosuvastatin Calcium (Crestor) 5 mg PO HS [facility] Physical Exam - Constitutional Appears: Non-toxic, Chronically Ill - Head Exam Head Exam: NORMOCEPHALIC - Eye Exam Eye Exam: absent: Scleral icterus - ENT Exam ENT Exam: Mucous Membranes Dry - Neck Exam Neck exam: Negative for: Lymphadenopathy - Respiratory Exam Respiratory Exam: Decreased Breath Sounds - Cardiovascular Exam Cardiovascular Exam: REGULAR RHYTHM - GI/Abdominal Exam GI & Abdominal Exam: Diminished Bowel Sounds, Soft - Rectal Exam Rectal Exam: Deferred - Exam Exam: NORMAL INSPECTION - Extremities Exam Extremities exam: Positive for: full ROM, pedal edema, tenderness. Negative for: calf tenderness, normal capillary refill, normal inspection, pedal pulses present Additional comments: ischemic ulcer left great toe - Back Exam Back exam: absent: CVA tenderness (L), CVA tenderness (R) - Neurological Exam Neurological exam: Alert, CN II-XII Intact, Oriented x3, Reflexes Normal - Psychiatric Exam Psychiatric exam: Depressed - Skin Skin Exam: Dry Results - Labs Result Diagrams: 08/11/18 08:51 08/11/18 08:51 Labs: Laboratory Results - last 24 hr 08/10/18 08/10/18 09:13 12:08 POC Glucose (mg/dL) 157 H 139 H Assessment & Plan - Assessment and Plan (Free Text) Assessment: severe PVD with ischemic ulcer left great toe await cultures and procalcitonin cstart empiric IV antibiotics Podiatry eval
[2018-08-10 17:33] LABS: ALBUMIN 3.7 g/dL (3.5-5.0); ALT/SGPT 14 U/L (21-72); AST/SGOT 21 U/L (17-59); BLOOD UREA NITROGEN 19 mg/dL (9-20); CALCIUM 8.9 mg/dl (8.6-10.4); GFR NON-AFRICAN AMERICAN > 60
[2018-08-10] MEDS: (Novolin R) Insulin Human Regular 100 units/ml vial SC SCH ×2 (18:00→21:32)
[2018-08-10] MEDS: Lactobacillus Acidophilus 500 MU Cap PO SCH (19:00)
[2018-08-10] MEDS: Piperacillin/Tazobact 3.375 GM in Sodium Chloride 100 ML IVPB SCH (19:38)
--- NOTE | 2018-08-10 21:25 | VAS ---
DATE: 08/10/2018 PREOPERATIVE DIAGNOSIS: Ischemic ulceration, left foot. POSTOPERATIVE DIAGNOSIS: Ischemic ulceration, left foot. PROCEDURE CARRIED OUT: Aortofemoral angiogram via right groin with selective catheterization of left femoral artery. SURGEON: Donis Ghotra Jr., MD CHASER TAR: None. ANESTHESIOLOGIST: Dr. Joyner. ANESTHESIA: Local with sedation. INDICATIONS: This is a 68-year-old man with history of previous peripheral vascular intervention who presents with increasing pain in the legs. OPERATIVE FINDINGS: 1. The aorta and renal arteries were free of significant occlusive disease. Both common iliac, internal iliac, external iliac, common femoral and profunda femoris arteries were widely patent. On the left side, there was a perhaps 30% stenosis in the distal portion of the SFA but below this, all vessels were widely patent. 2. The trifurcation in the anterior tibial artery as previously matured was widely patent but occluded distally. 3. The posterior tibial artery was occluded and reconstituted in the distal part of the leg. 4. The peroneal artery and the tibial peroneal trunk were severely diseased (which was a new finding and tapered out distally). 5. On the right side, there was a similar angiographic pattern but not quite as bad. The SFA was patent. The popliteal artery was patent. All three tibial vessels were opened at the origin, but severely diseased throughout. DESCRIPTION OF PROCEDURE: The patient was given local anesthesia. Using ultrasound guidance, the right common femoral artery was punctured and under fluoroscopic control, the guidewire was advanced to the level of the renal artery, overlapping pictures were taken. After completion of the diagnostic study, no intervention was undertaken and our plan is to carry out a bypass on the leg. Pressure was applied to the groin. Donis Ghotra Jr., MD
[2018-08-10] MEDS: Enoxaparin 30 mg Syringe SC SCH (21:35)
[2018-08-11] MEDS: Piperacillin/Tazobact 3.375 GM in Sodium Chloride 100 ML IVPB SCH ×2 (02:16→09:06)
[2018-08-11 09:02] LABS: BASO % 0.5 % (0.0-2.0); EOS # 0.2 K/uL (0.0-0.7); HEMOGLOBIN 11.5 g/dL (12.0-18.0); LYMPH # 1.3 K/uL (1.0-4.3); LYMPH % 19.5 % (20.0-40.0); MEAN CELL VOLUME 82.1 fL (80.0-94.0); MEAN CORPUSCULAR HEMOGLOBIN 26.6 pg (27.0-31.0); MEAN CORPUSCULAR HGB CONC 32.4 g/dL (33.0-37.0); MEAN PLATELET VOLUME 7.1 fL (7.2-11.7); MONO # 0.6 K/uL (0.0-0.8); MONO % 8.6 % (0.0-10.0); NEUT # 4.5 K/uL (1.8-7.0); NEUT % 68.4 % (50.0-75.0); RBC 4.32 Mil/uL (4.40-5.90); RED CELL DISTRIBUTION WIDTH 13.4 % (11.5-14.5); WHITE BLOOD COUNT 6.6 K/uL (4.8-10.8)
[2018-08-11] MEDS: Enoxaparin 30 mg Syringe SC SCH ×2 (09:07→21:48)
[2018-08-11] MEDS: Lactobacillus Acidophilus 500 MU Cap PO SCH ×2 (09:07→18:03)
[2018-08-11] MEDS: (Novolin R) Insulin Human Regular 100 units/ml vial SC SCH ×4 (09:08→21:49)
[2018-08-11 09:20] LABS: ALBUMIN 3.8 g/dL (3.5-5.0); ALT/SGPT 11 U/L (21-72); AST/SGOT 29 U/L (17-59); BLOOD UREA NITROGEN 18 mg/dL (9-20); CALCIUM 8.9 mg/dl (8.6-10.4); GFR NON-AFRICAN AMERICAN > 60
--- NOTE | 2018-08-11 09:48 | CP.PCM.CON ---
Past Patient History - Infectious Disease Hx of Infectious Diseases: None - Past Medical History & Family History Past Medical History?: Yes - Past Social History Smoking Status: Former Smoker - CARDIAC Hx Hypercholesterolemia: Yes Hx Hypertension: Yes - NEUROLOGICAL Other/Comment: neuropathy - ENDOCRINE/METABOLIC Hx Diabetes Mellitus Type 2: Yes - INTEGUMENTARY Hx Dermatological Problems: Yes Other/Comment: HX: GANGRENE LEFT HALLUX GREAT TOE - MUSCULOSKELETAL/RHEUMATOLOGICAL Hx Musculoskeletal Disorders: Yes - GENITOURINARY/GYNECOLOGICAL Hx Prostate Problems: Yes (surgery 12-25-2002) - PSYCHIATRIC Hx Substance Use: No - SURGICAL HISTORY Hx Angiogram: Yes Hx Angioplasty: Yes (LEFT ANTERIOR TIBIAL ARTERY) Other/Comment: Prostatectomy. HX: PICC LINE INSERTION - ANESTHESIA Hx Anesthesia: Yes Hx Anesthesia Reactions: No Hx Malignant Hyperthermia: No Meds Allergies/Adverse Reactions: Allergies Allergy/AdvReac Type Severity Reaction Status Date / Time No Known Allergies Allergy Verified 03/18/18 19:23 - Medications Medications: Current Medications Amlodipine Besylate (Norvasc) 5 mg PO DIN@1700 [facility] Last Admin: 08/10/18 18:00 Dose: 5 mg Aspirin (Aspirin Chewable) 81 mg PO DAILY [facility] Last Admin: 08/11/18 09:07 Dose: 81 mg Clopidogrel Bisulfate (Plavix) 75 mg PO DAILY [facility] Last Admin: 08/11/18 09:07 Dose: 75 mg Dextrose (Dextrose 50% Inj) 0 ml IV STAT PRN; Protocol PRN Reason: Hypoglycemia Protocol Dextrose (Glutose 15) 0 gm PO ONCE PRN; Protocol PRN Reason: Hypoglycemia Protocol Enoxaparin Sodium (Lovenox) 30 mg SC 1000,2200 [facility] Last Admin: 08/11/18 09:07 Dose: 30 mg Glucagon (Glucagen Diagnostic Kit) 0 mg IM STAT PRN; Protocol PRN Reason: Hypoglycemia Protocol Dextrose (Dextrose 5% In Water 1000 Ml) 1,000 mls @ 0 mls/hr IV .Q0M PRN; Protocol PRN Reason: Hypoglycemia Protocol Piperacillin Sod/Tazobactam (Sod 3.375 gm/ Sodium Chloride) 100 mls @ 200 mls/hr IVPB Q8H [facility]; Protocol Last Admin: 08/11/18 09:06 Dose: 200 mls/hr Insulin Human Regular (Novolin R) 0 unit SC ACHS [facility]; Protocol Last Admin: 08/11/18 09:08 Dose: Not Given Lactobacillus Acidophilus (Bacid Acidophilus) 1 cap PO BID [facility] Last Admin: 08/11/18 09:07 Dose: 1 cap Lisinopril (Zestril) 10 mg PO DAILY [facility] Last Admin: 08/11/18 09:07 Dose: 10 mg Rosuvastatin Calcium (Crestor) 5 mg PO HS [facility] Last Admin: 08/10/18 21:35 Dose: 5 mg Results - Vital Signs Recent Vital Signs: Last Vital Signs Temp 98.0 F 08/11/18 07:30 Pulse 69 08/11/18 07:30 Resp 20 08/11/18 07:30 BP 119/71 08/11/18 07:30 Pulse Ox 98 08/11/18 07:30 - Labs Result Diagrams: 08/11/18 08:51 08/11/18 08:51 Labs: Laboratory Results - last 24 hr 08/10/18 08/10/18 08/10/18 12:08 16:25 17:03 WBC 6.3 RBC 4.45 Hgb 11.8 L Hct 36.7 MCV 82.7 MCH 26.6 L MCHC 32.2 L RDW 13.5 Plt Count 465 H MPV 7.2 Neut % (Auto) 66.3 Lymph % (Auto) 19.6 L [place] % (Auto) 10.9 H Eos % (Auto) 2.8 Baso % (Auto) 0.4 Neut # (Auto) 4.2 Lymph # (Auto) 1.2 [place] # (Auto) 0.7 Eos # (Auto) 0.2 Baso # (Auto) 0.0 Sodium Potassium Chloride Carbon Dioxide Anion Gap BUN Creatinine Est GFR ( Amer) Est GFR (Non-Af Amer) POC Glucose (mg/dL) 139 H 153 H Random Glucose Hemoglobin A1c Calcium Phosphorus Magnesium Total Bilirubin AST ALT Alkaline Phosphatase Total Protein Albumin Globulin Albumin/Globulin Ratio Procalcitonin 08/10/18 08/10/18 08/10/18 17:03 17:03 19:51 WBC RBC Hgb Hct MCV MCH MCHC RDW Plt Count MPV Neut % (Auto) Lymph % (Auto) [place] % (Auto) Eos % (Auto) Baso % (Auto) Neut # (Auto) Lymph # (Auto) [place] # (Auto) Eos # (Auto) Baso # (Auto) Sodium 137 Potassium 4.0 Chloride 102 Carbon Dioxide 28 Anion Gap 11 BUN 19 Creatinine 0.8 Est GFR ( Amer) > 60 Est GFR (Non-Af Amer) > 60 POC Glucose (mg/dL) Random Glucose 142 H Hemoglobin A1c 7.6 H Calcium 8.9 Phosphorus 3.9 Magnesium 2.2 Total Bilirubin 0.4 AST 21 ALT 14 L Alkaline Phosphatase 97 Total Protein 7.4 Albumin 3.7 Globulin 3.7 Albumin/Globulin Ratio 1.0 Procalcitonin 0.06 L 08/10/18 08/11/18 08/11/18 21:26 06:03 08:51 WBC 6.6 RBC 4.32 L Hgb 11.5 L Hct 35.5 MCV 82.1 MCH 26.6 L MCHC 32.4 L RDW 13.4 Plt Count 464 H MPV 7.1 L Neut % (Auto) 68.4 Lymph % (Auto) 19.5 L [place] % (Auto) 8.6 Eos % (Auto) 3.0 Baso % (Auto) 0.5 Neut # (Auto) 4.5 Lymph # (Auto) 1.3 [place] # (Auto) 0.6 Eos # (Auto) 0.2 Baso # (Auto) 0.0 Sodium Potassium Chloride Carbon Dioxide Anion Gap BUN Creatinine Est GFR ( Amer) Est GFR (Non-Af Amer) POC Glucose (mg/dL) 136 H 155 H Random Glucose Hemoglobin A1c Calcium Phosphorus Magnesium Total Bilirubin AST ALT Alkaline Phosphatase Total Protein Albumin Globulin Albumin/Globulin Ratio Procalcitonin 08/11/18 08:51 WBC RBC Hgb Hct MCV MCH MCHC RDW Plt Count MPV Neut % (Auto) Lymph % (Auto) [place] % (Auto) Eos % (Auto) Baso % (Auto) Neut # (Auto) Lymph # (Auto) [place] # (Auto) Eos # (Auto) Baso # (Auto) Sodium 136 Potassium 4.1 Chloride 100 Carbon Dioxide 26 Anion Gap 15 BUN 18 Creatinine 0.8 Est GFR ( Amer) > 60 Est GFR (Non-Af Amer) > 60 POC Glucose (mg/dL) Random Glucose 146 H Hemoglobin A1c Calcium 8.9 Phosphorus 4.2 Magnesium 2.1 Total Bilirubin 0.5 AST 29 ALT 11 L D Alkaline Phosphatase 91 Total Protein 7.6 Albumin 3.8 Globulin 3.8 Albumin/Globulin Ratio 1.0 Procalcitonin
--- NOTE | 2018-08-11 10:32 | CP.PCM.CON ---
History of Present Illness - History of Present Illness History of Present Illness: Patient is a 68 year old male with PMHx of HTN, HLD, DM, PVD, osteomyelitis s/p L hallux wound debridement and excision of gangrenous tissue presenting for medical clearance s/p aortofemoral angiogram demonstrating worsening PVD in setting of worsening LLE pain x 3 weeks, now requiring L popliteal-tib bypass. No other acute somatic complaints, denies any chest pain, palpitations, shortness of breath. No fevers/chills, headaches, abdominal pain, n/v/d/c. PMHx: HTN, HLD, DM, PVD, OM Home Medications: Metformin 500 mg Q12h, Invokana 300 mg daily, Glimepiride 4 mg daily, Atorvastatin 10 mg daily, Amlodipine 5 mgdaily, Lisinopril 10 mg daily, Aspirin 81 mg daily, Plavix 75 mg daily, Lactobacillus Q12h PSHx: angiogram with balloon angioplasty of the left anterior tibial artery (performed at last admission), prostectomy Allergies: NKDA Family Hx: mother with DM and father with HTN Social Hx: +tobacco use-4ppd for over 40 years. Patient admits to drinking 1 small bottle of whiskey a night for many years, quit since 04/10/18. Former crack user, quit in 1984. We are called to provide preoperative cardiac eval and risk assessment. Review of Systems - Review of Systems All systems: reviewed and no additional remarkable complaints except Past Patient History - Infectious Disease Hx of Infectious Diseases: None - Past Medical History & Family History Past Medical History?: Yes - Past Social History Smoking Status: Former Smoker - CARDIAC Hx Hypercholesterolemia: Yes Hx Hypertension: Yes - NEUROLOGICAL Other/Comment: neuropathy - ENDOCRINE/METABOLIC Hx Diabetes Mellitus Type 2: Yes - INTEGUMENTARY Hx Dermatological Problems: Yes Other/Comment: HX: GANGRENE LEFT HALLUX GREAT TOE - MUSCULOSKELETAL/RHEUMATOLOGICAL Hx Musculoskeletal Disorders: Yes - GENITOURINARY/GYNECOLOGICAL Hx Prostate Problems: Yes (surgery 12-25-2002) - PSYCHIATRIC Hx Substance Use: No - SURGICAL HISTORY Hx Angiogram: Yes Hx Angioplasty: Yes (LEFT ANTERIOR TIBIAL ARTERY) Other/Comment: Prostatectomy. HX: PICC LINE INSERTION - ANESTHESIA Hx Anesthesia: Yes Hx Anesthesia Reactions: No Hx Malignant Hyperthermia: No Meds Allergies/Adverse Reactions: Allergies Allergy/AdvReac Type Severity Reaction Status Date / Time No Known Allergies Allergy Verified 03/18/18 19:23 - Medications Medications: Current Medications Amlodipine Besylate (Norvasc) 5 mg PO DIN@1700 [facility] Last Admin: 08/10/18 18:00 Dose: 5 mg Aspirin (Aspirin Chewable) 81 mg PO DAILY [facility] Last Admin: 08/11/18 09:07 Dose: 81 mg Clopidogrel Bisulfate (Plavix) 75 mg PO DAILY [facility] Last Admin: 08/11/18 09:07 Dose: 75 mg Dextrose (Dextrose 50% Inj) 0 ml IV STAT PRN; Protocol PRN Reason: Hypoglycemia Protocol Dextrose (Glutose 15) 0 gm PO ONCE PRN; Protocol PRN Reason: Hypoglycemia Protocol Enoxaparin Sodium (Lovenox) 30 mg SC 1000,2200 [facility] Last Admin: 08/11/18 09:07 Dose: 30 mg Glucagon (Glucagen Diagnostic Kit) 0 mg IM STAT PRN; Protocol PRN Reason: Hypoglycemia Protocol Dextrose (Dextrose 5% In Water 1000 Ml) 1,000 mls @ 0 mls/hr IV .Q0M PRN; Protocol PRN Reason: Hypoglycemia Protocol Piperacillin Sod/Tazobactam (Sod 3.375 gm/ Sodium Chloride) 100 mls @ 200 mls/hr IVPB Q8H [facility]; Protocol Last Admin: 08/11/18 09:06 Dose: 200 mls/hr Insulin Human Regular (Novolin R) 0 unit SC ACHS [facility]; Protocol Last Admin: 08/11/18 09:08 Dose: Not Given Lactobacillus Acidophilus (Bacid Acidophilus) 1 cap PO BID [facility] Last Admin: 08/11/18 09:07 Dose: 1 cap Lisinopril (Zestril) 10 mg PO DAILY [facility] Last Admin: 08/11/18 09:07 Dose: 10 mg Rosuvastatin Calcium (Crestor) 5 mg PO HS [facility] Last Admin: 08/10/18 21:35 Dose: 5 mg Physical Exam - Constitutional Appears: No Acute Distress - Head Exam Head Exam: ATRAUMATIC, NORMAL INSPECTION, NORMOCEPHALIC - Eye Exam Eye Exam: EOMI, Normal appearance. absent: Scleral icterus - ENT Exam ENT Exam: Mucous Membranes Moist, Normal Oropharynx - Neck Exam Neck exam: Positive for: Full Rom, Normal Inspection. Negative for: Tenderness, Thyromegaly - Respiratory Exam Respiratory Exam: Clear to Auscultation Bilateral, NORMAL BREATHING PATTERN. absent: Rhonchi, Wheezes - Cardiovascular Exam Cardiovascular Exam: REGULAR RHYTHM, RRR, +S1, +S2. absent: Systolic Murmur - GI/Abdominal Exam GI & Abdominal Exam: Normal Bowel Sounds, Soft. absent: Tenderness - Extremities Exam Extremities exam: Negative for: normal inspection (L. toe ulcer, R. foot plantar ulcer, absent DP and PT) - Neurological Exam Neurological exam: Alert, Oriented x3 - Psychiatric Exam Psychiatric exam: Normal Affect, Normal Mood - Skin Skin Exam: Normal Color, Warm Results - Vital Signs Recent Vital Signs: Last Vital Signs Temp 98.0 F 08/11/18 07:30 Pulse 69 08/11/18 07:30 Resp 20 08/11/18 07:30 BP 119/71 08/11/18 07:30 Pulse Ox 98 08/11/18 07:30 - Labs Result Diagrams: 08/11/18 08:51 08/11/18 08:51 Labs: Laboratory Results - last 24 hr 08/10/18 08/10/18 08/10/18 12:08 16:25 17:03 WBC 6.3 RBC 4.45 Hgb 11.8 L Hct 36.7 MCV 82.7 MCH 26.6 L MCHC 32.2 L RDW 13.5 Plt Count 465 H MPV 7.2 Neut % (Auto) 66.3 Lymph % (Auto) 19.6 L [place] % (Auto) 10.9 H Eos % (Auto) 2.8 Baso % (Auto) 0.4 Neut # (Auto) 4.2 Lymph # (Auto) 1.2 [place] # (Auto) 0.7 Eos # (Auto) 0.2 Baso # (Auto) 0.0 Sodium Potassium Chloride Carbon Dioxide Anion Gap BUN Creatinine Est GFR ( Amer) Est GFR (Non-Af Amer) POC Glucose (mg/dL) 139 H 153 H Random Glucose Hemoglobin A1c Calcium Phosphorus Magnesium Total Bilirubin AST ALT Alkaline Phosphatase Total Protein Albumin Globulin Albumin/Globulin Ratio Procalcitonin 08/10/18 08/10/18 08/10/18 17:03 17:03 19:51 WBC RBC Hgb Hct MCV MCH MCHC RDW Plt Count MPV Neut % (Auto) Lymph % (Auto) [place] % (Auto) Eos % (Auto) Baso % (Auto) Neut # (Auto) Lymph # (Auto) [place] # (Auto) Eos # (Auto) Baso # (Auto) Sodium 137 Potassium 4.0 Chloride 102 Carbon Dioxide 28 Anion Gap 11 BUN 19 Creatinine 0.8 Est GFR ( Amer) > 60 Est GFR (Non-Af Amer) > 60 POC Glucose (mg/dL) Random Glucose 142 H Hemoglobin A1c 7.6 H Calcium 8.9 Phosphorus 3.9 Magnesium 2.2 Total Bilirubin 0.4 AST 21 ALT 14 L Alkaline Phosphatase 97 Total Protein 7.4 Albumin 3.7 Globulin 3.7 Albumin/Globulin Ratio 1.0 Procalcitonin 0.06 L 08/10/18 08/11/18 08/11/18 21:26 06:03 08:51 WBC 6.6 RBC 4.32 L Hgb 11.5 L Hct 35.5 MCV 82.1 MCH 26.6 L MCHC 32.4 L RDW 13.4 Plt Count 464 H MPV 7.1 L Neut % (Auto) 68.4 Lymph % (Auto) 19.5 L [place] % (Auto) 8.6 Eos % (Auto) 3.0 Baso % (Auto) 0.5 Neut # (Auto) 4.5 Lymph # (Auto) 1.3 [place] # (Auto) 0.6 Eos # (Auto) 0.2 Baso # (Auto) 0.0 Sodium Potassium Chloride Carbon Dioxide Anion Gap BUN Creatinine Est GFR ( Amer) Est GFR (Non-Af Amer) POC Glucose (mg/dL) 136 H 155 H Random Glucose Hemoglobin A1c Calcium Phosphorus Magnesium Total Bilirubin AST ALT Alkaline Phosphatase Total Protein Albumin Globulin Albumin/Globulin Ratio Procalcitonin 08/11/18 08:51 WBC RBC Hgb Hct MCV MCH MCHC RDW Plt Count MPV Neut % (Auto) Lymph % (Auto) [place] % (Auto) Eos % (Auto) Baso % (Auto) Neut # (Auto) Lymph # (Auto) [place] # (Auto) Eos # (Auto) Baso # (Auto) Sodium 136 Potassium 4.1 Chloride 100 Carbon Dioxide 26 Anion Gap 15 BUN 18 Creatinine 0.8 Est GFR ( Amer) > 60 Est GFR (Non-Af Amer) > 60 POC Glucose (mg/dL) Random Glucose 146 H Hemoglobin A1c Calcium 8.9 Phosphorus 4.2 Magnesium 2.1 Total Bilirubin 0.5 AST 29 ALT 11 L D Alkaline Phosphatase 91 Total Protein 7.6 Albumin 3.8 Globulin 3.8 Albumin/Globulin Ratio 1.0 Procalcitonin - EKG Data EKG Interpreted by: Myself - Imaging and Cardiology Chest x-ray Status: Image reviewed by me Assessment & Plan - Assessment and Plan (Free Text) Assessment: 68 y/o HTN, HLD, DM, PVD, Prior osteomyelitis Recent smoker and priopr substance abuse now planning LE vascular bypass for non-heeling ulcers. Patient is overall ASX and is able to perform >4mets on quatuioning him and his daughter He denies any CP or SOB No volume overload on EXAM > EKG: NSR, no acute ischemic changes > CXR: clear lung farrell, no cardiomegaly or congestion > Creat and Hgb are WNL HTN > controlled on norvasc 5 and zestril 10 (single high reading noted) PAD > cont ASA/plavix/statin > Based on significant risk factors: plan stress echo on tuesday if no significant ischemic changes then he may proceed with surgery woth acceptable risk on optimal BP and HR control and monitoring. > DVT prophylaxis - Date & Time Date: 08/11/18 Time: 16:23
--- NOTE | 2018-08-11 13:03 | CP.PCM.CON ---
History of Present Illness - History of Present Illness History of Present Illness: Podiatry Consult Note - Dr. Hoyos 68 y/o male with PMHx of DM, HTN, HLD and PVD seen at bedside for left foot ulcerations. Pt was seen earlier today by Dr. Hoyos who evaluated his foot wounds. He states he has been having gradually worse pain to the entire left lower extremity for 3-4 weeks and is awaiting a procedure to improve his blood flow. Admits that the pain is not localized to his wounds but to the entire leg from the knee down. Denies tingling or numbness to the lower extremities. Denies F/C/N/V/CP/SOB PSH: angiogram w/ balloon angioplasty, left HARPREET All: NKDA SocHx: former cigarette smoker - 4 PPD x 40 years; social EtOH; former illicit drug use (crack) Review of Systems - Review of Systems All systems: reviewed and no additional remarkable complaints except (per HPI) Past Patient History - Infectious Disease Hx of Infectious Diseases: None - Past Medical History & Family History Past Medical History?: Yes - Past Social History Smoking Status: Former Smoker - CARDIAC Hx Hypercholesterolemia: Yes Hx Hypertension: Yes - NEUROLOGICAL Other/Comment: neuropathy - ENDOCRINE/METABOLIC Hx Diabetes Mellitus Type 2: Yes - INTEGUMENTARY Hx Dermatological Problems: Yes Other/Comment: HX: GANGRENE LEFT HALLUX GREAT TOE - MUSCULOSKELETAL/RHEUMATOLOGICAL Hx Musculoskeletal Disorders: Yes - GENITOURINARY/GYNECOLOGICAL Hx Prostate Problems: Yes (surgery 12-25-2002) - PSYCHIATRIC Hx Substance Use: No - SURGICAL HISTORY Hx Angiogram: Yes Hx Angioplasty: Yes (LEFT ANTERIOR TIBIAL ARTERY) Other/Comment: Prostatectomy. HX: PICC LINE INSERTION - ANESTHESIA Hx Anesthesia: Yes Hx Anesthesia Reactions: No Hx Malignant Hyperthermia: No Meds Allergies/Adverse Reactions: Allergies Allergy/AdvReac Type Severity Reaction Status Date / Time No Known Allergies Allergy Verified 03/18/18 19:23 - Medications Medications: Current Medications Amlodipine Besylate (Norvasc) 5 mg PO DIN@1700 [facility] Last Admin: 08/10/18 18:00 Dose: 5 mg Aspirin (Aspirin Chewable) 81 mg PO DAILY [facility] Last Admin: 08/11/18 09:07 Dose: 81 mg Clopidogrel Bisulfate (Plavix) 75 mg PO DAILY [facility] Last Admin: 08/11/18 09:07 Dose: 75 mg Dextrose (Dextrose 50% Inj) 0 ml IV STAT PRN; Protocol PRN Reason: Hypoglycemia Protocol Dextrose (Glutose 15) 0 gm PO ONCE PRN; Protocol PRN Reason: Hypoglycemia Protocol Enoxaparin Sodium (Lovenox) 30 mg SC 1000,2200 [facility] Last Admin: 08/11/18 09:07 Dose: 30 mg Gabapentin (Neurontin) 100 mg PO TID [facility] Glucagon (Glucagen Diagnostic Kit) 0 mg IM STAT PRN; Protocol PRN Reason: Hypoglycemia Protocol Dextrose (Dextrose 5% In Water 1000 Ml) 1,000 mls @ 0 mls/hr IV .Q0M PRN; Protocol PRN Reason: Hypoglycemia Protocol Piperacillin Sod/Tazobactam (Sod 3.375 gm/ Sodium Chloride) 100 mls @ 200 mls/hr IVPB Q8H [facility]; Protocol Last Admin: 08/11/18 09:06 Dose: 200 mls/hr Insulin Human Regular (Novolin R) 0 unit SC ACHS [facility]; Protocol Last Admin: 08/11/18 09:08 Dose: Not Given Lactobacillus Acidophilus (Bacid Acidophilus) 1 cap PO BID [facility] Last Admin: 08/11/18 09:07 Dose: 1 cap Lisinopril (Zestril) 10 mg PO DAILY [facility] Last Admin: 08/11/18 09:07 Dose: 10 mg Rosuvastatin Calcium (Crestor) 5 mg PO HS [facility] Last Admin: 08/10/18 21:35 Dose: 5 mg Physical Exam - Constitutional Appears: Well, Non-toxic, No Acute Distress - Extremities Exam Additional comments: Left lower extremity focused exam: Vasc: DP/PT pulses faintly palpable. Temperature gradient warm to cool. CFT < 3 sec to all digits. No pedal edema noted Derm: ulceration noted to left great toe plantarly approx 1cm x 0.8cm x 0.1cm with mild erythematous and ischemic skin changes indra wound. No active drainage or purulence, no malodor, no fluctuance. Hyperkeratotic lesion noted sub met 5 left foot- post debridement of hyperkeratotic tissue, no underlying ulcer formation evident Neuro: protective sensation and gross sensation diminished Ortho: no gross biomechanical abnormalities noted - Neurological Exam Neurological exam: Alert, Oriented x3 - Psychiatric Exam Psychiatric exam: Normal Affect, Normal Mood Results - Vital Signs Recent Vital Signs: Last Vital Signs Temp 98.0 F 12/28/18 07:30 Pulse 69 08/11/18 07:30 Resp 20 08/11/18 07:30 BP 119/71 08/11/18 07:30 Pulse Ox 98 08/11/18 07:30 - Labs Result Diagrams: 08/11/18 08:51 08/11/18 08:51 Labs: Laboratory Results - last 24 hr 08/10/18 08/10/18 08/10/18 16:25 17:03 17:03 WBC 6.3 RBC 4.45 Hgb 11.8 L Hct 36.7 MCV 82.7 MCH 26.6 L MCHC 32.2 L RDW 13.5 Plt Count 465 H MPV 7.2 Neut % (Auto) 66.3 Lymph % (Auto) 19.6 L [place] % (Auto) 10.9 H Eos % (Auto) 2.8 Baso % (Auto) 0.4 Neut # (Auto) 4.2 Lymph # (Auto) 1.2 [place] # (Auto) 0.7 Eos # (Auto) 0.2 Baso # (Auto) 0.0 Sodium 137 Potassium 4.0 Chloride 102 Carbon Dioxide 28 Anion Gap 11 BUN 19 Creatinine 0.8 Est GFR ( Amer) > 60 Est GFR (Non-Af Amer) > 60 POC Glucose (mg/dL) 153 H Random Glucose 142 H Hemoglobin A1c Calcium 8.9 Phosphorus 3.9 Magnesium 2.2 Total Bilirubin 0.4 AST 21 ALT 14 L Alkaline Phosphatase 97 Total Protein 7.4 Albumin 3.7 Globulin 3.7 Albumin/Globulin Ratio 1.0 Procalcitonin 08/10/18 08/10/18 08/10/18 17:03 19:51 21:26 WBC RBC Hgb Hct MCV MCH MCHC RDW Plt Count MPV Neut % (Auto) Lymph % (Auto) [place] % (Auto) Eos % (Auto) Baso % (Auto) Neut # (Auto) Lymph # (Auto) [place] # (Auto) Eos # (Auto) Baso # (Auto) Sodium Potassium Chloride Carbon Dioxide Anion Gap BUN Creatinine Est GFR ( Amer) Est GFR (Non-Af Amer) POC Glucose (mg/dL) 136 H Random Glucose Hemoglobin A1c 7.6 H Calcium Phosphorus Magnesium Total Bilirubin AST ALT Alkaline Phosphatase Total Protein Albumin Globulin Albumin/Globulin Ratio Procalcitonin 0.06 L 08/11/18 08/11/18 08/11/18 06:03 08:51 08:51 WBC 6.6 RBC 4.32 L Hgb 11.5 L Hct 35.5 MCV 82.1 MCH 26.6 L MCHC 32.4 L RDW 13.4 Plt Count 464 H MPV 7.1 L Neut % (Auto) 68.4 Lymph % (Auto) 19.5 L [place] % (Auto) 8.6 Eos % (Auto) 3.0 Baso % (Auto) 0.5 Neut # (Auto) 4.5 Lymph # (Auto) 1.3 [place] # (Auto) 0.6 Eos # (Auto) 0.2 Baso # (Auto) 0.0 Sodium 136 Potassium 4.1 Chloride 100 Carbon Dioxide 26 Anion Gap 15 BUN 18 Creatinine 0.8 Est GFR ( Amer) > 60 Est GFR (Non-Af Amer) > 60 POC Glucose (mg/dL) 155 H Random Glucose 146 H Hemoglobin A1c Calcium 8.9 Phosphorus 4.2 Magnesium 2.1 Total Bilirubin 0.5 AST 29 ALT 11 L D Alkaline Phosphatase 91 Total Protein 7.6 Albumin 3.8 Globulin 3.8 Albumin/Globulin Ratio 1.0 Procalcitonin 08/11/18 11:05 WBC RBC Hgb Hct MCV MCH MCHC RDW Plt Count MPV Neut % (Auto) Lymph % (Auto) [place] % (Auto) Eos % (Auto) Baso % (Auto) Neut # (Auto) Lymph # (Auto) [place] # (Auto) Eos # (Auto) Baso # (Auto) Sodium Potassium Chloride Carbon Dioxide Anion Gap BUN Creatinine Est GFR ( Amer) Est GFR (Non-Af Amer) POC Glucose (mg/dL) 173 H Random Glucose Hemoglobin A1c Calcium Phosphorus Magnesium Total Bilirubin AST ALT Alkaline Phosphatase Total Protein Albumin Globulin Albumin/Globulin Ratio Procalcitonin Assessment & Plan - Assessment and Plan (Free Text) Assessment: 68 y/o male with left foot great toe ulcer with ischemic changes; peripheral arterial disease Plan Pt seen and evaluated at bedside Discussed plan with Dr. Hoyos who saw patient in hospital earlier this morning Ulcer cleaned with peroxide and dressed with Medihoney and DSD Pt to go for popliteal-tibial bypass with Dr. Ghotra - await results of procedure for further treatment plan Podiatry to continue with local wound care Will continue to follow
--- NOTE | 2018-08-11 13:03 | CP.PCM.PN ---
Subjective - Date & Time of Evaluation Date of Evaluation: 08/11/18 Time of Evaluation: 13:02 Objective - Vital Signs/Intake and Output Vital Signs (last 24 hours): Temp Pulse Resp BP Pulse Ox 98.0 F 69 20 119/71 98 08/11/18 07:30 08/11/18 07:30 08/11/18 07:30 08/11/18 07:30 08/11/18 07:30 Intake and Output: 08/11/18 08/11/18 06:59 18:59 Intake Total 10 Output Total 200 Balance -190 - Medications Medications: Current Medications Amlodipine Besylate (Norvasc) 5 mg PO DIN@1700 [facility] Last Admin: 08/10/18 18:00 Dose: 5 mg Aspirin (Aspirin Chewable) 81 mg PO DAILY [facility] Last Admin: 08/11/18 09:07 Dose: 81 mg Clopidogrel Bisulfate (Plavix) 75 mg PO DAILY [facility] Last Admin: 08/11/18 09:07 Dose: 75 mg Dextrose (Dextrose 50% Inj) 0 ml IV STAT PRN; Protocol PRN Reason: Hypoglycemia Protocol Dextrose (Glutose 15) 0 gm PO ONCE PRN; Protocol PRN Reason: Hypoglycemia Protocol Enoxaparin Sodium (Lovenox) 30 mg SC 1000,2200 [facility] Last Admin: 08/11/18 09:07 Dose: 30 mg Gabapentin (Neurontin) 100 mg PO TID [facility] Glucagon (Glucagen Diagnostic Kit) 0 mg IM STAT PRN; Protocol PRN Reason: Hypoglycemia Protocol Dextrose (Dextrose 5% In Water 1000 Ml) 1,000 mls @ 0 mls/hr IV .Q0M PRN; Protocol PRN Reason: Hypoglycemia Protocol Piperacillin Sod/Tazobactam (Sod 3.375 gm/ Sodium Chloride) 100 mls @ 200 mls/hr IVPB Q8H [facility]; Protocol Last Admin: 08/11/18 09:06 Dose: 200 mls/hr Insulin Human Regular (Novolin R) 0 unit SC ACHS [facility]; Protocol Last Admin: 08/11/18 09:08 Dose: Not Given Lactobacillus Acidophilus (Bacid Acidophilus) 1 cap PO BID [facility] Last Admin: 08/11/18 09:07 Dose: 1 cap Lisinopril (Zestril) 10 mg PO DAILY [facility] Last Admin: 08/11/18 09:07 Dose: 10 mg Rosuvastatin Calcium (Crestor) 5 mg PO HS [facility] Last Admin: 08/10/18 21:35 Dose: 5 mg - Labs Labs: 08/11/18 08:51 08/11/18 08:51
--- NOTE | 2018-08-11 17:00 | CP.PCM.PN ---
Subjective - Date & Time of Evaluation Date of Evaluation: 08/11/18 Time of Evaluation: 08:00 - Subjective Subjective: denies fever pain no drainage awaiting bypass surgery wound inspected Objective - Vital Signs/Intake and Output Vital Signs (last 24 hours): Temp Pulse Resp BP Pulse Ox 98.6 F 66 20 128/77 96 08/11/18 15:00 08/11/18 16:14 08/11/18 15:00 08/11/18 15:00 08/11/18 16:14 Intake and Output: 08/11/18 08/11/18 06:59 18:59 Intake Total 10 Output Total 200 Balance -190 - Medications Medications: Current Medications Amlodipine Besylate (Norvasc) 5 mg PO DIN@1700 [facility] Last Admin: 08/10/18 18:00 Dose: 5 mg Aspirin (Aspirin Chewable) 81 mg PO DAILY [facility] Last Admin: 08/11/18 09:07 Dose: 81 mg Clopidogrel Bisulfate (Plavix) 75 mg PO DAILY [facility] Last Admin: 08/11/18 09:07 Dose: 75 mg Dextrose (Dextrose 50% Inj) 0 ml IV STAT PRN; Protocol PRN Reason: Hypoglycemia Protocol Dextrose (Glutose 15) 0 gm PO ONCE PRN; Protocol PRN Reason: Hypoglycemia Protocol Enoxaparin Sodium (Lovenox) 30 mg SC 1000,2200 [facility] Last Admin: 08/11/18 09:07 Dose: 30 mg Gabapentin (Neurontin) 100 mg PO TID [facility] Last Admin: 08/11/18 13:50 Dose: 100 mg Glucagon (Glucagen Diagnostic Kit) 0 mg IM STAT PRN; Protocol PRN Reason: Hypoglycemia Protocol Dextrose (Dextrose 5% In Water 1000 Ml) 1,000 mls @ 0 mls/hr IV .Q0M PRN; Protocol PRN Reason: Hypoglycemia Protocol Piperacillin Sod/Tazobactam (Sod 3.375 gm/ Sodium Chloride) 100 mls @ 200 mls/hr IVPB Q8H [facility]; Protocol Last Admin: 08/11/18 09:06 Dose: 200 mls/hr Insulin Human Regular (Novolin R) 0 unit SC ACHS [facility]; Protocol Last Admin: 08/11/18 16:25 Dose: Not Given Lactobacillus Acidophilus (Bacid Acidophilus) 1 cap PO BID [facility] Last Admin: 08/11/18 09:07 Dose: 1 cap Lisinopril (Zestril) 10 mg PO DAILY [facility] Last Admin: 08/11/18 09:07 Dose: 10 mg Rosuvastatin Calcium (Crestor) 5 mg PO HS [facility] Last Admin: 08/10/18 21:35 Dose: 5 mg - Labs Labs: 08/11/18 08:51 08/11/18 08:51 - Constitutional Appears: Non-toxic, Chronically Ill - Head Exam Head Exam: NORMOCEPHALIC - Eye Exam Eye Exam: absent: Scleral icterus - ENT Exam ENT Exam: Mucous Membranes Dry - Neck Exam Neck Exam: absent: Lymphadenopathy - Respiratory Exam Respiratory Exam: Decreased Breath Sounds - Cardiovascular Exam Cardiovascular Exam: REGULAR RHYTHM - GI/Abdominal Exam GI & Abdominal Exam: Distended, Soft - Rectal Exam Rectal Exam: Deferred - Exam Exam: NORMAL INSPECTION - Extremities Exam Extremities Exam: Pedal Edema Additional comments: Left great toe ulcer with ischemic changes pulses not palpable no pus or malodor - Back Exam Back Exam: absent: CVA tenderness (L), CVA tenderness (R) - Neurological Exam Neurological Exam: Alert, Awake, CN II-XII Intact, Oriented x3 - Psychiatric Exam Psychiatric exam: Normal Mood - Skin Skin Exam: Dry Assessment and Plan - Assessment and Plan (Free Text) Assessment: ischemic ulcer left great toe- treated in past for acute infection no gross pus/ drainage at this time awaiting OR / Bypass Procalcitonin 0.6 ( low risk for sepsis )
--- NOTE | 2018-08-11 18:38 | CARD ---
APPROVED REPORT Date of service: 08/10/2018 EKG Measurement Heart [id number] <Conclusion> Normal sinus rhythm Left axis deviation Inferior infarct, age undetermined Abnormal ECG
--- NOTE | 2018-08-11 19:03 | CP.PCM.PN ---
<Guerda Lay Y - Last Filed: 08/11/18 19:00> Subjective - Date & Time of Evaluation Date of Evaluation: 08/11/18 Time of Evaluation: 09:00 - Subjective Subjective: PGY-1 Medicine Progress Note for Dr. Presley Patient was seen and examined today at bedside with son and daughter in no acute distress. Nurse reports no overnight events. Patient has no new complaints. He reports continuation of tingling on the soles of his feet, but is otherwise comfortable. Denies chest pain, shortness of breath, abdominal pain, n/v/c/d, fever, chills, dizziness, difficulty urinating. Objective - Vital Signs/Intake and Output Vital Signs (last 24 hours): Temp Pulse Resp BP Pulse Ox 98.6 F 66 20 128/77 96 08/11/18 15:00 08/11/18 16:14 08/11/18 15:00 08/11/18 15:00 08/11/18 16:14 - Medications Medications: Current Medications Amlodipine Besylate (Norvasc) 5 mg PO DIN@1700 [facility] Last Admin: 08/11/18 18:00 Dose: 5 mg Aspirin (Aspirin Chewable) 81 mg PO DAILY [facility] Last Admin: 08/11/18 09:07 Dose: 81 mg Clopidogrel Bisulfate (Plavix) 75 mg PO DAILY [facility] Last Admin: 08/11/18 09:07 Dose: 75 mg Dextrose (Dextrose 50% Inj) 0 ml IV STAT PRN; Protocol PRN Reason: Hypoglycemia Protocol Dextrose (Glutose 15) 0 gm PO ONCE PRN; Protocol PRN Reason: Hypoglycemia Protocol Enoxaparin Sodium (Lovenox) 30 mg SC 1000,2200 [facility] Last Admin: 08/11/18 09:07 Dose: 30 mg Gabapentin (Neurontin) 100 mg PO TID [facility] Last Admin: 08/11/18 18:03 Dose: 100 mg Glucagon (Glucagen Diagnostic Kit) 0 mg IM STAT PRN; Protocol PRN Reason: Hypoglycemia Protocol Dextrose (Dextrose 5% In Water 1000 Ml) 1,000 mls @ 0 mls/hr IV .Q0M PRN; Protocol PRN Reason: Hypoglycemia Protocol Cefazolin Sodium 500 mg/ (Sodium Chloride) 50 mls @ 100 mls/hr IVPB Q8H [facility]; Protocol Last Admin: 08/11/18 18:03 Dose: 100 mls/hr Insulin Human Regular (Novolin R) 0 unit SC ACHS [facility]; Protocol Last Admin: 08/11/18 16:25 Dose: Not Given Lactobacillus Acidophilus (Bacid Acidophilus) 1 cap PO BID [facility] Last Admin: 08/11/18 18:03 Dose: 1 cap Lisinopril (Zestril) 10 mg PO DAILY [facility] Last Admin: 08/11/18 09:07 Dose: 10 mg Rosuvastatin Calcium (Crestor) 5 mg PO HS [facility] Last Admin: 08/10/18 21:35 Dose: 5 mg - Labs Labs: 08/11/18 08:51 08/11/18 08:51 - Constitutional Appears: Non-toxic, No Acute Distress, Chronically Ill - Head Exam Head Exam: ATRAUMATIC, NORMOCEPHALIC - Eye Exam Eye Exam: EOMI, Normal appearance - ENT Exam ENT Exam: Mucous Membranes Moist - Respiratory Exam Respiratory Exam: Clear to Ausculation Bilateral, NORMAL BREATHING PATTERN. absent: Rales, Rhonchi, Wheezes - Cardiovascular Exam Cardiovascular Exam: REGULAR RHYTHM, +S1, +S2 - GI/Abdominal Exam GI & Abdominal Exam: Soft, Normal Bowel Sounds. absent: Tenderness - Extremities Exam Additional comments: cool to touch radial pulses palpable, pedal pulses Dopplerable Ulcer noted on patient's big toes, both wrapped by podiatry - Neurological Exam Neurological Exam: Alert, Awake, Oriented x3 - Psychiatric Exam Psychiatric exam: Normal Affect, Normal Mood - Skin Skin Exam: Dry, Normal Color, Warm Assessment and Plan - Assessment and Plan (Free Text) Assessment: 68 year old M with pmhx of HTN, HLD, DM, OM of L hallux, PVD presenting with worsening PVD s/p cath procedure, now requiring medical clearance for L popliteal-tibial artery bypass. Plan: Worsening bilateral PVD severe bilateral tibial disease L>R - Abdominal angiography (08/07): LLE: Moderate stenosis of popliteal artery. Runoff shows severe stenosis of tibioperoneal artery. Peroneal artery is occluded. Occlusion of proximal posterior tibial artery with mid posterior tibial artery reconstitution via collaterals. RLE: Mild stenosis of popliteal artery. Peroneal artery has moderate stenosis in the mid and distal segment -Aortofemoral angiogram (08/10): 1. 30% stenosis in distal portion of SFA, but below widely patent. Trifurcation in ant tibial a. was previously patent, now occluded distally. Posterior tibial a. and tibial peroneal trunk are severely diseased. Similar findings on the R but not as severe. - Vascular Surgery consulted: Dr. Brandin delvalle appreciated - Cardio consulted: Dr. Bobby delvalle appreciated. for cardiac clearance - recent ECHO 04/11/18: LV normal size, normal wall thickness, EF 76% - CXR: no acute findings - EKG: NSR @ 64 bpm, L axis deviation - stress test 08/14 - ASA 81mg po daily - Plavix 75mg po daily Ulceration of L hallux Hx Osteomyelitis L hallux - ID consulted: Dr. Ellen delvalle appreciated - Zosyn 3.375gm IVPB q8 (3 doses total 08/10-08/11) - Cefazolin 500mg IVPB q8 (started 08/11) - Podiatry consulted: Dr. Wolf - ana appreciated - redress with [facility] - f/u wound Cx Diabetes Mellitus - home Metformin and Glipizide held for contrast - Gabapentin 100mg po tid for neuropathic pain - Accucheck ACHS - ISS medium dose - hypoglycemic protocol Hypertension - Lisinopril 10mg po daily - Norvasc 5mg po with dinner Hyperlipidemia - home Lipitor -> Crestor 5 mg PO HS PPx - DVT: Lovenox 30mg sc bid, SCDs CI 2/2 PVD - GI: Bacid po bid - Diet: diabetic - PT d/w Dr. Sakina Lay PGY-1 <Martinez Presley H - Last Filed: 08/12/18 06:59> Objective - Vital Signs/Intake and Output Vital Signs (last 24 hours): Temp Pulse Resp BP Pulse Ox 98 F 65 20 106/64 96 08/11/18 23:00 08/11/18 23:00 08/11/18 23:00 08/11/18 23:00 08/11/18 23:00 Intake and Output: 08/11/18 08/12/18 18:59 06:59 Intake Total 170 Balance 170 - Medications Medications: Current Medications Amlodipine Besylate (Norvasc) 5 mg PO DIN@1700 [facility] Last Admin: 08/11/18 18:00 Dose: 5 mg Aspirin (Aspirin Chewable) 81 mg PO DAILY [facility] Last Admin: 08/11/18 09:07 Dose: 81 mg Clopidogrel Bisulfate (Plavix) 75 mg PO DAILY [facility] Last Admin: 08/11/18 09:07 Dose: 75 mg Dextrose (Dextrose 50% Inj) 0 ml IV STAT PRN; Protocol PRN Reason: Hypoglycemia Protocol Dextrose (Glutose 15) 0 gm PO ONCE PRN; Protocol PRN Reason: Hypoglycemia Protocol Docusate Sodium (Colace) 100 mg PO TID [facility] Enoxaparin Sodium (Lovenox) 30 mg SC 1000,2200 [facility] Last Admin: 08/11/18 21:48 Dose: 30 mg Gabapentin (Neurontin) 100 mg PO TID [facility] Last Admin: 08/11/18 18:03 Dose: 100 mg Glucagon (Glucagen Diagnostic Kit) 0 mg IM STAT PRN; Protocol PRN Reason: Hypoglycemia Protocol Dextrose (Dextrose 5% In Water 1000 Ml) 1,000 mls @ 0 mls/hr IV .Q0M PRN; Protocol PRN Reason: Hypoglycemia Protocol Cefazolin Sodium 500 mg/ (Sodium Chloride) 50 mls @ 100 mls/hr IVPB Q8H [facility]; Protocol Last Admin: 08/12/18 02:57 Dose: 100 mls/hr Insulin Human Regular (Novolin R) 0 unit SC ACHS [facility]; Protocol Last Admin: 08/11/18 21:49 Dose: Not Given Lactobacillus Acidophilus (Bacid Acidophilus) 1 cap PO BID [facility] Last Admin: 08/11/18 18:03 Dose: 1 cap Lisinopril (Zestril) 10 mg PO DAILY [facility] Last Admin: 08/11/18 09:07 Dose: 10 mg Rosuvastatin Calcium (Crestor) 5 mg PO HS [facility] Last Admin: 08/11/18 21:49 Dose: 5 mg - Labs Labs: 08/11/18 08:51 08/11/18 08:51 Attending/Attestation - Attestation I have personally seen and examined this patient.: Yes I have fully participated in the care of the patient.: Yes I have reviewed all pertinent clinical information, including history, physical exam and plan: Yes Notes (Text): 08/12/18 06:55 Medical attending: Patient was seen and examined by me. Agree with the above note by the resident His family members were present at bedside when we came and saw him and we discussed at length. Patient was ok with discussion with the family The patient was not in any acute distress As mentioned above in the resident note he is pending further surgical intervention for the left lower extremity peripheral arterial disease Martinez Presley
--- NOTE | 2018-08-11 20:37 | CON ---
DATE: <08/11/2018> REQUESTING PHYSICIAN: Donis Ghotra Jr., MD HISTORY OF PRESENT ILLNESS: This is a 68-year-old male, well known to me for prior podiatric surgical procedures for ulceration of the left hallux and on the plantar aspect of the fifth metatarsal of the right foot. The patient is known to have diabetes and small vessel disease of his lower extremities, being evaluated now for medical clearance for potential bypass surgery in which upon completion, a fifth metatarsal head resection can be contemplated to resolve a chronic ulceration on the plantar aspect of the right foot. The patient is alert, oriented x3, in no apparent distress and will follow up after Dr. Ghotra's planned bypass. Ignacio Barnard DPM
--- NOTE | 2018-08-12 00:26 | CP.PCM.PN ---
<Tracey Funes - Last Filed: 08/12/18 00:24> Subjective - Date & Time of Evaluation Date of Evaluation: 08/12/18 Time of Evaluation: 00:24 - Subjective Subjective: Tracey Funes PGY1 Progress note for Dr. Presley Pt was examined at bedside. Pt has no complaints. Pt denies shortness of breath, chest pain, abdominal pain, nausea, vomiting, diarrhea, dysuria. Objective - Vital Signs/Intake and Output Vital Signs (last 24 hours): Temp Pulse Resp BP Pulse Ox 98.6 F 66 20 128/77 96 08/11/18 15:00 08/11/18 16:14 08/11/18 15:00 08/11/18 15:00 08/11/18 16:14 - Medications Medications: Current Medications Amlodipine Besylate (Norvasc) 5 mg PO DIN@1700 [facility] Last Admin: 08/11/18 18:00 Dose: 5 mg Aspirin (Aspirin Chewable) 81 mg PO DAILY [facility] Last Admin: 08/11/18 09:07 Dose: 81 mg Clopidogrel Bisulfate (Plavix) 75 mg PO DAILY [facility] Last Admin: 08/11/18 09:07 Dose: 75 mg Dextrose (Dextrose 50% Inj) 0 ml IV STAT PRN; Protocol PRN Reason: Hypoglycemia Protocol Dextrose (Glutose 15) 0 gm PO ONCE PRN; Protocol PRN Reason: Hypoglycemia Protocol Docusate Sodium (Colace) 100 mg PO TID [facility] Enoxaparin Sodium (Lovenox) 30 mg SC 1000,2200 [facility] Last Admin: 08/11/18 21:48 Dose: 30 mg Gabapentin (Neurontin) 100 mg PO TID [facility] Last Admin: 08/11/18 18:03 Dose: 100 mg Glucagon (Glucagen Diagnostic Kit) 0 mg IM STAT PRN; Protocol PRN Reason: Hypoglycemia Protocol Dextrose (Dextrose 5% In Water 1000 Ml) 1,000 mls @ 0 mls/hr IV .Q0M PRN; Protocol PRN Reason: Hypoglycemia Protocol Cefazolin Sodium 500 mg/ (Sodium Chloride) 50 mls @ 100 mls/hr IVPB Q8H [facility]; Protocol Last Admin: 08/11/18 18:03 Dose: 100 mls/hr Insulin Human Regular (Novolin R) 0 unit SC ACHS [facility]; Protocol Last Admin: 08/11/18 21:49 Dose: Not Given Lactobacillus Acidophilus (Bacid Acidophilus) 1 cap PO BID [facility] Last Admin: 08/11/18 18:03 Dose: 1 cap Lisinopril (Zestril) 10 mg PO DAILY [facility] Last Admin: 08/11/18 09:07 Dose: 10 mg Rosuvastatin Calcium (Crestor) 5 mg PO HS [facility] Last Admin: 08/11/18 21:49 Dose: 5 mg - Labs Labs: 08/11/18 08:51 08/11/18 08:51 - Additional Findings Additional findings: - Constitutional Appears: Non-toxic, No Acute Distress, Chronically Ill - Head Exam Head Exam: ATRAUMATIC, NORMOCEPHALIC - Eye Exam Eye Exam: EOMI, Normal appearance - ENT Exam ENT Exam: Mucous Membranes Moist - Respiratory Exam Respiratory Exam: Clear to Ausculation Bilateral, NORMAL BREATHING PATTERN. absent: Rales, Rhonchi, Wheezes - Cardiovascular Exam Cardiovascular Exam: REGULAR RHYTHM, +S1, +S2 - GI/Abdominal Exam GI & Abdominal Exam: Soft, Normal Bowel Sounds. absent: Tenderness - Extremities Exam Additional comments: cool to touch radial pulses palpable, pedal pulses Dopplerable Ulcer noted on patient's big toes, both wrapped by podiatry - Neurological Exam Neurological Exam: Alert, Awake, Oriented x3 - Psychiatric Exam Psychiatric exam: Normal Affect, Normal Mood - Skin Skin Exam: Dry, Normal Color, Warm Assessment and Plan - Assessment and Plan (Free Text) Assessment: 68 year old M with pmhx of HTN, HLD, DM, OM of L hallux, PVD presenting with worsening PVD s/p cath procedure, now requiring medical clearance for L popliteal-tibial artery bypass. Plan: Worsening bilateral PVD severe bilateral tibial disease L>R - Abdominal angiography (08/07): LLE: Moderate stenosis of popliteal artery. Runoff shows severe stenosis of tibioperoneal artery. Peroneal artery is occluded. Occlusion of proximal posterior tibial artery with mid posterior tibial artery reconstitution via collaterals. RLE: Mild stenosis of popliteal artery. Peroneal artery has moderate stenosis in the mid and distal segment -Aortofemoral angiogram (08/10): 1. 30% stenosis in distal portion of SFA, but below widely patent. Trifurcation in ant tibial a. was previously patent, now occluded distally. Posterior tibial a. and tibial peroneal trunk are severely diseased. Similar findings on the R but not as severe. - Vascular Surgery consulted: Dr. Brandin delvalle appreciated - Cardio consulted: Dr. Bobby delvalle appreciated. for cardiac clearance - recent ECHO 04/11/18: LV normal size, normal wall thickness, EF 76% - CXR: no acute findings - EKG: NSR @ 64 bpm, L axis deviation - stress test 08/14 - ASA 81mg po daily - Plavix 75mg po daily Ulceration of L hallux Hx Osteomyelitis L hallux - ID consulted: Dr. Ellen delvalle appreciated - Zosyn 3.375gm IVPB q8 (3 doses total 08/10-08/11) - Cefazolin 500mg IVPB q8 (started 08/11) - Podiatry consulted: Dr. Wolf - help appreciated - redress with [facility] - f/u wound Cx Diabetes Mellitus - home Metformin and Glipizide held for contrast - Gabapentin 100mg po tid for neuropathic pain - Accucheck ACHS - ISS medium dose - hypoglycemic protocol Hypertension - Lisinopril 10mg po daily - Norvasc 5mg po with dinner Hyperlipidemia - home Lipitor -> Crestor 5 mg PO HS PPx - DVT: Lovenox 30mg sc bid, SCDs CI 2/2 PVD - GI: Bacid po bid - Diet: diabetic - PT <Presley,Peter H - Last Filed: 08/12/18 10:30> Objective - Vital Signs/Intake and Output Vital Signs (last 24 hours): Temp Pulse Resp BP Pulse Ox 98 F 69 20 140/81 98 08/12/18 07:00 08/12/18 09:40 08/12/18 07:00 08/12/18 09:40 08/12/18 07:00 Intake and Output: 08/12/18 08/12/18 06:59 18:59 Intake Total 170 Balance 170 - Medications Medications: Current Medications Amlodipine Besylate (Norvasc) 5 mg PO DIN@1700 [facility] Last Admin: 08/11/18 18:00 Dose: 5 mg Aspirin (Aspirin Chewable) 81 mg PO DAILY [facility] Last Admin: 08/12/18 09:39 Dose: 81 mg Clopidogrel Bisulfate (Plavix) 75 mg PO DAILY [facility] Last Admin: 08/12/18 09:39 Dose: 75 mg Dextrose (Dextrose 50% Inj) 0 ml IV STAT PRN; Protocol PRN Reason: Hypoglycemia Protocol Dextrose (Glutose 15) 0 gm PO ONCE PRN; Protocol PRN Reason: Hypoglycemia Protocol Docusate Sodium (Colace) 100 mg PO TID [facility] Last Admin: 08/12/18 09:39 Dose: 100 mg Enoxaparin Sodium (Lovenox) 30 mg SC 1000,2200 [facility] Last Admin: 08/12/18 09:39 Dose: 30 mg Gabapentin (Neurontin) 100 mg PO TID [facility] Last Admin: 08/12/18 09:39 Dose: 100 mg Glucagon (Glucagen Diagnostic Kit) 0 mg IM STAT PRN; Protocol PRN Reason: Hypoglycemia Protocol Dextrose (Dextrose 5% In Water 1000 Ml) 1,000 mls @ 0 mls/hr IV .Q0M PRN; Protocol PRN Reason: Hypoglycemia Protocol Cefazolin Sodium 500 mg/ (Sodium Chloride) 50 mls @ 100 mls/hr IVPB Q8H [facility]; Protocol Last Admin: 08/12/18 09:39 Dose: 100 mls/hr Insulin Human Regular (Novolin R) 0 unit SC ACHS [facility]; Protocol Last Admin: 08/12/18 07:33 Dose: Not Given Lactobacillus Acidophilus (Bacid Acidophilus) 1 cap PO BID [facility] Last Admin: 08/12/18 09:39 Dose: 1 cap Lisinopril (Zestril) 10 mg PO DAILY [facility] Last Admin: 08/12/18 09:39 Dose: 10 mg Rosuvastatin Calcium (Crestor) 5 mg PO HS [facility] Last Admin: 08/11/18 21:49 Dose: 5 mg - Labs Labs: 08/12/18 07:15 08/12/18 07:15 Attending/Attestation - Attestation I have personally seen and examined this patient.: Yes I have fully participated in the care of the patient.: Yes I have reviewed all pertinent clinical information, including history, physical exam and plan: Yes Notes (Text): Medical attending: Patient was seen and examined by me. Reviewed the above note by the resident - the patient was not in any acute distr ess. He reports he does have some pain in the left lower extremety - however if I understood him correctly in [place] he describes it as a vauge parathesia like pain. We started the gabapentin yesterday amd probably at some point increase this Reviewed CBC and CMP, these are stable today Also he has history of DM and currently we have SSI and not glimerperide and metformin as he has just had aortafemoral angogram and probably will have more studies requiring contrast. Patient is pending a stress echo test this comming Tuesday for preoperative evaluation. Martinez Presley 08/12/18 10:29
[2018-08-12 07:20] LABS: BASO # 0.1 K/uL (0.0-0.2); EOS # 0.2 K/uL (0.0-0.7); EOS % 3.2 % (0.0-4.0); HEMOGLOBIN 12.3 g/dL (12.0-18.0); LYMPH # 1.9 K/uL (1.0-4.3); LYMPH % 28.2 % (20.0-40.0); MEAN CELL VOLUME 83.2 fL (80.0-94.0); MEAN CORPUSCULAR HEMOGLOBIN 26.8 pg (27.0-31.0); MEAN CORPUSCULAR HGB CONC 32.2 g/dL (33.0-37.0); MONO # 0.6 K/uL (0.0-0.8); MONO % 8.8 % (0.0-10.0); NEUT % 58.8 % (50.0-75.0); RBC 4.58 Mil/uL (4.40-5.90); RED CELL DISTRIBUTION WIDTH 13.4 % (11.5-14.5); WHITE BLOOD COUNT 6.9 K/uL (4.8-10.8)
[2018-08-12 07:32] LABS: ALBUMIN 4.1 g/dL (3.5-5.0); ALT/SGPT 9 U/L (21-72); AST/SGOT 17 U/L (17-59); BLOOD UREA NITROGEN 19 mg/dL (9-20); CALCIUM 9.4 mg/dl (8.6-10.4); GFR NON-AFRICAN AMERICAN > 60
[2018-08-12] MEDS: (Novolin R) Insulin Human Regular 100 units/ml vial SC SCH ×4 (07:33→22:17)
[2018-08-12] MEDS: Enoxaparin 30 mg Syringe SC SCH ×2 (09:39→22:16)
[2018-08-12] MEDS: Lactobacillus Acidophilus 500 MU Cap PO SCH ×2 (09:39→18:01)
[2018-08-12] MEDS ORDERED: Pneumococcal 23-Valent Vaccine IM ONE (14:00)
--- NOTE | 2018-08-12 21:32 | CP.PCM.PN ---
Subjective - Date & Time of Evaluation Date of Evaluation: 08/12/18 Time of Evaluation: 10:30 - Subjective Subjective: Events reviewed Objective - Vital Signs/Intake and Output Vital Signs (last 24 hours): Temp Pulse Resp BP Pulse Ox 97.4 F L 68 20 159/84 H 99 08/12/18 15:01 08/12/18 15:01 08/12/18 15:01 08/12/18 15:01 08/12/18 15:01 Intake and Output: 08/12/18 08/13/18 18:59 06:59 Intake Total 450 Balance 450 - Medications Medications: Current Medications Amlodipine Besylate (Norvasc) 5 mg PO DIN@1700 [facility] Last Admin: 08/12/18 18:01 Dose: 5 mg Aspirin (Aspirin Chewable) 81 mg PO DAILY [facility] Last Admin: 08/12/18 09:39 Dose: 81 mg Clopidogrel Bisulfate (Plavix) 75 mg PO DAILY [facility] Last Admin: 08/12/18 09:39 Dose: 75 mg Dextrose (Dextrose 50% Inj) 0 ml IV STAT PRN; Protocol PRN Reason: Hypoglycemia Protocol Dextrose (Glutose 15) 0 gm PO ONCE PRN; Protocol PRN Reason: Hypoglycemia Protocol Docusate Sodium (Colace) 100 mg PO TID [facility] Last Admin: 08/12/18 18:01 Dose: 100 mg Enoxaparin Sodium (Lovenox) 30 mg SC 1000,2200 [facility] Last Admin: 08/12/18 09:39 Dose: 30 mg Gabapentin (Neurontin) 100 mg PO TID [facility] Last Admin: 08/12/18 18:01 Dose: 100 mg Glucagon (Glucagen Diagnostic Kit) 0 mg IM STAT PRN; Protocol PRN Reason: Hypoglycemia Protocol Dextrose (Dextrose 5% In Water 1000 Ml) 1,000 mls @ 0 mls/hr IV .Q0M PRN; Protocol PRN Reason: Hypoglycemia Protocol Cefazolin Sodium 500 mg/ (Sodium Chloride) 50 mls @ 100 mls/hr IVPB Q8H [facility]; Protocol Last Admin: 08/12/18 18:01 Dose: 100 mls/hr Insulin Human Regular (Novolin R) 0 unit SC ACHS [facility]; Protocol Last Admin: 08/12/18 18:01 Dose: 2 units Lactobacillus Acidophilus (Bacid Acidophilus) 1 cap PO BID [facility] Last Admin: 08/12/18 18:01 Dose: 1 cap Lisinopril (Zestril) 10 mg PO DAILY [facility] Last Admin: 08/12/18 09:39 Dose: 10 mg Rosuvastatin Calcium (Crestor) 5 mg PO HS [facility] Last Admin: 08/11/18 21:49 Dose: 5 mg - Labs Labs: 08/12/18 07:15 08/12/18 07:15 Assessment and Plan - Assessment and Plan (Free Text) Assessment: Physical Exam - Constitutional Appears: No Acute Distress - Head Exam Head Exam: ATRAUMATIC, NORMAL INSPECTION, NORMOCEPHALIC - Eye Exam Eye Exam: EOMI, Normal appearance. absent: Scleral icterus - ENT Exam ENT Exam: Mucous Membranes Moist, Normal Oropharynx - Neck Exam Neck exam: Positive for: Full Rom, Normal Inspection. Negative for: Tenderness, Thyromegaly - Respiratory Exam Respiratory Exam: Clear to Auscultation Bilateral, NORMAL BREATHING PATTERN. absent: Rhonchi, Wheezes - Cardiovascular Exam Cardiovascular Exam: REGULAR RHYTHM, RRR, +S1, +S2. absent: Systolic Murmur - GI/Abdominal Exam GI & Abdominal Exam: Normal Bowel Sounds, Soft. absent: Tenderness - Extremities Exam Extremities exam: Negative for: normal inspection (L. toe ulcer, R. foot plantar ulcer, absent DP and PT) - Neurological Exam Neurological exam: Alert, Oriented x3 - Psychiatric Exam Psychiatric exam: Normal Affect, Normal Mood - Skin Skin Exam: Normal Color, Warm - EKG Data EKG Interpreted by: Myself - Imaging and Cardiology Chest x-ray Status: Image reviewed by me Assessment & Plan - Assessment and Plan (Free Text) Assessment: 68 y/o HTN, HLD, DM, PVD, Prior osteomyelitis Recent smoker and priopr substance abuse now planning LE vascular bypass for non-heeling ulcers. Patient is overall ASX and is able to perform >4mets on quatuioning him and his daughter He denies any CP or SOB No volume overload on EXAM > EKG: NSR, no acute ischemic changes > CXR: clear lung farrell, no cardiomegaly or congestion > Creat and Hgb are WNL HTN > controlled on norvasc 5 and zestril 10 (single high reading noted) PAD > cont ASA/plavix/statin > Based on significant risk factors: plan stress echo on tuesday if no significant ischemic changes then he may proceed with surgery woth acceptable risk on optimal BP and HR control and monitoring. > DVT prophylaxis
--- NOTE | 2018-08-13 00:10 | CP.PCM.PN ---
<Tracey Funes - Last Filed: 08/13/18 00:09> Subjective - Date & Time of Evaluation Date of Evaluation: 08/13/18 Time of Evaluation: 00:09 - Subjective Subjective: Tracey Funes PGY1 Progress note for Dr. Presley Pt was examined at bedside. Pt has no complaints. Pt denies fever, chills, shortness of breath, chest pain, abdominal pain, nausea, vomiting, diarrhea, dysuria. Objective - Vital Signs/Intake and Output Vital Signs (last 24 hours): Temp Pulse Resp BP Pulse Ox 97.4 F L 68 20 159/84 H 99 08/12/18 15:01 08/12/18 15:01 08/12/18 15:01 08/12/18 15:01 08/12/18 15:01 Intake and Output: 08/12/18 08/13/18 18:59 06:59 Intake Total 450 Balance 450 - Medications Medications: Current Medications Amlodipine Besylate (Norvasc) 5 mg PO DIN@1700 [facility] Last Admin: 08/12/18 18:01 Dose: 5 mg Aspirin (Aspirin Chewable) 81 mg PO DAILY [facility] Last Admin: 08/12/18 09:39 Dose: 81 mg Clopidogrel Bisulfate (Plavix) 75 mg PO DAILY [facility] Last Admin: 08/12/18 09:39 Dose: 75 mg Dextrose (Dextrose 50% Inj) 0 ml IV STAT PRN; Protocol PRN Reason: Hypoglycemia Protocol Dextrose (Glutose 15) 0 gm PO ONCE PRN; Protocol PRN Reason: Hypoglycemia Protocol Docusate Sodium (Colace) 100 mg PO TID [facility] Last Admin: 08/12/18 18:01 Dose: 100 mg Enoxaparin Sodium (Lovenox) 30 mg SC 1000,2200 [facility] Last Admin: 08/12/18 22:16 Dose: 30 mg Gabapentin (Neurontin) 100 mg PO TID [facility] Last Admin: 08/12/18 18:01 Dose: 100 mg Glucagon (Glucagen Diagnostic Kit) 0 mg IM STAT PRN; Protocol PRN Reason: Hypoglycemia Protocol Dextrose (Dextrose 5% In Water 1000 Ml) 1,000 mls @ 0 mls/hr IV .Q0M PRN; Protocol PRN Reason: Hypoglycemia Protocol Cefazolin Sodium 500 mg/ (Sodium Chloride) 50 mls @ 100 mls/hr IVPB Q8H [facility]; Protocol Last Admin: 08/12/18 18:01 Dose: 100 mls/hr Insulin Human Regular (Novolin R) 0 unit SC ACHS [facility]; Protocol Last Admin: 08/12/18 22:17 Dose: Not Given Lactobacillus Acidophilus (Bacid Acidophilus) 1 cap PO BID [facility] Last Admin: 08/12/18 18:01 Dose: 1 cap Lisinopril (Zestril) 10 mg PO DAILY [facility] Last Admin: 08/12/18 09:39 Dose: 10 mg Rosuvastatin Calcium (Crestor) 5 mg PO HS [facility] Last Admin: 08/12/18 22:16 Dose: 5 mg - Labs Labs: 08/12/18 07:15 08/12/18 07:15 - Additional Findings Additional findings: - Constitutional Appears: Non-toxic, No Acute Distress, Chronically Ill - Head Exam Head Exam: ATRAUMATIC, NORMOCEPHALIC - Eye Exam Eye Exam: EOMI, Normal appearance - ENT Exam ENT Exam: Mucous Membranes Moist - Respiratory Exam Respiratory Exam: Clear to Ausculation Bilateral, NORMAL BREATHING PATTERN. absent: Rales, Rhonchi, Wheezes - Cardiovascular Exam Cardiovascular Exam: REGULAR RHYTHM, +S1, +S2 - GI/Abdominal Exam GI & Abdominal Exam: Soft, Normal Bowel Sounds. absent: Tenderness - Extremities Exam Additional comments: cool to touch radial pulses palpable, pedal pulses Dopplerable Ulcer noted on patient's big toes, both wrapped by podiatry - Neurological Exam Neurological Exam: Alert, Awake, Oriented x3 - Psychiatric Exam Psychiatric exam: Normal Affect, Normal Mood - Skin Skin Exam: Dry, Normal Color, Warm Assessment and Plan - Assessment and Plan (Free Text) Assessment: 68 year old M with pmhx of HTN, HLD, DM, OM of L hallux, PVD presenting with worsening PVD s/p cath procedure, now requiring medical clearance for L popliteal-tibial artery bypass. Plan: Worsening bilateral PVD severe bilateral tibial disease L>R - Abdominal angiography (08/07): LLE: Moderate stenosis of popliteal artery. Runoff shows severe stenosis of tibioperoneal artery. Peroneal artery is occlude d. Occlusion of proximal posterior tibial artery with mid posterior tibial artery reconstitution via collaterals. RLE: Mild stenosis of popliteal artery. Peroneal artery has moderate stenosis in the mid and distal segment -Aortofemoral angiogram (08/10): 1. 30% stenosis in distal portion of SFA, but below widely patent. Trifurcation in ant tibial a. was previously patent, now occluded distally. Posterior tibial a. and tibial peroneal trunk are severely diseased. Similar findings on the R but not as severe. - Vascular Surgery consulted: Dr. Brandin delvalle appreciated - Cardio consulted: Dr. Bobby delvalle appreciated. for cardiac clearance - recent ECHO 04/11/18: LV normal size, normal wall thickness, EF 76% - CXR: no acute findings - EKG: NSR @ 64 bpm, L axis deviation - stress test Tue, 08/14 - ASA 81mg po daily - Plavix 75mg po daily Ulceration of L hallux Hx Osteomyelitis L hallux - ID consulted: Dr. Ellen delvalle appreciated - Zosyn 3.375gm IVPB q8 (3 doses total 08/10-08/11) - Cefazolin 500mg IVPB q8 (started 08/11) - Podiatry consulted: Dr. Wolf - help appreciated - redress with [facility] - f/u wound Cx Diabetes Mellitus - home Metformin and Glipizide held for contrast - Gabapentin 100mg po tid for neuropathic pain - Accucheck ACHS - ISS medium dose - hypoglycemic protocol Hypertension - Lisinopril 10mg po daily - Norvasc 5mg po with dinner Hyperlipidemia - home Lipitor -> Crestor 5 mg PO HS PPx - DVT: Lovenox 30mg sc bid, SCDs CI 2/2 PVD - GI: Bacid po bid - Diet: diabetic - PT <Presley,Peter H - Last Filed: 08/13/18 09:52> Objective - Vital Signs/Intake and Output Vital Signs (last 24 hours): Temp Pulse Resp BP Pulse Ox 98.3 F 74 18 122/70 98 08/13/18 07:35 08/13/18 09:37 08/13/18 07:35 08/13/18 09:37 08/13/18 07:35 Intake and Output: 08/13/18 08/13/18 06:59 18:59 Intake Total 170 Balance 170 - Medications Medications: Current Medications Amlodipine Besylate (Norvasc) 5 mg PO DIN@1700 [facility] Last Admin: 08/12/18 18:01 Dose: 5 mg Aspirin (Aspirin Chewable) 81 mg PO DAILY [facility] Last Admin: 08/13/18 09:38 Dose: 81 mg Clopidogrel Bisulfate (Plavix) 75 mg PO DAILY [facility] Last Admin: 08/13/18 09:38 Dose: 75 mg Dextrose (Dextrose 50% Inj) 0 ml IV STAT PRN; Protocol PRN Reason: Hypoglycemia Protocol Dextrose (Glutose 15) 0 gm PO ONCE PRN; Protocol PRN Reason: Hypoglycemia Protocol Docusate Sodium (Colace) 100 mg PO TID [facility] Last Admin: 08/13/18 09:38 Dose: 100 mg Enoxaparin Sodium (Lovenox) 30 mg SC 1000,2200 [facility] Last Admin: 08/13/18 09:38 Dose: 30 mg Gabapentin (Neurontin) 100 mg PO TID [facility] Last Admin: 08/13/18 09:38 Dose: 100 mg Glucagon (Glucagen Diagnostic Kit) 0 mg IM STAT PRN; Protocol PRN Reason: Hypoglycemia Protocol Dextrose (Dextrose 5% In Water 1000 Ml) 1,000 mls @ 0 mls/hr IV .Q0M PRN; Protocol PRN Reason: Hypoglycemia Protocol Cefazolin Sodium 500 mg/ (Sodium Chloride) 50 mls @ 100 mls/hr IVPB Q8H [facility]; Protocol Last Admin: 08/13/18 09:38 Dose: 100 mls/hr Insulin Human Regular (Novolin R) 0 unit SC ACHS [facility]; Protocol Last Admin: 08/13/18 08:00 Dose: 2 units Lactobacillus Acidophilus (Bacid Acidophilus) 1 cap PO BID [facility] Last Admin: 08/13/18 09:38 Dose: 1 cap Lisinopril (Zestril) 10 mg PO DAILY [facility] Last Admin: 08/13/18 09:38 Dose: 10 mg Rosuvastatin Calcium (Crestor) 5 mg PO HS [facility] Last Admin: 08/12/18 22:16 Dose: 5 mg - Labs Labs: 08/13/18 07:49 08/13/18 07:49 Attending/Attestation - Attestation I have personally seen and examined this patient.: Yes I have fully participated in the care of the patient.: Yes I have reviewed all pertinent clinical information, including history, physical exam and plan: Yes Notes (Text): 08/13/18 09:49 Medical attending: Patient was seen and examined by me. Agree with the above note by the resident The patient was not in any acute distress when I came and saw Patient is pending further cardiac testing tomorrow before the potential vascular surgery He did not have any concerns or events overnight. Martinez Presley
[2018-08-13] MEDS: (Novolin R) Insulin Human Regular 100 units/ml vial SC SCH ×4 (08:00→21:47)
[2018-08-13 08:01] LABS: BASO % 0.5 % (0.0-2.0); EOS # 0.2 K/uL (0.0-0.7); HEMOGLOBIN 11.5 g/dL (12.0-18.0); LYMPH # 1.3 K/uL (1.0-4.3); LYMPH % 22.2 % (20.0-40.0); MEAN CELL VOLUME 82.5 fL (80.0-94.0); MEAN CORPUSCULAR HEMOGLOBIN 27.9 pg (27.0-31.0); MEAN CORPUSCULAR HGB CONC 33.8 g/dL (33.0-37.0); MEAN PLATELET VOLUME 7.3 fL (7.2-11.7); MONO # 0.6 K/uL (0.0-0.8); MONO % 9.6 % (0.0-10.0); NEUT # 3.9 K/uL (1.8-7.0); NEUT % 63.7 % (50.0-75.0); RBC 4.11 Mil/uL (4.40-5.90); RED CELL DISTRIBUTION WIDTH 13.5 % (11.5-14.5)
[2018-08-13 08:28] LABS: ALB/GLOB RATIO 1.1 (1.0-2.1); ALBUMIN 3.7 g/dL (3.5-5.0); ALT/SGPT 11 U/L (21-72); AST/SGOT 25 U/L (17-59); BLOOD UREA NITROGEN 19 mg/dL (9-20); CALCIUM 9.1 mg/dl (8.6-10.4); GFR NON-AFRICAN AMERICAN > 60
[2018-08-13] MEDS: Lactobacillus Acidophilus 500 MU Cap PO SCH ×2 (09:38→17:28)
[2018-08-13] MEDS: Enoxaparin 30 mg Syringe SC SCH ×2 (09:38→21:23)
--- NOTE | 2018-08-13 10:05 | CP.PCM.PN ---
Subjective - Date & Time of Evaluation Date of Evaluation: 08/13/18 Time of Evaluation: 10:03 - Subjective Subjective: Podiatry consult note for Dr. Wolf 68 y/o male patient seen and evaluated at bedside. Patient is resting comfortably in chair at bedside. Patient denies any other complaints. Patient is aware of Stress ECHO tomorrow. Objective - Vital Signs/Intake and Output Vital Signs (last 24 hours): Temp Pulse Resp BP Pulse Ox 98.3 F 74 18 122/70 98 08/13/18 07:35 08/13/18 09:37 08/13/18 07:35 08/13/18 09:37 08/13/18 07:35 Intake and Output: 08/13/18 08/13/18 06:59 18:59 Intake Total 170 Balance 170 - Medications Medications: Current Medications Amlodipine Besylate (Norvasc) 5 mg PO DIN@1700 [facility] Last Admin: 08/12/18 18:01 Dose: 5 mg Aspirin (Aspirin Chewable) 81 mg PO DAILY [facility] Last Admin: 08/13/18 09:38 Dose: 81 mg Clopidogrel Bisulfate (Plavix) 75 mg PO DAILY [facility] Last Admin: 08/13/18 09:38 Dose: 75 mg Dextrose (Dextrose 50% Inj) 0 ml IV STAT PRN; Protocol PRN Reason: Hypoglycemia Protocol Dextrose (Glutose 15) 0 gm PO ONCE PRN; Protocol PRN Reason: Hypoglycemia Protocol Docusate Sodium (Colace) 100 mg PO TID [facility] Last Admin: 08/13/18 09:38 Dose: 100 mg Enoxaparin Sodium (Lovenox) 30 mg SC 1000,2200 [facility] Last Admin: 08/13/18 09:38 Dose: 30 mg Gabapentin (Neurontin) 100 mg PO TID [facility] Last Admin: 08/13/18 09:38 Dose: 100 mg Glucagon (Glucagen Diagnostic Kit) 0 mg IM STAT PRN; Protocol PRN Reason: Hypoglycemia Protocol Dextrose (Dextrose 5% In Water 1000 Ml) 1,000 mls @ 0 mls/hr IV .Q0M PRN; Protocol PRN Reason: Hypoglycemia Protocol Cefazolin Sodium 500 mg/ (Sodium Chloride) 50 mls @ 100 mls/hr IVPB Q8H [facility]; Protocol Last Admin: 08/13/18 09:38 Dose: 100 mls/hr Insulin Human Regular (Novolin R) 0 unit SC ACHS [facility]; Protocol Last Admin: 08/13/18 08:00 Dose: 2 units Lactobacillus Acidophilus (Bacid Acidophilus) 1 cap PO BID [facility] Last Admin: 08/13/18 09:38 Dose: 1 cap Lisinopril (Zestril) 10 mg PO DAILY [facility] Last Admin: 08/13/18 09:38 Dose: 10 mg Rosuvastatin Calcium (Crestor) 5 mg PO HS [facility] Last Admin: 08/12/18 22:16 Dose: 5 mg - Labs Labs: 08/13/18 07:49 08/13/18 07:49 - Constitutional Appears: Well, Non-toxic, No Acute Distress - Head Exam Head Exam: ATRAUMATIC, NORMOCEPHALIC - Extremities Exam Additional comments: Left lower extremity focused exam: Vasc: DP/PT pulses faintly palpable. Temperature gradient warm to cool. CFT < 3 sec to all digits. No pedal edema noted Derm: ulceration noted to left great toe plantarly approx 1cm x 0.8cm x 0.1cm with mild erythematous and ischemic skin changes indra wound. No active drainage or purulence, no malodor, no fluctuance. Hyperkeratotic lesion noted sub met 5 left foot- post debridement of hyperkeratotic tissue, no underlying ulcer formation evident Neuro: protective sensation and gross sensation diminished Ortho: no gross biomechanical abnormalities noted - Neurological Exam Neurological Exam: Alert, Awake, Oriented x3 - Psychiatric Exam Psychiatric exam: Normal Affect, Normal Mood Assessment and Plan - Assessment and Plan (Free Text) Assessment: 68 y/o male with left foot great toe ulcer with ischemic changes; peripheral arterial disease Plan: Pt seen and evaluated at bedside Discussed plan with Dr. Wolf Chart, labs and vitals reviewed- afebrile, absent leukocytosis Ulcer cleaned with peroxide and dressed with Medihoney and DSD Patient scheduled for Stress ECHO tomorrow Pt to go for popliteal-tibial bypass with Dr. Ghotra - await results of procedure for further treatment plan Podiatry to continue with local wound care Will continue to follow
--- NOTE | 2018-08-13 15:00 | CP.PCM.PN ---
Subjective - Date & Time of Evaluation Date of Evaluation: 08/13/18 Time of Evaluation: 08:00 - Subjective Subjective: denies fever pain no drainage awaiting bypass surgery wound inspected Objective - Vital Signs/Intake and Output Vital Signs (last 24 hours): Temp Pulse Resp BP Pulse Ox 98.3 F 74 18 122/70 98 08/13/18 07:35 08/13/18 09:37 08/13/18 07:35 08/13/18 09:37 08/13/18 07:35 Intake and Output: 08/13/18 08/13/18 06:59 18:59 Intake Total 170 450 Balance 170 450 - Medications Medications: Current Medications Amlodipine Besylate (Norvasc) 5 mg PO DIN@1700 [facility] Last Admin: 08/12/18 18:01 Dose: 5 mg Aspirin (Aspirin Chewable) 81 mg PO DAILY [facility] Last Admin: 08/13/18 09:38 Dose: 81 mg Clopidogrel Bisulfate (Plavix) 75 mg PO DAILY [facility] Last Admin: 08/13/18 09:38 Dose: 75 mg Dextrose (Dextrose 50% Inj) 0 ml IV STAT PRN; Protocol PRN Reason: Hypoglycemia Protocol Dextrose (Glutose 15) 0 gm PO ONCE PRN; Protocol PRN Reason: Hypoglycemia Protocol Docusate Sodium (Colace) 100 mg PO TID [facility] Last Admin: 08/13/18 13:39 Dose: 100 mg Enoxaparin Sodium (Lovenox) 30 mg SC 1000,2200 [facility] Last Admin: 08/13/18 09:38 Dose: 30 mg Gabapentin (Neurontin) 100 mg PO TID [facility] Last Admin: 08/13/18 13:39 Dose: 100 mg Glucagon (Glucagen Diagnostic Kit) 0 mg IM STAT PRN; Protocol PRN Reason: Hypoglycemia Protocol Cefazolin Sodium 500 mg/ (Sodium Chloride) 50 mls @ 100 mls/hr IVPB Q8H [facility]; Protocol Last Admin: 08/13/18 09:38 Dose: 100 mls/hr Insulin Human Regular (Novolin R) 0 unit SC ACHS [facility]; Protocol Last Admin: 08/13/18 12:01 Dose: 2 units Lactobacillus Acidophilus (Bacid Acidophilus) 1 cap PO BID [facility] Last Admin: 08/13/18 09:38 Dose: 1 cap Lisinopril (Zestril) 10 mg PO DAILY [facility] Last Admin: 08/13/18 09:38 Dose: 10 mg Rosuvastatin Calcium (Crestor) 5 mg PO HS [facility] Last Admin: 08/12/18 22:16 Dose: 5 mg - Labs Labs: 08/13/18 07:49 08/13/18 07:49 - Constitutional Appears: Non-toxic, Chronically Ill - Head Exam Head Exam: NORMOCEPHALIC - Eye Exam Eye Exam: absent: Scleral icterus - ENT Exam ENT Exam: Mucous Membranes Dry - Neck Exam Neck Exam: absent: Lymphadenopathy - Respiratory Exam Respiratory Exam: Decreased Breath Sounds - Cardiovascular Exam Cardiovascular Exam: REGULAR RHYTHM - GI/Abdominal Exam GI & Abdominal Exam: Distended, Soft - Rectal Exam Rectal Exam: Deferred - Exam Exam: NORMAL INSPECTION - Extremities Exam Extremities Exam: absent: Pedal Edema - Back Exam Back Exam: absent: CVA tenderness (L), CVA tenderness (R) - Neurological Exam Neurological Exam: Alert, Awake, Oriented x3 - Psychiatric Exam Psychiatric exam: Depressed Assessment and Plan - Assessment and Plan (Free Text) Assessment: denies fever pain no drainage awaiting bypass surgery wound inspected
[2018-08-14 07:17] LABS: BASO % 0.7 % (0.0-2.0); EOS # 0.2 K/uL (0.0-0.7); EOS % 3.8 % (0.0-4.0); HEMOGLOBIN 11.5 g/dL (12.0-18.0); LYMPH # 1.5 K/uL (1.0-4.3); LYMPH % 28.7 % (20.0-40.0); MEAN CELL VOLUME 82.7 fL (80.0-94.0); MEAN CORPUSCULAR HEMOGLOBIN 26.6 pg (27.0-31.0); MEAN CORPUSCULAR HGB CONC 32.2 g/dL (33.0-37.0); MEAN PLATELET VOLUME 7.5 fL (7.2-11.7); MONO # 0.5 K/uL (0.0-0.8); MONO % 9.8 % (0.0-10.0); NEUT # 3.1 K/uL (1.8-7.0); RBC 4.32 Mil/uL (4.40-5.90); RED CELL DISTRIBUTION WIDTH 13.3 % (11.5-14.5); WHITE BLOOD COUNT 5.4 K/uL (4.8-10.8)
--- NOTE | 2018-08-14 07:34 | CP.PCM.PN ---
<Herman Alva - Last Filed: 08/14/18 11:00> Subjective - Date & Time of Evaluation Date of Evaluation: 08/14/18 Time of Evaluation: 07:34 - Subjective Subjective: PGY-1 Medicine Progress Note for Dr. Black Patient seen and examined at bedside this AM. No acute overnight events reported. Patient scheduled for stress test this AM prior to OR scheduled for Wed. No acute somatic complaints at this time. Denies fevers/chills, chest pain, palpitations, abdominal pain, cough, sob, n/v/d/c. Objective - Vital Signs/Intake and Output Vital Signs (last 24 hours): Temp Pulse Resp BP Pulse Ox 98.1 F 69 20 120/75 95 08/13/18 23:00 08/13/18 23:00 08/13/18 23:00 08/13/18 23:00 08/13/18 23:00 Intake and Output: 08/14/18 08/14/18 06:59 18:59 Intake Total 550 Balance 550 - Medications Medications: Current Medications Amlodipine Besylate (Norvasc) 5 mg PO DIN@1700 [facility] Last Admin: 08/13/18 17:28 Dose: 5 mg Aspirin (Aspirin Chewable) 81 mg PO DAILY [facility] Last Admin: 08/13/18 09:38 Dose: 81 mg Clopidogrel Bisulfate (Plavix) 75 mg PO DAILY [facility] Last Admin: 08/13/18 09:38 Dose: 75 mg Dextrose (Dextrose 50% Inj) 0 ml IV STAT PRN; Protocol PRN Reason: Hypoglycemia Protocol Dextrose (Glutose 15) 0 gm PO ONCE PRN; Protocol PRN Reason: Hypoglycemia Protocol Docusate Sodium (Colace) 100 mg PO TID [facility] Last Admin: 08/13/18 17:28 Dose: 100 mg Enoxaparin Sodium (Lovenox) 30 mg SC 1000,2200 [facility] Last Admin: 08/13/18 21:23 Dose: 30 mg Gabapentin (Neurontin) 100 mg PO TID [facility] Last Admin: 08/13/18 17:28 Dose: 100 mg Glucagon (Glucagen Diagnostic Kit) 0 mg IM STAT PRN; Protocol PRN Reason: Hypoglycemia Protocol Cefazolin Sodium 500 mg/ (Sodium Chloride) 50 mls @ 100 mls/hr IVPB Q8H [facility]; Protocol Last Admin: 08/14/18 01:24 Dose: 100 mls/hr Insulin Human Regular (Novolin R) 0 unit SC ACHS [facility]; Protocol Last Admin: 08/13/18 21:47 Dose: Not Given Lactobacillus Acidophilus (Bacid Acidophilus) 1 cap PO BID [facility] Last Admin: 08/13/18 17:28 Dose: 1 cap Lisinopril (Zestril) 10 mg PO DAILY [facility] Last Admin: 08/13/18 09:38 Dose: 10 mg Rosuvastatin Calcium (Crestor) 5 mg PO HS [facility] Last Admin: 08/13/18 21:23 Dose: 5 mg - Labs Labs: 08/14/18 07:05 08/13/18 07:49 - Constitutional Appears: Non-toxic, No Acute Distress - Head Exam Head Exam: ATRAUMATIC, NORMAL INSPECTION, NORMOCEPHALIC - Eye Exam Eye Exam: EOMI, Normal appearance, PERRL Pupil Exam: NORMAL ACCOMODATION - ENT Exam ENT Exam: Mucous Membranes Moist, Normal Exam - Neck Exam Neck Exam: Full ROM, Normal Inspection - Respiratory Exam Respiratory Exam: Clear to Ausculation Bilateral, NORMAL BREATHING PATTERN. absent: Accessory Muscle Use, Rales, Rhonchi, Wheezes, Respiratory Distress, Stridor - Cardiovascular Exam Cardiovascular Exam: REGULAR RHYTHM, +S1, +S2 - GI/Abdominal Exam GI & Abdominal Exam: Soft, Normal Bowel Sounds. absent: Distended, Firm, Guarding, Rigid, Tenderness, Organomegaly, Rebound - Extremities Exam Additional comments: cool to touch radial pulses palpable, pedal pulses present on Doppler Ulcer noted on patient's big toes, both wrapped by podiatry - Neurological Exam Neurological Exam: Alert, Awake, Oriented x3 - Psychiatric Exam Psychiatric exam: Normal Affect, Normal Mood Assessment and Plan - Assessment and Plan (Free Text) Assessment: 68 year old M with pmhx of HTN, HLD, DM, OM of L hallux, PVD presenting with worsening PVD s/p cath procedure, now requiring medical clearance for bypass surgery. Plan: Worsening bilateral PVD severe bilateral tibial disease L>R - Abdominal angiography (08/07): LLE: Moderate stenosis of popliteal artery. Runoff shows severe stenosis of tibioperoneal artery. Peroneal artery is occluded. Occlusion of proximal posterior tibial artery with mid posterior tibial artery reconstitution via collaterals. RLE: Mild stenosis of popliteal artery. Peroneal artery has moderate stenosis in the mid and distal segment -Aortofemoral angiogram (08/10): 1. 30% stenosis in distal portion of SFA, but below widely patent. Trifurcation in ant tibial a. was previously patent, now occluded distally. Posterior tibial a. and tibial peroneal trunk are severely diseased. Similar findings on the R but not as severe. - Vascular Surgery consulted: Dr. Ghotra - adelia appreciated - Cardio consulted: Dr. Bobby delvalle appreciated. for cardiac clearance - recent ECHO 04/11/18: LV normal size, normal wall thickness, EF 76% - CXR: no acute findings - EKG: NSR @ 64 bpm, L axis deviation - Stress echo (08/14): No reversible ischemia with dobutamine stress-->may proceed with surgery with acceptable risk on optimal BP and HR control and monitoring. - ASA 81mg po daily - Plavix 75mg po daily Ulceration of L hallux Hx Osteomyelitis L hallux -ID recs (Dr. Hughes) appreciated -Podiatry consulted: Dr. Wolf - help appreciated - redress with [facility] -Zosyn 3.375gm IVPB q8 (3 doses total 08/10-08/11) -Cefazolin 500mg IVPB q8 (started 08/11) - wound cx (08/11): +proteus mirabilis, group F strep -f/u further ID recs DM - home Metformin and Glipizide held for contrast - Gabapentin 100mg po tid for neuropathic pain - Accucheck ACHS - ISS medium dose - hypoglycemic protocol HTN - Lisinopril 10mg po daily - Norvasc 5mg po with dinner HLD -Crestor 5 mg PO HS PPx, Diet, Disposition - DVT: Lovenox 30mg sc bid, SCDs CI 2/2 PVD - GI: Bacid po bid - Diet: diabetic - Dispo: Medically cleared for OR on Tuesday (08/16) Case discussed with Dr. Wayne Alva DO, PGY-1 <Les Black - Last Filed: 08/16/18 14:25> Objective - Vital Signs/Intake and Output Vital Signs (last 24 hours): Temp Pulse Resp BP Pulse Ox 97.8 F 76 15 137/70 100 08/16/18 12:58 08/16/18 13:15 08/16/18 13:15 08/16/18 13:15 08/16/18 13:15 Intake and Output: 08/16/18 08/16/18 06:59 18:59 Intake Total 1700 Balance 1700 - Medications Medications: Current Medications Amlodipine Besylate (Norvasc) 5 mg PO DIN@1700 [facility] Last Admin: 08/15/18 18:42 Dose: 5 mg Aspirin (Aspirin Chewable) 81 mg PO DAILY [facility] Last Admin: 08/16/18 13:58 Dose: Not Given Clopidogrel Bisulfate (Plavix) 75 mg PO DAILY [facility] Last Admin: 08/16/18 14:00 Dose: Not Given Dextrose (Dextrose 50% Inj) 0 ml IV STAT PRN; Protocol PRN Reason: Hypoglycemia Protocol Dextrose (Glutose 15) 0 gm PO ONCE PRN; Protocol PRN Reason: Hypoglycemia Protocol Docusate Sodium (Colace) 100 mg PO TID [facility] Last Admin: 08/16/18 13:59 Dose: Not Given Enoxaparin Sodium (Lovenox) 30 mg SC 1000,2200 [facility] Last Admin: 08/16/18 13:59 Dose: Not Given Gabapentin (Neurontin) 100 mg PO TID [facility] Last Admin: 08/16/18 14:00 Dose: Not Given Glucagon (Glucagen Diagnostic Kit) 0 mg IM STAT PRN; Protocol PRN Reason: Hypoglycemia Protocol Hydromorphone HCl (Dilaudid) 2 mg IVP Q4H PRN PRN Reason: Pain, moderate (4-7) Cefazolin Sodium 500 mg/ (Sodium Chloride) 50 mls @ 100 mls/hr IVPB Q8H [facility]; Protocol Last Admin: 08/16/18 13:58 Dose: Not Given Dobutamine HCl/Dextrose (Dobutamine/Dextrose 5% 500mg/250ml) 500 mg in 250 mls @ 11.567 mls/hr IV .[id number] [facility]; Protocol Lactated Ringer's (Lactated Ringer's) 1,000 mls @ 100 mls/hr IV .Q10H [facility] Dextrose/Sodium Chloride (Dextrose 5%/0.45% Ns 1000 Ml) 1,000 mls @ 100 mls/hr IV .Q10H [facility] Last Admin: 08/16/18 13:59 Dose: Not Given Insulin Human Regular (Novolin R) 0 unit SC ACHS [facility]; Protocol Last Admin: 08/16/18 14:00 Dose: Not Given Lactobacillus Acidophilus (Bacid Acidophilus) 1 cap PO BID [facility] Last Admin: 08/16/18 13:58 Dose: Not Given Lisinopril (Zestril) 10 mg PO DAILY [facility] Last Admin: 08/16/18 14:01 Dose: Not Given Metoclopramide HCl (Reglan) 10 mg IVP ONCE PRN PRN Reason: Nausea/Vomiting Stop: 08/16/18 14:58 Morphine Sulfate (Morphine) 2 mg IVP Q10M PRN PRN Reason: Pain, moderate (4-7) Stop: 08/16/18 14:57 Last Admin: 08/16/18 13:15 Dose: 2 mg Rosuvastatin Calcium (Crestor) 5 mg PO HS [facility] Last Admin: 08/15/18 21:52 Dose: Not Given - Labs Labs: 08/16/18 13:51 08/16/18 06:16 Attending/Attestation - Attestation I have personally seen and examined this patient.: Yes I have fully participated in the care of the patient.: Yes I have reviewed all pertinent clinical information, including history, physical exam and plan: Yes Notes (Text): Seen and examined,no complain patient has no complain Denies pain,continue antibiotics hold metformin,Monitor sugar continue asprin and plavix,continue lovenox for dvt prophylaxis d/w resident
[2018-08-14 07:54] LABS: ALBUMIN 3.8 g/dL (3.5-5.0); ALT/SGPT 19 U/L (21-72); AST/SGOT 39 U/L (17-59); BLOOD UREA NITROGEN 28 mg/dL (9-20); CALCIUM 8.7 mg/dl (8.6-10.4); GFR NON-AFRICAN AMERICAN > 60
[2018-08-14] MEDS: (Novolin R) Insulin Human Regular 100 units/ml vial SC SCH ×4 (07:57→22:02)
[2018-08-14] MEDS ORDERED: DOBUTamine 500mg/250ml D5W 500 MG/250 ML BAG ONE (08:33)
[2018-08-14] MEDS ORDERED: DOBUTamine 500mg/250ml D5W 500 MG/250 ML BAG IV SCH (10:15)
--- NOTE | 2018-08-14 10:23 | CP.PCM.PN ---
Subjective - Date & Time of Evaluation Date of Evaluation: 08/14/18 Time of Evaluation: 10:20 - Subjective Subjective: Patient completed dobutamine stress echo without any adverse events. No complications. No CP No fevers, chills, SOB Objective - Vital Signs/Intake and Output Vital Signs (last 24 hours): Temp Pulse Resp BP Pulse Ox 97.7 F 71 20 94/56 L 97 08/14/18 07:40 08/14/18 07:40 08/14/18 07:40 08/14/18 07:40 08/14/18 07:40 Intake and Output: 08/14/18 08/14/18 06:59 18:59 Intake Total 550 Balance 550 - Medications Medications: Current Medications Amlodipine Besylate (Norvasc) 5 mg PO DIN@1700 [facility] Last Admin: 08/13/18 17:28 Dose: 5 mg Aspirin (Aspirin Chewable) 81 mg PO DAILY [facility] Last Admin: 08/13/18 09:38 Dose: 81 mg Clopidogrel Bisulfate (Plavix) 75 mg PO DAILY [facility] Last Admin: 08/13/18 09:38 Dose: 75 mg Dextrose (Dextrose 50% Inj) 0 ml IV STAT PRN; Protocol PRN Reason: Hypoglycemia Protocol Dextrose (Glutose 15) 0 gm PO ONCE PRN; Protocol PRN Reason: Hypoglycemia Protocol Docusate Sodium (Colace) 100 mg PO TID [facility] Last Admin: 08/13/18 17:28 Dose: 100 mg Enoxaparin Sodium (Lovenox) 30 mg SC 1000,2200 [facility] Last Admin: 08/13/18 21:23 Dose: 30 mg Gabapentin (Neurontin) 100 mg PO TID [facility] Last Admin: 08/13/18 17:28 Dose: 100 mg Glucagon (Glucagen Diagnostic Kit) 0 mg IM STAT PRN; Protocol PRN Reason: Hypoglycemia Protocol Cefazolin Sodium 500 mg/ (Sodium Chloride) 50 mls @ 100 mls/hr IVPB Q8H [facility]; Protocol Last Admin: 08/14/18 01:24 Dose: 100 mls/hr Dobutamine HCl/Dextrose (Dobutamine/Dextrose 5% 500mg/250ml) 500 mg in 250 mls @ 11.567 mls/hr IV .[id number] [facility]; Protocol Insulin Human Regular (Novolin R) 0 unit SC ACHS [facility]; Protocol Last Admin: 08/13/18 21:47 Dose: Not Given Lactobacillus Acidophilus (Bacid Acidophilus) 1 cap PO BID [facility] Last Admin: 08/13/18 17:28 Dose: 1 cap Lisinopril (Zestril) 10 mg PO DAILY [facility] Last Admin: 08/13/18 09:38 Dose: 10 mg Rosuvastatin Calcium (Crestor) 5 mg PO HS [facility] Last Admin: 08/13/18 21:23 Dose: 5 mg - Labs Labs: 08/14/18 07:05 08/14/18 07:05 - Constitutional Appears: No Acute Distress - Head Exam Head Exam: ATRAUMATIC, NORMAL INSPECTION, NORMOCEPHALIC - Eye Exam Eye Exam: EOMI, Normal appearance. absent: Scleral icterus - ENT Exam ENT Exam: Mucous Membranes Moist, Normal Oropharynx - Neck Exam Neck Exam: Full ROM. absent: Normal Inspection, Tenderness - Respiratory Exam Respiratory Exam: NORMAL BREATHING PATTERN. absent: Clear to Ausculation Bilateral, Rales, Rhonchi, Wheezes - Cardiovascular Exam Cardiovascular Exam: REGULAR RHYTHM, +S1, +S2. absent: Murmur - GI/Abdominal Exam GI & Abdominal Exam: Soft, Normal Bowel Sounds. absent: Tenderness, Organomegaly - Extremities Exam Extremities Exam: absent: Calf Tenderness - Neurological Exam Neurological Exam: Alert, Awake, Oriented x3 Assessment and Plan - Assessment and Plan (Free Text) Assessment: 68 y/o HTN, HLD, DM, PVD, Prior osteomyelitis Recent smoker and priopr substance abuse now planning LE vascular bypass for non-heeling ulcers. Patient is overall ASX and is able to perform >4mets on quatuioning him and his daughter He denies any CP or SOB No volume overload on EXAM > EKG: NSR, no acute ischemic changes > CXR: clear lung farrell, no cardiomegaly or congestion > Creat and Hgb are WNL HTN > controlled on norvasc 5 and zestril 10 (single high reading noted) PAD > cont ASA/plavix/statin > Stress echo done performed by me on 08/14/18: No reversible ischemia with dobutamine stress. Patient may proceed with surgery with acceptable risk on optimal BP and HR control and monitoring. > DVT prophylaxis
[2018-08-14] MEDS: Lactobacillus Acidophilus 500 MU Cap PO SCH ×2 (11:28→18:18)
[2018-08-14] MEDS: Enoxaparin 30 mg Syringe SC SCH ×2 (11:28→22:04)
--- NOTE | 2018-08-14 15:18 | CP.PCM.PN ---
Subjective - Date & Time of Evaluation Date of Evaluation: 08/14/18 Time of Evaluation: 09:00 - Subjective Subjective: resting in nad iv rx renewed Objective - Vital Signs/Intake and Output Vital Signs (last 24 hours): Temp Pulse Resp BP Pulse Ox 97.7 F 71 20 94/56 L 97 08/14/18 07:40 08/14/18 07:40 08/14/18 07:40 08/14/18 07:40 08/14/18 07:40 Intake and Output: 08/14/18 08/14/18 06:59 18:59 Intake Total 550 Balance 550 - Medications Medications: Current Medications Amlodipine Besylate (Norvasc) 5 mg PO DIN@1700 [facility] Last Admin: 08/13/18 17:28 Dose: 5 mg Aspirin (Aspirin Chewable) 81 mg PO DAILY [facility] Last Admin: 08/14/18 11:27 Dose: 81 mg Clopidogrel Bisulfate (Plavix) 75 mg PO DAILY [facility] Last Admin: 08/14/18 11:28 Dose: 75 mg Dextrose (Dextrose 50% Inj) 0 ml IV STAT PRN; Protocol PRN Reason: Hypoglycemia Protocol Dextrose (Glutose 15) 0 gm PO ONCE PRN; Protocol PRN Reason: Hypoglycemia Protocol Docusate Sodium (Colace) 100 mg PO TID [facility] Last Admin: 08/14/18 13:26 Dose: 100 mg Enoxaparin Sodium (Lovenox) 30 mg SC 1000,2200 [facility] Last Admin: 08/14/18 11:28 Dose: 30 mg Gabapentin (Neurontin) 100 mg PO TID [facility] Last Admin: 08/14/18 13:26 Dose: 100 mg Glucagon (Glucagen Diagnostic Kit) 0 mg IM STAT PRN; Protocol PRN Reason: Hypoglycemia Protocol Cefazolin Sodium 500 mg/ (Sodium Chloride) 50 mls @ 100 mls/hr IVPB Q8H [facility]; Protocol Last Admin: 08/14/18 10:27 Dose: Not Given Dobutamine HCl/Dextrose (Dobutamine/Dextrose 5% 500mg/250ml) 500 mg in 250 mls @ 11.567 mls/hr IV .[id number] [facility]; Protocol Insulin Human Regular (Novolin R) 0 unit SC ACHS [facility]; Protocol Last Admin: 08/14/18 12:12 Dose: 2 units Lactobacillus Acidophilus (Bacid Acidophilus) 1 cap PO BID [facility] Last Admin: 12/31/18 11:28 Dose: 1 cap Lisinopril (Zestril) 10 mg PO DAILY [facility] Last Admin: 08/14/18 11:28 Dose: 10 mg Rosuvastatin Calcium (Crestor) 5 mg PO HS [facility] Last Admin: 08/13/18 21:23 Dose: 5 mg - Labs Labs: 08/14/18 07:05 08/14/18 07:05 - Constitutional Appears: Non-toxic, Chronically Ill - Head Exam Head Exam: NORMOCEPHALIC - Eye Exam Eye Exam: absent: Scleral icterus - ENT Exam ENT Exam: Mucous Membranes Dry - Neck Exam Neck Exam: absent: Lymphadenopathy - Respiratory Exam Respiratory Exam: Decreased Breath Sounds, Clear to Ausculation Bilateral - Cardiovascular Exam Cardiovascular Exam: REGULAR RHYTHM, +S1, +S2 - GI/Abdominal Exam GI & Abdominal Exam: Distended, Soft. absent: Tenderness - Rectal Exam Rectal Exam: Deferred - Exam Exam: NORMAL INSPECTION - Extremities Exam Extremities Exam: Pedal Edema Additional comments: wound same left great toe- no pus - Back Exam Back Exam: absent: CVA tenderness (L), CVA tenderness (R) - Neurological Exam Neurological Exam: Alert, Awake, CN II-XII Intact, Oriented x3 - Psychiatric Exam Psychiatric exam: Normal Mood - Skin Skin Exam: Dry Assessment and Plan - Assessment and Plan (Free Text) Assessment: cont antibiotics wound care pending OR for revascularization
[2018-08-15] MEDS: (Novolin R) Insulin Human Regular 100 units/ml vial SC SCH ×4 (07:54→21:53)
[2018-08-15 07:59] LABS: BASO % 0.5 % (0.0-2.0); EOS # 0.2 K/uL (0.0-0.7); EOS % 3.8 % (0.0-4.0); HEMOGLOBIN 11.4 g/dL (12.0-18.0); LYMPH # 1.6 K/uL (1.0-4.3); LYMPH % 26.8 % (20.0-40.0); MEAN CELL VOLUME 82.4 fL (80.0-94.0); MEAN CORPUSCULAR HEMOGLOBIN 26.9 pg (27.0-31.0); MEAN CORPUSCULAR HGB CONC 32.6 g/dL (33.0-37.0); MEAN PLATELET VOLUME 7.3 fL (7.2-11.7); MONO # 0.6 K/uL (0.0-0.8); MONO % 10.1 % (0.0-10.0); NEUT # 3.6 K/uL (1.8-7.0); NEUT % 58.8 % (50.0-75.0); RBC 4.24 Mil/uL (4.40-5.90); RED CELL DISTRIBUTION WIDTH 13.7 % (11.5-14.5)
--- NOTE | 2018-08-15 08:18 | CP.PCM.PN ---
Subjective - Date & Time of Evaluation Date of Evaluation: 08/15/18 Time of Evaluation: 08:17 - Subjective Subjective: Events reviewed. normal stress test yesterday. Objective - Vital Signs/Intake and Output Vital Signs (last 24 hours): Temp Pulse Resp BP Pulse Ox 98.1 F 69 18 113/70 95 08/15/18 00:00 08/15/18 00:00 08/15/18 00:00 08/15/18 00:00 08/15/18 00:00 Intake and Output: 08/15/18 08/15/18 06:59 18:59 Intake Total 100 Balance 100 - Medications Medications: Current Medications Amlodipine Besylate (Norvasc) 5 mg PO DIN@1700 [facility] Last Admin: 08/14/18 18:15 Dose: 5 mg Aspirin (Aspirin Chewable) 81 mg PO DAILY [facility] Last Admin: 08/14/18 11:27 Dose: 81 mg Clopidogrel Bisulfate (Plavix) 75 mg PO DAILY [facility] Last Admin: 08/14/18 11:28 Dose: 75 mg Dextrose (Dextrose 50% Inj) 0 ml IV STAT PRN; Protocol PRN Reason: Hypoglycemia Protocol Dextrose (Glutose 15) 0 gm PO ONCE PRN; Protocol PRN Reason: Hypoglycemia Protocol Docusate Sodium (Colace) 100 mg PO TID [facility] Last Admin: 08/14/18 18:15 Dose: 100 mg Enoxaparin Sodium (Lovenox) 30 mg SC 1000,2200 [facility] Last Admin: 08/14/18 22:04 Dose: 30 mg Gabapentin (Neurontin) 100 mg PO TID [facility] Last Admin: 08/14/18 18:15 Dose: 100 mg Glucagon (Glucagen Diagnostic Kit) 0 mg IM STAT PRN; Protocol PRN Reason: Hypoglycemia Protocol Cefazolin Sodium 500 mg/ (Sodium Chloride) 50 mls @ 100 mls/hr IVPB Q8H [facility]; Protocol Last Admin: 08/15/18 01:30 Dose: 100 mls/hr Dobutamine HCl/Dextrose (Dobutamine/Dextrose 5% 500mg/250ml) 500 mg in 250 mls @ 11.567 mls/hr IV .[id number] [facility]; Protocol Insulin Human Regular (Novolin R) 0 unit SC ACHS [facility]; Protocol Last Admin: 08/15/18 07:54 Dose: 2 units Lactobacillus Acidophilus (Bacid Acidophilus) 1 cap PO BID [facility] Last Admin: 08/14/18 18:18 Dose: 1 cap Lisinopril (Zestril) 10 mg PO DAILY [facility] Last Admin: 08/14/18 11:28 Dose: 10 mg Rosuvastatin Calcium (Crestor) 5 mg PO HS [facility] Last Admin: 08/14/18 22:04 Dose: 5 mg - Labs Labs: 08/15/18 07:52 08/14/18 07:05 Assessment and Plan - Assessment and Plan (Free Text) Assessment: - Constitutional Appears: No Acute Distress - Head Exam Head Exam: ATRAUMATIC, NORMAL INSPECTION, NORMOCEPHALIC - Eye Exam Eye Exam: EOMI, Normal appearance. absent: Scleral icterus - ENT Exam ENT Exam: Mucous Membranes Moist, Normal Oropharynx - Neck Exam Neck Exam: Full ROM. absent: Normal Inspection, Tenderness - Respiratory Exam Respiratory Exam: NORMAL BREATHING PATTERN. absent: Clear to Ausculation Bilateral, Rales, Rhonchi, Wheezes - Cardiovascular Exam Cardiovascular Exam: REGULAR RHYTHM, +S1, +S2. absent: Murmur - GI/Abdominal Exam GI & Abdominal Exam: Soft, Normal Bowel Sounds. absent: Tenderness, Organomegaly - Extremities Exam Extremities Exam: absent: Calf Tenderness - Neurological Exam Neurological Exam: Alert, Awake, Oriented x3 Assessment and Plan - Assessment and Plan (Free Text) Assessment: 68 y/o HTN, HLD, DM, PVD, Prior osteomyelitis Recent smoker and priopr substance abuse now planning LE vascular bypass for non-heeling ulcers. Patient is overall ASX and is able to perform >4mets on quatuioning him and his daughter He denies any CP or SOB No volume overload on EXAM > EKG: NSR, no acute ischemic changes > CXR: clear lung farrell, no cardiomegaly or congestion > Creat and Hgb are WNL HTN > controlled on norvasc 5 and zestril 10 (single high reading noted) PAD > cont ASA/plavix/statin > Stress echo done performed by me on 08/14/18: No reversible ischemia with dobutamine stress. Patient may proceed with surgery with acceptable risk on optimal BP and HR control and monitoring. > DVT prophylaxis
[2018-08-15 08:23] LABS: ALBUMIN 3.7 g/dL (3.5-5.0); ALT/SGPT 27 U/L (21-72); AST/SGOT 44 U/L (17-59); BLOOD UREA NITROGEN 32 mg/dL (9-20); CALCIUM 8.8 mg/dl (8.6-10.4); GFR NON-AFRICAN AMERICAN > 60
--- NOTE | 2018-08-15 08:37 | CP.PCM.PN ---
Subjective - Date & Time of Evaluation Date of Evaluation: 08/15/18 Time of Evaluation: 08:36 - Subjective Subjective: SURGERY NOTE FOR DR. HAILE 68M seen and examined at bedside. No acute events overnight. Patient currently has no complaints. Tolerating diet and moves all four extremities. Objective - Vital Signs/Intake and Output Vital Signs (last 24 hours): Temp Pulse Resp BP Pulse Ox 97.6 F 74 18 90/60 L 99 08/15/18 07:30 08/15/18 07:30 08/15/18 07:30 08/15/18 07:30 08/15/18 07:30 Intake and Output: 08/15/18 08/15/18 06:59 18:59 Intake Total 100 Balance 100 - Medications Medications: Current Medications Amlodipine Besylate (Norvasc) 5 mg PO DIN@1700 [facility] Last Admin: 08/14/18 18:15 Dose: 5 mg Aspirin (Aspirin Chewable) 81 mg PO DAILY [facility] Last Admin: 08/14/18 11:27 Dose: 81 mg Clopidogrel Bisulfate (Plavix) 75 mg PO DAILY [facility] Last Admin: 08/14/18 11:28 Dose: 75 mg Dextrose (Dextrose 50% Inj) 0 ml IV STAT PRN; Protocol PRN Reason: Hypoglycemia Protocol Dextrose (Glutose 15) 0 gm PO ONCE PRN; Protocol PRN Reason: Hypoglycemia Protocol Docusate Sodium (Colace) 100 mg PO TID [facility] Last Admin: 08/14/18 18:15 Dose: 100 mg Enoxaparin Sodium (Lovenox) 30 mg SC 1000,2200 [facility] Last Admin: 08/14/18 22:04 Dose: 30 mg Gabapentin (Neurontin) 100 mg PO TID [facility] Last Admin: 08/14/18 18:15 Dose: 100 mg Glucagon (Glucagen Diagnostic Kit) 0 mg IM STAT PRN; Protocol PRN Reason: Hypoglycemia Protocol Cefazolin Sodium 500 mg/ (Sodium Chloride) 50 mls @ 100 mls/hr IVPB Q8H [facility]; Protocol Last Admin: 08/15/18 01:30 Dose: 100 mls/hr Dobutamine HCl/Dextrose (Dobutamine/Dextrose 5% 500mg/250ml) 500 mg in 250 mls @ 11.567 mls/hr IV .[id number] [facility]; Protocol Insulin Human Regular (Novolin R) 0 unit SC ACHS [facility]; Protocol Last Admin: 08/15/18 07:54 Dose: 2 units Lactobacillus Acidophilus (Bacid Acidophilus) 1 cap PO BID [facility] Last Admin: 08/14/18 18:18 Dose: 1 cap Lisinopril (Zestril) 10 mg PO DAILY [facility] Last Admin: 08/14/18 11:28 Dose: 10 mg Rosuvastatin Calcium (Crestor) 5 mg PO HS [facility] Last Admin: 08/14/18 22:04 Dose: 5 mg - Labs Labs: 08/15/18 07:52 08/15/18 07:52 - Constitutional Appears: Non-toxic, No Acute Distress - Respiratory Exam Respiratory Exam: Clear to Ausculation Bilateral, NORMAL BREATHING PATTERN - Cardiovascular Exam Cardiovascular Exam: REGULAR RHYTHM, +S1, +S2 - GI/Abdominal Exam GI & Abdominal Exam: Soft. absent: Distended, Firm, Guarding, Rigid, Tenderness, Rebound - Extremities Exam Additional comments: ischemic left toe ulcer - Neurological Exam Neurological Exam: Alert, Awake Assessment and Plan - Assessment and Plan (Free Text) Assessment: 68M with severe lower extremity peripheral vascular disease Plan: - Plan for OR tomm for LE bypass procedure - Pre-op patient - NPO, AM labs, hold LVX, cardiac clearance Further recs discuss with Dr. Brandin Villanueva, PGY3
[2018-08-15] MEDS: Enoxaparin 30 mg Syringe SC SCH ×2 (10:03→22:18)
[2018-08-15] MEDS: Lactobacillus Acidophilus 500 MU Cap PO SCH ×2 (10:03→18:42)
--- NOTE | 2018-08-15 12:21 | CP.PCM.PN ---
<Elliot Oliveira - Last Filed: 08/15/18 21:28> Subjective - Date & Time of Evaluation Date of Evaluation: 08/15/18 Time of Evaluation: 10:00 - Subjective Subjective: PGY-[address] Black Patient is seen and examined at bedside. Patient reports no acute changes overnight, no current complaints. Patient is walking and eating regularly. denies fever, chills, chest pain, sob, n/v/d/c. Patient will be going to OR tomorrow 08/16/18 for LE bypass procedure. Objective - Vital Signs/Intake and Output Vital Signs (last 24 hours): Temp Pulse Resp BP Pulse Ox 97.6 F 69 18 124/76 99 08/15/18 07:30 08/15/18 10:03 08/15/18 07:30 08/15/18 10:03 08/15/18 07:30 Intake and Output: 08/15/18 08/15/18 06:59 18:59 Intake Total 100 Balance 100 - Medications Medications: Current Medications Amlodipine Besylate (Norvasc) 5 mg PO DIN@1700 [facility] Last Admin: 08/14/18 18:15 Dose: 5 mg Aspirin (Aspirin Chewable) 81 mg PO DAILY [facility] Last Admin: 08/15/18 10:03 Dose: 81 mg Clopidogrel Bisulfate (Plavix) 75 mg PO DAILY [facility] Last Admin: 08/15/18 10:03 Dose: 75 mg Dextrose (Dextrose 50% Inj) 0 ml IV STAT PRN; Protocol PRN Reason: Hypoglycemia Protocol Dextrose (Glutose 15) 0 gm PO ONCE PRN; Protocol PRN Reason: Hypoglycemia Protocol Docusate Sodium (Colace) 100 mg PO TID [facility] Last Admin: 08/15/18 10:03 Dose: 100 mg Enoxaparin Sodium (Lovenox) 30 mg SC 1000,2200 [facility] Last Admin: 08/15/18 10:03 Dose: 30 mg Gabapentin (Neurontin) 100 mg PO TID [facility] Last Admin: 08/15/18 10:03 Dose: 100 mg Glucagon (Glucagen Diagnostic Kit) 0 mg IM STAT PRN; Protocol PRN Reason: Hypoglycemia Protocol Cefazolin Sodium 500 mg/ (Sodium Chloride) 50 mls @ 100 mls/hr IVPB Q8H [facility]; Protocol Last Admin: 08/15/18 10:03 Dose: 100 mls/hr Dobutamine HCl/Dextrose (Dobutamine/Dextrose 5% 500mg/250ml) 500 mg in 250 mls @ 11.567 mls/hr IV .[id number] [facility]; Protocol Insulin Human Regular (Novolin R) 0 unit SC ACHS [facility]; Protocol Last Admin: 08/15/18 11:51 Dose: 3 units Lactobacillus Acidophilus (Bacid Acidophilus) 1 cap PO BID [facility] Last Admin: 08/15/18 10:03 Dose: 1 cap Lisinopril (Zestril) 10 mg PO DAILY [facility] Last Admin: 08/15/18 10:03 Dose: 10 mg Rosuvastatin Calcium (Crestor) 5 mg PO HS [facility] Last Admin: 08/14/18 22:04 Dose: 5 mg - Labs Labs: 08/15/18 07:52 08/15/18 07:52 - Constitutional Appears: Non-toxic, No Acute Distress - Head Exam Head Exam: ATRAUMATIC, NORMAL INSPECTION, NORMOCEPHALIC - Eye Exam Eye Exam: EOMI, Normal appearance - ENT Exam ENT Exam: Mucous Membranes Moist, Normal Exam - Neck Exam Neck Exam: Normal Inspection - Respiratory Exam Respiratory Exam: Clear to Ausculation Bilateral, NORMAL BREATHING PATTERN. absent: Accessory Muscle Use, Rales, Rhonchi, Wheezes, Respiratory Distress - Cardiovascular Exam Cardiovascular Exam: REGULAR RHYTHM, +S1, +S2 - GI/Abdominal Exam GI & Abdominal Exam: Soft, Normal Bowel Sounds - Extremities Exam Extremities Exam: Full ROM Additional comments: left toe dressing intact, dry, clean - Back Exam Back Exam: NORMAL INSPECTION - Neurological Exam Neurological Exam: Alert, Awake, Normal Gait, Oriented x3 - Psychiatric Exam Psychiatric exam: Normal Affect, Normal Mood - Skin Skin Exam: Dry, Intact, Normal Color, Warm Assessment and Plan - Assessment and Plan (Free Text) Plan: Worsening bilateral PVD severe bilateral tibial disease L>R - Abdominal angiography (08/07): LLE: Moderate stenosis of popliteal artery. Runoff shows severe stenosis of tibioperoneal artery. Peroneal artery is occluded. Occlusion of proximal posterior tibial artery with mid posterior tibial artery reconstitution via collaterals. RLE: Mild stenosis of popliteal artery. Peroneal artery has moderate stenosis in the mid and distal segment -Aortofemoral angiogram (08/10): 1. 30% stenosis in distal portion of SFA, but below widely patent. Trifurcation in ant tibial a. was previously patent, now occluded distally. Posterior tibial a. and tibial peroneal trunk are severely d iseased. Similar findings on the R but not as severe. - Vascular Surgery consulted: Dr. Brandin delvalle appreciated Plan for OR tomm for LE bypass procedure NPO, AM labs, hold LVX, cardiac clearance - Cardio consulted: Dr. Bobby delvalle appreciated. for cardiac clearance - recent ECHO 04/11/18: LV normal size, normal wall thickness, EF 76% - CXR: no acute findings - EKG: NSR @ 64 bpm, L axis deviation - Stress echo (08/14): No reversible ischemia with dobutamine stress-->may proceed with surgery with acceptable risk on optimal BP and HR control and mo nitoring. - ASA 81mg po daily - Plavix 75mg po daily Ulceration of L hallux Hx Osteomyelitis L hallux -ID recs (Dr. Hughes) appreciated -Podiatry consulted: Dr. Wolf - help appreciated - Ulcer cleaned with peroxide and dressed with Medihoney and DSD -Zosyn 3.375gm IVPB q8 (3 doses total 08/10-08/11) -Cefazolin 500mg IVPB q8 (started 08/11) - wound cx (08/11): +proteus mirabilis, group F strep -f/u further ID recs DM - home Metformin and Glipizide held for contrast - Gabapentin 100mg po tid for neuropathic pain - Accucheck ACHS - ISS medium dose - hypoglycemic protocol HTN - Lisinopril 10mg po daily - Norvasc 5mg po with dinner HLD -Crestor 5 mg PO HS PPx, Diet, Disposition - DVT: Lovenox 30mg sc bid, SCDs CI 2/2 PVD - GI: Bacid po bid - Diet: diabetic Plan d/w Dr Wayne Oliveira, PGY-1 <Les Black - Last Filed: 08/16/18 14:21> Objective - Vital Signs/Intake and Output Vital Signs (last 24 hours): Temp Pulse Resp BP Pulse Ox 97.6 F 66 20 126/79 96 08/16/18 07:19 08/16/18 07:19 08/16/18 07:19 08/16/18 07:19 08/16/18 07:19 Intake and Output: 08/16/18 08/16/18 06:59 18:59 Intake Total 1600 Balance 1600 - Medications Medications: Current Medications Amlodipine Besylate (Norvasc) 5 mg PO DIN@1700 [facility] Last Admin: 08/15/18 18:42 Dose: 5 mg Aspirin (Aspirin Chewable) 81 mg PO DAILY [facility] Last Admin: 08/16/18 13:58 Dose: Not Given Clopidogrel Bisulfate (Plavix) 75 mg PO DAILY [facility] Last Admin: 08/16/18 14:00 Dose: Not Given Dextrose (Dextrose 50% Inj) 0 ml IV STAT PRN; Protocol PRN Reason: Hypoglycemia Protocol Dextrose (Glutose 15) 0 gm PO ONCE PRN; Protocol PRN Reason: Hypoglycemia Protocol Docusate Sodium (Colace) 100 mg PO TID [facility] Last Admin: 08/16/18 13:59 Dose: Not Given Enoxaparin Sodium (Lovenox) 30 mg SC 1000,2200 [facility] Last Admin: 08/16/18 13:59 Dose: Not Given Gabapentin (Neurontin) 100 mg PO TID [facility] Last Admin: 08/16/18 14:00 Dose: Not Given Glucagon (Glucagen Diagnostic Kit) 0 mg IM STAT PRN; Protocol PRN Reason: Hypoglycemia Protocol Hydromorphone HCl (Dilaudid) 2 mg IVP Q4H PRN PRN Reason: Pain, moderate (4-7) Cefazolin Sodium 500 mg/ (Sodium Chloride) 50 mls @ 100 mls/hr IVPB Q8H [facility]; Protocol Last Admin: 08/16/18 13:58 Dose: Not Given Dobutamine HCl/Dextrose (Dobutamine/Dextrose 5% 500mg/250ml) 500 mg in 250 mls @ 11.567 mls/hr IV .[id number] [facility]; Protocol Lactated Ringer's (Lactated Ringer's) 1,000 mls @ 100 mls/hr IV .Q10H [facility] Dextrose/Sodium Chloride (Dextrose 5%/0.45% Ns 1000 Ml) 1,000 mls @ 100 mls/hr IV .Q10H [facility] Last Admin: 08/16/18 13:59 Dose: Not Given Insulin Human Regular (Novolin R) 0 unit SC ACHS [facility]; Protocol Last Admin: 08/16/18 14:00 Dose: Not Given Lactobacillus Acidophilus (Bacid Acidophilus) 1 cap PO BID [facility] Last Admin: 08/16/18 13:58 Dose: Not Given Lisinopril (Zestril) 10 mg PO DAILY [facility] Last Admin: 08/16/18 14:01 Dose: Not Given Metoclopramide HCl (Reglan) 10 mg IVP ONCE PRN PRN Reason: Nausea/Vomiting Stop: 08/16/18 14:58 Morphine Sulfate (Morphine) 2 mg IVP Q10M PRN PRN Reason: Pain, moderate (4-7) Stop: 08/16/18 14:57 Last Admin: 08/16/18 13:15 Dose: 2 mg Rosuvastatin Calcium (Crestor) 5 mg PO HS [facility] Last Admin: 08/15/18 21:52 Dose: Not Given - Labs Labs: 08/16/18 13:51 08/16/18 06:16 Attending/Attestation - Attestation I have personally seen and examined this patient.: Yes I have fully participated in the care of the patient.: Yes I have reviewed all pertinent clinical information, including history, physical exam and plan: Yes Notes (Text): Seen and examined by me.patient has no complain continue antibiotics.Going for popliteal tibial bypass tomorrow s/p Stress echo (08/14): No reversible ischemia with dobutamine stress continue aspirin and plavix monitor sugar ,hold metformin and glipizide d/w resident Patient may proceed with surgery with acceptable risk on optimal BP and HR as per manager hair
--- NOTE | 2018-08-15 13:22 | CP.PCM.PN ---
Subjective - Date & Time of Evaluation Date of Evaluation: 08/15/18 Time of Evaluation: 13:20 - Subjective Subjective: Podiatry consult note for Dr. Wolf 68 y/o male patient seen and evaluated at bedside. Patient is resting comfortably in chair at bedside. Patient denies any other complaints. Patient is aware of LE Bypass with dr. Ghotra tomorrow 08/16/18 Objective - Vital Signs/Intake and Output Vital Signs (last 24 hours): Temp Pulse Resp BP Pulse Ox 97.6 F 69 18 124/76 99 08/15/18 07:30 08/15/18 10:03 08/15/18 07:30 08/15/18 10:03 08/15/18 07:30 Intake and Output: 08/15/18 08/15/18 06:59 18:59 Intake Total 100 Balance 100 - Medications Medications: Current Medications Amlodipine Besylate (Norvasc) 5 mg PO DIN@1700 [facility] Last Admin: 08/14/18 18:15 Dose: 5 mg Aspirin (Aspirin Chewable) 81 mg PO DAILY [facility] Last Admin: 08/15/18 10:03 Dose: 81 mg Clopidogrel Bisulfate (Plavix) 75 mg PO DAILY [facility] Last Admin: 08/15/18 10:03 Dose: 75 mg Dextrose (Dextrose 50% Inj) 0 ml IV STAT PRN; Protocol PRN Reason: Hypoglycemia Protocol Dextrose (Glutose 15) 0 gm PO ONCE PRN; Protocol PRN Reason: Hypoglycemia Protocol Docusate Sodium (Colace) 100 mg PO TID [facility] Last Admin: 08/15/18 10:03 Dose: 100 mg Enoxaparin Sodium (Lovenox) 30 mg SC 1000,2200 [facility] Last Admin: 08/15/18 10:03 Dose: 30 mg Gabapentin (Neurontin) 100 mg PO TID [facility] Last Admin: 08/15/18 10:03 Dose: 100 mg Glucagon (Glucagen Diagnostic Kit) 0 mg IM STAT PRN; Protocol PRN Reason: Hypoglycemia Protocol Cefazolin Sodium 500 mg/ (Sodium Chloride) 50 mls @ 100 mls/hr IVPB Q8H [facility]; Pr otocol Last Admin: 08/15/18 10:03 Dose: 100 mls/hr Dobutamine HCl/Dextrose (Dobutamine/Dextrose 5% 500mg/250ml) 500 mg in 250 mls @ 11.567 mls/hr IV .[id number] [facility]; Protocol Insulin Human Regular (Novolin R) 0 unit SC ACHS [facility]; Protocol Last Admin: 08/15/18 11:51 Dose: 3 units Lactobacillus Acidophilus (Bacid Acidophilus) 1 cap PO BID [facility] Last Admin: 08/15/18 10:03 Dose: 1 cap Lisinopril (Zestril) 10 mg PO DAILY [facility] Last Admin: 08/15/18 10:03 Dose: 10 mg Rosuvastatin Calcium (Crestor) 5 mg PO HS [facility] Last Admin: 08/14/18 22:04 Dose: 5 mg - Labs Labs: 08/15/18 07:52 08/15/18 07:52 - Constitutional Appears: Well, Non-toxic, No Acute Distress - Head Exam Head Exam: ATRAUMATIC, NORMOCEPHALIC - Extremities Exam Additional comments: Left lower extremity focused exam: Vasc: DP/PT pulses faintly palpable. Temperature gradient warm to cool. CFT < 3 sec to all digits. No pedal edema noted Derm: ulceration noted to left great toe plantarly approx 1cm x 0.8cm x 0.1cm with mild erythematous and ischemic skin changes indra wound. No active drainage or purulence, no malodor, no fluctuance. Hyperkeratotic lesion noted sub met 5 left foot- post debridement of hyperkeratotic tissue, no underlying ulcer formation evident Neuro: protective sensation and gross sensation diminished Ortho: no gross biomechanical abnormalities noted - Neurological Exam Neurological Exam: Alert, Awake, Oriented x3 - Psychiatric Exam Psychiatric exam: Normal Affect, Normal Mood Assessment and Plan - Assessment and Plan (Free Text) Assessment: 68 y/o male with left foot great toe ulcer with ischemic changes; peripheral arterial disease Plan: Pt seen and evaluated at bedside Discussed plan with Dr. Wolf Chart, labs and vitals reviewed- afebrile, absent leukocytosis Ulcer cleaned with peroxide and dressed with Medihoney and DSD patient normal Stress test Pt to go for popliteal-tibial bypass with Dr. Ghotra 08/16/18 - await results of procedure for further treatment plan Podiatry to continue with local wound care Will continue to follow
[2018-08-16 06:38] LABS: BASO % 0.8 % (0.0-2.0); EOS # 0.2 K/uL (0.0-0.7); EOS % 3.6 % (0.0-4.0); HEMOGLOBIN 11.5 g/dL (12.0-18.0); LYMPH # 1.6 K/uL (1.0-4.3); MEAN CORPUSCULAR HEMOGLOBIN 26.8 pg (27.0-31.0); MEAN CORPUSCULAR HGB CONC 32.3 g/dL (33.0-37.0); MEAN PLATELET VOLUME 7.5 fL (7.2-11.7); MONO # 0.6 K/uL (0.0-0.8); MONO % 10.1 % (0.0-10.0); NEUT # 3.4 K/uL (1.8-7.0); NEUT % 58.5 % (50.0-75.0); NRBC % 0.1 % (0.0-2.0); RBC 4.28 Mil/uL (4.40-5.90); RED CELL DISTRIBUTION WIDTH 13.5 % (11.5-14.5); WHITE BLOOD COUNT 5.9 K/uL (4.8-10.8)
[2018-08-16 07:30] LABS: ALBUMIN 3.7 g/dL (3.5-5.0); ALT/SGPT 34 U/L (21-72); AST/SGOT 53 U/L (17-59); BLOOD UREA NITROGEN 34 mg/dL (9-20); CALCIUM 9.1 mg/dl (8.6-10.4); GFR NON-AFRICAN AMERICAN > 60
[2018-08-16] MEDS ORDERED: Propofol 10 mg/ml Inj (20 ML) ONE ×2 (07:30→12:16)
[2018-08-16] MEDS ORDERED: Midazolam 2 MG/2 ML VIAL ONE (07:30)
[2018-08-16] MEDS ORDERED: Papaverine Hydrochloride 30 mg/ml (2ml) ONE ×3 (07:34→11:26)
[2018-08-16] MEDS ORDERED: Lidocaine Hydrochloride 0 ML INJ ONE (07:34)
[2018-08-16] MEDS ORDERED: HEPARIN-NS 5,000 UNITS/500 ML 5,000 UNIT/500 ML BAG IV ONE ×2 (07:35→08:52)
[2018-08-16] MEDS ORDERED: Rocuronium 10 mg/ml (10 ml) ONE (07:43)
[2018-08-16] MEDS: (Novolin R) Insulin Human Regular 100 units/ml vial SC SCH ×4 (08:08→22:10)
[2018-08-16] MEDS ORDERED: ceFAZolin 1 gm in NS 1 GM/100 ML BAG IVPB ONE (09:43)
[2018-08-16] MEDS ORDERED: Iodixanol 320 MG/ML 200 ML BOTTLE IV ONE (10:14)
[2018-08-16] MEDS ORDERED: Iohexol 240 (50 ml) ONE ×2 (10:16→11:35)
[2018-08-16] MEDS ORDERED: Neostigmine Methylsulfate 3mg/3ml Syringe IV ONE ×2 (11:52→12:07)
[2018-08-16] MEDS ORDERED: Morphine 4 MG/ML VIAL ONE (11:55)
[2018-08-16] MEDS ORDERED: Thrombin Topical 20,000 Intl Units Spray Kit TOP ONE (12:10)
[2018-08-16] MEDS ORDERED: Lactated Ringer's 1,000 ML IV ONE (12:58)
[2018-08-16] MEDS ORDERED: Lactated Ringer's 1,000 ML IV SCH (13:00)
--- NOTE | 2018-08-16 13:02 | PCM.SURG1 ---
Surgeon's Initial Post Op Note - Surgeon's Notes Surgeon: jen Lot Technician: margy Type of Anesthesia: General Endo Anesthesia Administered By: alejandro Pre-Operative Diagnosis: ischemic toe ulcer/gangrene Operative Findings: completion angio satisfactory/ vein adequate Post-Operative Diagnosis: same Operation Performed: left popliteal- posterior tibial artery bypass with revfersed saphenous vein with operative angiogram Specimen/Specimens Removed: plaque from popliteal Estimated Blood Loss: EBL {In ML}: 400 Blood Products Given: N/A Drains Used: No Drains Post-Op Condition: Good Date of Surgery/Procedure: 08/16/18 Time of Surgery/Procedure: 12:58
--- NOTE | 2018-08-16 13:33 | CP.PCM.CON ---
History of Present Illness - History of Present Illness History of Present Illness: ICU Consult Note for Dr. Turner CC: s/p LLE venous bypass by Dr. Ghotra HPI: 68 y/o male with PMHx of HTN, DM, PVD, and OM presents to the ICU on POD0 s/p LLE venous bypass by Dr. Ghotra. Patient w/ history of ischemic/gangrenous L foot (see prior admissions, "select visits"). Surgery was posterior tibial artery bypass with reversed saphenous vein with operative angiogram. Patient seen and examined at bedside immediately after transfer from PACU to ICU. Patient endorses slight nausea and pain in surgical site. Denies chest pain, SOB, vomiting, headache. Per surgery team, patient tolerated procedure well. EBL 400 mL. taken from admission history and physical (Dr. Black): PMHx: HTN, HLD, DM, PVD, OM Home Medications: Metformin 500 mg Q12h, Invokana 300 mg daily, Glimepiride 4 mg daily, Atorvastatin 10 mg daily, Amlodipine 5 mgdaily, Lisinopril 10 mg daily, Aspirin 81 mg daily, Plavix 75 mg daily, Lactobacillus Q12h PSHx: angiogram with balloon angioplasty of the left anterior tibial artery (performed at last admission), prostectomy Allergies: NKDA Family Hx: mother with DM and father with HTN Social Hx: +tobacco use-4ppd for over 40 years. Patient admits to drinking 1 small bottle of whiskey a night for many years, quit since 04/10/18. Former crack user, quit in 1984. PMD: Rose Marie Turcios Past Patient History - Infectious Disease Hx of Infectious Diseases: None - Past Medical History & Family History Past Medical History?: Yes - Past Social History Smoking Status: Former Smoker - CARDIAC Hx Hypercholesterolemia: Yes Hx Hypertension: Yes - NEUROLOGICAL Other/Comment: neuropathy - ENDOCRINE/METABOLIC Hx Diabetes Mellitus Type 2: Yes - INTEGUMENTARY Hx Dermatological Problems: Yes Other/Comment: HX: GANGRENE LEFT HALLUX GREAT TOE - MUSCULOSKELETAL/RHEUMATOLOGICAL Hx Musculoskeletal Disorders: Yes - GENITOURINARY/GYNECOLOGICAL Hx Prostate Problems: Yes (surgery 12-25-2002) - PSYCHIATRIC Hx Substance Use: No - SURGICAL HISTORY Hx Angiogram: Yes Hx Angioplasty: Yes (LEFT ANTERIOR TIBIAL ARTERY) Other/Comment: Prostatectomy. HX: PICC LINE INSERTION - ANESTHESIA Hx Anesthesia: Yes Hx Anesthesia Reactions: No Hx Malignant Hyperthermia: No Meds Allergies/Adverse Reactions: Allergies Allergy/AdvReac Type Severity Reaction Status Date / Time No Known Allergies Allergy Verified 03/18/18 19:23 - Medications Medications: Current Medications Amlodipine Besylate (Norvasc) 5 mg PO DIN@1700 [facility] Last Admin: 08/15/18 18:42 Dose: 5 mg Aspirin (Aspirin Chewable) 81 mg PO DAILY [facility] Last Admin: 08/15/18 10:03 Dose: 81 mg Clopidogrel Bisulfate (Plavix) 75 mg PO DAILY [facility] Last Admin: 08/15/18 10:03 Dose: 75 mg Dextrose (Dextrose 50% Inj) 0 ml IV STAT PRN; Protocol PRN Reason: Hypoglycemia Protocol Dextrose (Glutose 15) 0 gm PO ONCE PRN; Protocol PRN Reason: Hypoglycemia Protocol Docusate Sodium (Colace) 100 mg PO TID [facility] Last Admin: 08/15/18 18:42 Dose: 100 mg Enoxaparin Sodium (Lovenox) 30 mg SC 1000,2200 [facility] Last Admin: 08/15/18 22:18 Dose: Not Given Gabapentin (Neurontin) 100 mg PO TID [facility] Last Admin: 08/15/18 18:42 Dose: 100 mg Glucagon (Glucagen Diagnostic Kit) 0 mg IM STAT PRN; Protocol PRN Reason: Hypoglycemia Protocol Hydromorphone HCl (Dilaudid) 2 mg IVP Q4H PRN PRN Reason: Pain, moderate (4-7) Cefazolin Sodium 500 mg/ (Sodium Chloride) 50 mls @ 100 mls/hr IVPB Q8H [facility]; Protocol Last Admin: 08/16/18 01:38 Dose: 100 mls/hr Dobutamine HCl/Dextrose (Dobutamine/Dextrose 5% 500mg/250ml) 500 mg in 250 mls @ 11.567 mls/hr IV .[id number] [facility]; Protocol Lactated Ringer's (Lactated Ringer's) 1,000 mls @ 100 mls/hr IV .Q10H [facility] Dextrose/Sodium Chloride (Dextrose 5%/0.45% Ns 1000 Ml) 1,000 mls @ 100 mls/hr IV .Q10H [facility] Insulin Human Regular (Novolin R) 0 unit SC ACHS [facility]; Protocol Last Admin: 08/16/18 08:08 Dose: Not Given Lactobacillus Acidophilus (Bacid Acidophilus) 1 cap PO BID [facility] Last Admin: 08/15/18 18:42 Dose: 1 cap Lisinopril (Zestril) 10 mg PO DAILY [facility] Last Admin: 08/15/18 10:03 Dose: 10 mg Metoclopramide HCl (Reglan) 10 mg IVP ONCE PRN PRN Reason: Nausea/Vomiting Stop: 08/16/18 14:58 Morphine Sulfate (Morphine) 2 mg IVP Q10M PRN PRN Reason: Pain, moderate (4-7) Stop: 08/16/18 14:57 Rosuvastatin Calcium (Crestor) 5 mg PO HS [facility] Last Admin: 08/15/18 21:52 Dose: Not Given Physical Exam - Constitutional Appears: No Acute Distress, Other (lethargic, but able to be aroused) - Head Exam Head Exam: ATRAUMATIC, NORMAL INSPECTION - Eye Exam Eye Exam: EOMI, Normal appearance - Neck Exam Neck exam: Positive for: Normal Inspection - Respiratory Exam Respiratory Exam: Clear to Auscultation Bilateral, NORMAL BREATHING PATTERN - Cardiovascular Exam Cardiovascular Exam: REGULAR RHYTHM - GI/Abdominal Exam GI & Abdominal Exam: Normal Bowel Sounds, Soft - Extremities Exam Extremities exam: Negative for: calf tenderness Additional comments: left foot dressing on, left tibial brace on, SCD on right LE. Peripheral pulses strong and cap refill < 2s. - Skin Skin Exam: Dry, Intact, Normal Color, Warm Results - Vital Signs Recent Vital Signs: Last Vital Signs Temp 97.6 F 08/16/18 07:19 Pulse 66 08/16/18 07:19 Resp 20 08/16/18 07:19 BP 126/79 08/16/18 07:19 Pulse Ox 96 08/16/18 07:19 - Labs Result Diagrams: 08/16/18 13:51 08/16/18 06:16 Labs: Laboratory Results - last 24 hr 08/15/18 08/15/18 08/15/18 11:15 17:20 21:05 WBC RBC Hgb Hct MCV MCH MCHC RDW Plt Count MPV Neut % (Auto) Lymph % (Auto) [place] % (Auto) Eos % (Auto) Baso % (Auto) Neut # (Auto) Lymph # (Auto) [place] # (Auto) Eos # (Auto) Baso # (Auto) Sodium Potassium Chloride Carbon Dioxide Anion Gap BUN Creatinine Est GFR ( Amer) Est GFR (Non-Af Amer) POC Glucose (mg/dL) 219 H 194 H Random Glucose Calcium Phosphorus Magnesium Total Bilirubin AST ALT Alkaline Phosphatase Total Protein Albumin Globulin Albumin/Globulin Ratio Blood Type O POSITIVE Antibody Screen Negative 08/16/18 08/16/18 08/16/18 06:16 06:16 06:35 WBC 5.9 RBC 4.28 L Hgb 11.5 L Hct 35.5 MCV 83.0 MCH 26.8 L MCHC 32.3 L RDW 13.5 Plt Count 399 MPV 7.5 Neut % (Auto) 58.5 Lymph % (Auto) 27.0 [place] % (Auto) 10.1 H Eos % (Auto) 3.6 Baso % (Auto) 0.8 Neut # (Auto) 3.4 Lymph # (Auto) 1.6 [place] # (Auto) 0.6 Eos # (Auto) 0.2 Baso # (Auto) 0.0 Sodium 136 Potassium 4.0 Chloride 102 Carbon Dioxide 28 Anion Gap 10 BUN 34 H Creatinine 1.0 Est GFR ( Amer) > 60 Est GFR (Non-Af Amer) > 60 POC Glucose (mg/dL) 176 H Random Glucose 167 H Calcium 9.1 Phosphorus 3.2 Magnesium 2.0 Total Bilirubin 0.3 AST 53 ALT 34 Alkaline Phosphatase 98 Total Protein 7.4 Albumin 3.7 Globulin 3.7 Albumin/Globulin Ratio 1.0 Blood Type Antibody Screen 08/16/18 09:13 WBC RBC Hgb Hct MCV MCH MCHC RDW Plt Count MPV Neut % (Auto) Lymph % (Auto) [place] % (Auto) Eos % (Auto) Baso % (Auto) Neut # (Auto) Lymph # (Auto) [place] # (Auto) Eos # (Auto) Baso # (Auto) Sodium Potassium Chloride Carbon Dioxide Anion Gap BUN Creatinine Est GFR ( Amer) Est GFR (Non-Af Amer) POC Glucose (mg/dL) 137 H Random Glucose Calcium Phosphorus Magnesium Total Bilirubin AST ALT Alkaline Phosphatase Total Protein Albumin Globulin Albumin/Globulin Ratio Blood Type Antibody Screen Assessment & Plan - Assessment and Plan (Free Text) Assessment: 68 y/o male with PMHx of HTN, DM, PVD, and OM presents to the ICU on POD0 s/p LLE venous bypass by Dr. Ghotra. Patient hemodynamically stable and transferred to ICU for overnight observation. neuro -patient awake, recovering from surgery -no acute issues CV -continue with norvasc, lisinopril -continue with asa/plavix -resume lovenox tomorrow 13 due to risk of post-op bleed if resumed immediately after surgery -post op: morphine PRN for pain, zofran PRN for nausea/vomiting. Wound care as recommended by podiatry. Podiatry, Dr. Wolf following. Appreciate recs -cardio, Dr. Rosales, following. Appreciate recs. Pulm -NC PRN 2L -maintain spo2>90% -no acute issues -Incentive spirometer Renal -LR 100mL/h -remove thomas tomorrow 08/16 -monitor CMP qAM GI -resume diet -ordered diabetic liquid diet for now, advance diet as tolerated -no acute issues Endo -ISS -hold home metformin, invokana, and glimepiride -hypoglycemic protocol ID -08/11 microbiology report of left foot culture: proteus mirabilis and group F strep. Sensitive to all abx on the grid. -patient was on Zosyn 08/10-08/11 x 3 doses and ancef 08/11 -currently not on abx -ID, Dr. Hughes following. Appreciate recs GI ppx: not indicated DVT ppx: held (post-op) Rosa Maria Stevens PGY1
[2018-08-16 13:52] LABS: HEMOGLOBIN 10.4 g/dL (12.0-18.0); MEAN CELL VOLUME 83.2 fL (80.0-94.0); RBC 3.91 Mil/uL (4.40-5.90); WHITE BLOOD COUNT 14.2 K/uL (4.8-10.8)
[2018-08-16 13:53] LABS: MEAN CORPUSCULAR HEMOGLOBIN 26.5 pg (27.0-31.0); MEAN CORPUSCULAR HGB CONC 31.9 g/dL (33.0-37.0); MEAN PLATELET VOLUME 7.4 fL (7.2-11.7); RED CELL DISTRIBUTION WIDTH 13.8 % (11.5-14.5)
[2018-08-16] MEDS: Lactobacillus Acidophilus 500 MU Cap PO SCH ×2 (13:58→17:37)
[2018-08-16] MEDS: Dextrose 5%/0.45% NS 1,000 ML IV SCH ×2 (13:59→14:45)
[2018-08-16] MEDS: Enoxaparin 30 mg Syringe SC SCH (13:59)
[2018-08-16] MEDS ORDERED: Dextrose 5%/0.45% NS 1,000 ML IV ONE (14:15)
--- NOTE | 2018-08-16 15:56 | CP.PCM.PN ---
Subjective - Date & Time of Evaluation Date of Evaluation: 08/16/18 Time of Evaluation: 08:00 - Subjective Subjective: admitted to ICU s/p vascular surgery Objective - Vital Signs/Intake and Output Vital Signs (last 24 hours): Temp Pulse Resp BP Pulse Ox 97.1 F L 73 17 112/58 L 100 08/16/18 14:30 08/16/18 14:30 08/16/18 14:30 08/16/18 14:30 08/16/18 14:30 Intake and Output: 08/16/18 08/16/18 06:59 18:59 Intake Total 1700 Output Total 100 Balance 1600 - Medications Medications: Current Medications Amlodipine Besylate (Norvasc) 5 mg PO DIN@1700 [facility] Last Admin: 08/15/18 18:42 Dose: 5 mg Aspirin (Aspirin Chewable) 81 mg PO DAILY [facility] Last Admin: 08/16/18 13:58 Dose: Not Given Clopidogrel Bisulfate (Plavix) 75 mg PO DAILY [facility] Last Admin: 08/16/18 14:00 Dose: Not Given Dextrose (Dextrose 50% Inj) 0 ml IV STAT PRN; Protocol PRN Reason: Hypoglycemia Protocol Dextrose (Glutose 15) 0 gm PO ONCE PRN; Protocol PRN Reason: Hypoglycemia Protocol Docusate Sodium (Colace) 100 mg PO TID [facility] Last Admin: 08/16/18 13:59 Dose: Not Given Enoxaparin Sodium (Lovenox) 30 mg SC 1000,2200 [facility] Last Admin: 08/16/18 13:59 Dose: Not Given Gabapentin (Neurontin) 100 mg PO TID [facility] Last Admin: 08/16/18 14:00 Dose: Not Given Glucagon (Glucagen Diagnostic Kit) 0 mg IM STAT PRN; Protocol PRN Reason: Hypoglycemia Protocol Hydromorphone HCl (Dilaudid) 2 mg IVP Q4H PRN PRN Reason: Pain, moderate (4-7) Cefazolin Sodium 500 mg/ (Sodium Chloride) 50 mls @ 100 mls/hr IVPB Q8H [facility]; Protocol Last Admin: 08/16/18 13:58 Dose: Not Given Dextrose/Sodium Chloride (Dextrose 5%/0.45% Ns 1000 Ml) 1,000 mls @ 100 mls/hr IV .Q10H [facility] Last Admin: 08/16/18 13:59 Dose: Not Given Insulin Human Regular (Novolin R) 0 unit SC ACHS [facility]; Protocol Last Admin: 08/16/18 14:00 Dose: Not Given Lactobacillus Acidophilus (Bacid Acidophilus) 1 cap PO BID [facility] Last Admin: 08/16/18 13:58 Dose: Not Given Lisinopril (Zestril) 10 mg PO DAILY [facility] Last Admin: 08/16/18 14:01 Dose: Not Given Ondansetron HCl (Zofran Inj) 4 mg IVP Q6H PRN PRN Reason: Nausea/Vomiting Rosuvastatin Calcium (Crestor) 5 mg PO HS [facility] Last Admin: 08/15/18 21:52 Dose: Not Given - Labs Labs: 08/16/18 13:51 08/16/18 06:16 - Constitutional Appears: Non-toxic, Confused, Chronically Ill - Head Exam Head Exam: NORMOCEPHALIC - Eye Exam Eye Exam: absent: Scleral icterus - ENT Exam ENT Exam: Mucous Membranes Dry - Neck Exam Neck Exam: absent: Lymphadenopathy - Respiratory Exam Respiratory Exam: Decreased Breath Sounds - Cardiovascular Exam Cardiovascular Exam: REGULAR RHYTHM - GI/Abdominal Exam GI & Abdominal Exam: Distended, Soft - Rectal Exam Rectal Exam: Deferred - Exam Exam: NORMAL INSPECTION - Extremities Exam Extremities Exam: Pedal Edema. 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
--- NOTE | 2018-08-16 16:15 | CP.PCM.PN ---
Subjective - Date & Time of Evaluation Date of Evaluation: 08/16/18 Time of Evaluation: 13:30 - Subjective Subjective: PGY-1 Medicine Progress Note for Dr. Black Patient was seen and examined today at bedside in the PACU in no acute distress. Nurse reports no overnight events. Patient was still coming off of anesthesia and unable to answer questions. He was resting comfortably at time of exam. Unable to obtain ROS. Objective - Vital Signs/Intake and Output Vital Signs (last 24 hours): Temp Pulse Resp BP Pulse Ox 97.1 F L 73 17 112/58 L 100 08/16/18 14:30 08/16/18 14:30 08/16/18 14:30 08/16/18 14:30 08/16/18 14:30 Intake and Output: 08/16/18 08/16/18 06:59 18:59 Intake Total 1700 Output Total 100 Balance 1600 - Medications Medications: Current Medications Amlodipine Besylate (Norvasc) 5 mg PO DIN@1700 [facility] Last Admin: 08/15/18 18:42 Dose: 5 mg Aspirin (Aspirin Chewable) 81 mg PO DAILY [facility] Last Admin: 08/16/18 13:58 Dose: Not Given Clopidogrel Bisulfate (Plavix) 75 mg PO DAILY [facility] Last Admin: 08/16/18 14:00 Dose: Not Given Dextrose (Dextrose 50% Inj) 0 ml IV STAT PRN; Protocol PRN Reason: Hypoglycemia Protocol Dextrose (Glutose 15) 0 gm PO ONCE PRN; Protocol PRN Reason: Hypoglycemia Protocol Docusate Sodium (Colace) 100 mg PO TID [facility] Last Admin: 08/16/18 13:59 Dose: Not Given Enoxaparin Sodium (Lovenox) 30 mg SC 1000,2200 [facility] Last Admin: 08/16/18 13:59 Dose: Not Given Gabapentin (Neurontin) 100 mg PO TID [facility] Last Admin: 08/16/18 14:00 Dose: Not Given Glucagon (Glucagen Diagnostic Kit) 0 mg IM STAT PRN; Protocol PRN Reason: Hypoglycemia Protocol Hydromorphone HCl (Dilaudid) 2 mg IVP Q4H PRN PRN Reason: Pain, moderate (4-7) Cefazolin Sodium 500 mg/ (Sodium Chloride) 50 mls @ 100 mls/hr IVPB Q8H [facility]; Protocol Last Admin: 08/16/18 13:58 Dose: Not Given Dextrose/Sodium Chloride (Dextrose 5%/0.45% Ns 1000 Ml) 1,000 mls @ 100 mls/hr IV .Q10H [facility] Last Admin: 08/16/18 13:59 Dose: Not Given Insulin Human Regular (Novolin R) 0 unit SC ACHS [facility]; Protocol Last Admin: 08/16/18 14:00 Dose: Not Given Lactobacillus Acidophilus (Bacid Acidophilus) 1 cap PO BID [facility] Last Admin: 08/16/18 13:58 Dose: Not Given Lisinopril (Zestril) 10 mg PO DAILY [facility] Last Admin: 08/16/18 14:01 Dose: Not Given Ondansetron HCl (Zofran Inj) 4 mg IVP Q6H PRN PRN Reason: Nausea/Vomiting Rosuvastatin Calcium (Crestor) 5 mg PO HS [facility] Last Admin: 08/15/18 21:52 Dose: Not Given - Labs Labs: 08/16/18 13:51 08/16/18 06:16 - Constitutional Appears: Non-toxic, No Acute Distress - Head Exam Head Exam: ATRAUMATIC, NORMOCEPHALIC - Eye Exam Eye Exam: EOMI, Normal appearance - ENT Exam ENT Exam: Mucous Membranes Moist - Respiratory Exam Respiratory Exam: Clear to Ausculation Bilateral, NORMAL BREATHING PATTERN. absent: Rales, Rhonchi, Wheezes Additional comments: 2L O2 via NC - Cardiovascular Exam Cardiovascular Exam: REGULAR RHYTHM, +S1, +S2. absent: Gallop, Rubs, Murmur - GI/Abdominal Exam GI & Abdominal Exam: Soft, Hypoactive Bowel Sounds. absent: Firm, Guarding, Rigid, Tenderness, Rebound - Extremities Exam Extremities Exam: Normal Capillary Refill. absent: Joint Swelling Additional comments: radial pulses palpable L LE in brace, warm to touch - Neurological Exam Additional comments: still not awake after surgery - Skin Skin Exam: Dry, Normal Color, Warm Assessment and Plan - Assessment and Plan (Free Text) Assessment: 68 year old M with pmhx of HTN, HLD, DM, OM of L hallux, PVD presenting with worsening PVD s/p cath procedure, s/p POD#0 L popliteal-tibial artery bypass.
[2018-08-17] MEDS: Dextrose 5%/0.45% NS 1,000 ML IV SCH ×2 (00:30→10:53)
--- NOTE | 2018-08-17 01:34 | OP ---
PROCEDURE DATE: 08/16/2018 PREOPERATIVE DIAGNOSIS: Gangrene, left great toe. POSTOPERATIVE DIAGNOSIS: Gangrene, left great toe. PROCEDURE CARRIED OUT: Left popliteal to posterior tibial bypass using a reverse saphenous vein with intraoperative arteriogram. SURGEON: Donis Ghotra Jr., MD GREENSKEEPER: DORIE Oseguera ANESTHESIOLOGIST: Landon Jones MD INDICATIONS: The patient is an older middle-aged male with diabetes, renal insufficiency, previous endovascular interventions. OPERATIVE FINDINGS: Final completion arteriogram was excellent, showing brisk flow into the foot. There was no evidence of indra-anastomotic stenosis. Prior to this, we have taken multiple angiograms which showed indra-anastomotic stenosis which is relieved with the use of papaverine and flow. In addition, the proximal popliteal artery has some plaque, which was not identified preoperatively, which had to be endarterectomized to allow for the inflow vessel. This was submitted for examination. The resting intraoperative findings are unremarkable. ESTIMATED BLOOD LOSS: 350 mL to 400 mL. DESCRIPTION OF PROCEDURE: The patient was given general anesthesia and intravenous antibiotics. Venodyne boots were not applied on the left leg. We made an incision exposing the vein from the groin down to below the knee and after preparing, we then isolated the popliteal artery below the knee and the posterior tibial artery at the ankle. After isolation of these vessels, a tunnel was created. Heparin was given. The tourniquet was applied proximally. The distal anastomosis was done first at the posterior tibial artery. Then, the proximal anastomosis was carried out. The initial angiogram was unsatisfactory, showing diffuse spasm in the indra-anastomotic area which was not completely relieved with papaverine. We then completed the proximal anastomosis, punctured the graft again and had a much better result on the final film. After completion of this, we closed the wounds. It was difficult to obtain hemostasis as the patient remained on dual antiplatelet therapy as well as heparin. Nonetheless, eventually adequate hemostasis was obtained. The wounds were closed and the skin was closed with skin clips and nylon sutures. Blood loss was as mentioned. Operation carried out is left popliteal to posterior tibial artery bypass with reverse saphenous vein with intraoperative arteriogram. Donis Ghotra Jr., MD cc: Ignacio Barnard DPM [facility] # [id number]
[2018-08-17 06:40] LABS: HEMOGLOBIN 9.7 g/dL (12.0-18.0); MEAN CELL VOLUME 83.2 fL (80.0-94.0); MEAN CORPUSCULAR HEMOGLOBIN 27.1 pg (27.0-31.0); MEAN CORPUSCULAR HGB CONC 32.6 g/dL (33.0-37.0); MEAN PLATELET VOLUME 7.8 fL (7.2-11.7); RBC 3.56 Mil/uL (4.40-5.90); RED CELL DISTRIBUTION WIDTH 13.6 % (11.5-14.5); WHITE BLOOD COUNT 9.5 K/uL (4.8-10.8)
[2018-08-17 06:58] LABS: ALBUMIN 3.5 g/dL (3.5-5.0); ALT/SGPT 28 U/L (21-72); AST/SGOT 33 U/L (17-59); BLOOD UREA NITROGEN 23 mg/dL (9-20); CALCIUM 8.3 mg/dl (8.6-10.4); GFR NON-AFRICAN AMERICAN > 60
[2018-08-17] MEDS: (Novolin R) Insulin Human Regular 100 units/ml vial SC SCH ×5 (08:34→21:44)
--- NOTE | 2018-08-17 09:59 | CP.PCM.PN ---
Subjective - Date & Time of Evaluation Date of Evaluation: 08/17/18 Time of Evaluation: 09:58 - Subjective Subjective: Patient now s/p left popliteal- posterior tibial artery bypass with reversed saphenous vein with operative angiogram 08/16/18 No new complaints L. tib palpable, + doppler DP Mild HTN No CP, fevers, chills, N/V Objective - Vital Signs/Intake and Output Vital Signs (last 24 hours): Temp Pulse Resp BP Pulse Ox 97.6 F 75 13 121/58 L 98 08/17/18 04:00 08/17/18 08:43 08/17/18 08:43 08/17/18 08:43 08/17/18 08:43 Intake and Output: 08/17/18 08/17/18 06:59 18:59 Intake Total 1150 200 Output Total 850 205 Balance 300 -5 - Medications Medications: Current Medications Amlodipine Besylate (Norvasc) 5 mg PO DIN@1700 [facility] Last Admin: 08/16/18 17:26 Dose: 5 mg Aspirin (Aspirin Chewable) 81 mg PO DAILY [facility] Last Admin: 08/16/18 13:58 Dose: Not Given Clopidogrel Bisulfate (Plavix) 75 mg PO DAILY [facility] Last Admin: 08/16/18 14:00 Dose: Not Given Dextrose (Dextrose 50% Inj) 0 ml IV STAT PRN; Protocol PRN Reason: Hypoglycemia Protocol Dextrose (Glutose 15) 0 gm PO ONCE PRN; Protocol PRN Reason: Hypoglycemia Protocol Docusate Sodium (Colace) 100 mg PO TID [facility] Last Admin: 08/16/18 17:25 Dose: 100 mg Enoxaparin Sodium (Lovenox) 30 mg SC 1000,2200 [facility] Last Admin: 08/16/18 13:59 Dose: Not Given Gabapentin (Neurontin) 100 mg PO TID [facility] Last Admin: 08/16/18 17:26 Dose: 100 mg Glucagon (Glucagen Diagnostic Kit) 0 mg IM STAT PRN; Protocol PRN Reason: Hypoglycemia Protocol Hydromorphone HCl (Dilaudid) 2 mg IVP Q4H PRN PRN Reason: Pain, moderate (4-7) Last Admin: 08/17/18 03:27 Dose: 2 mg Cefazolin Sodium 500 mg/ (Sodium Chloride) 50 mls @ 100 mls/hr IVPB Q8H [facility]; Protocol Last Admin: 08/17/18 01:30 Dose: 100 mls/hr Dextrose/Sodium Chloride (Dextrose 5%/0.45% Ns 1000 Ml) 1,000 mls @ 100 mls/hr IV .Q10H [facility] Last Admin: 08/17/18 00:30 Dose: 100 mls/hr Insulin Human Regular (Novolin R) 0 unit SC ACHS [facility]; Protocol Last Admin: 08/17/18 08:45 Dose: 3 units Lactobacillus Acidophilus (Bacid Acidophilus) 1 cap PO BID [facility] Last Admin: 08/16/18 17:37 Dose: 1 cap Lisinopril (Zestril) 10 mg PO DAILY [facility] Last Admin: 08/16/18 14:01 Dose: Not Given Ondansetron HCl (Zofran Inj) 4 mg IVP Q6H PRN PRN Reason: Nausea/Vomiting Last Admin: 08/17/18 08:33 Dose: 4 mg Rosuvastatin Calcium (Crestor) 5 mg PO HS [facility] Last Admin: 08/16/18 22:15 Dose: 5 mg - Labs Labs: 08/17/18 06:26 08/17/18 06:26 - Constitutional Appears: No Acute Distress - Head Exam Head Exam: ATRAUMATIC, NORMAL INSPECTION, NORMOCEPHALIC - Eye Exam Eye Exam: EOMI, Normal appearance. absent: Scleral icterus - ENT Exam ENT Exam: Mucous Membranes Moist, Normal Exam - Neck Exam Neck Exam: Normal Inspection - Respiratory Exam Respiratory Exam: Clear to Ausculation Bilateral, NORMAL BREATHING PATTERN. absent: Rales, Rhonchi, Wheezes - Cardiovascular Exam Cardiovascular Exam: REGULAR RHYTHM, +S1, +S2. absent: Murmur - GI/Abdominal Exam GI & Abdominal Exam: Soft, Normal Bowel Sounds. absent: Tenderness - Extremities Exam Extremities Exam: Pedal Edema - Neurological Exam Neurological Exam: Alert, Awake, Oriented x3 - Skin Skin Exam: Warm (post op dressing LLE) Assessment and Plan - Assessment and Plan (Free Text) Assessment: 68 y/o HTN, HLD, DM, PVD, Prior osteomyelitis Recent smoker and priopr substance abuse nows/p LLE vascular bypass for non-heeling ulcers. He denies any CP or SOB No volume overload on EXAM > TELE: NSR, no acute ischemic changes > Lungs: clear lung farrell, no cardiomegaly or congestion > Creat WNL > Mild anemia: no gross blood loss HTN > controlled on norvasc 5 and zestril 10 (single high reading noted) > titrate up if BP trends >150 PAD > s/p LLE bypass (left popliteal- posterior tibial artery > NO PERIOPERATIVE CARDIAC COMPLICATIONS > cont ASA/plavix/statin > Stress echo done performed by me on 08/14/18: No reversible ischemia with dobutamine stress. > Ambulate when safe per vascular surgery
[2018-08-17] MEDS ORDERED: (Lantus) Insulin Glargine, Recombinant SC ONE (10:05)
--- NOTE | 2018-08-17 10:18 | CP.PCM.PN ---
Subjective - Date & Time of Evaluation Date of Evaluation: 08/17/18 Time of Evaluation: 10:18 - Subjective Subjective: Podiatry Progress Note - Dr. Hoyos 68 y/o male patient seen and evaluated at bedside. Patient resting in bed in ICU s/p bypass to the left lower extremity yesterday with Dr. Ghotra. Admits to mild pain and discomfort in the left lower extremity but overall feels ok. Denies any pain to the left foot. Denies F/C/N/V/CP/SOB Objective - Vital Signs/Intake and Output Vital Signs (last 24 hours): Temp Pulse Resp BP Pulse Ox 97.6 F 75 13 121/58 L 98 08/17/18 04:00 08/17/18 08:43 08/17/18 08:43 08/17/18 08:43 08/17/18 08:43 Intake and Output: 08/17/18 08/17/18 06:59 18:59 Intake Total 1150 200 Output Total 850 205 Balance 300 -5 - Medications Medications: Current Medications Amlodipine Besylate (Norvasc) 5 mg PO DIN@1700 [facility] Last Admin: 08/16/18 17:26 Dose: 5 mg Aspirin (Aspirin Chewable) 81 mg PO DAILY [facility] Last Admin: 08/16/18 13:58 Dose: Not Given Clopidogrel Bisulfate (Plavix) 75 mg PO DAILY [facility] Last Admin: 08/16/18 14:00 Dose: Not Given Dextrose (Dextrose 50% Inj) 0 ml IV STAT PRN; Protocol PRN Reason: Hypoglycemia Protocol Dextrose (Glutose 15) 0 gm PO ONCE PRN; Protocol PRN Reason: Hypoglycemia Protocol Docusate Sodium (Colace) 100 mg PO TID [facility] Last Admin: 08/16/18 17:25 Dose: 100 mg Enoxaparin Sodium (Lovenox) 30 mg SC 1000,2200 [facility] Last Admin: 08/16/18 13:59 Dose: Not Given Gabapentin (Neurontin) 100 mg PO TID [facility] Last Admin: 08/16/18 17:26 Dose: 100 mg Glimepiride (Amaryl) 4 mg PO DAILY [facility] Glucagon (Glucagen Diagnostic Kit) 0 mg IM STAT PRN; Protocol PRN Reason: Hypoglycemia Protocol Hydromorphone HCl (Dilaudid) 2 mg IVP Q4H PRN PRN Reason: Pain, moderate (4-7) Last Admin: 08/17/18 03:27 Dose: 2 mg Cefazolin Sodium 500 mg/ (Sodium Chloride) 50 mls @ 100 mls/hr IVPB Q8H [facility]; Protocol Last Admin: 08/17/18 01:30 Dose: 100 mls/hr Dextrose/Sodium Chloride (Dextrose 5%/0.45% Ns 1000 Ml) 1,000 mls @ 100 mls/hr IV .Q10H [facility] Last Admin: 08/17/18 00:30 Dose: 100 mls/hr Insulin Glargine (Lantus) 10 unit SC ONCE ONE Stop: 08/17/18 10:06 Insulin Human Regular (Novolin R) 0 unit SC ACHS [facility]; Protocol Last Admin: 08/17/18 08:45 Dose: 3 units Lactobacillus Acidophilus (Bacid Acidophilus) 1 cap PO BID [facility] Last Admin: 08/16/18 17:37 Dose: 1 cap Lisinopril (Zestril) 10 mg PO DAILY [facility] Last Admin: 08/16/18 14:01 Dose: Not Given Ondansetron HCl (Zofran Inj) 4 mg IVP Q6H PRN PRN Reason: Nausea/Vomiting Last Admin: 08/17/18 08:33 Dose: 4 mg Rosuvastatin Calcium (Crestor) 5 mg PO HS [facility] Last Admin: 08/16/18 22:15 Dose: 5 mg - Labs Labs: 08/17/18 06:26 08/17/18 06:26 - Constitutional Appears: Well, Non-toxic, No Acute Distress - Extremities Exam Additional comments: Left lower extremity focused exam: Vasc: DP/PT pulses faintly palpable. Temperature gradient warm to cool. CFT < 3 sec to all digits. No pedal edema noted Derm: ulceration noted to plantar medial aspect of great toe approx 1cm x 0.8cm x 0.1cm with mild erythematous and ischemic skin changes indra wound. Macerated wound borders noted. Minimal active sanguinous drainage noted. No purulence, no malodor, no fluctuance. Hyperkeratotic lesion noted sub met 5 left foot with no underlying ulcer formation evident Neuro: protective sensation and gross sensation diminished Ortho: no gross biomechanical abnormalities noted - Neurological Exam Neurological Exam: Alert, Awake, Oriented x3 - Psychiatric Exam Psychiatric exam: Normal Affect, Normal Mood Assessment and Plan - Assessment and Plan (Free Text) Assessment: 68 y/o male with left foot great toe infected ulcer and peripheral arterial disease s/p LLE bypass Plan: Pt seen and evaluated at bedside Discussed treatment plan with Dr. Hoyos Ulcer cleaned with peroxide and dressed with [place]os[place] and NAVI Pt s/p popliteal-tibial bypass with Dr. Ghotra on 08/16/18 Podiatry to continue with local wound care Will continue to follow while in house
[2018-08-17] MEDS: Lactobacillus Acidophilus 500 MU Cap PO SCH ×2 (10:44→17:47)
--- NOTE | 2018-08-17 10:57 | CP.PCM.PN ---
Subjective - Date & Time of Evaluation Date of Evaluation: 08/17/18 Time of Evaluation: 07:00 - Subjective Subjective: Vascular Surgery: Dr. Ghotra Pt seen and examined. No acute overnight events. Pt is s/p Fem-tib bypass; POD#1. He states pain is well controlled and admits to a sore throat but denies other complaints. Denies fevers/chills. Objective - Vital Signs/Intake and Output Vital Signs (last 24 hours): Temp Pulse Resp BP Pulse Ox 97.6 F 79 12 154/75 H 98 08/17/18 04:00 08/17/18 09:43 08/17/18 09:43 08/17/18 09:43 08/17/18 09:43 Intake and Output: 08/17/18 08/17/18 06:59 18:59 Intake Total 1150 200 Output Total 850 205 Balance 300 -5 - Medications Medications: Current Medications Amlodipine Besylate (Norvasc) 5 mg PO DIN@1700 [facility] Last Admin: 08/16/18 17:26 Dose: 5 mg Aspirin (Aspirin Chewable) 81 mg PO DAILY [facility] Last Admin: 08/16/18 13:58 Dose: Not Given Clopidogrel Bisulfate (Plavix) 75 mg PO DAILY [facility] Last Admin: 08/16/18 14:00 Dose: Not Given Dextrose (Dextrose 50% Inj) 0 ml IV STAT PRN; Protocol PRN Reason: Hypoglycemia Protocol Dextrose (Glutose 15) 0 gm PO ONCE PRN; Protocol PRN Reason: Hypoglycemia Protocol Docusate Sodium (Colace) 100 mg PO TID [facility] Last Admin: 08/16/18 17:25 Dose: 100 mg Enoxaparin Sodium (Lovenox) 30 mg SC 1000,2200 [facility] Last Admin: 08/16/18 13:59 Dose: Not Given Gabapentin (Neurontin) 100 mg PO TID [facility] Last Admin: 08/16/18 17:26 Dose: 100 mg Glimepiride (Amaryl) 4 mg PO B [facility] Glucagon (Glucagen Diagnostic Kit) 0 mg IM STAT PRN; Protocol PRN Reason: Hypoglycemia Protocol Hydromorphone HCl (Dilaudid) 2 mg IVP Q4H PRN PRN Reason: Pain, moderate (4-7) Last Admin: 08/17/18 03:27 Dose: 2 mg Cefazolin Sodium 500 mg/ (Sodium Chloride) 50 mls @ 100 mls/hr IVPB Q8H [facility]; Protocol Last Admin: 08/17/18 01:30 Dose: 100 mls/hr Dextrose/Sodium Chloride (Dextrose 5%/0.45% Ns 1000 Ml) 1,000 mls @ 100 mls/hr IV .Q10H [facility] Last Admin: 08/17/18 00:30 Dose: 100 mls/hr Insulin Human Regular (Novolin R) 0 unit SC ACHS [facility]; Protocol Last Admin: 08/17/18 08:45 Dose: 3 units Lactobacillus Acidophilus (Bacid Acidophilus) 1 cap PO BID [facility] Last Admin: 08/16/18 17:37 Dose: 1 cap Lisinopril (Zestril) 10 mg PO DAILY [facility] Last Admin: 08/16/18 14:01 Dose: Not Given Ondansetron HCl (Zofran Inj) 4 mg IVP Q6H PRN PRN Reason: Nausea/Vomiting Last Admin: 08/17/18 08:33 Dose: 4 mg Rosuvastatin Calcium (Crestor) 5 mg PO HS [facility] Last Admin: 08/16/18 22:15 Dose: 5 mg - Labs Labs: 08/17/18 06:26 08/17/18 06:26 - Constitutional Appears: Well, No Acute Distress - Head Exam Head Exam: ATRAUMATIC - Eye Exam Eye Exam: Normal appearance - ENT Exam ENT Exam: Mucous Membranes Moist - Respiratory Exam Respiratory Exam: NORMAL BREATHING PATTERN - Cardiovascular Exam Cardiovascular Exam: RRR - GI/Abdominal Exam GI & Abdominal Exam: Soft - Extremities Exam Additional comments: LLE with post-op edema, + DP/PT Doppler signals, dressings C/D/I - Neurological Exam Neurological Exam: Alert, Awake, Oriented x3 - Skin Skin Exam: Dry, Warm Assessment and Plan - Assessment and Plan (Free Text) Assessment: 68M s/p L fem-tib bypass; POD#1 Plan: - meagan Martinez - out of bed to chair with PT eval - encourage ambulation - d/w Dr. Brandin Rahman
--- NOTE | 2018-08-17 11:56 | CP.PCM.PN ---
Subjective - Date & Time of Evaluation Date of Evaluation: 08/17/18 Time of Evaluation: 09:45 - Subjective Subjective: PGY-1 Medicine Progress Note for Dr. Black Patient was seen and examined at bedside in no acute distress. Nurse reports no overnight events. Patient complains about discomfort at the L hand A-line site, but is other comfortable post-op. Denies fever, chills, confusion, chest pain, shortness of breath, abdominal pain. He complains that he was a little nauseous on the CLD but did not vomit after being given medication. Objective - Vital Signs/Intake and Output Vital Signs (last 24 hours): Temp Pulse Resp BP Pulse Ox 97.6 F 79 12 154/75 H 98 08/17/18 04:00 08/17/18 09:43 08/17/18 09:43 08/17/18 09:43 08/17/18 09:43 Intake and Output: 08/17/18 08/17/18 06:59 18:59 Intake Total 1150 200 Output Total 850 205 Balance 300 -5 - Medications Medications: Current Medications Amlodipine Besylate (Norvasc) 5 mg PO DIN@1700 [facility] Last Admin: 08/16/18 17:26 Dose: 5 mg Aspirin (Aspirin Chewable) 81 mg PO DAILY [facility] Last Admin: 08/17/18 10:44 Dose: 81 mg Clopidogrel Bisulfate (Plavix) 75 mg PO DAILY [facility] Last Admin: 08/16/18 14:00 Dose: Not Given Dextrose (Dextrose 50% Inj) 0 ml IV STAT PRN; Protocol PRN Reason: Hypoglycemia Protocol Dextrose (Glutose 15) 0 gm PO ONCE PRN; Protocol PRN Reason: Hypoglycemia Protocol Docusate Sodium (Colace) 100 mg PO TID [facility] Last Admin: 08/17/18 10:44 Dose: 100 mg Enoxaparin Sodium (Lovenox) 30 mg SC 1000,2200 [facility] Last Admin: 08/16/18 13:59 Dose: Not Given Gabapentin (Neurontin) 100 mg PO TID [facility] Last Admin: 08/16/18 17:26 Dose: 100 mg Glimepiride (Amaryl) 4 mg PO ACB [facility] Glucagon (Glucagen Diagnostic Kit) 0 mg IM STAT PRN; Protocol PRN Reason: Hypoglycemia Protocol Hydromorphone HCl (Dilaudid) 2 mg IVP Q4H PRN PRN Reason: Pain, moderate (4-7) Last Admin: 08/17/18 03:27 Dose: 2 mg Cefazolin Sodium 500 mg/ (Sodium Chloride) 50 mls @ 100 mls/hr IVPB Q8H [facility]; Protocol Last Admin: 08/17/18 10:44 Dose: 100 mls/hr Dextrose/Sodium Chloride (Dextrose 5%/0.45% Ns 1000 Ml) 1,000 mls @ 100 mls/hr IV .Q10H [facility] Last Admin: 08/17/18 10:53 Dose: Not Given Insulin Human Regular (Novolin R) 0 unit SC ACHS [facility]; Protocol Last Admin: 08/17/18 08:45 Dose: 3 units Lactobacillus Acidophilus (Bacid Acidophilus) 1 cap PO BID [facility] Last Admin: 08/17/18 10:44 Dose: 1 cap Lisinopril (Zestril) 10 mg PO DAILY [facility] Last Admin: 08/16/18 14:01 Dose: Not Given Ondansetron HCl (Zofran Inj) 4 mg IVP Q6H PRN PRN Reason: Nausea/Vomiting Last Admin: 08/17/18 08:33 Dose: 4 mg Rosuvastatin Calcium (Crestor) 5 mg PO HS [facility] Last Admin: 08/16/18 22:15 Dose: 5 mg - Labs Labs: 08/17/18 06:26 08/17/18 06:26 - Constitutional Appears: Non-toxic, No Acute Distress - Head Exam Head Exam: ATRAUMATIC, NORMOCEPHALIC - Eye Exam Eye Exam: EOMI, Normal appearance - ENT Exam ENT Exam: Mucous Membranes Moist - Respiratory Exam Respiratory Exam: Clear to Ausculation Bilateral, NORMAL BREATHING PATTERN. absent: Rales, Rhonchi, Wheezes Additional comments: 2L O2 via NC - Cardiovascular Exam Cardiovascular Exam: REGULAR RHYTHM, +S1, +S2. absent: Gallop, Rubs, Murmur - GI/Abdominal Exam GI & Abdominal Exam: Soft, Normal Bowel Sounds. absent: Firm, Guarding, Rigid, Tenderness - Extremities Exam Extremities Exam: Normal Capillary Refill Additional comments: radial pulses palpable. Pulses Dopplerable on L LE L LE in brace, warm to touch - Neurological Exam Neurological Exam: Alert, Awake, Oriented x3 Neuro motor strength exam: Left Lower Extremity: 4 (limited ROM since still in brace. is able to move toes, foot. Sensation intact) - Psychiatric Exam Psychiatric exam: Normal Affect, Normal Mood - Skin Skin Exam: Dry, Intact, Normal Color, Warm Assessment and Plan - Assessment and Plan (Free Text) Assessment: 68 year old M with pmhx of HTN, HLD, DM, OM of L hallux, PVD presenting with worsening PVD s/p cath procedure, s/p POD#1 L popliteal-tibial artery bypass. Plan: Worsening bilateral PVD severe bilateral tibial disease L>R - Abdominal angiography (08/07): LLE: Moderate stenosis of popliteal artery. Runoff shows severe stenosis of tibioperoneal artery. Peroneal artery is occluded. Occlusion of proximal posterior tibial artery with mid posterior tibial artery reconstitution via collaterals. RLE: Mild stenosis of popliteal artery. Peroneal artery has moderate stenosis in the mid and distal segment -Aortofemoral angiogram (08/10): 1. 30% stenosis in distal portion of SFA, but below widely patent. Trifurcation in ant tibial a. was previously patent, now occluded distally. Posterior tibial a. and tibial peroneal trunk are severely diseased. Similar findings on the R but not as severe. - Cardio consulted: Dr. Rosales - ana appreciated for cardiac clearance - recent ECHO 04/11/18: LV normal size, normal wall thickness, EF 76% - CXR: no acute findings - EKG: NSR @ 64 bpm, L axis deviation - Stress echo (08/14): No reversible ischemia with dobutamine stress - Vascular Surgery consulted: Dr. Ghotra - ana appreciated - POD#1 for LE bypass procedure - Patient will be downgraded out of ICU to med/surg after 24 hours observation - ASA 81mg po daily - Plavix 75mg po daily - Dilaudid 2mg ICP q4h prn - Zofran 4m ICP q6h prn Ulceration of L hallux Hx Osteomyelitis L hallux - wound culture (08/11): Proteus Mirabilis, group F strep - Podiatry consulted: Dr. Wolf - ana appreciated - Ulcer cleaned with peroxide and dressed with Medihoney and DSD - ID consulted: Dr. Hughes - ana appreciated - Zosyn 3.375gm IVPB q8 (3 doses total 08/10-08/11) - Cefazolin 500mg IVPB q8 (started 08/11) Diabetes Mellitus - home Metformin held for contrast - Gabapentin 100mg po tid for neuropathic pain - Glimepiride 4mg po ACB - Accucheck ACHS - ISS medium dose - hypoglycemic protocol Hypertension - Norvasc 5mg po with dinner - Lisinopril 10mg po daily Hyperlipidemia - Crestor 5 mg PO HS PPx - DVT: Lovenox 30mg SC bid held for surgery, ASA 81mg po daily, Plavix 75mg po daily, SCDs CI 2/2 PVD - GI: Bacid po BID, Docusate 100mg po tid - Diet: CLD -> FLD, ADAT d/w Dr. Wayne Lay PGY-1
--- NOTE | 2018-08-17 12:33 | CP.CCUPN ---
<Rosa Maria Stevens - Last Filed: 08/17/18 12:32> CCU Subjective - Physician Review Subjective (Free Text): 08/17/18 12:32 ICU Progress Note for Dr. Street 68 y/o male with PMHx of HTN, DM, PVD, and OM presented to the ICU 1 on POD0 s/p LLE venous bypass by Dr. Ghotra. Patient hemodynamically stable and transferred to ICU for overnight observation. Now POD1. Patient stable for transfer to med-surg. Continue with medical care out of ICU. Case discussed w/ Dr. Jad Stevens PGY1 CCU Objective - Vital Signs / Intake & Output Vital Signs (Last 4 hours): Vital Signs Pulse Resp BP Pulse Ox 08/17/18 09:43 79 12 154/75 H 98 08/17/18 08:43 75 13 121/58 L 98 Intake and Output (Last 8hrs): Intake & Output 08/16/18 08/17/18 08/17/18 22:59 06:59 14:59 Intake Total 850 750 200 Output Total 525 625 205 Balance 325 125 -5 Intake: Intake, IV Amount 850 750 200 Right Antecubital 850 750 200 Output: Urine 525 625 205 Urethral (Henderson) 525 625 205 Stool 0 0 0 Other: # Bowel Movements 0 - Medications Active Medications: Active Medications Generic Name Dose Route Start Last Admin Trade Name Freq PRN Reason Stop Dose Admin Amlodipine Besylate 5 mg 08/10/18 17:00 08/16/18 17:26 Norvasc PO 5 mg DIN@1700 [facility] Administration Aspirin 81 mg 08/11/18 10:00 08/17/18 10:44 Aspirin Chewable PO 81 mg DAILY [facility] Administration Clopidogrel Bisulfate 75 mg 08/11/18 10:00 08/17/18 12:19 Plavix PO 75 mg DAILY [facility] Administration Dextrose 0 ml 08/10/18 13:23 Dextrose 50% Inj IV STAT PRN Hypoglycemia Protocol Protocol Dextrose 0 gm 08/10/18 13:23 Glutose 15 PO ONCE PRN Hypoglycemia Protocol Protocol Docusate Sodium 100 mg 08/12/18 10:00 08/17/18 10:44 Colace PO 100 mg TID [facility] Administration Enoxaparin Sodium 30 mg 08/10/18 22:00 08/16/18 13:59 Lovenox SC Not Given 1000,2200 [facility] Gabapentin 100 mg 08/11/18 14:00 08/17/18 12:18 Neurontin PO 100 mg TID [facility] Administration Glimepiride 4 mg 08/18/18 07:30 Amaryl PO ACB [facility] Glucagon 0 mg 08/10/18 13:23 Glucagen Diagnostic Kit IM STAT PRN Hypoglycemia Protocol Protocol Hydromorphone HCl 2 mg 08/16/18 13:01 08/17/18 12:19 Dilaudid IVP 2 mg Q4H PRN Administration Pain, moderate (4-7) Cefazolin Sodium 500 mg/ 50 mls @ 100 mls/hr 08/11/18 18:00 08/17/18 10:44 Sodium Chloride IVPB 100 mls/hr Q8H [facility] Administration Protocol Insulin Human Regular 0 unit 08/10/18 16:30 08/17/18 12:18 Novolin R SC 3 units ACHS [facility] Administration Protocol Lactobacillus Acidophilus 1 cap 08/10/18 18:00 08/17/18 10:44 Bacid Acidophilus PO 1 cap BID [facility] Administration Lisinopril 10 mg 08/11/18 10:00 08/17/18 12:19 Zestril PO 10 mg DAILY [facility] Administration Ondansetron HCl 4 mg 08/16/18 15:00 08/17/18 08:33 Zofran Inj IVP 4 mg Q6H PRN Administration Nausea/Vomiting Rosuvastatin Calcium 5 mg 08/10/18 22:00 08/16/18 22:15 Crestor PO 5 mg HS [facility] Administration - Patient Studies Lab Studies: Lab Studies 08/17/18 08/17/18 08/17/18 Range/Units 11:17 07:20 06:26 WBC (4.8-10.8) K/uL RBC (4.40-5.90) Mil/uL Hgb (12.0-18.0) g/dL Hct (35.0-51.0) % MCV (80.0-94.0) fL MCH (27.0-31.0) pg MCHC (33.0-37.0) g/dL RDW (11.5-14.5) % Plt Count (130-400) K/uL MPV (7.2-11.7) fL Sodium 136 (132-148) mmol/L Potassium 4.4 (3.6-5.2) mmol/L Chloride 102 (98-107) mmol/L Carbon Dioxide 28 (22-30) mmol/L Anion Gap 10 (10-20) BUN 23 H (9-20) mg/dL Creatinine 0.7 L (0.8-1.5) mg/dL Est GFR ( Amer) > 60 Est GFR (Non-Af Amer) > 60 POC Glucose (mg/dL) 239 H 242 H (65-110) mg/dL Random Glucose 236 H D (75-110) mg/dL Calcium 8.3 L (8.6-10.4) mg/dl Phosphorus 3.7 (2.5-4.5) mg/dL Magnesium 1.9 (1.6-2.3) mg/dL Total Bilirubin 0.6 (0.2-1.3) mg/dL AST 33 (17-59) U/L ALT 28 (21-72) U/L Alkaline Phosphatase 74 (38-126) U/L Total Protein 6.9 (6.3-8.3) g/dL Albumin 3.5 (3.5-5.0) g/dL Globulin 3.4 (2.2-3.9) gm/dL Albumin/Globulin Ratio 1.0 (1.0-2.1) 08/17/18 08/16/18 08/16/18 Range/Units 06:26 21:51 16:49 WBC 9.5 (4.8-10.8) K/uL RBC 3.56 L (4.40-5.90) Mil/uL Hgb 9.7 L (12.0-18.0) g/dL Hct 29.6 L (35.0-51.0) % MCV 83.2 (80.0-94.0) fL MCH 27.1 (27.0-31.0) pg MCHC 32.6 L (33.0-37.0) g/dL RDW 13.6 (11.5-14.5) % Plt Count 384 (130-400) K/uL MPV 7.8 (7.2-11.7) fL Sodium (132-148) mmol/L Potassium (3.6-5.2) mmol/L Chloride (98-107) mmol/L Carbon Dioxide (22-30) mmol/L Anion Gap (10-20) BUN (9-20) mg/dL Creatinine (0.8-1.5) mg/dL Est GFR ( Amer) Est GFR (Non-Af Amer) POC Glucose (mg/dL) 273 H 256 H (65-110) mg/dL Random Glucose (75-110) mg/dL Calcium (8.6-10.4) mg/dl Phosphorus (2.5-4.5) mg/dL Magnesium (1.6-2.3) mg/dL Total Bilirubin (0.2-1.3) mg/dL AST (17-59) U/L ALT (21-72) U/L Alkaline Phosphatase (38-126) U/L Total Protein (6.3-8.3) g/dL Albumin (3.5-5.0) g/dL Globulin (2.2-3.9) gm/dL Albumin/Globulin Ratio (1.0-2.1) 08/16/18 08/16/18 Range/Units 13:51 13:25 WBC 14.2 H D (4.8-10.8) K/uL RBC 3.91 L (4.40-5.90) Mil/uL Hgb 10.4 L (12.0-18.0) g/dL Hct 32.5 L (35.0-51.0) % MCV 83.2 (80.0-94.0) fL MCH 26.5 L (27.0-31.0) pg MCHC 31.9 L (33.0-37.0) g/dL RDW 13.8 (11.5-14.5) % Plt Count 409 H (130-400) K/uL MPV 7.4 (7.2-11.7) fL Sodium (132-148) mmol/L Potassium (3.6-5.2) mmol/L Chloride (98-107) mmol/L Carbon Dioxide (22-30) mmol/L Anion Gap (10-20) BUN (9-20) mg/dL Creatinine (0.8-1.5) mg/dL Est GFR ( Amer) Est GFR (Non-Af Amer) POC Glucose (mg/dL) 194 H (65-110) mg/dL Random Glucose (75-110) mg/dL Calcium (8.6-10.4) mg/dl Phosphorus (2.5-4.5) mg/dL Magnesium (1.6-2.3) mg/dL Total Bilirubin (0.2-1.3) mg/dL AST (17-59) U/L ALT (21-72) U/L Alkaline Phosphatase (38-126) U/L Total Protein (6.3-8.3) g/dL Albumin (3.5-5.0) g/dL Globulin (2.2-3.9) gm/dL Albumin/Globulin Ratio (1.0-2.1) Laboratory Results - last 24 hr 08/16/18 08/16/18 08/16/18 13:25 13:51 16:49 WBC 14.2 H D RBC 3.91 L Hgb 10.4 L Hct 32.5 L MCV 83.2 MCH 26.5 L MCHC 31.9 L RDW 13.8 Plt Count 409 H MPV 7.4 Sodium Potassium Chloride Carbon Dioxide Anion Gap BUN Creatinine Est GFR ( Amer) Est GFR (Non-Af Amer) POC Glucose (mg/dL) 194 H 256 H Random Glucose Calcium Phosphorus Magnesium Total Bilirubin AST ALT Alkaline Phosphatase Total Protein Albumin Globulin Albumin/Globulin Ratio 08/16/18 08/17/18 08/17/18 21:51 06:26 06:26 WBC 9.5 RBC 3.56 L Hgb 9.7 L Hct 29.6 L MCV 83.2 MCH 27.1 MCHC 32.6 L RDW 13.6 Plt Count 384 MPV 7.8 Sodium 136 Potassium 4.4 Chloride 102 Carbon Dioxide 28 Anion Gap 10 BUN 23 H Creatinine 0.7 L Est GFR ( Amer) > 60 Est GFR (Non-Af Amer) > 60 POC Glucose (mg/dL) 273 H Random Glucose 236 H D Calcium 8.3 L Phosphorus 3.7 Magnesium 1.9 Total Bilirubin 0.6 AST 33 ALT 28 Alkaline Phosphatase 74 Total Protein 6.9 Albumin 3.5 Globulin 3.4 Albumin/Globulin Ratio 1.0 08/17/18 08/17/18 07:20 11:17 WBC RBC Hgb Hct MCV MCH MCHC RDW Plt Count MPV Sodium Potassium Chloride Carbon Dioxide Anion Gap BUN Creatinine Est GFR ( Amer) Est GFR (Non-Af Amer) POC Glucose (mg/dL) 242 H 239 H Random Glucose Calcium Phosphorus Magnesium Total Bilirubin AST ALT Alkaline Phosphatase Total Protein Albumin Globulin Albumin/Globulin Ratio Fingerstick Blood Sugar Results: 239 Critical Care Progress Note - Nutrition Nutrition: Nutrition Category Date Time Status Liquid Diet [DIET] Diets 08/16/18 Dinner Active <Amaury Street - Last Filed: 08/17/18 17:26> CCU Objective - Vital Signs / Intake & Output Vital Signs (Last 4 hours): Vital Signs Pulse Resp BP Pulse Ox 08/17/18 14:11 127/63 08/17/18 14:10 76 13 94 L 08/17/18 13:43 76 16 120/60 92 L Intake and Output (Last 8hrs): Intake & Output 08/17/18 08/17/18 08/17/18 06:59 14:59 22:59 Intake Total 750 1000 Output Total 625 500 Balance 125 500 Intake: Intake, IV Amount 750 600 Right Antecubital 750 600 Oral 400 Output: Urine 625 500 Urethral (Henderson) 625 500 Stool 0 0 - Medications Active Medications: Active Medications Generic Name Dose Route Start Last Admin Trade Name Freq PRN Reason Stop Dose Admin Amlodipine Besylate 5 mg 08/10/18 17:00 08/16/18 17:26 Norvasc PO 5 mg DIN@1700 [facility] Administration Aspirin 81 mg 08/11/18 10:00 08/17/18 10:44 Aspirin Chewable PO 81 mg DAILY [facility] Administration Clopidogrel Bisulfate 75 mg 08/11/18 10:00 08/17/18 12:19 Plavix PO 75 mg DAILY [facility] Administration Dextrose 0 ml 08/10/18 13:23 Dextrose 50% Inj IV STAT PRN Hypoglycemia Protocol Protocol Dextrose 0 gm 08/10/18 13:23 Glutose 15 PO ONCE PRN Hypoglycemia Protocol Protocol Docusate Sodium 100 mg 08/12/18 10:00 08/17/18 14:30 Colace PO 100 mg TID [facility] Administration Enoxaparin Sodium 30 mg 08/10/18 22:00 08/16/18 13:59 Lovenox SC Not Given 1000,2200 [facility] Gabapentin 100 mg 08/11/18 14:00 08/17/18 14:30 Neurontin PO 100 mg TID [facility] Administration Glimepiride 4 mg 08/18/18 07:30 Amaryl PO ACB [facility] Glucagon 0 mg 08/10/18 13:23 Glucagen Diagnostic Kit IM STAT PRN Hypoglycemia Protocol Protocol Hydromorphone HCl 2 mg 08/16/18 13:01 08/17/18 12:19 Dilaudid IVP 2 mg Q4H PRN Administration Pain, moderate (4-7) Cefazolin Sodium 500 mg/ 50 mls @ 100 mls/hr 08/11/18 18:00 08/17/18 10:44 Sodium Chloride IVPB 100 mls/hr Q8H [facility] Administration Protocol Insulin Human Regular 0 unit 08/10/18 16:30 08/17/18 12:18 Novolin R SC 3 units ACHS [facility] Administration Protocol Lactobacillus Acidophilus 1 cap 08/10/18 18:00 08/17/18 10:44 Bacid Acidophilus PO 1 cap BID [facility] Administration Lisinopril 10 mg 08/11/18 10:00 08/17/18 12:19 Zestril PO 10 mg DAILY [facility] Administration Ondansetron HCl 4 mg 08/16/18 15:00 08/17/18 08:33 Zofran Inj IVP 4 mg Q6H PRN Administration Nausea/Vomiting Rosuvastatin Calcium 5 mg 08/10/18 22:00 08/16/18 22:15 Crestor PO 5 mg HS [facility] Administration - Patient Studies Lab Studies: Lab Studies 08/17/18 08/17/18 08/17/18 Range/Units 16:10 11:17 07:20 WBC (4.8-10.8) K/uL RBC (4.40-5.90) Mil/uL Hgb (12.0-18.0) g/dL Hct (35.0-51.0) % MCV (80.0-94.0) fL MCH (27.0-31.0) pg MCHC (33.0-37.0) g/dL RDW (11.5-14.5) % Plt Count (130-400) K/uL MPV (7.2-11.7) fL Sodium (132-148) mmol/L Potassium (3.6-5.2) mmol/L Chloride (98-107) mmol/L Carbon Dioxide (22-30) mmol/L Anion Gap (10-20) BUN (9-20) mg/dL Creatinine (0.8-1.5) mg/dL Est GFR ( Amer) Est GFR (Non-Af Amer) POC Glucose (mg/dL) 186 H 239 H 242 H (65-110) mg/dL Random Glucose (75-110) mg/dL Calcium (8.6-10.4) mg/dl Phosphorus (2.5-4.5) mg/dL Magnesium (1.6-2.3) mg/dL Total Bilirubin (0.2-1.3) mg/dL AST (17-59) U/L ALT (21-72) U/L Alkaline Phosphatase (38-126) U/L Total Protein (6.3-8.3) g/dL Albumin (3.5-5.0) g/dL Globulin (2.2-3.9) gm/dL Albumin/Globulin Ratio (1.0-2.1) 08/17/18 08/17/18 08/16/18 Range/Units 06:26 06:26 21:51 WBC 9.5 (4.8-10.8) K/uL RBC 3.56 L (4.40-5.90) Mil/uL Hgb 9.7 L (12.0-18.0) g/dL Hct 29.6 L (35.0-51.0) % MCV 83.2 (80.0-94.0) fL MCH 27.1 (27.0-31.0) pg MCHC 32.6 L (33.0-37.0) g/dL RDW 13.6 (11.5-14.5) % Plt Count 384 (130-400) K/uL MPV 7.8 (7.2-11.7) fL Sodium 136 (132-148) mmol/L Potassium 4.4 (3.6-5.2) mmol/L Chloride 102 (98-107) mmol/L Carbon Dioxide 28 (22-30) mmol/L Anion Gap 10 (10-20) BUN 23 H (9-20) mg/dL Creatinine 0.7 L (0.8-1.5) mg/dL Est GFR ( Amer) > 60 Est GFR (Non-Af Amer) > 60 POC Glucose (mg/dL) 273 H (65-110) mg/dL Random Glucose 236 H D (75-110) mg/dL Calcium 8.3 L (8.6-10.4) mg/dl Phosphorus 3.7 (2.5-4.5) mg/dL Magnesium 1.9 (1.6-2.3) mg/dL Total Bilirubin 0.6 (0.2-1.3) mg/dL AST 33 (17-59) U/L ALT 28 (21-72) U/L Alkaline Phosphatase 74 (38-126) U/L Total Protein 6.9 (6.3-8.3) g/dL Albumin 3.5 (3.5-5.0) g/dL Globulin 3.4 (2.2-3.9) gm/dL Albumin/Globulin Ratio 1.0 (1.0-2.1) Laboratory Results - last 24 hr 08/16/18 08/17/18 08/17/18 21:51 06:26 06:26 WBC 9.5 RBC 3.56 L Hgb 9.7 L Hct 29.6 L MCV 83.2 MCH 27.1 MCHC 32.6 L RDW 13.6 Plt Count 384 MPV 7.8 Sodium 136 Potassium 4.4 Chloride 102 Carbon Dioxide 28 Anion Gap 10 BUN 23 H Creatinine 0.7 L Est GFR ( Amer) > 60 Est GFR (Non-Af Amer) > 60 POC Glucose (mg/dL) 273 H Random Glucose 236 H D Calcium 8.3 L Phosphorus 3.7 Magnesium 1.9 Total Bilirubin 0.6 AST 33 ALT 28 Alkaline Phosphatase 74 Total Protein 6.9 Albumin 3.5 Globulin 3.4 Albumin/Globulin Ratio 1.0 08/17/18 08/17/18 08/17/18 07:20 11:17 16:10 WBC RBC Hgb Hct MCV MCH MCHC RDW Plt Count MPV Sodium Potassium Chloride Carbon Dioxide Anion Gap BUN Creatinine Est GFR ( Amer) Est GFR (Non-Af Amer) POC Glucose (mg/dL) 242 H 239 H 186 H Random Glucose Calcium Phosphorus Magnesium Total Bilirubin AST ALT Alkaline Phosphatase Total Protein Albumin Globulin Albumin/Globulin Ratio Radiology Impressions: Radiology Impressions Fluoroscopy 08/16/18 13:57 IMPRESSION: Less than 1 hour fluoroscopic time utilized during performance of the procedure Critical Care Progress Note - Nutrition Nutrition: Nutrition Category Date Time Status Liquid Diet [DIET] Diets 08/17/18 Dinner Active Attending/Attestation - Attestation I have personally seen and examined this patient.: Yes I have fully participated in the care of the patient.: Yes I have reviewed all pertinent clinical information: Yes Notes (Text): 08/17/18 17:26 Today: August The Patient was seen and examined at the bedside, Medical records reviewed, and management issues were discussed and formulated with the house staff. I have reviewed all the relevant clinical, laboratory, hemodynamic, radiographic data and medications Events reviewed Pain issues, skin care, head of the bed elevation, glycemic control were addressed. Agree with above resident's assessment and treatment plans of care as transcribed in Dr. Stevens's note.
--- NOTE | 2018-08-17 17:03 | RAD ---
PROCEDURE: HISTORY: As above COMPARISON: None TECHNIQUE: Total fluoroscopic time utilized during the procedure: 30.5 seconds ; 1.27 mGy FINDINGS: Submitted images from the current procedure: 4 Please refer to the physician's notes performing the procedure. IMPRESSION: Less than 1 hour fluoroscopic time utilized during performance of the procedure
[2018-08-18 07:07] LABS: BASO % 0.1 % (0.0-2.0); EOS % 0.2 % (0.0-4.0); HEMOGLOBIN 9.8 g/dL (12.0-18.0); LYMPH # 0.7 K/uL (1.0-4.3); LYMPH % 6.4 % (20.0-40.0); MEAN CELL VOLUME 83.8 fL (80.0-94.0); MEAN CORPUSCULAR HEMOGLOBIN 27.3 pg (27.0-31.0); MEAN CORPUSCULAR HGB CONC 32.6 g/dL (33.0-37.0); MEAN PLATELET VOLUME 7.6 fL (7.2-11.7); MONO # 1.2 K/uL (0.0-0.8); MONO % 10.6 % (0.0-10.0); NEUT # 9.5 K/uL (1.8-7.0); NEUT % 82.7 % (50.0-75.0); PLATELET COUNT 372 K/uL (130-400); RBC 3.59 Mil/uL (4.40-5.90); RED CELL DISTRIBUTION WIDTH 13.9 % (11.5-14.5); WHITE BLOOD COUNT 11.5 K/uL (4.8-10.8)
[2018-08-18 07:39] LABS: ALB/GLOB RATIO 1.1 (1.0-2.1); ALBUMIN 3.8 g/dL (3.5-5.0); ALT/SGPT 21 U/L (21-72); AST/SGOT 31 U/L (17-59); BLOOD UREA NITROGEN 20 mg/dL (9-20); CALCIUM 8.8 mg/dl (8.6-10.4); GFR NON-AFRICAN AMERICAN > 60
--- NOTE | 2018-08-18 08:08 | CP.PCM.PN ---
Subjective - Date & Time of Evaluation Date of Evaluation: 08/18/18 Time of Evaluation: 06:40 - Subjective Subjective: Vascular Surgery Progress note. Dr. Ghotra Pt seen and examined at bedside. No acute events overnight. Has not been out of bed yet. Pain tolerated well. Retained urine and needed straight cath this morning. No other complaints noted. Objective - Vital Signs/Intake and Output Vital Signs (last 24 hours): Temp Pulse Resp BP Pulse Ox 98.1 F 76 13 127/63 94 L 08/17/18 16:00 08/17/18 14:10 08/17/18 14:10 08/17/18 14:11 08/17/18 14:10 - Medications Medications: Current Medications Amlodipine Besylate (Norvasc) 5 mg PO DIN@1700 [facility] Last Admin: 08/17/18 17:48 Dose: 5 mg Aspirin (Aspirin Chewable) 81 mg PO DAILY [facility] Last Admin: 08/17/18 10:44 Dose: 81 mg Clopidogrel Bisulfate (Plavix) 75 mg PO DAILY [facility] Last Admin: 08/17/18 12:19 Dose: 75 mg Dextrose (Dextrose 50% Inj) 0 ml IV STAT PRN; Protocol PRN Reason: Hypoglycemia Protocol Dextrose (Glutose 15) 0 gm PO ONCE PRN; Protocol PRN Reason: Hypoglycemia Protocol Docusate Sodium (Colace) 100 mg PO TID [facility] Last Admin: 08/17/18 17:47 Dose: 100 mg Enoxaparin Sodium (Lovenox) 30 mg SC 1000,2200 [facility] Last Admin: 08/16/18 13:59 Dose: Not Given Gabapentin (Neurontin) 100 mg PO TID [facility] Last Admin: 08/17/18 17:48 Dose: 100 mg Glimepiride (Amaryl) 4 mg PO ACB [facility] Glucagon (Glucagen Diagnostic Kit) 0 mg IM STAT PRN; Protocol PRN Reason: Hypoglycemia Protocol Hydromorphone HCl (Dilaudid) 2 mg IVP Q4H PRN PRN Reason: Pain, moderate (4-7) Last Admin: 08/18/18 06:41 Dose: 2 mg Cefazolin Sodium 500 mg/ (Sodium Chloride) 50 mls @ 100 mls/hr IVPB Q8H [facility]; Protocol Last Admin: 08/18/18 02:33 Dose: 100 mls/hr Insulin Human Regular (Novolin R) 0 unit SC ACHS [facility]; Protocol Last Admin: 08/17/18 21:44 Dose: Not Given Lactobacillus Acidophilus (Bacid Acidophilus) 1 cap PO BID [facility] Last Admin: 08/17/18 17:47 Dose: 1 cap Lisinopril (Zestril) 10 mg PO DAILY [facility] Last Admin: 08/17/18 12:19 Dose: 10 mg Ondansetron HCl (Zofran Inj) 4 mg IVP Q6H PRN PRN Reason: Nausea/Vomiting Last Admin: 08/17/18 08:33 Dose: 4 mg Rosuvastatin Calcium (Crestor) 5 mg PO HS [facility] Last Admin: 08/17/18 21:43 Dose: 5 mg - Labs Labs: 08/18/18 06:59 08/18/18 06:59 - Constitutional Appears: Well, Non-toxic, No Acute Distress - Head Exam Head Exam: ATRAUMATIC, NORMAL INSPECTION, NORMOCEPHALIC - Eye Exam Eye Exam: EOMI, Normal appearance - ENT Exam ENT Exam: Mucous Membranes Moist - Respiratory Exam Respiratory Exam: NORMAL BREATHING PATTERN. absent: Accessory Muscle Use, Respiratory Distress - Cardiovascular Exam Cardiovascular Exam: absent: JVD - GI/Abdominal Exam GI & Abdominal Exam: Soft. absent: Distended, Firm, Guarding, Tenderness, Rebound - Extremities Exam Extremities Exam: Normal Inspection Additional comments: Dopplerable signals to left DP. Pain well controlled. Dressings clean, dry and intact. - Neurological Exam Neurological Exam: Alert, Awake, Oriented x3 - Psychiatric Exam Psychiatric exam: Normal Affect, Normal Mood - Skin Skin Exam: Dry, Intact, Normal Color, Warm Assessment and Plan - Assessment and Plan (Free Text) Assessment: 68 yo M s/p L fem-tib bypass. POD 2 - Out of bed to chair - Physical therapy eval and treat - Lozenges as needed for sore throat - Encourage IS use and ambulation Further recs as per Dr. Brandin Trivedi PGY2 Surgery
[2018-08-18 08:41] LABS: EOSINOPHIL 1 % (0-4); LYMPHOCYTE 3 % (20-40); MONOCYTE 5 % (0-10); NEUTROPHIL 91 % (50-75); TOTAL CELLS COUNTED 100
[2018-08-18 08:49] LABS: HYPOCHROMIC SLIGHT; PLATELET ESTIMATE NORMAL (NORMAL)
[2018-08-18 08:50] LABS: POLYCHROMIC SLIGHT
[2018-08-18 08:53] LABS: OVALOCYTES SLIGHT
[2018-08-18] MEDS: Lactobacillus Acidophilus 500 MU Cap PO SCH ×2 (09:07→17:06)
[2018-08-18] MEDS: (Novolin R) Insulin Human Regular 100 units/ml vial SC SCH ×4 (09:07→22:00)
[2018-08-18] MEDS ORDERED: Benzocaine/Menthol (Cepacol) Lozenge MT PRN (09:15)
[2018-08-18] MEDS ORDERED: Oxycodone/Acetaminophen 5/325 mg Tab PO PRN ×2 (15:00→15:20)
--- NOTE | 2018-08-18 15:41 | CP.PCM.DIS ---
Provider - Provider Date of Admission: 08/10/18 11:50 Attending physician: Les Black MD Consults: 08/10/18 11:41 Physician Consult Routine Comment: Consulting Provider: Vahid Rosales Consulting Physician: Vahid Rosales Reason for Consult: pe op evaluation 08/10/18 11:42 Physician Consult Routine Comment: Consulting Provider: Ignacio Hoyos Consulting Physician: Ignacio Hoyos Reason for Consult: foot wound 08/10/18 11:43 Physician Consult Routine Comment: Consulting Provider: Alvarez Hughes Consulting Physician: Alvarez Hughes Reason for Consult: patient known to you Time Spent in preparation of Discharge (in minutes): 45 Diagnosis - Discharge Diagnosis (1) Peripheral vascular disease of lower extremity Status: Acute Hospital Course - Lab Results Lab Results: Micro Results 08/16/18 19:26 Naris MRSA Culture (Admit) - Final MRSA NOT DETECTED 08/11/18 06:31 Foot - Left Gram Stain - Final 08/11/18 06:31 Foot - Left Wound Culture - Final Proteus Mirabilis Group F Streptococcus Most Recent Lab Values WBC 11.5 K/uL (4.8-10.8) H 08/18/18 06:59 RBC 3.59 Mil/uL (4.40-5.90) L 08/18/18 06:59 Hgb 9.8 g/dL (12.0-18.0) L 08/18/18 06:59 Hct 30.1 % (35.0-51.0) L 08/18/18 06:59 MCV 83.8 fL (80.0-94.0) 08/18/18 06:59 MCH 27.3 pg (27.0-31.0) 08/18/18 06:59 MCHC 32.6 g/dL (33.0-37.0) L 08/18/18 06:59 RDW 13.9 % (11.5-14.5) 08/18/18 06:59 Plt Count 372 K/uL (130-400) 08/18/18 06:59 MPV 7.6 fL (7.2-11.7) 08/18/18 06:59 Neut % (Auto) 82.7 % (50.0-75.0) H 08/18/18 06:59 Lymph % (Auto) 6.4 % (20.0-40.0) L 08/18/18 06:59 [place] % (Auto) 10.6 % (0.0-10.0) H 08/18/18 06:59 Eos % (Auto) 0.2 % (0.0-4.0) 08/18/18 06:59 Baso % (Auto) 0.1 % (0.0-2.0) 08/18/18 06:59 Neut # (Auto) 9.5 K/uL (1.8-7.0) H 08/18/18 06:59 Lymph # (Auto) 0.7 K/uL (1.0-4.3) L 08/18/18 06:59 [place] # (Auto) 1.2 K/uL (0.0-0.8) H 08/18/18 06:59 Eos # (Auto) 0.0 K/uL (0.0-0.7) 08/18/18 06:59 Baso # (Auto) 0.0 K/uL (0.0-0.2) 08/18/18 06:59 Neutrophils % (Manual) 91 % (50-75) H 08/18/18 06:59 Lymphocytes % (Manual) 3 % (20-40) L 08/18/18 06:59 Monocytes % (Manual) 5 % (0-10) 08/18/18 06:59 Eosinophils % (Manual) 1 % (0-4) 08/18/18 06:59 Platelet Estimate Normal (NORMAL) 08/18/18 06:59 Polychromasia Slight 08/18/18 06:59 Hypochromasia (manual) Slight 08/18/18 06:59 Ovalocytes Slight 08/18/18 06:59 Sodium 135 mmol/L (132-148) 08/18/18 06:59 Potassium 4.0 mmol/L (3.6-5.2) 08/18/18 06:59 Chloride 99 mmol/L (98-107) 08/18/18 06:59 Carbon Dioxide 30 mmol/L (22-30) 08/18/18 06:59 Anion Gap 11 (10-20) 08/18/18 06:59 BUN 20 mg/dL (9-20) 08/18/18 06:59 Creatinine 0.8 mg/dL (0.8-1.5) 08/18/18 06:59 Est GFR ( Amer) > 60 08/18/18 06:59 Est GFR (Non-Af Amer) > 60 08/18/18 06:59 POC Glucose (mg/dL) 214 mg/dL (65-110) H 08/18/18 11:29 Random Glucose 154 mg/dL (75-110) H D 08/18/18 06:59 Hemoglobin A1c 7.6 % (4.2-6.5) H 08/10/18 17:03 Calcium 8.8 mg/dl (8.6-10.4) 08/18/18 06:59 Phosphorus 2.7 mg/dL (2.5-4.5) 08/18/18 06:59 Magnesium 1.9 mg/dL (1.6-2.3) 08/18/18 06:59 Total Bilirubin 0.4 mg/dL (0.2-1.3) 08/18/18 06:59 AST 31 U/L (17-59) 08/18/18 06:59 ALT 21 U/L (21-72) D 08/18/18 06:59 Alkaline Phosphatase 87 U/L (38-126) 08/18/18 06:59 Total Protein 7.1 g/dL (6.3-8.3) 08/18/18 06:59 Albumin 3.8 g/dL (3.5-5.0) 08/18/18 06:59 Globulin 3.3 gm/dL (2.2-3.9) 08/18/18 06:59 Albumin/Globulin Ratio 1.1 (1.0-2.1) 08/18/18 06:59 Procalcitonin 0.06 NG/ML (0.19-0.49) L 08/10/18 19:51 Blood Type O POSITIVE 08/15/18 11:15 Antibody Screen Negative 08/15/18 11:15 - Hospital Course Hospital Course: Patient is a 68 year old male with PMHx of HTN, HLD, DM, PVD, osteomyelitis s/p L hallux wound debridement and excision of gangrenous tissue presenting for medical clearance s/p aortofemoral angiogram demonstrating worsening PVD in setting of worsening LLE pain x 3 weeks, now requiring L popliteal-tib bypass. No other acute somatic complaints, denies any chest pain, palpitations, shortness of breath. No fevers/chills, headaches, abdominal pain, n/v/d/c. The patient was admitted after catherization showed worsening PVD in his L LE. The abdominal angiography showed LLE: Moderate stenosis of popliteal artery. Runoff shows severe stenosis of tibioperoneal artery. Peroneal artery is occluded. Occlusion of proximal posterior tibial artery with mid posterior tibial artery reconstitution via collaterals. RLE: Mild stenosis of popliteal artery. Peroneal artery has moderate stenosis in the mid and distal segment. and the follow up aortofemoral angiogram showed 1. 30% stenosis in distal portion of SFA, but below widely patent. Trifurcation in ant tibial a. was previously patent, now occluded distally. Posterior tibial a. and tibial peroneal trunk are severely diseased. Similar findings on the R but not as severe. Dr. Rosales was consulted for cardiac clearance and Dr. Ghotra did the pop-tib bypass procedure of the L LE. He has been monitored in the ICU since the procedure and has not needed the full amount of pain medication written for him. The ulceration of his L great toe with history of osteomyelitis was managed by Dr. Hughes who discontinued Zosyn in favor of Cefazolin. His DM, HTN, HLD were managed on home medications except Metformin which was held for contrast. Primary diagnosis: Worsening Peripheral Vascular Disease of L LE s/p Pop-Tib bypass. Patient is clear for discharge per Dr. Black. He is to restart all his home medications, especially his Plavix. He is being given prescriptions for pain after his surgery and antibiotics to help his foot. He needs to follow up with the following people: 1) His PMD: a lot has happened over this hospital visit. Someone needs to be in charge of coordination of care. 2) Dr. Hughes: The ID doctor will follow how your foot is doing. Your history of osteomyelitis means you will need to be on antibiotics until it is entirely gone. Please take the Keflex three times a day for the next 5 days. Please call the office to set up an appointment within a week. 3) Dr. Ghotra: The vascular surgeon will follow you after surgery. You will need to call the office and set up an appointment for 10-14 days from your surgery. 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 A foot doctor can help you with that. The patient has declined TCU in favor of home PT in order to be in a more comforting environment. He should continue with PT, home or outpatient, at least 3 times a weeks for two weeks. If the patient's condition worsens, please return to the ED. This was discussed with the patient who understands and agrees. This is a summary of the hospital course. Please refer to the EMR for more detail. - Date & Time of H&P Date of H&P: 08/18/18 Time of H&P: 16:00 Discharge Exam - Head Exam Head Exam: ATRAUMATIC, NORMAL INSPECTION, NORMOCEPHALIC - Eye Exam Eye Exam: Normal appearance, PERRL - ENT Exam ENT Exam: Mucous Membranes Moist - Respiratory Exam Respiratory Exam: Clear to PA & Lateral, NORMAL BREATHING PATTERN. absent: Decreased Breath Sounds, Rales, Rhonchi, Wheezes - Cardiovascular Exam Cardiovascular Exam: REGULAR RHYTHM, +S1, +S2. absent: Gallop, Rubs, Systolic Murmur - GI/Abdominal Exam GI & Abdominal Exam: Normal Bowel Sounds, Soft - Extremities Exam Extremities exam: normal capillary refill Additional comments: radial pulses palpable. Pulses Dopplerable on L LE L LE in brace, warm to touch - Neurological Exam Neurological exam: Alert, CN II-XII Intact, Oriented x3, Reflexes Normal - Psychiatric Exam Psychiatric exam: Normal Affect, Normal Mood - Skin Skin Exam: Dry, Intact, Normal Color, Warm Discharge Plan - Discharge Medications Prescriptions: Cephalexin [cephalexin] 500 mg PO TID #15 cap oxyCODONE/Acetaminophen [Percocet 5/325 mg Tab] 1 tab PO Q6H PRN #12 tab PRN Reason: Pain, Moderate (4-7) - Follow Up Plan Condition: GOOD Disposition: HOME/ ROUTINE Additional Instructions: Patient is clear for discharge per Dr. Black. He is to restart all his home medications, especially his Plavix. He is being given prescriptions for pain after his surgery and antibiotics to help his foot. He needs to follow up with the following people: 1) His PMD: a lot has happened over this hospital visit. Someone needs to be in charge of coordination of care. 2) Dr. Hughes: The ID doctor will follow how your foot is doing. Your history of osteomyelitis means you will need to be on antibiotics until it is entirely gone. Please take the Keflex three times a day for the next 5 days. Please call the office to set up an appointment within a week. 3) Dr. Ghotra: The vascular surgeon will follow you after surgery. You will need to call the office and set up an appointment for 10-14 days from your surgery. 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 A foot doctor can help you with that. The patient has declined TCU in favor of home PT in order to be in a more comforting environment. He should continue with PT, home or outpatient, at least 3 times a weeks for two weeks. If the patient's condition worsens, please return to the ED. This was discussed with the patient who understands and agrees. El paciente est listo para el sonia por el Dr. Black. l debe reiniciar todos rajendra medicamentos caseros, especialmente santiago Plavix. Le estn recetando medicamentos para el dolor despus de santiago ciruga y antibiticos para ayudarlo en el pie. Necesita seguir con las siguientes personas: 1) Santiago PMD: lizama pasado muchas cosas yanna esta visita al hospital. Alguien tiene que estar a cargo de la coordinacin de la atencin. 2) Dr. Hughes: El mdico de identificacin seguir cordage sales representative est santiago pie. Santiago historial de osteomielitis significa que tendr que kellie antibiticos hasta que desaparezca por completo. Por favor tome el Keflex thalia veces al da yanna los prximos 5 oh. Llame a la oficina para programar mitchel josué dentro de mitchel semana. 3) Dr. Ghotra: el cirujano vascular lo seguir despus de la ciruga. Deber llamar a la oficina y programar mitchel josué de 10 a 14 oh despus de santiago ciruga. 4) Santiago podlogo: Caminar puede ser difcil con mitchel infeccin en santiago pie con santiago ne uropata. Un mdico de pies puede ayudarte con eso. El paciente thao rechazado la TCU a favor del PT domiciliario para estar en un entorno ms cmodo. Debe continuar con PT, domiciliaria o ambulatoria, al menos 3 veces por semana yanna dos semanas. Si la condicin del paciente empeora, regrese al servicio de urgencias. [place] fue discutido con el paciente que entiende y est de acuerdo. Referrals: Ignacio Hoyos DPM [Doctor Podiatric Medicine] - Alvarez Hughes MD [Staff Provider] - Donis Ghotra Jr., MD [Staff Provider] -
--- NOTE | 2018-08-18 18:02 | CP.PCM.PN ---
Subjective - Date & Time of Evaluation Date of Evaluation: 08/18/18 Time of Evaluation: 09:00 - Subjective Subjective: seedn in ICU in nad afeb Objective - Vital Signs/Intake and Output Vital Signs (last 24 hours): Temp Pulse Resp BP Pulse Ox 98.3 F 81 12 108/47 L 95 08/18/18 16:00 08/18/18 12:00 08/18/18 12:00 08/18/18 12:00 08/18/18 12:00 Intake and Output: 08/18/18 08/18/18 06:59 18:59 Intake Total 410 Output Total 650 Balance -240 - Medications Medications: Current Medications Amlodipine Besylate (Norvasc) 5 mg PO DIN@1700 [facility] Last Admin: 08/18/18 17:02 Dose: 5 mg Aspirin (Aspirin Chewable) 81 mg PO DAILY [facility] Last Admin: 08/18/18 09:07 Dose: 81 mg Benzocaine/Menthol (Cepacol Sore Throat) 1 tari MT Q2H PRN PRN Reason: Sore Throat Clopidogrel Bisulfate (Plavix) 75 mg PO DAILY [facility] Last Admin: 08/18/18 09:07 Dose: 75 mg Dextrose (Dextrose 50% Inj) 0 ml IV STAT PRN; Protocol PRN Reason: Hypoglycemia Protocol Dextrose (Glutose 15) 0 gm PO ONCE PRN; Protocol PRN Reason: Hypoglycemia Protocol Docusate Sodium (Colace) 100 mg PO TID [facility] Last Admin: 08/18/18 17:02 Dose: 100 mg Enoxaparin Sodium (Lovenox) 30 mg SC 1000,2200 [facility] Last Admin: 08/16/18 13:59 Dose: Not Given Gabapentin (Neurontin) 100 mg PO TID [facility] Last Admin: 08/18/18 17:02 Dose: 100 mg Glimepiride (Amaryl) 4 mg PO ACB [facility] Last Admin: 08/18/18 09:07 Dose: 4 mg Glucagon (Glucagen Diagnostic Kit) 0 mg IM STAT PRN; Protocol PRN Reason: Hypoglycemia Protocol Cefazolin Sodium 500 mg/ (Sodium Chloride) 50 mls @ 100 mls/hr IVPB Q8H [facility]; Protocol Last Admin: 08/18/18 17:01 Dose: 100 mls/hr Insulin Human Regular (Novolin R) 0 unit SC ACHS [facility]; Protocol Last Admin: 08/18/18 17:03 Dose: 2 units Lactobacillus Acidophilus (Bacid Acidophilus) 1 cap PO BID [facility] Last Admin: 08/18/18 17:06 Dose: 1 cap Lisinopril (Zestril) 10 mg PO DAILY [facility] Last Admin: 08/18/18 09:07 Dose: 10 mg Ondansetron HCl (Zofran Inj) 4 mg IVP Q6H PRN PRN Reason: Nausea/Vomiting Last Admin: 08/17/18 08:33 Dose: 4 mg Oxycodone/Acetaminophen (Percocet 5/325 Mg Tab) 1 tab PO Q6H PRN PRN Reason: Pain, severe (8-10) Stop: 08/21/18 15:01 Rosuvastatin Calcium (Crestor) 5 mg PO HS [facility] Last Admin: 08/17/18 21:43 Dose: 5 mg - Labs Labs: 08/18/18 06:59 08/18/18 06:59 - Constitutional Appears: Non-toxic, Chronically Ill - Head Exam Head Exam: NORMOCEPHALIC - Eye Exam Eye Exam: absent: Scleral icterus - ENT Exam ENT Exam: Normal External Ear Exam - Neck Exam Neck Exam: absent: Lymphadenopathy - Respiratory Exam Respiratory Exam: Decreased Breath Sounds - Cardiovascular Exam Cardiovascular Exam: REGULAR RHYTHM - GI/Abdominal Exam GI & Abdominal Exam: Distended, Soft - Rectal Exam Rectal Exam: Deferred - Exam Exam: NORMAL INSPECTION - Extremities Exam Extremities Exam: absent: Pedal Edema - Back Exam Back Exam: absent: CVA tenderness (L), CVA tenderness (R) - Neurological Exam Neurological Exam: Altered Assessment and Plan (1) Peripheral vascular disease of lower extremity Status: Acute (2) Diabetic ulcer of toe Status: Chronic - Assessment and Plan (Free Text) Assessment: consider MRI cont iv antibiotics/ wound care
--- NOTE | 2018-08-18 19:26 | CP.PCM.PN ---
Subjective - Date & Time of Evaluation Date of Evaluation: 08/18/18 Time of Evaluation: 17:30 - Subjective Subjective: PGY-1 Medicine Progress Note for Dr. Black Patient was seen and examined today in no acute distress. Nurse reports urinary retention overnight. Bladder scan showed ~250cc, which was removed via straight cath. Patient reports no new issues; he is ready to go home with home or outpatient PT. He was originally going to be discharged today, but failed to urinate on his own and is still having poor muscle strength in his operated leg. Denies fever, chills, confusion, chest pain, shortness of breath, abdominal pain. Tolerating diabetic diet without nausea. Objective - Vital Signs/Intake and Output Vital Signs (last 24 hours): Temp Pulse Resp BP Pulse Ox 98.3 F 81 12 108/47 L 95 08/18/18 16:00 08/18/18 12:00 08/18/18 12:00 08/18/18 12:00 08/18/18 12:00 - Medications Medications: Current Medications Amlodipine Besylate (Norvasc) 5 mg PO DIN@1700 [facility] Last Admin: 08/18/18 17:02 Dose: 5 mg Aspirin (Aspirin Chewable) 81 mg PO DAILY [facility] Last Admin: 08/18/18 09:07 Dose: 81 mg Benzocaine/Menthol (Cepacol Sore Throat) 1 tari MT Q2H PRN PRN Reason: Sore Throat Clopidogrel Bisulfate (Plavix) 75 mg PO DAILY [facility] Last Admin: 08/18/18 09:07 Dose: 75 mg Dextrose (Dextrose 50% Inj) 0 ml IV STAT PRN; Protocol PRN Reason: Hypoglycemia Protocol Dextrose (Glutose 15) 0 gm PO ONCE PRN; Protocol PRN Reason: Hypoglycemia Protocol Docusate Sodium (Colace) 100 mg PO TID [facility] Last Admin: 08/18/18 17:02 Dose: 100 mg Enoxaparin Sodium (Lovenox) 30 mg SC 1000,2200 [facility] Last Admin: 08/16/18 13:59 Dose: Not Given Gabapentin (Neurontin) 100 mg PO TID [facility] Last Admin: 08/18/18 17:02 Dose: 100 mg Glimepiride (Amaryl) 4 mg PO ACB [facility] Last Admin: 08/18/18 09:07 Dose: 4 mg Glucagon (Glucagen Diagnostic Kit) 0 mg IM STAT PRN; Protocol PRN Reason: Hypoglycemia Protocol Cefazolin Sodium 500 mg/ (Sodium Chloride) 50 mls @ 100 mls/hr IVPB Q8H [facility]; Protocol Last Admin: 08/18/18 17:01 Dose: 100 mls/hr Insulin Human Regular (Novolin R) 0 unit SC ACHS [facility]; Protocol Last Admin: 08/18/18 17:03 Dose: 2 units Lactobacillus Acidophilus (Bacid Acidophilus) 1 cap PO BID [facility] Last Admin: 08/18/18 17:06 Dose: 1 cap Lisinopril (Zestril) 10 mg PO DAILY [facility] Last Admin: 08/18/18 09:07 Dose: 10 mg Ondansetron HCl (Zofran Inj) 4 mg IVP Q6H PRN PRN Reason: Nausea/Vomiting Last Admin: 08/17/18 08:33 Dose: 4 mg Oxycodone/Acetaminophen (Percocet 5/325 Mg Tab) 1 tab PO Q6H PRN PRN Reason: Pain, severe (8-10) Stop: 08/21/18 15:01 Rosuvastatin Calcium (Crestor) 5 mg PO HS [facility] Last Admin: 08/17/18 21:43 Dose: 5 mg - Labs Labs: 08/18/18 06:59 08/18/18 06:59 - Constitutional Appears: Non-toxic, No Acute Distress - Head Exam Head Exam: ATRAUMATIC, NORMOCEPHALIC - Eye Exam Eye Exam: EOMI, Normal appearance - ENT Exam ENT Exam: Mucous Membranes Moist - Respiratory Exam Respiratory Exam: Clear to Ausculation Bilateral. absent: Rales, Rhonchi, Wheezes Additional comments: 2L O2 via NC - Cardiovascular Exam Cardiovascular Exam: REGULAR RHYTHM, +S1, +S2. absent: Gallop, Rubs, Murmur - GI/Abdominal Exam GI & Abdominal Exam: Soft, Normal Bowel Sounds. absent: Firm, Guarding, Rigid, Tenderness, Rebound - Exam Exam: absent: Bladder Distension - Extremities Exam Extremities Exam: Normal Capillary Refill. absent: Calf Tenderness Additional comments: radial pulses palpable. Pulses Dopplerable on L LE L LE in gauze, warm to touch - Neurological Exam Neurological Exam: Alert, Awake, Oriented x3 Neuro motor strength exam: Left Lower Extremity: 4 - Psychiatric Exam Psychiatric exam: Normal Affect, Normal Mood - Skin Skin Exam: Normal Color, Warm Additional comments: L hallux wrapped to cover ulcerative wound Assessment and Plan (1) Peripheral vascular disease of lower extremity Status: Acute - Assessment and Plan (Free Text) Assessment: 68 year old M with pmhx of HTN, HLD, DM, OM of L hallux, PVD presenting with worsening PVD s/p cath procedure, s/p POD#2 L popliteal-tibial artery b ypass. Plan: Worsening bilateral PVD severe bilateral tibial disease L>R - Abdominal angiography (08/07): LLE: Moderate stenosis of popliteal artery. Runoff shows severe stenosis of tibioperoneal artery. Peroneal artery is occluded. Occlusion of proximal posterior tibial artery with mid posterior tibial artery reconstitution via collaterals. RLE: Mild stenosis of popliteal artery. Peroneal artery has moderate stenosis in the mid and distal segment -Aortofemoral angiogram (08/10): 1. 30% stenosis in distal portion of SFA, but below widely patent. Trifurcation in ant tibial a. was previously patent, now occluded distally. Posterior tibial a. and tibial peroneal trunk are severely diseased. Similar findings on the R but not as severe. - Cardio consulted: Dr. Rosales - ana appreciated for cardiac clearance - recent ECHO 04/11/18: LV normal size, normal wall thickness, EF 76% - CXR: no acute findings - EKG: NSR @ 64 bpm, L axis deviation - Stress echo (08/14): No reversible ischemia with dobutamine stress - Vascular Surgery consulted: Dr. Ghotra - ana appreciated - POD#2 for LE bypass procedure - Patient was downgraded out of ICU to med/surg after 24 hours observation - ASA 81mg po daily - Plavix 75mg po daily - Percocet 1tab po q6 prn - Zofran 4m ICP q6h prn Ulceration of L hallux Hx Osteomyelitis L hallux - wound culture (08/11): Proteus Mirabilis, group F strep - Podiatry consulted: Dr. Wolf - ana appreciated - Ulcer cleaned with peroxide and dressed with Medihoney and DSD - ID consulted: Dr. Hughes - ana appreciated - Zosyn 3.375gm IVPB q8 (3 doses total 08/10-08/11) - Cefazolin 500mg IVPB q8 (started 08/11) - Can discharge on Keflex 500mg tid for 5 more days Diabetes Mellitus - home Metformin held for contrast - Gabapentin 100mg po tid for neuropathic pain - Glimepiride 4mg po ACB - Accucheck ACHS - ISS medium dose - hypoglycemic protocol Hypertension - Norvasc 5mg po with dinner - Lisinopril 10mg po daily Hyperlipidemia - Crestor 5 mg PO HS PPx - DVT: Lovenox 30mg SC bid held for surgery, ASA 81mg po daily, Plavix 75mg po daily, SCDs CI 2/2 PVD - GI: Bacid po BID, Docusate 100mg po tid - Diet: Diabetic Dispo: PT had originally recommended TCU, which patient declined, stating he would rather have home PT. Upon re-examination prior to discharge, patient had not yet urinating post-op, and was more debilitated. SW/CM discussed his options and is requesting HOLLI at this point. He is now waiting for placement. d/w Dr. Wayne Lay PGY-1
[2018-08-19 06:21] LABS: BASO % 0.1 % (0.0-2.0); EOS # 0.1 K/uL (0.0-0.7); EOS % 0.6 % (0.0-4.0); HEMOGLOBIN 8.6 g/dL (12.0-18.0); LYMPH % 8.7 % (20.0-40.0); MEAN CELL VOLUME 83.1 fL (80.0-94.0); MEAN CORPUSCULAR HGB CONC 32.5 g/dL (33.0-37.0); MEAN PLATELET VOLUME 7.1 fL (7.2-11.7); MONO # 1.3 K/uL (0.0-0.8); MONO % 11.7 % (0.0-10.0); NEUT # 8.9 K/uL (1.8-7.0); NEUT % 78.9 % (50.0-75.0); NRBC % 0.1 % (0.0-2.0); PLATELET COUNT 303 K/uL (130-400); RBC 3.19 Mil/uL (4.40-5.90); RED CELL DISTRIBUTION WIDTH 13.6 % (11.5-14.5); WHITE BLOOD COUNT 11.3 K/uL (4.8-10.8)
[2018-08-19 06:46] LABS: ALB/GLOB RATIO 1.1 (1.0-2.1); ALBUMIN 3.3 g/dL (3.5-5.0); ALT/SGPT 23 U/L (21-72); AST/SGOT 16 U/L (17-59); BLOOD UREA NITROGEN 22 mg/dL (9-20); CALCIUM 8.3 mg/dl (8.6-10.4); GFR NON-AFRICAN AMERICAN > 60
[2018-08-19] MEDS: (Novolin R) Insulin Human Regular 100 units/ml vial SC SCH ×4 (08:00→21:38)
[2018-08-19 08:26] LABS: ANISOCYTOSIS SLIGHT; EOSINOPHIL 1 % (0-4); LYMPHOCYTE 9 % (20-40); MONOCYTE 8 % (0-10); NEUTROPHIL 82 % (50-75); PLATELET ESTIMATE NORMAL (NORMAL); TOTAL CELLS COUNTED 100; TOXIC GRANULATION PRESENT
[2018-08-19 08:27] LABS: HYPOCHROMIC SLIGHT; POLYCHROMIC SLIGHT
[2018-08-19] MEDS: Lactobacillus Acidophilus 500 MU Cap PO SCH ×2 (09:17→17:33)
--- NOTE | 2018-08-19 11:40 | CP.PCM.PN ---
Subjective - Date & Time of Evaluation Date of Evaluation: 08/19/18 Time of Evaluation: 07:00 - Subjective Subjective: Vascular Surgery Progress note. Dr. Ghotra Pt seen and examined at bedside. No acute events overnight. Pain well tolerated. Dopplerable signals in left lower extremity PT. Has been up to chair but has not been ambulating outside of the room. Denies any new complaints. Objective - Vital Signs/Intake and Output Vital Signs (last 24 hours): Temp Pulse Resp BP Pulse Ox 99.0 F 76 18 122/63 97 08/19/18 08:00 08/19/18 08:00 08/19/18 08:00 08/19/18 08:00 08/19/18 08:00 Intake and Output: 08/19/18 08/19/18 06:59 18:59 Intake Total 640 Output Total 800 Balance -160 - Medications Medications: Current Medications Amlodipine Besylate (Norvasc) 5 mg PO DIN@1700 [facility] Last Admin: 08/18/18 17:02 Dose: 5 mg Aspirin (Aspirin Chewable) 81 mg PO DAILY [facility] Last Admin: 08/19/18 09:17 Dose: 81 mg Benzocaine/Menthol (Cepacol Sore Throat) 1 tari MT Q2H PRN PRN Reason: Sore Throat Clopidogrel Bisulfate (Plavix) 75 mg PO DAILY [facility] Last Admin: 08/19/18 09:17 Dose: 75 mg Dextrose (Dextrose 50% Inj) 0 ml IV STAT PRN; Protocol PRN Reason: Hypoglycemia Protocol Dextrose (Glutose 15) 0 gm PO ONCE PRN; Protocol PRN Reason: Hypoglycemia Protocol Docusate Sodium (Colace) 100 mg PO TID [facility] Last Admin: 08/19/18 09:17 Dose: 100 mg Enoxaparin Sodium (Lovenox) 30 mg SC 1000,2200 [facility] Last Admin: 08/16/18 13:59 Dose: Not Given Gabapentin (Neurontin) 100 mg PO TID [facility] Last Admin: 08/19/18 09:17 Dose: 100 mg Glimepiride (Amaryl) 4 mg PO ACB [facility] Last Admin: 08/19/18 08:30 Dose: 4 mg Glucagon (Glucagen Diagnostic Kit) 0 mg IM STAT PRN; Protocol PRN Reason: Hypoglycemia Protocol Cefazolin Sodium 500 mg/ (Sodium Chloride) 50 mls @ 100 mls/hr IVPB Q8H [facility]; Protocol Last Admin: 08/19/18 02:25 Dose: 100 mls/hr Insulin Human Regular (Novolin R) 0 unit SC ACHS [facility]; Protocol Last Admin: 08/19/18 11:25 Dose: Not Given Lactobacillus Acidophilus (Bacid Acidophilus) 1 cap PO BID [facility] Last Admin: 08/19/18 09:17 Dose: 1 cap Lisinopril (Zestril) 10 mg PO DAILY [facility] Last Admin: 08/18/18 09:07 Dose: 10 mg Ondansetron HCl (Zofran Inj) 4 mg IVP Q6H PRN PRN Reason: Nausea/Vomiting Last Admin: 08/17/18 08:33 Dose: 4 mg Oxycodone/Acetaminophen (Percocet 5/325 Mg Tab) 1 tab PO Q6H PRN PRN Reason: Pain, severe (8-10) Stop: 08/21/18 15:01 Last Admin: 08/18/18 19:48 Dose: 1 tab Rosuvastatin Calcium (Crestor) 5 mg PO HS [facility] Last Admin: 08/18/18 23:15 Dose: 5 mg - Labs Labs: 08/19/18 06:18 08/19/18 06:18 - Constitutional Appears: Well, Non-toxic, No Acute Distress - Head Exam Head Exam: ATRAUMATIC, NORMAL INSPECTION, NORMOCEPHALIC - Eye Exam Eye Exam: EOMI, Normal appearance - ENT Exam ENT Exam: Mucous Membranes Moist - Respiratory Exam Respiratory Exam: NORMAL BREATHING PATTERN. absent: Accessory Muscle Use - GI/Abdominal Exam GI & Abdominal Exam: Soft. absent: Tenderness, Rebound - Extremities Exam Extremities Exam: absent: Calf Tenderness Additional comments: Dressing clean, dry and intact. Dopperable signals in left lower extremity PT - Neurological Exam Neurological Exam: Alert, Awake, Oriented x3 - Psychiatric Exam Psychiatric exam: Normal Affect, Normal Mood - Skin Skin Exam: Normal Color, Warm Assessment and Plan - Assessment and Plan (Free Text) Assessment: 68yo M s/p left popliteal-posterior tibial artery bypass w reversed saphenous graft. POD 3 Plan: - Physical therapy eval and treat - Encourage out of bed and ambulate - D/C planning as per primary team. Patient may benefit from rehab placement - Follow up with Dr. Ghotra in 10-14 days upon discharge. Call for appointment Further recs as per Dr. Brandin Trivedi PGY2 surgery
--- NOTE | 2018-08-19 13:35 | CP.PCM.PN ---
Subjective - Date & Time of Evaluation Date of Evaluation: 08/19/18 Time of Evaluation: 13:32 - Subjective Subjective: Podiatry Progress Note: Dr. Hoyos 68 year old male patient seen and evaluated at bedside in the ICU. Patient resting comfortably and in NAD. Denies any pain to the left foot at this time. Denies F/C/N/V/CP/SOB Objective - Vital Signs/Intake and Output Vital Signs (last 24 hours): Temp Pulse Resp BP Pulse Ox 99.0 F 76 18 122/63 97 08/19/18 08:00 08/19/18 08:00 08/19/18 08:00 08/19/18 08:00 08/19/18 08:00 Intake and Output: 08/19/18 08/19/18 06:59 18:59 Intake Total 640 Output Total 800 Balance -160 - Medications Medications: Current Medications Amlodipine Besylate (Norvasc) 5 mg PO DIN@1700 [facility] Last Admin: 08/18/18 17:02 Dose: 5 mg Aspirin (Aspirin Chewable) 81 mg PO DAILY [facility] Last Admin: 08/19/18 09:17 Dose: 81 mg Benzocaine/Menthol (Cepacol Sore Throat) 1 tari MT Q2H PRN PRN Reason: Sore Throat Clopidogrel Bisulfate (Plavix) 75 mg PO DAILY [facility] Last Admin: 08/19/18 09:17 Dose: 75 mg Dextrose (Dextrose 50% Inj) 0 ml IV STAT PRN; Protocol PRN Reason: Hypoglycemia Protocol Dextrose (Glutose 15) 0 gm PO ONCE PRN; Protocol PRN Reason: Hypoglycemia Protocol Docusate Sodium (Colace) 100 mg PO TID [facility] Last Admin: 08/19/18 09:17 Dose: 100 mg Enoxaparin Sodium (Lovenox) 30 mg SC 1000,2200 [facility] Last Admin: 08/16/18 13:59 Dose: Not Given Gabapentin (Neurontin) 100 mg PO TID [facility] Last Admin: 08/19/18 09:17 Dose: 100 mg Glimepiride (Amaryl) 4 mg PO ACB [facility] Last Admin: 08/19/18 08:30 Dose: 4 mg Glucagon (Glucagen Diagnostic Kit) 0 mg IM STAT PRN; Protocol PRN Reason: Hypoglycemia Protocol Cefazolin Sodium 500 mg/ (Sodium Chloride) 50 mls @ 100 mls/hr IVPB Q8H [facility]; Protocol Last Admin: 08/19/18 02:25 Dose: 100 mls/hr Insulin Human Regular (Novolin R) 0 unit SC ACHS [facility]; Protocol Last Admin: 08/19/18 11:25 Dose: Not Given Lactobacillus Acidophilus (Bacid Acidophilus) 1 cap PO BID [facility] Last Admin: 08/19/18 09:17 Dose: 1 cap Lisinopril (Zestril) 10 mg PO DAILY [facility] Last Admin: 08/18/18 09:07 Dose: 10 mg Ondansetron HCl (Zofran Inj) 4 mg IVP Q6H PRN PRN Reason: Nausea/Vomiting Last Admin: 08/17/18 08:33 Dose: 4 mg Oxycodone/Acetaminophen (Percocet 5/325 Mg Tab) 1 tab PO Q6H PRN PRN Reason: Pain, severe (8-10) Stop: 08/21/18 15:01 Last Admin: 08/18/18 19:48 Dose: 1 tab Rosuvastatin Calcium (Crestor) 5 mg PO HS [facility] Last Admin: 08/18/18 23:15 Dose: 5 mg - Labs Labs: 08/19/18 06:18 08/19/18 06:18 - Constitutional Appears: Non-toxic, No Acute Distress - Head Exam Head Exam: ATRAUMATIC, NORMOCEPHALIC - Extremities Exam Additional comments: Left lower extremity focused exam: Vasc: DP/PT pulses faintly palpable. Temperature gradient warm to cool. CFT < 3 sec to all digits. No pedal edema noted Derm: ulceration noted to plantar medial aspect of great toe approx 1cm x 0.8cm x 0.1cm with mild erythematous and ischemic skin changes indra wound. Macerated wound borders noted. Minimal active sanguinous drainage noted. No purulence, no malodor, no fluctuance. Small ulceration noted R submetatarsal 5, mild serous drainage, no clinical signs of infection Neuro: protective sensation and gross sensation diminished Ortho: No tenderness upon palpation with dressing changes - Neurological Exam Neurological Exam: Alert, Awake - Psychiatric Exam Psychiatric exam: Normal Affect, Normal Mood Assessment and Plan - Assessment and Plan (Free Text) Assessment: 68 y/o male with left foot hallux ulcer, right foot submet 5 ulcer, and peripheral arterial disease s/p LLE bypass Plan: Patient seen and evaluated at bedside Discussed treatment plan with Dr. Hoyos Afebrile, WBC 11.3 Ulcer cleaned with peroxide and dressed with Akosua and NAVI Pt s/p popliteal-tibial bypass with Dr. Ghotra on 08/16/18 Podiatry to continue with local wound care Wound cx; Proteus mirabilis, group F strep Will continue to follow while in house
--- NOTE | 2018-08-19 19:12 | CP.PCM.PN ---
Subjective - Date & Time of Evaluation Date of Evaluation: 08/19/18 Time of Evaluation: 10:00 - Subjective Subjective: Seen this morning.Patient is complaining of throat discomfort. no leg pain,passing urine ok Objective - Vital Signs/Intake and Output Vital Signs (last 24 hours): Temp Pulse Resp BP Pulse Ox 99.0 F 76 18 122/63 97 08/19/18 08:00 08/19/18 08:00 08/19/18 08:00 08/19/18 08:00 08/19/18 08:00 - Medications Medications: Current Medications Amlodipine Besylate (Norvasc) 5 mg PO DIN@1700 [facility] Last Admin: 08/18/18 17:02 Dose: 5 mg Aspirin (Aspirin Chewable) 81 mg PO DAILY [facility] Last Admin: 08/19/18 09:17 Dose: 81 mg Benzocaine/Menthol (Cepacol Sore Throat) 1 tari MT Q2H PRN PRN Reason: Sore Throat Clopidogrel Bisulfate (Plavix) 75 mg PO DAILY [facility] Last Admin: 08/19/18 09:17 Dose: 75 mg Dextrose (Dextrose 50% Inj) 0 ml IV STAT PRN; Protocol PRN Reason: Hypoglycemia Protocol Dextrose (Glutose 15) 0 gm PO ONCE PRN; Protocol PRN Reason: Hypoglycemia Protocol Docusate Sodium (Colace) 100 mg PO TID [facility] Last Admin: 08/19/18 17:33 Dose: 100 mg Enoxaparin Sodium (Lovenox) 30 mg SC 1000,2200 [facility] Last Admin: 08/16/18 13:59 Dose: Not Given Gabapentin (Neurontin) 100 mg PO TID [facility] Last Admin: 08/19/18 17:33 Dose: 100 mg Glimepiride (Amaryl) 4 mg PO ACB [facility] Last Admin: 08/19/18 08:30 Dose: 4 mg Glucagon (Glucagen Diagnostic Kit) 0 mg IM STAT PRN; Protocol PRN Reason: Hypoglycemia Protocol Cefazolin Sodium 500 mg/ (Sodium Chloride) 50 mls @ 100 mls/hr IVPB Q8H [facility]; Protocol Last Admin: 08/19/18 17:30 Dose: 100 mls/hr Insulin Human Regular (Novolin R) 0 unit SC ACHS [facility]; Protocol Last Admin: 08/19/18 17:30 Dose: 2 units Lactobacillus Acidophilus (Bacid Acidophilus) 1 cap PO BID [facility] Last Admin: 08/19/18 17:33 Dose: 1 cap Lisinopril (Zestril) 10 mg PO DAILY [facility] Last Admin: 08/18/18 09:07 Dose: 10 mg Ondansetron HCl (Zofran Inj) 4 mg IVP Q6H PRN PRN Reason: Nausea/Vomiting Last Admin: 08/17/18 08:33 Dose: 4 mg Oxycodone/Acetaminophen (Percocet 5/325 Mg Tab) 1 tab PO Q6H PRN PRN Reason: Pain, severe (8-10) Stop: 08/21/18 15:01 Last Admin: 08/18/18 19:48 Dose: 1 tab Rosuvastatin Calcium (Crestor) 5 mg PO HS [facility] Last Admin: 08/18/18 23:15 Dose: 5 mg - Labs Labs: 08/19/18 06:18 08/19/18 06:18 - Constitutional Appears: No Acute Distress - Head Exam Head Exam: NORMAL INSPECTION - Eye Exam Eye Exam: Normal appearance - ENT Exam ENT Exam: Mucous Membranes Moist - Neck Exam Neck Exam: Full ROM - Respiratory Exam Respiratory Exam: Clear to Ausculation Bilateral, NORMAL BREATHING PATTERN - Cardiovascular Exam Cardiovascular Exam: REGULAR RHYTHM - GI/Abdominal Exam GI & Abdominal Exam: Soft, Normal Bowel Sounds. absent: Tenderness - Extremities Exam Extremities Exam: Full ROM. absent: Normal Inspection (toe and surgery site dressed) - Back Exam Back Exam: NORMAL INSPECTION - Neurological Exam Neurological Exam: Awake, Oriented x3 - Psychiatric Exam Psychiatric exam: Normal Mood - Skin Skin Exam: Dry, Normal Color Assessment and Plan - Assessment and Plan (Free Text) Assessment: 1) Peripheral vascular disease of lower extremity bilateral PVD,severe bilateral tibial disease L>R Aortofemoral angiogram (08/10): 1. 30% stenosis in distal portion of SFA, but below widely patent. Trifurcation in ant tibial a. was previously patent, now occluded distally. Posterior tibial a. and tibial peroneal trunk are severely diseased. Similar findings on the R but not as severe. - Cardio consulted: Dr. Rosales - help appreciated for cardiac clearance - recent ECHO 04/11/18: LV normal size, normal wall thickness, EF 76% - CXR: no acute findings - EKG: NSR @ 64 bpm, L axis deviation - Stress echo (08/14): No reversible ischemia with dobutamine stress - Vascular Surgery consulted: Dr. Ghotra - ana appreciated - POD#3 for LE bypass procedure ASA 81mg po daily Plavix 75mg po daily Percocet 1tab po q6 prn Zofran 4m ICP q6h prn 2)Ulceration of L hallux Hx Osteomyelitis L hallux - wound culture (08/11): Proteus Mirabilis, group F strep - Podiatry consulted: Dr. Wolf - ana appreciated - Ulcer cleaned with peroxide and dressed with Medihoney and DSD - ID consulted: Dr. Hughes - ana appreciated - Zosyn 3.375gm IVPB q8 (3 doses total 08/10-08/11) - Cefazolin 500mg IVPB q8 (started 08/11) - Can discharge on Keflex 500mg tid for 5 more days 3) Diabetes Mellitus - home Metformin held for contrast - Gabapentin 100mg po tid for neuropathic pain - Glimepiride 4mg po ACB - Accucheck ACHS - ISS medium dose - hypoglycemic protocol 4)Hypertension - Norvasc 5mg po with dinner - Lisinopril 10mg po daily Hyperlipidemia - Crestor 5 mg PO HS PPx - DVT: Lovenox 30mg SC bid held for surgery, ASA 81mg po daily, Plavix 75mg po daily, SCDs CI 2/2 PVD - GI: Bacid po BID, Docusate 100mg po tid - Diet: Diabetic Dispo: PT had originally recommended TCU, which patient declined, stating he would rather have home PT. SW/CM discussed his options and is requesting [facility] at this point. He is now waiting for placement.
[2018-08-20 06:22] LABS: BASO % 0.5 % (0.0-2.0); EOS # 0.1 K/uL (0.0-0.7); EOS % 1.2 % (0.0-4.0); HEMOGLOBIN 8.9 g/dL (12.0-18.0); LYMPH # 1.2 K/uL (1.0-4.3); LYMPH % 13.6 % (20.0-40.0); MEAN CELL VOLUME 82.4 fL (80.0-94.0); MEAN CORPUSCULAR HEMOGLOBIN 27.3 pg (27.0-31.0); MEAN CORPUSCULAR HGB CONC 33.1 g/dL (33.0-37.0); MONO % 11.7 % (0.0-10.0); NEUT # 6.4 K/uL (1.8-7.0); RBC 3.27 Mil/uL (4.40-5.90); RED CELL DISTRIBUTION WIDTH 13.6 % (11.5-14.5); WHITE BLOOD COUNT 8.7 K/uL (4.8-10.8)
[2018-08-20 06:36] LABS: ALBUMIN 3.3 g/dL (3.5-5.0); ALT/SGPT 20 U/L (21-72); AST/SGOT 16 U/L (17-59); BLOOD UREA NITROGEN 20 mg/dL (9-20); CALCIUM 8.3 mg/dl (8.6-10.4); GFR NON-AFRICAN AMERICAN > 60
--- NOTE | 2018-08-20 09:11 | CP.PCM.PN ---
Subjective - Date & Time of Evaluation Date of Evaluation: 08/20/18 Time of Evaluation: 08:45 - Subjective Subjective: Seen and examined,feels better,voice is better,ate good this morning. Denies pain,passing urine ok Objective - Vital Signs/Intake and Output Vital Signs (last 24 hours): Temp Pulse Resp BP Pulse Ox 98 F 69 18 118/68 97 08/20/18 04:00 08/20/18 04:00 08/20/18 04:00 08/20/18 04:00 08/20/18 04:00 Intake and Output: 08/20/18 08/20/18 06:59 18:59 Intake Total 650 Output Total 480 Balance 170 - Medications Medications: Current Medications Amlodipine Besylate (Norvasc) 5 mg PO DIN@1700 [facility] Last Admin: 08/18/18 17:02 Dose: 5 mg Aspirin (Aspirin Chewable) 81 mg PO DAILY [facility] Last Admin: 08/19/18 09:17 Dose: 81 mg Benzocaine/Menthol (Cepacol Sore Throat) 1 tari MT Q2H PRN PRN Reason: Sore Throat Clopidogrel Bisulfate (Plavix) 75 mg PO DAILY [facility] Last Admin: 08/19/18 09:17 Dose: 75 mg Dextrose (Dextrose 50% Inj) 0 ml IV STAT PRN; Protocol PRN Reason: Hypoglycemia Protocol Dextrose (Glutose 15) 0 gm PO ONCE PRN; Protocol PRN Reason: Hypoglycemia Protocol Docusate Sodium (Colace) 100 mg PO TID [facility] Last Admin: 08/19/18 17:33 Dose: 100 mg Enoxaparin Sodium (Lovenox) 30 mg SC 1000,2200 [facility] Last Admin: 08/16/18 13:59 Dose: Not Given Gabapentin (Neurontin) 100 mg PO TID [facility] Last Admin: 08/19/18 17:33 Dose: 100 mg Glimepiride (Amaryl) 4 mg PO ACB [facility] Last Admin: 08/19/18 08:30 Dose: 4 mg Glucagon (Glucagen Diagnostic Kit) 0 mg IM STAT PRN; Protocol PRN Reason: Hypoglycemia Protocol Cefazolin Sodium 500 mg/ (Sodium Chloride) 50 mls @ 100 mls/hr IVPB Q8H [facility]; Protocol Last Admin: 08/20/18 01:20 Dose: 100 mls/hr Insulin Human Regular (Novolin R) 0 unit SC ACHS [facility]; Protocol Last Admin: 08/19/18 21:38 Dose: Not Given Lactobacillus Acidophilus (Bacid Acidophilus) 1 cap PO BID [facility] Last Admin: 08/19/18 17:33 Dose: 1 cap Lisinopril (Zestril) 10 mg PO DAILY [facility] Last Admin: 08/18/18 09:07 Dose: 10 mg Ondansetron HCl (Zofran Inj) 4 mg IVP Q6H PRN PRN Reason: Nausea/Vomiting Last Admin: 08/17/18 08:33 Dose: 4 mg Oxycodone/Acetaminophen (Percocet 5/325 Mg Tab) 1 tab PO Q6H PRN PRN Reason: Pain, severe (8-10) Stop: 08/21/18 15:01 Last Admin: 08/18/18 19:48 Dose: 1 tab Rosuvastatin Calcium (Crestor) 5 mg PO HS [facility] Last Admin: 08/19/18 22:28 Dose: 5 mg - Labs Labs: 08/20/18 06:10 08/20/18 06:10 - Constitutional Appears: Non-toxic, No Acute Distress - Head Exam Head Exam: NORMAL INSPECTION - Eye Exam Eye Exam: Normal appearance - ENT Exam ENT Exam: Mucous Membranes Moist - Neck Exam Neck Exam: Full ROM - Respiratory Exam Respiratory Exam: Clear to Ausculation Bilateral, NORMAL BREATHING PATTERN - Cardiovascular Exam Cardiovascular Exam: REGULAR RHYTHM - GI/Abdominal Exam GI & Abdominal Exam: Soft, Normal Bowel Sounds - Extremities Exam Extremities Exam: Full ROM. absent: Normal Inspection (toe ulcer,s/p surgery) - Back Exam Back Exam: NORMAL INSPECTION - Neurological Exam Neurological Exam: Awake, Oriented x3 - Psychiatric Exam Psychiatric exam: Normal Mood - Skin Skin Exam: Dry Assessment and Plan - Assessment and Plan (Free Text) Plan: 1) Peripheral vascular disease of lower extremity bilateral PVD,severe bilateral tibial disease L>R Aortofemoral angiogram (08/10): 1. 30% stenosis in distal portion of SFA, but below widely patent. Trifurcation in ant tibial a. was previously patent, now occluded distally. Posterior tibial a. and tibial peroneal trunk are severely diseased. Similar findings on the R but not as severe. - Cardio consulted: Dr. Rosales - help appreciated for cardiac clearance - recent ECHO 04/11/18: LV normal size, normal wall thickness, EF 76% - CXR: no acute findings - EKG: NSR @ 64 bpm, L axis deviation - Stress echo (08/14): No reversible ischemia with dobutamine stress - Vascular Surgery consulted: Dr. Ghotra - help appreciated - POD#3 for LE bypass procedure ASA 81mg po daily Plavix 75mg po daily Percocet 1tab po q6 prn Zofran 4m ICP q6h prn 2)Ulceration of L hallux Hx Osteomyelitis L hallux - wound culture (08/11): Proteus Mirabilis, group F strep - Podiatry consulted: Dr. Wolf - ana appreciated - ID consulted: Dr. Hughes - ana appreciated - Zosyn 3.375gm IVPB q8 (3 doses total 08/10-08/11) - Cefazolin 500mg IVPB q8 (started 08/11) - Can discharge on Keflex 500mg tid for 5 more days 3) Diabetes Mellitus - home Metformin held for contrast - Gabapentin 100mg po tid for neuropathic pain - Glimepiride 4mg po ACB - Accucheck ACHS - ISS medium dose - hypoglycemic protocol 4)Hypertension - Norvasc 5mg po with dinner - Lisinopril 10mg po daily Hyperlipidemia - Crestor 5 mg PO HS PPx - DVT: Lovenox 30mg SC bid held for surgery, ASA 81mg po daily, Plavix 75mg po daily, SCDs CI 2/2 PVD - GI: Bacid po BID, Docusate 100mg po tid - Diet: Diabetic Dispo: PT had originally recommended TCU, which patient declined, stating he would rather have home PT. SW/CM discussed his options and is requesting [facility] at this point. He is now waiting for TCU placement approval
[2018-08-20] MEDS: Lactobacillus Acidophilus 500 MU Cap PO SCH ×2 (09:33→17:58)
[2018-08-20] MEDS: (Novolin R) Insulin Human Regular 100 units/ml vial SC SCH ×4 (09:36→21:10)
--- NOTE | 2018-08-20 11:02 | CP.PCM.PN ---
Subjective - Date & Time of Evaluation Date of Evaluation: 08/20/18 Time of Evaluation: 11:00 - Subjective Subjective: Podiatry Progress Note: Dr. Hoyos 68 year old male patient seen and evaluated at bedside in the ICU. Patient resting comfortably and in NAD. He states that his pain is well controlled today. Denies F/C/N/V/CP/SO Objective - Vital Signs/Intake and Output Vital Signs (last 24 hours): Temp Pulse Resp BP Pulse Ox 98 F 69 18 118/68 97 08/20/18 04:00 08/20/18 04:00 08/20/18 04:00 08/20/18 04:00 08/20/18 04:00 Intake and Output: 08/20/18 08/20/18 06:59 18:59 Intake Total 650 Output Total 480 Balance 170 - Medications Medications: Current Medications Amlodipine Besylate (Norvasc) 5 mg PO DIN@1700 [facility] Last Admin: 08/18/18 17:02 Dose: 5 mg Aspirin (Aspirin Chewable) 81 mg PO DAILY [facility] Last Admin: 08/20/18 09:33 Dose: 81 mg Benzocaine/Menthol (Cepacol Sore Throat) 1 tari MT Q2H PRN PRN Reason: Sore Throat Clopidogrel Bisulfate (Plavix) 75 mg PO DAILY [facility] Last Admin: 08/20/18 09:36 Dose: 75 mg Dextrose (Dextrose 50% Inj) 0 ml IV STAT PRN; Protocol PRN Reason: Hypoglycemia Protocol Dextrose (Glutose 15) 0 gm PO ONCE PRN; Protocol PRN Reason: Hypoglycemia Protocol Docusate Sodium (Colace) 100 mg PO TID [facility] Last Admin: 08/20/18 09:33 Dose: 100 mg Enoxaparin Sodium (Lovenox) 30 mg SC 1000,2200 [facility] Last Admin: 08/16/18 13:59 Dose: Not Given Gabapentin (Neurontin) 100 mg PO TID [facility] Last Admin: 08/20/18 09:36 Dose: 100 mg Glimepiride (Amaryl) 4 mg PO ACB [facility] Last Admin: 08/20/18 09:33 Dose: 4 mg Glucagon (Glucagen Diagnostic Kit) 0 mg IM STAT PRN; Protocol PRN Reason: Hypoglycemia Protocol Cefazolin Sodium 500 mg/ (Sodium Chloride) 50 mls @ 100 mls/hr IVPB Q8H [facility]; Protocol Last Admin: 08/20/18 09:33 Dose: 100 mls/hr Insulin Human Regular (Novolin R) 0 unit SC ACHS [facility]; Protocol Last Admin: 08/20/18 09:36 Dose: Not Given Lactobacillus Acidophilus (Bacid Acidophilus) 1 cap PO BID [facility] Last Admin: 08/20/18 09:33 Dose: 1 cap Lisinopril (Zestril) 10 mg PO DAILY [facility] Last Admin: 08/18/18 09:07 Dose: 10 mg Ondansetron HCl (Zofran Inj) 4 mg IVP Q6H PRN PRN Reason: Nausea/Vomiting Last Admin: 08/17/18 08:33 Dose: 4 mg Oxycodone/Acetaminophen (Percocet 5/325 Mg Tab) 1 tab PO Q6H PRN PRN Reason: Pain, severe (8-10) Stop: 08/21/18 15:01 Last Admin: 08/18/18 19:48 Dose: 1 tab Rosuvastatin Calcium (Crestor) 5 mg PO HS [facility] Last Admin: 08/19/18 22:28 Dose: 5 mg - Labs Labs: 08/20/18 06:10 08/20/18 06:10 - Constitutional Appears: Non-toxic, No Acute Distress - Head Exam Head Exam: ATRAUMATIC, NORMOCEPHALIC - Extremities Exam Additional comments: Left lower extremity focused exam: Vasc: DP/PT pulses faintly palpable. Temperature gradient warm to cool. CFT < 3 sec to all digits. No pedal edema noted Derm: ulceration noted to plantar medial aspect of great toe approx 1cm x 0.8cm x 0.1cm with mild erythematous and ischemic skin changes indra wound. Macerated wound borders noted. Minimal active sanguinous drainage noted. No purulence, no malodor, no fluctuance. Small ulceration noted R submetatarsal 5, mild serous drainage, no clinical signs of infection Neuro: protective sensation and gross sensation diminished Ortho: No tenderness upon palpation with dressing changes - Neurological Exam Neurological Exam: Alert, Awake, Oriented x3 - Psychiatric Exam Psychiatric exam: Normal Affect, Normal Mood Assessment and Plan - Assessment and Plan (Free Text) Assessment: 68 y/o male with left foot hallux ulcer, right foot submet 5 ulcer, and peripheral arterial disease s/p LLE bypass Plan: Patient seen and evaluated at bedside Discussed patient plan in detail with Dr. Hoyos Pt s/p popliteal-tibial bypass with Dr. Ghotra on 08/16/18 Podiatry to continue with local wound care Continue IV abx per ID reccs Wound cx; Proteus mirabilis, group F strep Will continue to follow while in house
[2018-08-20] MEDS: POLYETHYLENE GLYCOL 3350 17 GM/Dose PACKET PO SCH (18:18)
[2018-08-21 00:47] VITALS: RESP 18
[2018-08-21 06:06] LABS: BASO % 0.4 % (0.0-2.0); EOS # 0.2 K/uL (0.0-0.7); EOS % 2.3 % (0.0-4.0); HEMOGLOBIN 8.7 g/dL (12.0-18.0); LYMPH # 1.2 K/uL (1.0-4.3); LYMPH % 12.9 % (20.0-40.0); MEAN CELL VOLUME 82.2 fL (80.0-94.0); MEAN CORPUSCULAR HEMOGLOBIN 27.2 pg (27.0-31.0); MEAN CORPUSCULAR HGB CONC 33.1 g/dL (33.0-37.0); MEAN PLATELET VOLUME 7.9 fL (7.2-11.7); MONO # 1.2 K/uL (0.0-0.8); MONO % 12.7 % (0.0-10.0); NEUT # 6.6 K/uL (1.8-7.0); NEUT % 71.7 % (50.0-75.0); NRBC % 0.1 % (0.0-2.0); RBC 3.2 Mil/uL (4.40-5.90); RED CELL DISTRIBUTION WIDTH 13.7 % (11.5-14.5); WHITE BLOOD COUNT 9.2 K/uL (4.8-10.8)
[2018-08-21 06:18] LABS: ALBUMIN 3.4 g/dL (3.5-5.0); ALT/SGPT 21 U/L (21-72); AST/SGOT 21 U/L (17-59); BLOOD UREA NITROGEN 18 mg/dL (9-20); CALCIUM 8.3 mg/dl (8.6-10.4); GFR NON-AFRICAN AMERICAN > 60
[2018-08-21] MEDS: (Novolin R) Insulin Human Regular 100 units/ml vial SC SCH ×2 (07:36→11:56)
[2018-08-21 08:30] VITALS: BP 123/66; PULSE 76; O2SAT 100
[2018-08-21] MEDS: Lactobacillus Acidophilus 500 MU Cap PO SCH (09:12)
[2018-08-21] MEDS: POLYETHYLENE GLYCOL 3350 17 GM/Dose PACKET PO SCH (09:13)
--- NOTE | 2018-08-21 15:30 | CP.PCM.DIS ---
<Tracey Funes - Last Filed: 08/21/18 15:28> Provider - Provider Date of Admission: 08/10/18 11:50 Attending physician: Les Black MD Consults: 08/10/18 11:41 Physician Consult Routine Comment: Consulting Provider: Vahid Rosales Consulting Physician: Vahid Rosales Reason for Consult: pe op evaluation 08/10/18 11:42 Physician Consult Routine Comment: Consulting Provider: Ignacio Hoyos Consulting Physician: Ignacio Hoyos Reason for Consult: foot wound 08/10/18 11:43 Physician Consult Routine Comment: Consulting Provider: Alvarez Hughes Consulting Physician: Alvarez Hughes Reason for Consult: patient known to you Time Spent in preparation of Discharge (in minutes): 70 Hospital Course - Lab Results Lab Results: Micro Results 08/16/18 19:26 Naris MRSA Culture (Admit) - Final MRSA NOT DETECTED 08/11/18 06:31 Foot - Left Gram Stain - Final 08/11/18 06:31 Foot - Left Wound Culture - Final Proteus Mirabilis Group F Streptococcus Most Recent Lab Values WBC 9.2 K/uL (4.8-10.8) 08/21/18 05:52 RBC 3.20 Mil/uL (4.40-5.90) L 08/21/18 05:52 Hgb 8.7 g/dL (12.0-18.0) L 08/21/18 05:52 Hct 26.3 % (35.0-51.0) L 08/21/18 05:52 MCV 82.2 fL (80.0-94.0) 08/21/18 05:52 MCH 27.2 pg (27.0-31.0) 08/21/18 05:52 MCHC 33.1 g/dL (33.0-37.0) 08/21/18 05:52 RDW 13.7 % (11.5-14.5) 08/21/18 05:52 Plt Count 399 K/uL (130-400) 08/21/18 05:52 MPV 7.9 fL (7.2-11.7) 08/21/18 05:52 Neut % (Auto) 71.7 % (50.0-75.0) 08/21/18 05:52 Lymph % (Auto) 12.9 % (20.0-40.0) L 08/21/18 05:52 [place] % (Auto) 12.7 % (0.0-10.0) H 08/21/18 05:52 Eos % (Auto) 2.3 % (0.0-4.0) 08/21/18 05:52 Baso % (Auto) 0.4 % (0.0-2.0) 08/21/18 05:52 Neut # (Auto) 6.6 K/uL (1.8-7.0) 08/21/18 05:52 Lymph # (Auto) 1.2 K/uL (1.0-4.3) 08/21/18 05:52 [place] # (Auto) 1.2 K/uL (0.0-0.8) H 08/21/18 05:52 Eos # (Auto) 0.2 K/uL (0.0-0.7) 08/21/18 05:52 Baso # (Auto) 0.0 K/uL (0.0-0.2) 08/21/18 05:52 Neutrophils % (Manual) 82 % (50-75) H 08/19/18 06:18 Lymphocytes % (Manual) 9 % (20-40) L 08/19/18 06:18 Monocytes % (Manual) 8 % (0-10) 08/19/18 06:18 Eosinophils % (Manual) 1 % (0-4) 08/19/18 06:18 Toxic Granulation Present 08/19/18 06:18 Platelet Estimate Normal (NORMAL) 08/19/18 06:18 Polychromasia Slight 08/19/18 06:18 Hypochromasia (manual) Slight 08/19/18 06:18 Anisocytosis (manual) Slight 08/19/18 06:18 Ovalocytes Slight 08/18/18 06:59 Sodium 135 mmol/L (132-148) 08/21/18 05:52 Potassium 4.1 mmol/L (3.6-5.2) 08/21/18 05:52 Chloride 100 mmol/L (98-107) 08/21/18 05:52 Carbon Dioxide 28 mmol/L (22-30) 08/21/18 05:52 Anion Gap 10 (10-20) 08/21/18 05:52 BUN 18 mg/dL (9-20) 08/21/18 05:52 Creatinine 0.7 mg/dL (0.8-1.5) L 08/21/18 05:52 Est GFR ( Amer) > 60 08/21/18 05:52 Est GFR (Non-Af Amer) > 60 08/21/18 05:52 POC Glucose (mg/dL) 158 mg/dL (65-110) H 08/21/18 07:22 Random Glucose 146 mg/dL (75-110) H D 08/21/18 05:52 Hemoglobin A1c 7.6 % (4.2-6.5) H 08/10/18 17:03 Calcium 8.3 mg/dl (8.6-10.4) L 08/21/18 05:52 Phosphorus 2.9 mg/dL (2.5-4.5) 08/21/18 05:52 Magnesium 1.9 mg/dL (1.6-2.3) 08/21/18 05:52 Total Bilirubin 0.5 mg/dL (0.2-1.3) 08/21/18 05:52 AST 21 U/L (17-59) 08/21/18 05:52 ALT 21 U/L (21-72) 08/21/18 05:52 Alkaline Phosphatase 81 U/L (38-126) 08/21/18 05:52 Total Protein 6.7 g/dL (6.3-8.3) 08/21/18 05:52 Albumin 3.4 g/dL (3.5-5.0) L 08/21/18 05:52 Globulin 3.3 gm/dL (2.2-3.9) 08/21/18 05:52 Albumin/Globulin Ratio 1.0 (1.0-2.1) 08/21/18 05:52 Procalcitonin 0.06 NG/ML (0.19-0.49) L 08/10/18 19:51 Blood Type O POSITIVE 08/15/18 11:15 Antibody Screen Negative 08/15/18 11:15 - Hospital Course Hospital Course: Upon Admission: Patient is a 68 year old male with PMHx of HTN, HLD, DM, PVD, osteomyelitis s/p L hallux wound debridement and excision of gangrenous tissue presenting for medical clearance s/p aortofemoral angiogram demonstrating worsening PVD in setting of worsening LLE pain x 3 weeks, now requiring L popliteal-tib bypass. No other acute somatic complaints, denies any chest pain, palpitations, shortness of breath. No fevers/chills, headaches, abdominal pain, n/v/d/c. Pt was admitted for medical clearance for L popliteal-tibial artery bypass. Hospital Course: Pt was admitted. Aortofemoral angiogram showed: 1. 30% stenosis in distal portion of SFA, but below widely patent. Trifurcation in ant tibial a. was previously patent, now occluded distally. Posterior tibial a. and tibial peroneal trunk are severely diseased. Similar findings on the R but not as severe. Cardiology was consulted for clearance. Stress ECHO was performed which showed No reversible ischemia with dobutamine stress Podiatry was consulted and managed pt wound care for the ulceration on the L hallux. ID was consulted and recommended cefazolin, and upon discharge keflex for 5 days. Vascular Surgery was consulted and performed a LE bypass procedure on 08/16/18. Pt was transferred to ICU for overnight observation of the patient after the procedure, and was thereafter downgraded. Pt was deemed stable for discharge to home. Upon Discharge: Pt was deemed stable for discharge. He was instructed to follow up with Podiatry, Vascular Surgery, and primary care. He was instructed to take medications as prescribed. Patient was given prescriptions for home and outpatient PT. Patient understood instructions and agreed. Discharge Exam - Head Exam Head Exam: ATRAUMATIC, NORMAL INSPECTION, NORMOCEPHALIC - Eye Exam Eye Exam: EOMI, PERRL Pupil Exam: NORMAL ACCOMODATION - Respiratory Exam Respiratory Exam: Clear to PA & Lateral, NORMAL BREATHING PATTERN. absent: Rales, Rhonchi, Wheezes - Cardiovascular Exam Cardiovascular Exam: REGULAR RHYTHM, +S1, +S2. absent: Gallop, Rubs, Systolic Murmur - GI/Abdominal Exam GI & Abdominal Exam: Normal Bowel Sounds, Soft, Tenderness. absent: Distended, Firm - Extremities Exam Additional comments: LLE dressing clean/dry/intact - Neurological Exam Neurological exam: Alert, Oriented x3 - Psychiatric Exam Psychiatric exam: Normal Affect, Normal Mood - Skin Skin Exam: Normal Color Discharge Plan - Discharge Medications Prescriptions: Cephalexin [cephalexin] 500 mg PO TID #15 cap RX: oxyCODONE/Acetaminophen [Percocet 5/325 mg Tab] 1 tab PO Q6H PRN #12 tab PRN Reason: Pain, Moderate (4-7) - Follow Up Plan Condition: GOOD Disposition: HOME/ ROUTINE Instructions: Peripheral Vascular (Arterial) Disease (DC), Cephalexin, Oxycodone and Acetaminophen Additional Instructions: Patient is clear for discharge per Dr. Black. He is to restart all his home medications, especially his Plavix. He is being given prescriptions for pain after his surgery and antibiotics to help his foot. He needs to follow up with the following people: 1) His PMD: a lot has happened over this hospital visit. Someone needs to be in charge of coordination of care. 2) Dr. Hughes: The ID doctor will follow how your foot is doing. Your history of osteomyelitis means you will need to be on antibiotics until it is entirely gone. Please take the Keflex three times a day for the next 5 days. Please call the office to set up an appointment within a week. 3) Dr. Ghotra: The vascular surgeon will follow you after surgery. You will need to call the office at and set up an appointment for 10-14 days from your surgery. 4) [facility] [employer] Guide: Walking can be difficult with an infection in your foot with your neuropathy. A foot doctor can help you with that. The patient has declined TCU in favor of home PT in order to be in a more comforting environment. He should continue with PT, home or outpatient, at least 3 times a weeks for two weeks. If the patient's condition worsens, please return to the ED. This was discussed with the patient who understands and agrees. El paciente est listo para el sonia por el Dr. Blcak. l debe reiniciar todos rajendra medicamentos caseros, especialmente santiago Plavix. Le estn recetando med icamentos para el dolor despus de santiago ciruga y antibiticos para ayudarlo en el pie. Necesita seguir con las siguientes personas: 1) Santiago PMD: lizama pasado muchas cosas yanna esta visita al hospital. Alguien tiene que estar a cargo de la coordinacin de la atencin. 2) Dr. Hughes: El mdico de identificacin seguir tail end rider est santiago pie. Santiago historial de osteomielitis significa que tendr que kellie antibiticos hasta que desaparezca por completo. Por favor tome el Keflex thalia veces al da yanna los prximos 5 oh. Llame a la oficina para programar mitchel josué dentro de mitchel semana. 3) Dr. Ghotra: el cirujano vascular lo seguir despus de la ciruga. Deber llamar a la oficina y programar mitchel josué de 10 a 14 oh despus de santiago ciruga. 4) Santiago podlogo: Caminar puede ser difcil con mitchel infeccin en santiago pie con santiago neuropata. Un mdico de pies puede ayudarte con eso. El paciente thao rechazado la TCU a favor del PT domiciliario para estar en un entorno ms cmodo. Debe continuar con PT, domiciliaria o ambulatoria, al menos 3 veces por semana yanna dos semanas. Si la condicin del paciente empeora, regrese al servicio de urgencias. Mettler fue discutido con el paciente que entie nde y est de acuerdo. Referrals: Ignacio Hoyos DPM [Doctor Podiatric Medicine] - Alvarez Hughes MD [Staff Provider] - Donis Ghotra Jr., MD [Staff Provider] - <Martinez Presley - Last Filed: 08/21/18 18:21> Provider - Provider Date of Admission: 08/10/18 11:50 Attending physician: Les Black MD Consults: 08/10/18 11:41 Physician Consult Routine Comment: Consulting Provider: Vahid Rosales Consulting Physician: Vahid Rosales Reason for Consult: pe op evaluation 08/10/18 11:42 Physician Consult Routine Comment: Consulting Provider: Ignacio Hoyos Consulting Physician: Ignacio Hoyos Reason for Consult: foot wound 08/10/18 11:43 Physician Consult Routine Comment: Consulting Provider: Alvarez Hughes Consulting Physician: Alvarez Hughes Reason for Consult: patient known to you Hospital Course - Lab Results Lab Results: Micro Results 08/16/18 19:26 Naris MRSA Culture (Admit) - Final MRSA NOT DETECTED 08/11/18 06:31 Foot - Left Gram Stain - Final 08/11/18 06:31 Foot - Left Wound Culture - Final Proteus Mirabilis Group F Streptococcus Most Recent Lab Values WBC 9.2 K/uL (4.8-10.8) 08/21/18 05:52 RBC 3.20 Mil/uL (4.40-5.90) L 08/21/18 05:52 Hgb 8.7 g/dL (12.0-18.0) L 08/21/18 05:52 Hct 26.3 % (35.0-51.0) L 08/21/18 05:52 MCV 82.2 fL (80.0-94.0) 08/21/18 05:52 MCH 27.2 pg (27.0-31.0) 08/21/18 05:52 MCHC 33.1 g/dL (33.0-37.0) 08/21/18 05:52 RDW 13.7 % (11.5-14.5) 08/21/18 05:52 Plt Count 399 K/uL (130-400) 08/21/18 05:52 MPV 7.9 fL (7.2-11.7) 08/21/18 05:52 Neut % (Auto) 71.7 % (50.0-75.0) 08/21/18 05:52 Lymph % (Auto) 12.9 % (20.0-40.0) L 08/21/18 05:52 [place] % (Auto) 12.7 % (0.0-10.0) H 08/21/18 05:52 Eos % (Auto) 2.3 % (0.0-4.0) 08/21/18 05:52 Baso % (Auto) 0.4 % (0.0-2.0) 08/21/18 05:52 Neut # (Auto) 6.6 K/uL (1.8-7.0) 08/21/18 05:52 Lymph # (Auto) 1.2 K/uL (1.0-4.3) 08/21/18 05:52 [place] # (Auto) 1.2 K/uL (0.0-0.8) H 08/21/18 05:52 Eos # (Auto) 0.2 K/uL (0.0-0.7) 08/21/18 05:52 Baso # (Auto) 0.0 K/uL (0.0-0.2) 08/21/18 05:52 Neutrophils % (Manual) 82 % (50-75) H 08/19/18 06:18 Lymphocytes % (Manual) 9 % (20-40) L 08/19/18 06:18 Monocytes % (Manual) 8 % (0-10) 08/19/18 06:18 Eosinophils % (Manual) 1 % (0-4) 08/19/18 06:18 Toxic Granulation Present 08/19/18 06:18 Platelet Estimate Normal (NORMAL) 08/19/18 06:18 Polychromasia Slight 08/19/18 06:18 Hypochromasia (manual) Slight 08/19/18 06:18 Anisocytosis (manual) Slight 08/19/18 06:18 Ovalocytes Slight 08/18/18 06:59 Sodium 135 mmol/L (132-148) 08/21/18 05:52 Potassium 4.1 mmol/L (3.6-5.2) 08/21/18 05:52 Chloride 100 mmol/L (98-107) 08/21/18 05:52 Carbon Dioxide 28 mmol/L (22-30) 08/21/18 05:52 Anion Gap 10 (10-20) 08/21/18 05:52 BUN 18 mg/dL (9-20) 08/21/18 05:52 Creatinine 0.7 mg/dL (0.8-1.5) L 08/21/18 05:52 Est GFR ( Amer) > 60 08/21/18 05:52 Est GFR (Non-Af Amer) > 60 08/21/18 05:52 POC Glucose (mg/dL) 229 mg/dL (65-110) H 08/21/18 11:17 Random Glucose 146 mg/dL (75-110) H D 08/21/18 05:52 Hemoglobin A1c 7.6 % (4.2-6.5) H 08/10/18 17:03 Calcium 8.3 mg/dl (8.6-10.4) L 08/21/18 05:52 Phosphorus 2.9 mg/dL (2.5-4.5) 08/21/18 05:52 Magnesium 1.9 mg/dL (1.6-2.3) 08/21/18 05:52 Total Bilirubin 0.5 mg/dL (0.2-1.3) 08/21/18 05:52 AST 21 U/L (17-59) 08/21/18 05:52 ALT 21 U/L (21-72) 08/21/18 05:52 Alkaline Phosphatase 81 U/L (38-126) 08/21/18 05:52 Total Protein 6.7 g/dL (6.3-8.3) 08/21/18 05:52 Albumin 3.4 g/dL (3.5-5.0) L 08/21/18 05:52 Globulin 3.3 gm/dL (2.2-3.9) 08/21/18 05:52 Albumin/Globulin Ratio 1.0 (1.0-2.1) 08/21/18 05:52 Procalcitonin 0.06 NG/ML (0.19-0.49) L 08/10/18 19:51 Blood Type O POSITIVE 08/15/18 11:15 Antibody Screen Negative 08/15/18 11:15 Attending/Attestation - Attestation I have personally seen and examined this patient.: Yes I have fully participated in the care of the patient.: Yes I have reviewed all pertinent clinical information, including history, physical exam and plan: Yes Notes (Text): 08/21/18 18:19 Medical attending: Patient was seen and examined by me as well. Reviewed the above note by the resident Patient reports feeling well. He did not have pain and reported his feet felt warm. The dressing over the femoral-tibieal area was dry and intact. There was no bleeding Patient will be discharged today He will need to continue with PO abx as well He will also need to follow up with surgery as well Martinez Presley
[2018-08-21 17:02] VITALS: TEMP 97.6
--- NOTE | 2018-08-22 09:26 | CP.PCM.PN ---
Subjective - Date & Time of Evaluation Date of Evaluation: 08/21/18 Time of Evaluation: 14:00 - Subjective Subjective: Podiatry Progress Note for Dr. Hoyos 68 year old male patient seen and evaluated at bedside in the ICU with attending Dr. Hoyos. Patient is resting comfortably in bed, AA0x3, and in NAD. He states that his pain is well controlled today. Dressing clean dry and intact. Reports no changes since last seen yesterday. Denies F/C/N/V/CP/SO Objective - Vital Signs/Intake and Output Vital Signs (last 24 hours): Temp Pulse Resp BP Pulse Ox 97.6 F 76 18 123/66 100 08/21/18 12:00 08/21/18 08:00 08/21/18 08:00 08/21/18 08:00 08/21/18 08:00 - Labs Labs: 08/21/18 05:52 08/21/18 05:52 - Constitutional Appears: Well, Non-toxic, No Acute Distress - Extremities Exam Extremities Exam: absent: Calf Tenderness Additional comments: Left lower extremity focused exam: Vasc: DP/PT pulses faintly palpable. Temperature gradient warm to cool. CFT < 3 sec to all digits. No pedal edema noted Derm: ulceration noted to plantar medial aspect of great toe approx 1cm x 0.8cm x 0.1cm with mild erythematous and ischemic skin changes indra wound. Macerated wound borders noted. Minimal active sanguinous drainage noted. No purulence, no malodor, no fluctuance. Small ulceration noted R submetatarsal 5, mild serous drainage, no clinical signs of infection Neuro: protective sensation and gross sensation diminished Ortho: No tenderness upon palpation with dressing changes - Neurological Exam Neurological Exam: Alert, Awake, Oriented x3 - Psychiatric Exam Psychiatric exam: Normal Affect, Normal Mood Assessment and Plan - Assessment and Plan (Free Text) Assessment: 68 y/o male with left foot hallux ulcer, right foot submet 5 ulcer, and peripheral arterial disease s/p LLE bypass Plan: Patient seen and evaluated at bedside Discussed patient plan in detail with Dr. Hoyos Pt s/p popliteal-tibial bypass with Dr. Ghotra on 08/16/18 Podiatry to continue with local wound care Continue IV abx per ID reccs Wound cx; Proteus mirabilis, group F strep Will continue to follow while in house
== END 2018-08-21 16:12 | disposition home or self-care (01) | DRG 253 ==
LOC: C.SPRAD 08:30 → C.9S 11:50 → C.6T 13:29 → C.9I 08-16 14:26
PROVIDERS: ADMIT Internal Medicine; ATTEND Internal Medicine
PROC: B4101ZZ Fluoroscopy of Abdominal Aorta using Low Osmolar Contrast (ICD-10-PCS; 2018-08-10)
PROC: 06Q Lower Veins, Repair (ICD-10-PCS; 2018-08-16)
PROC: 041 Lower Arteries, Bypass (ICD-10-PCS; principal; 2018-08-16 07:45)
DX: E11.52 Type 2 diabetes mellitus with diabetic peripheral angiopathy with gangrene (principal); I70.269 Atherosclerosis of native arteries of extremities with gangrene, unspecified extremity; L98.498 Non-pressure chronic ulcer of skin of other sites with other specified severity; Z79.4 Long term (current) use of insulin; L97.529 Non-pressure chronic ulcer of other part of left foot with unspecified severity; Z87.891 Personal history of nicotine dependence; Z79.84 Long term (current) use of oral hypoglycemic drugs; Z79.82 Long term (current) use of aspirin; L97.519 Non-pressure chronic ulcer of other part of right foot with unspecified severity; I70.209 Unspecified atherosclerosis of native arteries of extremities, unspecified extremity; E11.621 Type 2 diabetes mellitus with foot ulcer; I10 Essential (primary) hypertension; E78.5 Hyperlipidemia, unspecified; D64.9 Anemia, unspecified; G62.9 Polyneuropathy, unspecified; N28.9 Disorder of kidney and ureter, unspecified

== ENCOUNTER 2018-09-06 13:25 | Outpatient (CLI) | payer OTHER | END 2018-09-06 13:26 | disposition home or self-care (01) | LOC: C.RADH 13:25 | DX: M86.671 Other chronic osteomyelitis, right ankle and foot (principal); M86.672 Other chronic osteomyelitis, left ankle and foot ==

== ENCOUNTER 2018-09-11 07:38 | Observation (INO) | payer OTHER ==
[2018-09-11] MEDS ORDERED: ceFAZolin 1 gm in NS 1 GM/100 ML BAG IVPB ONE (09:09)
[2018-09-11] MEDS ORDERED: Bupivacaine 0.25% 20 ML INJ IJ ONE (09:09)
[2018-09-11] MEDS ORDERED: Lidocaine 2% MPF (5 ml) Inj ONE (09:09)
[2018-09-11] MEDS ORDERED: LIDOCAINE 2% PF (2ML) ONE (09:10)
[2018-09-11] MEDS ORDERED: Propofol 10 mg/ml Inj (20 ML) ONE (09:11)
[2018-09-11] MEDS ORDERED: Midazolam 2 MG/2 ML VIAL ONE (09:11)
[2018-09-11] MEDS ORDERED: HYDROmorphone 0.5 mg/0.5 ml ISec IVP PRN (10:23)
--- NOTE | 2018-09-11 10:26 | PCM.SURG1 ---
Surgeon's Initial Post Op Note - Surgeon's Notes Surgeon: Dr. Hoyos DPM Corrosion Control Fitter: Dr. Kevin Flores DPM PGY-2 Type of Anesthesia: IV Sedation, Local Anesthesia Administered By: Dr. Madison MENDOSA Pre-Operative Diagnosis: Left foot hallux OM with gangreneous changes Operative Findings: See dictation. M: 4-0 chromic gut, 4-0 nylon. I: 20 cc of 2% lidocaine plain:0.25% Marcain plain - pre-op Post-Operative Diagnosis: Same Operation Performed: Left hallux amputation Specimen/Specimens Removed: Left hallux, bone and soft tissue Estimated Blood Loss: EBL {In ML}: 20 Blood Products Given: N/A Drains Used: Handley Post-Op Condition: Good Date of Surgery/Procedure: 09/11/18 Time of Surgery/Procedure: 10:26
[2018-09-11] MEDS ORDERED: Oxycodone/Acetaminophen 5/325 mg Tab PO PRN ×2 (10:30)
--- NOTE | 2018-09-11 13:40 | CP.PCM.HP ---
<Martin Moore - Last Filed: 09/11/18 16:22> History of Present Illness - History of Present Illness History of Present Illness: PGY2 Medicine H+P for Dr. Black Patient is a 68 year old male with a past medical history of hypertension, hyperlipidemia, diabetes, peripheral vascular disease and osteomyelitis is being admitted from same day surgery. He underwent left hallux amputation earlier today, 09/11/18. Patient also under went a L popliteal-tib bypass with Dr. Ghotra on 08/16/18. Patient is currently post-op resting in bed stating he feels well and has no complaints. His pain is currently well controlled and he would like to sleep. ROS unreliable as patient is currently post-op. PMD: Dr. Rose Marie Turcios Podiatry: Dr. Hoyos PMHx: HTN, HLD, DM, PVD, OM Home Medications: Metformin 500 mg Q12h, Invokana 300 mg daily, Glimepiride 4 mg daily, Atorvastatin 10 mg daily, Amlodipine 5 mgdaily, Lisinopril 10 mg daily, Aspirin 81 mg daily, Plavix 75 mg daily, Lactobacillus Q12h PSHx: angiogram with balloon angioplasty of the left anterior tibial artery (performed at last admission), prostectomy Allergies: NKDA Family Hx: mother with DM and father with HTN Social Hx: +tobacco use-4ppd for over 40 years. Patient admits to drinking 1 small bottle of whiskey a night for many years, quit since 04/10/18. Former crack user, quit in 1984. Present on Admission - Present on Admission Any Indicators Present on Admission: Yes History of Uncontrolled Diabetes: Yes Review of Systems - Review of Systems All systems: reviewed and no additional remarkable complaints except (as per HPI) Past Patient History - Infectious Disease Hx of Infectious Diseases: None - Past Medical History & Family History Past Medical History?: Yes - Past Social History Smoking Status: Former Smoker - CARDIAC Hx Cardiac Disorders: Yes Hx Hypercholesterolemia: Yes Hx Hypertension: Yes - NEUROLOGICAL Hx Neurological Disorder: Yes Other/Comment: neuropathy - ENDOCRINE/METABOLIC Hx Endocrine Disorders: Yes Hx Diabetes Mellitus Type 2: Yes - INTEGUMENTARY Hx Dermatological Problems: Yes Other/Comment: HX: GANGRENE LEFT HALLUX GREAT TOE - MUSCULOSKELETAL/RHEUMATOLOGICAL Hx Musculoskeletal Disorders: Yes Hx Back Pain: Yes Hx Falls: No Hx Osteomyelitis: Yes (left foot) - GENITOURINARY/GYNECOLOGICAL Hx Genitourinary Disorders: Yes Hx Prostate Problems: Yes (surgery 12-25-2002) Other/Comment: BPH - PSYCHIATRIC Hx Psychophysiologic Disorder: No Hx Substance Use: No - SURGICAL HISTORY Hx Surgeries: Yes Hx Angiogram: Yes Hx Angioplasty: Yes (LEFT ANTERIOR TIBIAL ARTERY) Other/Comment: Prostatectomy. HX: PICC LINE INSERTION - ANESTHESIA Hx Anesthesia: Yes Hx Anesthesia Reactions: No Hx Malignant Hyperthermia: No Has any member of the family had a problem w/ anesthesia?: No Meds Allergies/Adverse Reactions: Allergies Allergy/AdvReac Type Severity Reaction Status Date / Time No Known Allergies Allergy Verified 03/18/18 19:23 Physical Exam - Constitutional Appears: Non-toxic, No Acute Distress - Head Exam Head Exam: ATRAUMATIC, NORMOCEPHALIC - Eye Exam Eye Exam: Normal appearance - ENT Exam ENT Exam: Mucous Membranes Moist - Neck Exam Neck exam: Negative for: Lymphadenopathy - Respiratory Exam Respiratory Exam: Clear to Auscultation Bilateral, NORMAL BREATHING PATTERN. absent: Accessory Muscle Use, Rales, Rhonchi, Wheezes, Respiratory Distress - Cardiovascular Exam Cardiovascular Exam: REGULAR RHYTHM, +S1, +S2 - GI/Abdominal Exam GI & Abdominal Exam: Soft. absent: Distended, Firm, Guarding, Rigid, Tenderness - Extremities Exam Extremities exam: Negative for: calf tenderness, pedal edema Additional comments: left foot wrapped in surgical dressing. Prior pop-tib artery bypass scars on left leg with some sutures in place. - Neurological Exam Neurological exam: Alert, Oriented x3 - Psychiatric Exam Psychiatric exam: Normal Affect, Normal Mood - Skin Skin Exam: Dry, Warm Results - Vital Signs Recent Vital Signs: Last Vital Signs Temp 97.6 F 09/11/18 10:21 Pulse 67 09/11/18 13:00 Resp 13 09/11/18 13:00 BP 123/61 09/11/18 13:00 Pulse Ox 99 09/11/18 13:00 - Labs Labs: Laboratory Results - last 24 hr 09/11/18 08:13 POC Glucose (mg/dL) 112 H Assessment & Plan - Assessment and Plan (Free Text) Plan: Osteomyelitis with gangreneous changes s/p Left Hallux amputation on 09/11/18 - POD 0 Podiatry consulted, Dr. Hoyos * follow up recs Medications: * Clindamycin 300mg IVPB q6h (started on 09/11/18) * pain management per Podiatry * Oxycodone/acetaminophen 1 tab PO q4h prn * Oxycodone/acetaminophen 2 tab PO q4h prn * Acetaminophen 650mg PO q6h prn PVD - s/p Left LE pop-tib bypass Surgery performed on 08/16/[address] Ghotra * pt is scheduled to follow up with Dr. Ghotra in 2 weeks for removal of remaining sutures continue home medications: * Aspirin 81mg PO daily (start on 09/12/18) * Plavix 75mg PO daily (start on 09/12/18) Diabetes HgbA1c 7.6 (on 08/10/18) accuchecks ACHS hypoglycemic protocol continue home medications: * Metformin 500mg PO BID * Glimepiride 4mg PO daily * ISS - low * Patient takes Canagliflozin [Invokana] 300mg PO daily, which is non-formulary. Will hold at this time, ISS to cover. Hypertension continue home medications: * Lisinopril 10mg PO daily Hyperlipidemia continue home medications: * Crestor 5mg PO HS (pt on Atorvastatin 10mg PO HS at home) Prophylactic Care Lovenox 40mg SC daily Case discussed with Dr. Wayne Moore PGY2 <Les Black - Last Filed: 09/12/18 16:31> Results - Vital Signs Recent Vital Signs: Last Vital Signs Temp 98 F 09/12/18 08:38 Pulse 73 09/12/18 08:38 Resp 18 09/12/18 08:38 BP 125/74 09/12/18 08:38 Pulse Ox 97 09/12/18 08:38 - Labs Result Diagrams: 09/12/18 08:13 09/12/18 08:13 Labs: Laboratory Results - last 24 hr 09/11/18 09/11/18 09/12/18 16:25 21:42 07:16 WBC RBC Hgb Hct MCV MCH MCHC RDW Plt Count MPV Neut % (Auto) Lymph % (Auto) [place] % (Auto) Eos % (Auto) Baso % (Auto) Neut # (Auto) Lymph # (Auto) [place] # (Auto) Eos # (Auto) Baso # (Auto) Sodium Potassium Chloride Carbon Dioxide Anion Gap BUN Creatinine Est GFR ( Amer) Est GFR (Non-Af Amer) POC Glucose (mg/dL) 141 H 120 H 107 Random Glucose Calcium Total Bilirubin AST ALT Alkaline Phosphatase Total Protein Albumin Globulin Albumin/Globulin Ratio 09/12/18 09/12/18 08:13 08:13 WBC 8.2 RBC 3.91 L Hgb 10.1 L Hct 32.7 L MCV 83.6 MCH 25.9 L MCHC 31.0 L RDW 15.9 H Plt Count 352 MPV 7.4 Neut % (Auto) 68.2 Lymph % (Auto) 18.0 L [place] % (Auto) 12.6 H Eos % (Auto) 1.0 Baso % (Auto) 0.2 Neut # (Auto) 5.6 Lymph # (Auto) 1.5 [place] # (Auto) 1.0 H Eos # (Auto) 0.1 Baso # (Auto) 0.0 Sodium 135 Potassium 4.2 Chloride 101 Carbon Dioxide 27 Anion Gap 12 BUN 23 H Creatinine 0.9 Est GFR ( Amer) > 60 Est GFR (Non-Af Amer) > 60 POC Glucose (mg/dL) Random Glucose 104 D Calcium 8.6 Total Bilirubin 0.6 AST 22 ALT 15 L D Alkaline Phosphatase 103 Total Protein 7.5 Albumin 4.0 Globulin 3.6 Albumin/Globulin Ratio 1.1 Attending/Attestation - Attestation I have personally seen and examined this patient.: Yes I have fully participated in the care of the patient.: Yes I have reviewed all pertinent clinical information: Yes Notes (Text): Seen and examined with the resident patient is awake and oriented Patient was seen after toe s/p Left Hallux amputation Osteomyelitis with gangrenous changes PVD - s/p Left LE pop-tib bypass DM HTN PVD continue home meds. 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
[2018-09-11] MEDS ORDERED: Glucagon Recombinant 1 mg Inj IM PRN (13:51)
[2018-09-11] MEDS ORDERED: Dextrose 50% SYRINGE Inj (50 ml) IV PRN (13:51)
--- NOTE | 2018-09-11 14:40 | RAD ---
PROCEDURE: Left Foot Radiographs. Two views. HISTORY: s/p left foot surgery COMPARISON: Left foot radiographs performed 09/11/18 FINDINGS: BONES: Status post amputation of the 1st digit at the level of the 1st PIP. No acute displaced fracture. JOINTS: No dislocation. SOFT TISSUES: Soft tissue swelling. No evidence of radiopaque foreign body. OTHER FINDINGS: None. IMPRESSION: Status post amputation of the 1st digit at the level of the 1st PIP joint. Associated soft tissue swelling.
[2018-09-11] MEDS: Clindamycin 300 MG in Sodium Chloride 0.9% 50 ML IVPB SCH ×2 (19:27→21:59)
[2018-09-11] MEDS: (Novolin R) Insulin Human Regular 100 units/ml vial SC SCH ×2 (20:51→21:48)
[2018-09-12] MEDS: Clindamycin 300 MG in Sodium Chloride 0.9% 50 ML IVPB SCH ×2 (05:00→09:45)
[2018-09-12] MEDS: (Novolin R) Insulin Human Regular 100 units/ml vial SC SCH (07:30)
--- NOTE | 2018-09-12 07:30 | OP ---
PROCEDURE DATE: 09/11/2018 PREOPERATIVE DIAGNOSIS: Left hallux osteomyelitis with gangrenous changes. POSTOPERATIVE DIAGNOSIS: Left hallux osteomyelitis with gangrenous changes. PROCEDURE PERFORMED: Left hallux amputation with removal of all nonviable soft tissue and bones. INDICATION: The patient is a 68-year-old male with the above diagnosis. The patient is being treated by Dr. Barnard in his office as an outpatient where he has exhausted multiple forms of conservative treatment which includes debridements and antibiotic treatments. The patient seeks surgical intervention at this time. All optimal risks, benefits, and complications of proposed procedure have been explained to the patient at greater length. The patient verbalized the understanding of the procedure and wishes to proceed with the procedure. All questions were answered. No guarantees were given nor implied. Consent was signed and n.p.o. status was confirmed prior to bringing the patient to the operating room. OPERATIVE PROCEDURE: The patient was brought into the operating room and was placed on the operating room table in supine position. No tourniquet was applied to the patient's extremity during the course of this procedure. Once IV sedation was achieved, local injection of 20 mL of 1% lidocaine and 0.25% Marcaine plain were introduced via Vazquez block type fashion to the patient's left hallux. Once the local anesthesia was achieved, the foot was then prepped and draped in usual sterile manner and the procedure began. PROCEDURE #1: Left hallux amputation with removal of all nonviable soft tissue and bone. Attention was directed to the dorsal aspect of the left hallux where a circular tubular incision was created which extended at the proximal interphalangeal joint. Incision was deepened directly to the layer of the bone. At this time, the distal aspect of the hallux was disarticulated at the level of the interphalangeal joint. At this point, all of the nonviable soft tissue was debrided and removed from the surgical site and was passed off the operative field. Intraoperative cultures were taken at this time and was sent to Pathology. At this time, a Rongeur was utilized to stabilize the proximal phalanx, and once the proximal phalanx was stabilized, the proximal phalanx was disarticulated at the level of the metatarsophalangeal joint. The proximal phalanx was then at this time removed from the surgical field and was passed off the operative field and was sent to Pathology. At this time, using a #15 blade, the dorsal aspect of the surgical flap was debulked and all of the nonviable soft tissue were removed and was sent to Pathology as well. At this time, the surgical site was then irrigated with copious amounts of sterile saline. Once the copious saline was used to irrigate, the soft tissue was then reapproximated using a 4-0 Chromic gut suture and once subcutaneous tissue was then reapproximated, the surgical site was then reapproximated using 4-0 nylon suture. At that time, once closure of the surgical field was performed, the surgical site was then dressed with Xeroform, 4x4, Kerlix, and Jerson bandage. POSTOPERATIVE CONDITION: The patient tolerated the anesthesia and the procedure well, was escorted to the recovery room with vital signs stable and neurovascular status intact of the patient's left lower extremity. At this time, the patient will remain nonweightbearing to the left lower extremity using crutches. The patient will be transferred to the floor for observation for a day. Once the patient is discharged from the hospital, the patient will go home with continuous Plavix, and the patient will follow up with Dr. Barnard in his office within one week. Kevin Flores DPM Ignacio Barnard DPM
[2018-09-12 08:21] LABS: BASO % 0.2 % (0.0-2.0); EOS # 0.1 K/uL (0.0-0.7); HEMOGLOBIN 10.1 g/dL (12.0-18.0); LYMPH # 1.5 K/uL (1.0-4.3); MEAN CELL VOLUME 83.6 fL (80.0-94.0); MEAN CORPUSCULAR HEMOGLOBIN 25.9 pg (27.0-31.0); MEAN PLATELET VOLUME 7.4 fL (7.2-11.7); MONO % 12.6 % (0.0-10.0); NEUT # 5.6 K/uL (1.8-7.0); NEUT % 68.2 % (50.0-75.0); RBC 3.91 Mil/uL (4.40-5.90); RED CELL DISTRIBUTION WIDTH 15.9 % (11.5-14.5); WHITE BLOOD COUNT 8.2 K/uL (4.8-10.8)
[2018-09-12 08:39] VITALS: BP 125/74; PULSE 73; RESP 18; TEMP 98; O2SAT 97
--- NOTE | 2018-09-12 08:49 | CP.PCM.DIS ---
<Sofia Terry - Last Filed: 09/12/18 11:24> Provider - Provider Date of Admission: 09/11/18 10:34 Attending physician: Lupe Bella DO Primary care physician: Dr. Angel Bolaños Consults: 09/11/18 14:52 Podiatry Consult Routine Comment: Consulting Provider: Ignacio Hoyos Consulting Physician: Ignacio Hoyos Reason for Consult: s/p left hallux amp 09/11/18 20:27 Nursing Referral for Wound Care Routine Comment: Physician Instructions: Reason For Exam: s/p left hallux amputation Time Spent in preparation of Discharge (in minutes): 45 Diagnosis - Discharge Diagnosis (1) Osteomyelitis Status: Acute Priority: High (2) Amputated great toe of left foot Status: Acute Priority: High (3) PVD (peripheral vascular disease) Status: Chronic Priority: High (4) T2DM (type 2 diabetes mellitus) Status: Chronic Priority: Medium (5) HTN (hypertension) Status: Chronic Priority: Medium (6) HLD (hyperlipidemia) Status: Chronic Priority: Medium Hospital Course - Lab Results Lab Results: Micro Results 09/11/18 12:07 Toe Gram Stain - Final Most Recent Lab Values WBC 8.2 K/uL (4.8-10.8) 09/12/18 08:13 RBC 3.91 Mil/uL (4.40-5.90) L 09/12/18 08:13 Hgb 10.1 g/dL (12.0-18.0) L 09/12/18 08:13 Hct 32.7 % (35.0-51.0) L 09/12/18 08:13 MCV 83.6 fL (80.0-94.0) 09/12/18 08:13 MCH 25.9 pg (27.0-31.0) L 09/12/18 08:13 MCHC 31.0 g/dL (33.0-37.0) L 09/12/18 08:13 RDW 15.9 % (11.5-14.5) H 09/12/18 08:13 Plt Count 352 K/uL (130-400) 09/12/18 08:13 MPV 7.4 fL (7.2-11.7) 09/12/18 08:13 Neut % (Auto) 68.2 % (50.0-75.0) 09/12/18 08:13 Lymph % (Auto) 18.0 % (20.0-40.0) L 09/12/18 08:13 [place] % (Auto) 12.6 % (0.0-10.0) H 09/12/18 08:13 Eos % (Auto) 1.0 % (0.0-4.0) 09/12/18 08:13 Baso % (Auto) 0.2 % (0.0-2.0) 09/12/18 08:13 Neut # (Auto) 5.6 K/uL (1.8-7.0) 09/12/18 08:13 Lymph # (Auto) 1.5 K/uL (1.0-4.3) 09/12/18 08:13 [place] # (Auto) 1.0 K/uL (0.0-0.8) H 09/12/18 08:13 Eos # (Auto) 0.1 K/uL (0.0-0.7) 09/12/18 08:13 Baso # (Auto) 0.0 K/uL (0.0-0.2) 09/12/18 08:13 POC Glucose (mg/dL) 107 mg/dL (65-110) 09/12/18 07:16 - Hospital Course Hospital Course: Patient is a 68 year old male with a past medical history of hypertension, hyperlipidemia, diabetes, peripheral vascular disease and osteomyelitis is being admitted from same day surgery. Pre-op foot XR showed findings compatible with extensive osteomyelitis of the left great toe affecting the proximal and distal phalanges-apparent sparing of the 1st metatarsal head. Destruction of the 1st interphalangeal joint. He underwent left hallux amputation 09/11/18. Patient also under went a L popliteal-tib bypass with Dr. Ghotra on 08/16/18. Patient was monitored over night and seen post-op day 1. He had no complaints. Pain was well tolerated. Vitals were stable and wnl. Blood glucose monitored and controlled. Wound Cx prelim positive for GNR (light growth). Patient was cleared by podiatry to be discharged home and follow-up as an outpatient. Discharge Exam - Head Exam Head Exam: ATRAUMATIC, NORMOCEPHALIC - Eye Exam Eye Exam: EOMI, Normal appearance, PERRL - ENT Exam ENT Exam: Mucous Membranes Moist - Neck Exam Neck exam: Normal Inspection - Respiratory Exam Respiratory Exam: Clear to PA & Lateral, NORMAL BREATHING PATTERN, UNREMARKABLE - Cardiovascular Exam Cardiovascular Exam: RRR, +S1, +S2 - GI/Abdominal Exam GI & Abdominal Exam: Soft. absent: Tenderness - Extremities Exam Additional comments: L foot wrapped in cee s/p 1st digit amputation - Neurological Exam Neurological exam: Alert, Oriented x3 - Skin Skin Exam: Dry, Normal Color, Warm Discharge Plan - Follow Up Plan Condition: GOOD Disposition: HOME/ ROUTINE Patient education suggested?: Yes Additional Instructions: Follow-up with podiatry as instructed. Resume all home medications- take as instructed. You may take [id number] Tylenol for pain. Referrals: Jose Manuel Restrepo [Staff Provider] - Ignacio Hoyos, DPM [Doctor Podiatric Medicine] - Donis Ghotra Jr., MD [Staff Provider] - <Les Black - Last Filed: 09/12/18 16:27> Provider - Provider Date of Admission: 09/11/18 10:34 Attending physician: Les Black MD Consults: 09/11/18 14:52 Podiatry Consult Routine Comment: Consulting Provider: Ignacio Hoyos Consulting Physician: Ignacio Hoyos Reason for Consult: s/p left hallux amp 09/11/18 20:27 Nursing Referral for Wound Care Routine Comment: Physician Instructions: Reason For Exam: s/p left hallux amputation Hospital Course - Lab Results Lab Results: Micro Results 09/11/18 12:07 Toe Gram Stain - Final 09/11/18 12:07 Toe Wound Culture - Preliminary Gram Negative James Most Recent Lab Values WBC 8.2 K/uL (4.8-10.8) 09/12/18 08:13 RBC 3.91 Mil/uL (4.40-5.90) L 09/12/18 08:13 Hgb 10.1 g/dL (12.0-18.0) L 09/12/18 08:13 Hct 32.7 % (35.0-51.0) L 09/12/18 08:13 MCV 83.6 fL (80.0-94.0) 09/12/18 08:13 MCH 25.9 pg (27.0-31.0) L 09/12/18 08:13 MCHC 31.0 g/dL (33.0-37.0) L 09/12/18 08:13 RDW 15.9 % (11.5-14.5) H 09/12/18 08:13 Plt Count 352 K/uL (130-400) 09/12/18 08:13 MPV 7.4 fL (7.2-11.7) 09/12/18 08:13 Neut % (Auto) 68.2 % (50.0-75.0) 09/12/18 08:13 Lymph % (Auto) 18.0 % (20.0-40.0) L 09/12/18 08:13 [place] % (Auto) 12.6 % (0.0-10.0) H 09/12/18 08:13 Eos % (Auto) 1.0 % (0.0-4.0) 09/12/18 08:13 Baso % (Auto) 0.2 % (0.0-2.0) 09/12/18 08:13 Neut # (Auto) 5.6 K/uL (1.8-7.0) 09/12/18 08:13 Lymph # (Auto) 1.5 K/uL (1.0-4.3) 09/12/18 08:13 [place] # (Auto) 1.0 K/uL (0.0-0.8) H 09/12/18 08:13 Eos # (Auto) 0.1 K/uL (0.0-0.7) 09/12/18 08:13 Baso # (Auto) 0.0 K/uL (0.0-0.2) 09/12/18 08:13 Sodium 135 mmol/L (132-148) 09/12/18 08:13 Potassium 4.2 mmol/L (3.6-5.2) 09/12/18 08:13 Chloride 101 mmol/L (98-107) 09/12/18 08:13 Carbon Dioxide 27 mmol/L (22-30) 09/12/18 08:13 Anion Gap 12 (10-20) 09/12/18 08:13 BUN 23 mg/dL (9-20) H 09/12/18 08:13 Creatinine 0.9 mg/dL (0.8-1.5) 09/12/18 08:13 Est GFR ( Amer) > 60 09/12/18 08:13 Est GFR (Non-Af Amer) > 60 09/12/18 08:13 POC Glucose (mg/dL) 107 mg/dL (65-110) 09/12/18 07:16 Random Glucose 104 mg/dL (75-110) D 09/12/18 08:13 Calcium 8.6 mg/dl (8.6-10.4) 09/12/18 08:13 Total Bilirubin 0.6 mg/dL (0.2-1.3) 09/12/18 08:13 AST 22 U/L (17-59) 09/12/18 08:13 ALT 15 U/L (21-72) L D 09/12/18 08:13 Alkaline Phosphatase 103 U/L (38-126) 09/12/18 08:13 Total Protein 7.5 g/dL (6.3-8.3) 09/12/18 08:13 Albumin 4.0 g/dL (3.5-5.0) 09/12/18 08:13 Globulin 3.6 gm/dL (2.2-3.9) 09/12/18 08:13 Albumin/Globulin Ratio 1.1 (1.0-2.1) 09/12/18 08:13 Attending/Attestation - Attestation I have personally seen and examined this patient.: Yes I have fully participated in the care of the patient.: Yes I have reviewed all pertinent clinical information, including history, physical exam and plan: Yes Notes (Text): Seen and examined by me Patient is stable for discharge. asked to continue his home meds and follow up his primary care and the surgeon
[2018-09-12 09:41] LABS: ALB/GLOB RATIO 1.1 (1.0-2.1); ALT/SGPT 15 U/L (21-72); AST/SGOT 22 U/L (17-59); BLOOD UREA NITROGEN 23 mg/dL (9-20); CALCIUM 8.6 mg/dl (8.6-10.4); GFR NON-AFRICAN AMERICAN > 60
[2018-09-12] MEDS ORDERED: Enoxaparin 40 mg Syringe SC SCH (10:00)
== END 2018-09-12 09:45 | disposition home or self-care (01) ==
LOC: C.SDS 07:38 → C.9E 10:34 → C.3T 20:16
PROVIDERS: ADMIT Internal Medicine; ATTEND Internal Medicine
DX: E11.69 Type 2 diabetes mellitus with other specified complication (principal); M86.172 Other acute osteomyelitis, left ankle and foot; M86.672 Other chronic osteomyelitis, left ankle and foot; E11.52 Type 2 diabetes mellitus with diabetic peripheral angiopathy with gangrene; I96 Gangrene, not elsewhere classified; Z98.62 Peripheral vascular angioplasty status; I10 Essential (primary) hypertension; E78.5 Hyperlipidemia, unspecified; Z87.891 Personal history of nicotine dependence; Z87.438 Personal history of other diseases of male genital organs; Z90.79 Acquired absence of other genital organ(s); Z98.890 Other specified postprocedural states; Z79.82 Long term (current) use of aspirin; Z79.84 Long term (current) use of oral hypoglycemic drugs; Z79.899 Other long term (current) drug therapy
CPT/HCPCS: 28825; 36415; 73620; 80053; 82948; 85025; 87070; 88304; 88311; G0378; J0690; J2250; J2704; J3010

== ENCOUNTER 2018-10-10 11:50 | Outpatient (CLI) | payer OTHER | END 2018-10-10 11:51 | disposition home or self-care (01) | LOC: C.PAT 11:50 | DX: I73.9 Peripheral vascular disease, unspecified (principal) ==

== ENCOUNTER → 2018-10-13 | Day surgery (SDC) | payer OTHER ==
[2018-10-10 12:02] VITALS: BMI 25.7
[~2018-10-13] MED LIST: CANAGLIFLOZIN 300 MG PO SCH; Iodixanol 320 MG/ML 200 ML BOTTLE IV ONE; Lidocaine 2% MPF (5 ml) Inj ONE; Midazolam 2 MG/2 ML VIAL ONE
--- NOTE | 2018-10-13 16:01 | PCM.SURG1 ---
Surgeon's Initial Post Op Note - Surgeon's Notes Surgeon: jen Net Web Application Developer: 0 Type of Anesthesia: IV Sedation Anesthesia Administered By: parth Pre-Operative Diagnosis: ischemic ulcer right foot Operative Findings: severe tibial disease on right. open bypass on left to posterior tibial artery Post-Operative Diagnosis: same Operation Performed: aortofemoral angiogram via left groin. selective catherizaaion of right femoral artery. pathway atherectomy of right PT and AT with BA. perclose left groin Specimen/Specimens Removed: 0 Estimated Blood Loss: EBL {In ML}: 25 Blood Products Given: N/A Drains Used: No Drains Post-Op Condition: Good Date of Surgery/Procedure: 10/13/18 Time of Surgery/Procedure: 16:02
--- NOTE | 2018-10-14 13:47 | VAS ---
DATE: 10/13/2018 PREOPERATIVE DIAGNOSES: Ischemic ulcerative gangrene, metatarsal head, right foot. PROCEDURE CARRIED OUT: Aortofemoral angiogram via left groin with selective catheterization of right femoral artery, pathway arthrectomy of the right anterior tibial and posterior tibial artery and balloon angioplasty using a 2 mm balloon of the same vessels. SURGEON: Donis Ghotra Jr., MD BED SETTER: None. ANESTHESIOLOGIST: Mandeep Jaramillo CRNA INDICATIONS: The patient is a 68-year-old man who previously had intervention of his left leg, initially endovascular and then subsequently bypass popliteal to posterior tibial. He presents now with a new ischemic ulcer on his right foot. OPERATIVE FINDINGS: The aorta and renal arteries were free of significant occlusive disease. The iliac arteries, common iliac arteries, internal iliac arteries, external iliac arteries, common femoral arteries, superficial femoral arteries and profunda femoris arteries widely patent. Both superficial femoral arteries were patent down to the level of trifurcation. On the left side, the trifurcation was occluded and there was a bypass graft originating below knee popliteal artery extending to the posterior tibial artery just above the ankle which continued into the pedal arch. On the right side, there was a complete occlusion. There was severe trifurcation disease with the anterior tibial and posterior tibial being severely diseased throughout its course and the peroneal artery being occluded distally with no reconstitution. The major vessel of the foot were the anterior tibial and posterior tibial arteries. Subsequent to the performance of the diagnostic arteriogram, a stiff-angled guidewire was advanced over the aortic bifurcation, and a 7-Romanian sheath positioned in the distal portion of the superficial femoral artery. The lesions were then crossed. The pathway arthrectomy device was then brought down as far as we could go on the vessels as long as it could be brought and then, these were ballooned with 2 mm balloons both the anterior tibial and posterior tibial arteries. Final cosmetic result was excellent in both cases, although there were mild imperfections in both vessels. This was then withdrawn. Final pictures were taken which were adequate and then the Perclose device was deployed in the groin. Blood loss for the procedure was 25 mL. Operation carried out aortofemoral angiogram with selective catheterization of right femoral artery, pathway arthrectomy and balloon angioplasty of the anterior tibial and posterior tibial arteries. At the end of the procedure, the patient had a palpable posterior tibial pulse in the right foot. Donis Ghotra Jr., MD cc: Ignacio Barnard DPM [id number]
== END | disposition home or self-care (01) ==
LOC: C.SPRAD 09:50
PROVIDERS: ATTEND Surgery Vascular Surgery
DX: I70.234 Atherosclerosis of native arteries of right leg with ulceration of heel and midfoot (principal); L97.519 Non-pressure chronic ulcer of other part of right foot with unspecified severity; I70.302 Unspecified atherosclerosis of unspecified type of bypass graft(s) of the extremities, left leg; I10 Essential (primary) hypertension; E11.40 Type 2 diabetes mellitus with diabetic neuropathy, unspecified
CPT/HCPCS: 36247; 37230; 75625; 75716; 75774; 76937; 82948; C1724; C1725; C1760; C1766; C1769; C1887; C1894; J1644; J2250; J3010; Q9966